=== PATIENT | male | born 1935 | race Caucasian/White ===

== ENCOUNTER → 2019-03-17 09:18 | Outpatient (BNVA) | payer MEDICARE, BC, SELFPAY | PROVIDERS: Family Provider Registered Nurse; PCP Registered Nurse | DX: I77.9 Disorder of arteries and arterioles, unspecified (principal) | CPT/HCPCS: 85610 ==

== ENCOUNTER → 2019-04-26 08:18 | Outpatient (BNVA) | payer MEDICARE, BC, SELFPAY | PROVIDERS: Family Provider Registered Nurse; PCP Registered Nurse; Visit Provider Registered Nurse | DX: I48.20 Chronic atrial fibrillation, unspecified (principal) | CPT/HCPCS: 85610 ==

== ENCOUNTER → 2019-07-25 13:11 | Outpatient (BNVA) | payer MEDICARE, BC, SELFPAY | PROVIDERS: Family Provider Registered Nurse; PCP Registered Nurse; Visit Provider Registered Nurse | DX: I48.20 Chronic atrial fibrillation, unspecified (principal) | CPT/HCPCS: 85610 ==

== ENCOUNTER → 2019-08-24 09:30 | Outpatient (BNVA) | payer MEDICARE, BC, SELFPAY | PROVIDERS: Family Provider Registered Nurse; PCP Registered Nurse; Visit Provider Registered Nurse | DX: J30.1 Allergic rhinitis due to pollen (principal); I48.20 Chronic atrial fibrillation, unspecified | CPT/HCPCS: 85610 ==

== ENCOUNTER 2019-09-14 10:45 | Outpatient (CLI) | payer MEDICARE, BC, SELFPAY ==
--- NOTE | 2019-09-14 15:30 | CT_ITS ---
WS: [id number] CT ABDOMEN PELVIS TECHNIQUE: Noncontrast CT of the abdomen and pelvis with coronal and sagittal reformatted images. CLINICAL INFORMATION: abdominal pain COMPARISON: CT 6 21,012 DLP: 1037.[address] scans at [facility] use at least one of these dose optimization techniques: automat ed exposure control; mA and/or kV adjustment per patient size (includes targeted exams where dose is matched to clinical indication); or iterative reconstruction. FINDINGS: Noncontrast liver is normal. Prior cholecystectomy. Small to moderate right pleural effusion. Michelle sive atelectasis right lung base. Left lung is well aerated. Recommend correlation for right lower lo be pneumonia. Normal GE junction. Adrenal glands are normal. Aortic calcification. Splenic artery calcification. No rmal caliber abdominal aorta. Iliac stent grafts. No renal or ureteral calculi. Calcified enlarged prostate measuring 5.1 CM. Sigmoid diverticulosis. N o evidence of acute diverticulitis. No evidence of small or large bowel obstruction. Surgical clips r ight groin. CT/CT abdomen pelvis wo con [id number] IMPRESSION: 1. Small to moderate right pleural effusion with compressive atelectasis right lower lobe partially visualized. Recommend correlation for pneumonia. This can be followed up with CT. 2. Dense vascular calcification. Normal caliber abdominal aorta. Bilateral mehran ac stents. 3. Enlarged prostate measuring 5.1 cm. Correlation PSA. 4. No evidence of small or large bowel obstruction. 5. Sigmoid diverticulosis. No evidence of acute diverticulitis. 6. No hydronephrosis. No obstructing renal or ureteral calculi.
== END 2019-09-14 10:46 | disposition home or self-care (01) ==
LOC: RADWPI 10:51
PROVIDERS: Family Provider Registered Nurse; PCP Registered Nurse; Visit Provider Registered Nurse
DX: R10.9 Unspecified abdominal pain (principal); J90 Pleural effusion, not elsewhere classified; J98.11 Atelectasis; N40.0 Benign prostatic hyperplasia without lower urinary tract symptoms; K57.30 Diverticulosis of large intestine without perforation or abscess without bleeding
CPT/HCPCS: 74176; 80053; 81000; 85025; 85610

== ENCOUNTER 2019-09-22 04:09 | Inpatient (IN) | payer MEDICARE, BC, SELFPAY ==
[2019-09-22] VITALS (16 sets, daily range): BP systolic 129–174; BP diastolic 50–68; PULSE 56–79; RESP 16–20; TEMP 36.7–37.8; O2SAT 91–99; BMI 28.8
--- NOTE | 2019-09-22 04:18 | XRR_ITS ---
PROCEDURE INFORMATION: Exam: XR Chest, 1 View Exam date and time: 09/22/2019 4:31 AM Age: 84 years old Clinical indication: Type not specified; Prior surgery; Surgery date: 6+ months; Surgery type: Pacemaker; Patient HX: C/O chest pain, cough, abd pain, nausea TECHNIQUE: Imaging protocol: XR of the chest Views: 1 view. COMPARISON: CT chest con [id number] 07/22/2018 12:39 PM FINDINGS: Lungs: moderate to large right pleural effusion with right basilar consolidation versus atelectasis. Pleural space: Unremarkable. No pleural effusion. No pneumothorax. Heart/Mediastinum: Cardiomegaly Vasculature: Pacemaker is present via a left subclavian approach. Bones/joints: Unremarkable. XR/XR chest 1V portable [id number] IMPRESSION: Moderate to large right pleural effusion with right basilar consolidation versus atelectasis.
--- NOTE | 2019-09-22 04:18 | CTR_ITS ---
PROCEDURE INFORMATION: Exam: CT Angiography Chest With Contrast Exam date and time: 09/22/2019 4:30 AM Age: 84 years old Clinical indication: Abdominal pain; Acute; Chest pain; Type not specified; Prior surgery; Surgery date: 6+ months; Surgery type: Gb/pacer; Additional info: Sob/abdominal pain TECHNIQUE: Imaging protocol: Computed tomographic angiography of the chest with intravenous contrast. 3D rendering: MIP and/or 3D reconstructed images were created by the technologist. Radiation optimization: All CT scans at this facility use at least one of these dose optimization techniques: automated exposure control; mA and/or kV adjustment per patient size (includes targeted exams where dose is matched to clinical indication); or iterative reconstruction. Contrast material: VISI 320; Contrast volume: 95 ml; Contrast route: INTRAVENOUS (IV); COMPARISON: CT abdomen pelvis wo con [id number] 09/14/2019 11:06 AM RADIATION DOSE METRICS: Total DLP (mGy-cm): 1682.41 FINDINGS: Pulmonary arteries: No pulmonary emboli identified. Aorta: Moderate atherosclerotic calcification of the thoracic aorta. No thoracic aortic aneurysm or dissection identified. Lungs: Patchy airspace consolidation in the right lung apex, right perihilar region, periphery of the right middle lobe, and periphery of the right lower lobe. This is consistent with pneumonia. The majority of the right lower lobe is collapsed. Mild patchy atelectasis scattered throughout the left upper lobe and left lower lobe. There is a cluster of tiny (0.4 cm range) nodular opacities in the left upper lobe laterally on series 3, image 201. There is a 0.6 cm nodule in the left upper lobe posteriorly on series 3, image 295. There is a 0.4 cm nodule in the left lower lobe posterolaterally on series 3, image 204. Differential diagnosis includes infectious/inflammatory nodules. Neoplasm is conceivable. Pleural space: No pneumothorax. Large right pleural effusion with loculation. Heart: Heart size within normal limits. Lymph nodes: Mediastinal lymphadenopathy is present. Sample enlarged lymph node measures 1.3 cm in the right paratracheal region on series 3, image 169. Sample enlarged left paratracheal lymph node measures 1.3 cm short axis on series 3, image 197. Sample enlarged subcarinal lymph node measures 1.6 cm short axis on series 3, image 237. Enlarged right hilar lymph node measures 1.8 cm short axis on series 3, image 239. Bones/joints: Flowing ossification anterior to the thoracic spine, consistent with diffuse idiopathic skeletal hyperostosis. Soft tissues: Unremarkable. IMPRESSION: 1. No pulmonary emboli identified. 2. Multifocal pneumonia in the right upper lobe and right lower lobe. 3. The majority of the right lower lobe is collapsed. 4. Large right pleural effusion with loculation. 5. Several left upper lobe and left lower lobe nodules as above. Differential diagnosis includes infectious/inflammatory nodules. Neoplasm is conceivable. See comment. COMMENT: For patients at low risk (minimal or absent history of smoking and of other known risk factors), no routine follow-up is indicated. For patients at high risk (history of smoking or of other known risk factors), consider optional CT at 12 months. (Babak et al., Fleischner Society, 2017) PROCEDURE INFORMATION: Exam: CT Abdomen And Pelvis With Contrast Exam date and time: 09/22/2019 4:30 AM Age: 84 years old Clinical indication: Abdominal pain; Acute; Chest pain; Type not specified; Prior surgery; Surgery date: 6+ months; Surgery type: Gb/pacer; Additional info: Sob/abdominal pain TECHNIQUE: Imaging protocol: Computed tomography of the abdomen and pelvis with intravenous contrast. Radiation optimization: All CT scans at this facility use at least one of these dose optimization techniques: automated exposure control; mA and/or kV adjustment per patient size (includes targeted exams where dose is matched to clinical indication); or iterative reconstruction. Contrast material: VISI 320; Contrast volume: 95 ml; Contrast route: INTRAVENOUS (IV); COMPARISON: CT abdomen pelvis con [id number] 09/14/2019 11:06 AM RADIATION DOSE METRICS: Total DLP (mGy-cm): 1682.41 FINDINGS: Liver: Unremarkable. Gallbladder and bile ducts: Status post cholecystectomy. Pancreas: Unremarkable. Spleen: Unremarkable. Adrenals: Unremarkable. Kidneys and ureters: There are a few subcentimeter hypodense lesions in each kidney, too small for full characterization, statistically likely to represent cysts. There is a 1.4 cm cyst in the left kidney lower pole. No imaging follow-up suggested for these findings. Stomach and bowel: No bowel obstruction identified. Diverticulosis of the sigmoid colon without evidence of diverticulitis. Appendix: A normal-appearing appendix is seen in the right lower quadrant. Intraperitoneal space: No free intraperitoneal air identified. No free intraperitoneal fluid identified. Vasculature: Extensive atherosclerotic aortoiliac calcification. No abdominal aortic aneurysm. Bilateral common iliac artery stents noted. Lymph nodes: Unremarkable. Bladder: Unremarkable as visualized. Reproductive: Unremarkable as visualized. 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 Soft tissues: Unremarkable. CT/CT angio chest w abd pel w con IMPRESSION: 1. No acute intra-abdominal/intrapelvic process identified. Nonemergent findings as above. Radiation Dose CTDIVOL = (mGy): DLP = 1682.41~1682.41 (mGy-cm)
--- NOTE | 2019-09-22 04:19 | ECG_ITS ---
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 Measurements Intervals [place] Rate: 67 P: 90 WV: 172 QRS: -88 QRSD: 172 T: 89 QT: 448 QTc: 474 Interpretive Statements ELECTRONIC VENTRICULAR PACEMAKER ABNORMAL RHYTHM ECG Compared to ECG 06/20/2018 21:36:28 No significant changes Electronically Signed On 09-22-2019 23:32:44 CDT by Llois Contreras M.D. [email or web address]
--- NOTE | 2019-09-22 04:20 | W.ED.ABDPA2 ---
Documented by User: Pallavi Hoang 09/22/19 04:21 HPI - Abdominal Pain General: Chief Complaint: Abdominal Pain Stated Complaint: abd pain/ nausea Time Seen by Provider: 09/22/19 04:17 Source: patient and EMS Mode of arrival: EMS Limitations: no limitations History of Present Illness: HPI narrative: Mr. Mendez is a nice 84-year-old male who comes in complaining of intermittent abdominal pain and nausea for the past 10 days. He describes the pain is mostly in the upper abdomen. He has been nauseated but has not vomited. He denies any diarrhea or constipation. He denies any fevers or chills. He was recently seen in his primary care's office for the same complaint was diagnosed with pneumonia. Patient states he is not coughing or short of breath. Patient denies any urinary symptoms, diarrhea or constipation. Associated Symptoms: Reports nausea; Denies chills, coffee ground emesis, constipation, GI cramping, diarrhea, dysuria, fever(s), heartburn, hematochezia, hematuria, hematemesis, melena, syncope and vomiting Review of Systems Const: Denies: fever(s), chills, body aches, fatigue, malaise or diaphoresis Eyes: Denies: change in vision, blurry vision, blind spots, photophobia, eye discharge or eye redness ENMT: Denies: throat pain, odynophagia, hoarseness, swelling of lips/tongue, oral sores, ear or mastoid pain, ear discharge, change in hearing or nasal discharge Card: Denies: chest pain, palpitations, irregular heart rhythm, edema, lightheadedness, syncope, pre-syncope, dyspnea on exertion or orthopnea Resp: Denies: dyspnea, productive cough, non-productive cough, wheezing, hemoptysis or chest congestion GI: Reports: abdominal pain and nausea; Denies: vomiting, hematemesis, coffee ground emesis, heartburn, diarrhea, constipation, GI cramping, hematochezia or melena : Denies: flank pain, dysuria, urinary frequency, urinary urgency or hematuria Musc: Denies: neck pain, back pain, extremity pain, extremity swelling, joint pain, joint swelling, joint redness, joint warmth or joint stiffness Skin/Breast: Denies: rash, pruritus, erythema, skin tenderness or jaundice Neuro: Denies: headache(s), numbness in extremities, weakness in extremities, sensory changes, lack of coordination, difficulty walking, dizziness, vertigo, confusion, Slurred speech present or seizure-like activity Jackson/Lymph: Denies: easy bruising, easy bleeding, petechiae, purpura or enlarged lymph nodes All/Imm: Denies: urticaria, throat swelling, tongue swelling, facial swelling or acute wheezing PFSH ED PFSH: Medical History (Updated 09/22/19 @ 11:34 by Marlene Floyd DO) CAD (coronary artery disease) Carotid stenosis Chronic atrial fibrillation Chronic kidney disease (CKD) COPD (chronic obstructive pulmonary disease) Diabetes mellitus Dyslipidemia Essential hypertension Peripheral arterial disease With a history of peripheral stenting Sick sinus syndrome Warfarin anticoagulation Surgical History (Updated 09/22/19 @ 11:34 by Marlene Floyd DO) H/O cataract extraction BILATERAL H/O shoulder surgery LEFT History of endarterectomy FEMORAL Hx of cholecystectomy Status post biventricular pacemaker Family History Mother Dementia Stroke Father Stroke Other Diabetes Hypertension Social History Smoking and tobacco status: former smoker Alcohol intake: never Lives independently: Yes Household members: none Marital status: / Current occupational status: retired Current gender identity: Male Physical Exam Const: COMMON NORMALS: no acute distress, patient oriented x3, no limitations, healthy appearing and well nourished GENERAL APPEARANCE: cooperative, well kempt and well developed HENMT: COMMON NORMALS: normocephalic, atraumatic, external ears normal, EAC's normal and Normal external nose present HEAD & SCALP: normal to inspection, normocephalic and atraumatic FACE & SINUS: normal facial exam and face symmetric NOSE: Normal external nose present and Normal nares present EXTERNAL EAR: Yes external ears normal EXTERNAL AUDITORY CANAL: EAC's normal MOUTH: Normal oral and palatal mucosa present, lip normal and tongue normal Eye: COMMON NORMALS: Equal, round and reactive pupils present and conjunctivae normal GENERAL EYE: appearance normal, both eyes and all related structures ALIGNMENT: Yes alignment normal PERIORBITAL: periorbital findings normal EYELID: eyelids normal CONJUNCTIVA: Yes conjunctivae normal SCLERA: sclerae normal PUPIL: Yes Equal, round and reactive pupils present Neck/C-Spine: COMMON NORMALS: full ROM, no lymphadenopathy, supple, no meningeal signs and no JVD GENERAL: Yes normal visual inspection and Yes trachea midline Chest: COMMONS NORMALS: normal inspection of the chest and normal palpation of entire chest wall Resp: COMMON NORMALS: normal respiratory effort, No retractions and No use of accessory muscles EFFORT & INSPECTION: Yes able to speak in complete sentences and Yes symmetric chest movement AUSCULTATION: no crackles, no rales, no rhonchi and no wheezes Cardio: COMMON NORMALS: no JVD, regular rate, regular rhythm, S1 normal heart sound present and S2 normal heart sound present RATE: regular rate RHYTHM: regular rhythm HEART SOUNDS: S1 normal heart sound present, S2 normal heart sound present, no click, no gallops, no murmurs, no rubs and abnormal split S2 GI: COMMON NORMALS: Soft to palpation and No hepatosplenomegaly present PALPATION: Yes Soft to palpation, Yes Tenderness to palpation present (GI) (Moderate diffusely without any rebound or guarding), No Guarding due to palpation present (GI), No Rigid due to palpation, Yes No hepatosplenomegaly present, No Hernia present, No Palpable mass present and No Pulsatile mass present : COMMON NORMALS: Yes no CVA tenderness BLADDER/KIDNEY EXAM: Yes no CVA tenderness Back/Pelvis: COMMON NORMALS: no CVA tenderness, thoracic and lumbar spine normal to inspection, no thoracic nor lumbar tenderness and thoraco-lumbar ROM normal Extremity: COMMON NORMALS: normal to inspection, full ROM, capillary refill normal, no joint enlargement, no clubbing, cyanosis or edema and no calf tenderness Neuro: COMMON NORMALS: patient oriented x3, CN's II-XII intact bilaterally, moves all extremities, no focal motor deficits and no sensory deficits noted MENINGEAL SIGNS: Yes no meningeal signs SPEECH: speech normal Psych: COMMON NORMALS: mental status grossly normal, Normal thought process present, cooperative, normal affect, speech normal and activity/motor behavior normal APPEARANCE: Yes well kempt SPEECH: Yes normal speech THOUGHT PROCESS: Normal thought process present Skin: COMMON NORMALS: no rashes or lesions noted, turgor normal, no jaundice, no petechiae and no mottling GENERAL SKIN EXAM: no rashes or lesions noted and turgor normal Course Vital Signs: Vital signs: Vital Signs Temperature 98.7 F 09/22/19 16:00 Pulse Rate 60 09/22/19 16:00 Respiratory Rate 18 09/22/19 16:00 Blood Pressure 130/65 09/22/19 16:00 Pulse Oximetry 93 09/22/19 16:00 MDM - Abdominal Pain Lab Data: Labs: Lab Results 09/22/19 09/22/19 09/22/19 Range/Units 03:33 03:33 03:33 WBC 12.4 H (4.0-10.0) 10^3/ uL RBC 4.18 (4.1-5.3) 10^6/u L Hgb 11.9 (11.7-16.6) g/dL Hct 38.6 L (42.0-52.0) % MCV 92.3 (80-94) fL MCH 28.5 (28.0-34.0) pg MCHC 30.8 (30.0-36.0) g/dL RDW 15.8 H (12.1-15.1) % Plt Count 426 H (130-400) 10^3/c mm MPV 10.3 (7.4-10.4) fL Neut % (Auto) 76.5 % Lymph % (Auto) 9.6 % [place] % (Auto) 11.5 % Eos % (Auto) 1.1 % Baso % (Auto) 0.6 % Neut # (Auto) 9.51 H (1.8-7.7) 10^3/u L Lymph # (Auto) 1.2 (0.8-4.8) 10^3/u L [place] # (Auto) 1.4 H (0.2-0.9) 10^3/u L Eos # (Auto) 0.1 (0.0-0.8) 10^3/u L Baso # (Auto) 0.1 (0.0-0.1) 10^3/u L Nucleated RBC % (a uto) 0 % Nucleated RBCs # 0.0 /100WBC PT (10.5-13.3) SECO NDS INR (0.8-1.2) Specimen Type Sample Site ABG pH (7.35-7.45) ABG pCO2 (35-45) mmHg ABG pO2 (80.0-100.0) mmH g ABG HCO3 (22-26) mmol/L ABG Base Excess (-2.0-2.0) mmol/ L Jair Test Hematocrit (42-52) % O2 Delivery Device Senior Field Engineer ID Sodium 134 L (136-145) mmol/L Potassium 4.5 (3.5-5.1) mmol/L Chloride 97 L (98-107) mmol/L Carbon Dioxide 26 (22-29) mmol/L Anion Gap 15.5 (5-19) BUN 18 (8-23) mg/dL Creatinine 1.5 H (0.7-1.2) mg/dL Glucose 157 H (65-115) mg/dL Calculated Osmolal ity 278 L (285-295) mOsm/k g Lactic Acid (0.5-2.2) mmol/L Calcium 8.6 (8.5-10.5) mg/dL Magnesium 1.8 (1.7-2.3) mg/dL Total Bilirubin 0.4 (0.15-1.2) mg/dL AST 22 (0-40) U/L ALT 15 (0-41) U/L Alkaline Phosphata se 73 (40-130) IU/L Troponin T Baselin e 20 H (0-15) ng/L Troponin T 120 Min [place] (0-15) ng/L Delta Troponin T (0-10) ABS# Total Protein 7.0 (6.6-8.7) g/dL Albumin 3.6 (3.5-5.2) g/dL Globulin 3.4 (1.3-4.6) g/dL Lipase 50 (13-60) U/L Urine Color (Yellow) Urine Appearance (CLEAR) Urine pH (5-7) Ur Specific Gravit y (1.005-1.030) Urine Protein (Negative) Urine Glucose (UA) (Normal) Urine Ketones (Negative) Urine Blood (Negative) Urine Nitrate (Negative) Urine Bilirubin (NEGATIVE) Prot Sulfosalicyli c Acd (Negative) Urine Urobilinogen (Negative) mg/dL Ur Leukocyte Justine ase (Negative) Urine RBC (0-2) /hpf Urine WBC (0-5) /hpf Ur Squamous Epith Cells (0-5) Urine Bacteria (NONE) 07/17/20 07/17/20 07/17/20 Range/Units 03:33 04:26 04:30 WBC (4.0-10.0) 10^3/ uL RBC (4.1-5.3) 10^6/u L Hgb (11.7-16.6) g/dL Hct (42.0-52.0) % MCV (80-94) fL MCH (28.0-34.0) pg MCHC (30.0-36.0) g/dL RDW (12.1-15.1) % Plt Count (130-400) 10^3/c mm MPV (7.4-10.4) fL Neut % (Auto) % Lymph % (Auto) % [place] % (Auto) % Eos % (Auto) % Baso % (Auto) % Neut # (Auto) (1.8-7.7) 10^3/u L Lymph # (Auto) (0.8-4.8) 10^3/u L [place] # (Auto) (0.2-0.9) 10^3/u L Eos # (Auto) (0.0-0.8) 10^3/u L Baso # (Auto) (0.0-0.1) 10^3/u L Nucleated RBC % (a uto) % Nucleated RBCs # /100WBC PT 34.80 H (10.5-13.3) SECO NDS INR 3.30 H (0.8-1.2) Specimen Type Arterial Sample Site Brachial, right ABG pH 7.42 (7.35-7.45) ABG pCO2 41.5 (35-45) mmHg ABG pO2 60.1 L (80.0-100.0) mmH g ABG HCO3 26.6 H (22-26) mmol/L ABG Base Excess 1.8 (-2.0-2.0) mmol/ L Jair Test N/a Hematocrit 37.9 L (42-52) % O2 Delivery Device Room air Senior Field Engineer ID harkr Sodium (136-145) mmol/L Potassium (3.5-5.1) mmol/L Chloride (98-107) mmol/L Carbon Dioxide (22-29) mmol/L Anion Gap (5-19) BUN (8-23) mg/dL Creatinine (0.7-1.2) mg/dL Glucose (65-115) mg/dL Calculated Osmolal ity (285-295) mOsm/k g Lactic Acid 0.9 (0.5-2.2) mmol/L Calcium (8.5-10.5) mg/dL Magnesium (1.7-2.3) mg/dL Total Bilirubin (0.15-1.2) mg/dL AST (0-40) U/L ALT (0-41) U/L Alkaline Phosphata se (40-130) IU/L Troponin T Baselin e (0-15) ng/L Troponin T 120 Min [place] (0-15) ng/L Delta Troponin T (0-10) ABS# Total Protein (6.6-8.7) g/dL Albumin (3.5-5.2) g/dL Globulin (1.3-4.6) g/dL Lipase (13-60) U/L Urine Color (Yellow) Urine Appearance (CLEAR) Urine pH (5-7) Ur Specific Gravit y (1.005-1.030) Urine Protein (Negative) Urine Glucose (UA) (Normal) Urine Ketones (Negative) Urine Blood (Negative) Urine Nitrate (Negative) Urine Bilirubin (NEGATIVE) Prot Sulfosalicyli c Acd (Negative) Urine Urobilinogen (Negative) mg/dL Ur Leukocyte Justine ase (Negative) Urine RBC (0-2) /hpf Urine WBC (0-5) /hpf Ur Squamous Epith Cells (0-5) Urine Bacteria (NONE) 09/22/19 09/22/19 Range/Units 04:30 06:54 WBC (4.0-10.0) 10^3/ uL RBC (4.1-5.3) 10^6/u L Hgb (11.7-16.6) g/dL Hct (42.0-52.0) % MCV (80-94) fL MCH (28.0-34.0) pg MCHC (30.0-36.0) g/dL RDW (12.1-15.1) % Plt Count (130-400) 10^3/c mm MPV (7.4-10.4) fL Neut % (Auto) % Lymph % (Auto) % [place] % (Auto) % Eos % (Auto) % Baso % (Auto) % Neut # (Auto) (1.8-7.7) 10^3/u L Lymph # (Auto) (0.8-4.8) 10^3/u L [place] # (Auto) (0.2-0.9) 10^3/u L Eos # (Auto) (0.0-0.8) 10^3/u L Baso # (Auto) (0.0-0.1) 10^3/u L Nucleated RBC % (a uto) % Nucleated RBCs # /100WBC PT (10.5-13.3) SECO NDS INR (0.8-1.2) Specimen Type Sample Site ABG pH (7.35-7.45) ABG pCO2 (35-45) mmHg ABG pO2 (80.0-100.0) mmH g ABG HCO3 (22-26) mmol/L ABG Base Excess (-2.0-2.0) mmol/ L Jair Test Hematocrit (42-52) % O2 Delivery Device Senior Field Engineer ID Sodium (136-145) mmol/L Potassium (3.5-5.1) mmol/L Chloride (98-107) mmol/L Carbon Dioxide (22-29) mmol/L Anion Gap (5-19) BUN (8-23) mg/dL Creatinine (0.7-1.2) mg/dL Glucose (65-115) mg/dL Calculated Osmolal ity (285-295) mOsm/k g Lactic Acid (0.5-2.2) mmol/L Calcium (8.5-10.5) mg/dL Magnesium (1.7-2.3) mg/dL Total Bilirubin (0.15-1.2) mg/dL AST (0-40) U/L ALT (0-41) U/L Alkaline Phosphata se (40-130) IU/L Troponin T Baselin e (0-15) ng/L Troponin T 120 Min [place] 18.49 H (0-15) ng/L Delta Troponin T -1.51 L (0-10) ABS# Total Protein (6.6-8.7) g/dL Albumin (3.5-5.2) g/dL Globulin (1.3-4.6) g/dL Lipase (13-60) U/L Urine Color Yellow (Yellow) Urine Appearance Clear (CLEAR) Urine pH 9 H (5-7) Ur Specific Gravit y 1.020 (1.005-1.030) Urine Protein Neg (Negative) Urine Glucose (UA) Norm (Normal) Urine Ketones Negative (Negative) Urine Blood Neg (Negative) Urine Nitrate Negative (Negative) Urine Bilirubin Neg (NEGATIVE) Prot Sulfosalicyli c Acd Negative (Negative) Urine Urobilinogen Norm (Negative) mg/dL Ur Leukocyte Justine ase Negative (Negative) Urine RBC 0-4 H (0-2) /hpf Urine WBC Rare (0-5) /hpf Ur Squamous Epith Cells Rare (0-5) Urine Bacteria Trace (NONE) Discharge Plan Discharge Patient Disposition: Admitted As Inpatient Admit Provider: Marlene Floyd Clinical Impression: Pleural effusion, COVID-19 virus test result unknown Pneumonia Qualifiers: Pneumonia type: due to unspecified organism Laterality: right Lung location: unspecified part of lung Qualified Code(s): J18.9 - Pneumonia, unspecified organism Condition: Stable Referrals: Lazaro Ogden FNP [Primary Care Provider] - Discharge Date/Time: 09/22/19 10:57 Coding Level of Care Code ED Manager Baby for Chg Fwd Exam Comprehensive Documented by User: Nicole Lema MD 09/22/19 20:39 HPI - Abdominal Pain General: Chief Complaint: Abdominal Pain Stated Complaint: abd pain/ nausea Time Seen by Provider: 09/22/19 04:17 PFS ED PFSH: Medical History (Updated 09/22/19 @ 11:34 by Marlene Floyd DO) CAD (coronary artery disease) Carotid stenosis Chronic atrial fibrillation Chronic kidney disease (CKD) COPD (chronic obstructive pulmonary disease) Diabetes mellitus Dyslipidemia Essential hypertension Peripheral arterial disease With a history of peripheral stenting Sick sinus syndrome Warfarin anticoagulation Surgical History (Updated 09/22/19 @ 11:34 by Marlene Floyd DO) H/O cataract extraction BILATERAL H/O shoulder surgery LEFT History of endarterectomy FEMORAL Hx of cholecystectomy Status post biventricular pacemaker Family History Mother Dementia Stroke Father Stroke Other Diabetes Hypertension Social History Smoking and tobacco status: former smoker Alcohol intake: never Lives independently: Yes Household members: none Marital status: / Current occupational status: retired Current gender identity: Male Course ED course: I assumed care of this patient at shift change from Dr. Pond. He is resting comfortably but says he continues to not feel well. His temp was 100 and I ordered some Tylenol for that. He has not had any vomiting since I assumed his care. He has a large right pleural effusion and multilobar pneumonia in the right lung. The left lung has a few nodules. He says he has not been going out anywhere and does not know of any covert exposures. He has not been tested. He was treated with 5 days of Zithromax and finish that up toward the beginning of this week he thinks. I had blood cultures as well as Rocephin and Zithromax ordered. He will be admitted to the hospital for further work-up. Vital Signs: Vital signs: Vital Signs Temperature 98.7 F 09/22/19 16:00 Pulse Rate 60 09/22/19 16:00 Respiratory Rate 18 09/22/19 16:00 Blood Pressure 130/65 09/22/19 16:00 Pulse Oximetry 93 09/22/19 16:00 MDM - Abdominal Pain Lab Data: Labs: Lab Results 09/22/19 09/22/19 09/22/19 Range/Units 03:33 03:33 03:33 WBC 12.4 H (4.0-10.0) 10^3/ uL RBC 4.18 (4.1-5.3) 10^6/u L Hgb 11.9 (11.7-16.6) g/dL Hct 38.6 L (42.0-52.0) % MCV 92.3 (80-94) fL MCH 28.5 (28.0-34.0) pg MCHC 30.8 (30.0-36.0) g/dL RDW 15.8 H (12.1-15.1) % Plt Count 426 H (130-400) 10^3/c mm MPV 10.3 (7.4-10.4) fL Neut % (Auto) 76.5 % Lymph % (Auto) 9.6 % [place] % (Auto) 11.5 % Eos % (Auto) 1.1 % Baso % (Auto) 0.6 % Neut # (Auto) 9.51 H (1.8-7.7) 10^3/u L Lymph # (Auto) 1.2 (0.8-4.8) 10^3/u L [place] # (Auto) 1.4 H (0.2-0.9) 10^3/u L Eos # (Auto) 0.1 (0.0-0.8) 10^3/u L Baso # (Auto) 0.1 (0.0-0.1) 10^3/u L Nucleated RBC % (a uto) 0 % Nucleated RBCs # 0.0 /100WBC PT (10.5-13.3) SECO NDS INR (0.8-1.2) Specimen Type Sample Site ABG pH (7.35-7.45) ABG pCO2 (35-45) mmHg ABG pO2 (80.0-100.0) mmH g ABG HCO3 (22-26) mmol/L ABG Base Excess (-2.0-2.0) mmol/ L Jair Test Hematocrit (42-52) % O2 Delivery Device Senior Field Engineer ID Sodium 134 L (136-145) mmol/L Potassium 4.5 (3.5-5.1) mmol/L Chloride 97 L (98-107) mmol/L Carbon Dioxide 26 (22-29) mmol/L Anion Gap 15.5 (5-19) BUN 18 (8-23) mg/dL Creatinine 1.5 H (0.7-1.2) mg/dL Glucose 157 H (65-115) mg/dL Calculated Osmolal ity 278 L (285-295) mOsm/k g Lactic Acid (0.5-2.2) mmol/L Calcium 8.6 (8.5-10.5) mg/dL Magnesium 1.8 (1.7-2.3) mg/dL Total Bilirubin 0.4 (0.15-1.2) mg/dL AST 22 (0-40) U/L ALT 15 (0-41) U/L Alkaline Phosphata se 73 (40-130) IU/L Troponin T Baselin e 20 H (0-15) ng/L Troponin T 120 Min [place] (0-15) ng/L Delta Troponin T (0-10) ABS# Total Protein 7.0 (6.6-8.7) g/dL Albumin 3.6 (3.5-5.2) g/dL Globulin 3.4 (1.3-4.6) g/dL Lipase 50 (13-60) U/L Urine Color (Yellow) Urine Appearance (CLEAR) Urine pH (5-7) Ur Specific Gravit y (1.005-1.030) Urine Protein (Negative) Urine Glucose (UA) (Normal) Urine Ketones (Negative) Urine Blood (Negative) Urine Nitrate (Negative) Urine Bilirubin (NEGATIVE) Prot Sulfosalicyli c Acd (Negative) Urine Urobilinogen (Negative) mg/dL Ur Leukocyte Justine ase (Negative) Urine RBC (0-2) /hpf Urine WBC (0-5) /hpf Ur Squamous Epith Cells (0-5) Urine Bacteria (NONE) 09/22/19 09/22/19 09/22/19 Range/Units 03:33 04:26 04:30 WBC (4.0-10.0) 10^3/ uL RBC (4.1-5.3) 10^6/u L Hgb (11.7-16.6) g/dL Hct (42.0-52.0) % MCV (80-94) fL MCH (28.0-34.0) pg MCHC (30.0-36.0) g/dL RDW (12.1-15.1) % Plt Count (130-400) 10^3/c mm MPV (7.4-10.4) fL Neut % (Auto) % Lymph % (Auto) % [place] % (Auto) % Eos % (Auto) % Baso % (Auto) % Neut # (Auto) (1.8-7.7) 10^3/u L Lymph # (Auto) (0.8-4.8) 10^3/u L [place] # (Auto) (0.2-0.9) 10^3/u L Eos # (Auto) (0.0-0.8) 10^3/u L Baso # (Auto) (0.0-0.1) 10^3/u L Nucleated RBC % (a uto) % Nucleated RBCs # /100WBC PT 34.80 H (10.5-13.3) SECO NDS INR 3.30 H (0.8-1.2) Specimen Type Arterial Sample Site Brachial, right ABG pH 7.42 (7.35-7.45) ABG pCO2 41.5 (35-45) mmHg ABG pO2 60.1 L (80.0-100.0) mmH g ABG HCO3 26.6 H (22-26) mmol/L ABG Base Excess 1.8 (-2.0-2.0) mmol/ L Jair Test N/a Hematocrit 37.9 L (42-52) % O2 Delivery Device Room air Senior Field Engineer ID harkr Sodium (136-145) mmol/L Potassium (3.5-5.1) mmol/L Chloride (98-107) mmol/L Carbon Dioxide (22-29) mmol/L Anion Gap (5-19) BUN (8-23) mg/dL Creatinine (0.7-1.2) mg/dL Glucose (65-115) mg/dL Calculated Osmolal ity (285-295) mOsm/k g Lactic Acid 0.9 (0.5-2.2) mmol/L Calcium (8.5-10.5) mg/dL Magnesium (1.7-2.3) mg/dL Total Bilirubin (0.15-1.2) mg/dL AST (0-40) U/L ALT (0-41) U/L Alkaline Phosphata se (40-130) IU/L Troponin T Baselin e (0-15) ng/L Troponin T 120 Min [place] (0-15) ng/L Delta Troponin T (0-10) ABS# Total Protein (6.6-8.7) g/dL Albumin (3.5-5.2) g/dL Globulin (1.3-4.6) g/dL Lipase (13-60) U/L Urine Color (Yellow) Urine Appearance (CLEAR) Urine pH (5-7) Ur Specific Gravit y (1.005-1.030) Urine Protein (Negative) Urine Glucose (UA) (Normal) Urine Ketones (Negative) Urine Blood (Negative) Urine Nitrate (Negative) Urine Bilirubin (NEGATIVE) Prot Sulfosalicyli c Acd (Negative) Urine Urobilinogen (Negative) mg/dL Ur Leukocyte Justine ase (Negative) Urine RBC (0-2) /hpf Urine WBC (0-5) /hpf Ur Squamous Epith Cells (0-5) Urine Bacteria (NONE) 09/22/19 09/22/19 Range/Units 04:30 06:54 WBC (4.0-10.0) 10^3/ uL RBC (4.1-5.3) 10^6/u L Hgb (11.7-16.6) g/dL Hct (42.0-52.0) % MCV (80-94) fL MCH (28.0-34.0) pg MCHC (30.0-36.0) g/dL RDW (12.1-15.1) % Plt Count (130-400) 10^3/c mm MPV (7.4-10.4) fL Neut % (Auto) % Lymph % (Auto) % [place] % (Auto) % Eos % (Auto) % Baso % (Auto) % Neut # (Auto) (1.8-7.7) 10^3/u L Lymph # (Auto) (0.8-4.8) 10^3/u L [place] # (Auto) (0.2-0.9) 10^3/u L Eos # (Auto) (0.0-0.8) 10^3/u L Baso # (Auto) (0.0-0.1) 10^3/u L Nucleated RBC % (a uto) % Nucleated RBCs # /100WBC PT (10.5-13.3) SECO NDS INR (0.8-1.2) Specimen Type Sample Site ABG pH (7.35-7.45) ABG pCO2 (35-45) mmHg ABG pO2 (80.0-100.0) mmH g ABG HCO3 (22-26) mmol/L ABG Base Excess (-2.0-2.0) mmol/ L Jair Test Hematocrit (42-52) % O2 Delivery Device Senior Field Engineer ID Sodium (136-145) mmol/L Potassium (3.5-5.1) mmol/L Chloride (98-107) mmol/L Carbon Dioxide (22-29) mmol/L Anion Gap (5-19) BUN (8-23) mg/dL Creatinine (0.7-1.2) mg/dL Glucose (65-115) mg/dL Calculated Osmolal ity (285-295) mOsm/k g Lactic Acid (0.5-2.2) mmol/L Calcium (8.5-10.5) mg/dL Magnesium (1.7-2.3) mg/dL Total Bilirubin (0.15-1.2) mg/dL AST (0-40) U/L ALT (0-41) U/L Alkaline Phosphata se (40-130) IU/L Troponin T Baselin e (0-15) ng/L Troponin T 120 Min [place] 18.49 H (0-15) ng/L Delta Troponin T -1.51 L (0-10) ABS# Total Protein (6.6-8.7) g/dL Albumin (3.5-5.2) g/dL Globulin (1.3-4.6) g/dL Lipase (13-60) U/L Urine Color Yellow (Yellow) Urine Appearance Clear (CLEAR) Urine pH 9 H (5-7) Ur Specific Gravit y 1.020 (1.005-1.030) Urine Protein Neg (Negative) Urine Glucose (UA) Norm (Normal) Urine Ketones Negative (Negative) Urine Blood Neg (Negative) Urine Nitrate Negative (Negative) Urine Bilirubin Neg (NEGATIVE) Prot Sulfosalicyli c Acd Negative (Negative) Urine Urobilinogen Norm (Negative) mg/dL Ur Leukocyte Justine ase Negative (Negative) Urine RBC 0-4 H (0-2) /hpf Urine WBC Rare (0-5) /hpf Ur Squamous Epith Cells Rare (0-5) Urine Bacteria Trace (NONE) Discharge Plan Discharge Patient Disposition: Admitted As Inpatient Admit Provider: Marlene Floyd Clinical Impression: Pleural effusion, COVID-19 virus test result unknown Pneumonia Qualifiers: Pneumonia type: due to unspecified organism Laterality: right Lung location: unspecified part of lung Qualified Code(s): J18.9 - Pneumonia, unspecified organism Condition: Stable Referrals: Lazaro Ogden FNP [Primary Care Provider] - Discharge Date/Time: 09/22/19 10:57 Coding Level of Care Code ED Manager Baby for Chg Fwd Exam Comprehensive
[2019-09-22 04:36] LABS: ABG PCO2 41.5 mmHg (35-45); ABG PH Result 7.42 (7.35-7.45); Arterial Blood Gas Hematocrit 37.9 % (42-52); Base Excess ABG 1.8 mmol/L (-2.0-2.0); Blood Gas Sample Site Brachial, right; Blood Gas Sample Type Arterial; HCO3 ABG 26.6 mmol/L (22-26); Oxygen Device ROOM AIR; PO2 ABG 60.1 mmHg (80.0-100.0)
[2019-09-22 04:38] LABS: Basophils # 0.1 10^3/uL (0.0-0.1); Basophils % 0.6 %; Eosinophils # 0.1 10^3/uL (0.0-0.8); Eosinophils % 1.1 %; Hematocrit 38.6 % (42.0-52.0); Hemoglobin 11.9 g/dL (11.7-16.6); Lymphocytes # 1.2 10^3/uL (0.8-4.8); Lymphocytes % 9.6 %; Mean Corpuscular HGB Conc 30.8 g/dL (30.0-36.0); Mean Corpuscular Hemoglobin 28.5 pg (28.0-34.0); Mean Corpuscular Volume 92.3 fL (80-94); Mean Platelet Volume 10.3 fL (7.4-10.4); Monocytes # 1.4 10^3/uL (0.2-0.9); Monocytes % 11.5 %; Neutrophils # 9.51 10^3/uL (1.8-7.7); Neutrophils % 76.5 %; Nucleated Red Blood Cells % 0 %; Platelet Count 426 10^3/cmm (130-400); Red Blood Count 4.18 10^6/uL (4.1-5.3); Red Cell Distribution Width 15.8 % (12.1-15.1); White Blood Count 12.4 10^3/uL (4.0-10.0)
[2019-09-22 04:53] LABS: Alanine Aminotransferase 15 U/L (0-41); Albumin Level 3.6 g/dL (3.5-5.2); Alkaline Phosphatase 73 IU/L (40-130); Anion Gap 15.5 (5-19); Aspartate Amino Transferase 22 U/L (0-40); Blood Urea Nitrogen 18 mg/dL (8-23); Calcium 8.6 mg/dL (8.5-10.5); Carbon Dioxide 26 mmol/L (22-29); Chloride 97 mmol/L (98-107); Globulin 3.4 g/dL (1.3-4.6); Glucose 157 mg/dL (65-115); Lipase 50 U/L (13-60); Magnesium 1.8 mg/dL (1.7-2.3); Osmolality Calculated 278 mOsm/kg (285-295); Potassium 4.5 mmol/L (3.5-5.1); Sodium 134 mmol/L (136-145); Total Bilirubin 0.4 mg/dL (0.15-1.2)
[2019-09-22 04:56] LABS: Troponin(5th) Baseline 20 ng/L (0-15)
[2019-09-22 05:08] LABS: Lactic Sepsis W/Reflex 0.9 mmol/L (0.5-2.2)
[2019-09-22 05:11] LABS: Bacteria Urine TRACE; Bilirubin Urine Neg (NEGATIVE); Blood Urine Neg (Negative); Glucose Urine UA Norm (Normal); Ketones Urine Negative (Negative); Leukocyte Esterase Urine Negative (Negative); Nitrate Urine Negative (Negative); Protein Urine Neg (Negative); RBC Urine 0-4 /hpf (0-2); Squamous Epithelial Cell Urine RARE (0-5); Sulfosalicylic Acid Urine Negative (Negative); Urine Appearance Clear (CLEAR); Urine Color Yellow (Yellow); Urobilinogen Urine Norm (Negative); WBC Urine RARE /hpf (0-5); pH Urine 9 (5-7)
[2019-09-22] MEDS: ondansetron 2 mg/ML SDV 2 mL 4 MG IVP (05:15)
[2019-09-22] MEDS: morphine 4 mg/mL SDV 1 mL IVP (05:15)
[2019-09-22] MEDS: iodixanol 320 mg/mL 100mL Btl IV (05:44)
--- NOTE | 2019-09-22 06:19 | ECG_ITS ---
[facility] Test Date: 2019-09-22 Pat Name: Tae Mendez Department: Room: 275 Gender: Male [employer]: : [id number] Requested By: Pallavi Harmon Order Number: [id number] Nathan MD: Lolis Contreras M.D. Measurements Intervals [place] Rate: 56 P: [place]: -1 QRS: -87 QRSD: 177 T: 79 QT: 492 QTc: 476 Interpretive Statements ELECTRONIC VENTRICULAR PACEMAKER ABNORMAL RHYTHM ECG Compared to ECG 09/22/2019 08:49:31 Atrial-paced complex(es) or rhythm no longer present Electronically Signed On 09-22-2019 23:49:26 CDT by Lolis Contreras M.D. [email or web address]
--- NOTE | 2019-09-22 07:07 | PC.NURSE ---
CHANGE OF SHIFT REPORT GIVEN TO GROVER KAUR.
[2019-09-22] MEDS: azithromycin 500 MG in sodium chloride 0.9% 250 ML 250 MG IV (07:14)
[2019-09-22] MEDS: cefTRIAXone 1,000 MG in sodium chloride 0.9% (plus) 50 ML 100 MG IV (07:14)
--- NOTE | 2019-09-22 07:16 | PC.NURSE ---
Received report , no changes noted from report. Resting with lights off. Rx started per written order
[2019-09-22 07:35] LABS: Troponin 5 2HR 18.49 ng/L (0-15)
[2019-09-22 07:38] LABS: Troponin 5 2HR Delta -1.51 ABS# (0-10)
[2019-09-22] MEDS: acetaminophen 325 mg Tablet 650 MG PO (07:52)
--- NOTE | 2019-09-22 08:15 | PC.NURSE ---
Resting with lights off. No acute distress. Continue to monitor.
--- NOTE | 2019-09-22 10:19 | ECG_ITS ---
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 Measurements Intervals [place]kins Rate: 57 P: 84 LA: 183 QRS: -56 QRSD: 165 T: 73 QT: 474 QTc: 465 Interpretive Statements ELECTRONIC ATRIAL PACEMAKER ELECTRONIC VENTRICULAR PACEMAKER ABNORMAL RHYTHM ECG Compared to ECG 09/22/2019 04:45:56 No significant changes Electronically Signed On 09-22-2019 23:48:14 CDT by Lolis Contreras M.D. [email or web address]
--- NOTE | 2019-09-22 11:29 | PM.HP ---
Providers/Chief Complaint Admitting Physician: Marlene Floyd DO Primary Care Provider: MIRIAM Garcia Chief Complaint: abd pain/ nausea History of Present Illness Tae Mendez is a 84 year old male with a past medical history of coronary artery disease, carotid stenosis, atrial fibrillation, chronic kidney disease, diabetes COPD and sick sinus syndrome that presented to the emergency department for increasing shortness of breath. Patient stated that his symptoms have been present over the past 1 week. He states that he has had increasing exertional dyspnea over the past 1 week. He denies any left-sided chest pain but does report right-sided pain in his upper abdomen and lower chest. He states that he has had a dry irritating cough that is nonproductive, no hemoptysis. He denies any fevers or chills at home. Patient states that he has been on antibiotics, azithromycin by his primary care provider. Patient denies any exposure to anyone under investigation are positive for COVID-19. Reported initially some upset stomach and nausea. Patient was seen and evaluated in the emergency department noted to have large right-sided pleural effusion with concern for pneumonia and admitted for further evaluation and treatment. Patient reports that he has had right-sided effusion several times in the past, reports never having a thoracentesis before. Review of Systems Const: Reports: change in weight (Patient reports approximately 10 pound weight loss since the beginning of the year) and malaise; Denies: fever(s) or chills Eyes: Denies: change in vision ENMT: Denies: nasal congestion Card: Reports: chest pain (Right); Denies: palpitations or edema Resp: Reports: dyspnea, non-productive cough and pain on inspiration; Denies: productive cough or hemoptysis GI: Reports: nausea; Denies: abdominal pain, vomiting, diarrhea, constipation, hematochezia or melena : Denies: dysuria or hematuria Musc: Denies: extremity pain or muscle cramps Skin/Breast: Denies: rash or new lesions Neuro: Denies: headache(s) or dizziness Psych: Denies: anxiety or depression Endo: Denies: polyuria or hot flashes Jackson/Lymph: Denies: easy bruising or easy bleeding Medications/Allergies Home Medications Medication Instructions Recorded Confirmed Last Taken Type albuterol sulfate 90 mcg/actuation 2 puff INHALATION Q6H PRN 03/07/19 09/22/19 Unknown History aerosol inhaler amlodipine 5 mg tablet 5 mg PO BID 03/07/19 09/22/19 09/21/19 History atenolol 100 mg tablet 100 mg PO QAM 03/07/19 09/22/19 09/21/19 History citalopram 40 mg tablet 20 mg PO DAILY tab 03/07/19 09/22/19 09/21/19 History clopidogrel 75 mg tablet 75 mg PO DAILY tab 03/07/19 09/22/19 09/21/19 History doxazosin 8 mg tablet 8 mg PO BEDTIME tab 03/07/19 09/22/19 09/21/19 History fenofibrate nanocrystallized 145 145 mg PO DAILY tab 03/07/19 09/22/19 09/21/19 History mg tablet finasteride 5 mg tablet 5 mg PO DAILY tab 03/07/19 09/22/19 09/21/19 History furosemide 40 mg tablet 40 mg PO QAM 03/07/19 09/22/19 09/21/19 History tramadol 50 mg tablet 50 mg PO Q12H PRN #30 tab 03/17/19 09/22/19 09/21/19 Rx insulin human U-100 NPH-regulr 1 sliding scale dose SUBCUT QAM ml 04/28/19 09/22/19 09/21/19 History 70-30 mix 100 unit/mL subcutaneous susp melatonin 3 mg capsule 3 mg PO BEDTIME cap 04/28/19 09/22/19 09/21/19 History tiotropium bromide 2.5 2 inh INHALATION QAM 04/28/19 09/22/19 09/21/19 History mcg/actuation mist for inhalation zinc 50 mg tablet 50 mg PO DAILY 04/28/19 09/22/19 09/21/19 History fluticasone propionate 50 1 spray INTRANASAL BID #16 gm 08/24/19 09/22/19 09/21/19 Rx mcg/actuation nasal spray,suspension ondansetron HCl 4 mg tablet 4 mg PO BID PRN 5 Days #10 tab 09/14/19 09/22/19 Unknown Rx Coumadin 6 mg PO DAILY 09/22/19 09/22/19 09/21/19 History Xyzal 5 mg PO BEDTIME 09/22/19 09/22/19 09/21/19 History lidocaine 1 applic TOPICAL DAILY PRN 09/22/19 09/22/19 09/21/19 History Allergies Allergy/AdvReac Type Severity Reaction Status Date / Time aspirin Allergy Mild UNKNOWN Verified 09/14/19 09:09 PFSH Acute PFSH: Medical History (Updated 09/22/19 @ 11:34 by Marlene Floyd DO) CAD (coronary artery disease) Carotid stenosis Chronic atrial fibrillation Chronic kidney disease (CKD) COPD (chronic obstructive pulmonary disease) Diabetes mellitus Dyslipidemia Essential hypertension Peripheral arterial disease With a history of peripheral stenting Sick sinus syndrome Warfarin anticoagulation Surgical History (Updated 09/22/19 @ 11:34 by Marlene Floyd DO) H/O cataract extraction BILATERAL H/O shoulder surgery LEFT History of endarterectomy FEMORAL Hx of cholecystectomy Status post biventricular pacemaker Family History Mother Dementia Stroke Father Stroke Other Diabetes Hypertension Social History Smoking and tobacco status: former smoker Alcohol intake: never Lives independently: Yes Household members: none Marital status: / Current occupational status: retired Current gender identity: Male Vitals/I&O/Wt Last Vital Signs Temp 98.1 F 09/22/19 11:00 Pulse 60 09/22/19 11:00 Resp 18 09/22/19 11:00 BP 135/63 09/22/19 11:00 Pulse Ox 91 09/22/19 11:00 Weight last 48 hrs Weight 86.183 kg Physical Exam Const: COMMON NORMALS: patient oriented x3 and alert GENERAL APPEARANCE: cooperative and ill appearing ORIENTATION/CONSCIOUSNESS: Yes awake, Yes oriented to person, Yes oriented to place and Yes oriented to time HENMT: COMMON NORMALS: normocephalic and atraumatic HEAD & SCALP: normocephalic and atraumatic Eye: COMMON NORMALS: Equal, round and reactive pupils present PUPIL: Yes Equal, round and reactive pupils present Neck/C-Spine: COMMON NORMALS: supple GENERAL: Yes normal visual inspection Resp: COMMON NORMALS: normal respiratory effort AUSCULTATION: wheezes OTHER: Diminished breath sounds in the right lung base, no appreciable wheezing or rhonchi Cardio: COMMON NORMALS: regular rate and regular rhythm RATE: regular rate RHYTHM: regular rhythm OTHER: faint systolic murmur GI: COMMON NORMALS: Soft to palpation and non-tender INSPECTION: No abdominal distension AUSCULTATION: Yes normoactive bowel sounds PALPATION: Yes Soft to palpation Extremity: COMMON NORMALS: no calf tenderness NARRATIVE EXTREMITY EXAM: Nonpitting edema in the lower extremities bilaterally Neuro: COMMON NORMALS: patient oriented x3, CN's II-XII intact bilaterally, moves all extremities and no focal motor deficits SENSORIUM/ORIENTATION: Yes alert, Yes oriented to person, Yes oriented to place and Yes oriented to time SPEECH: speech normal Psych: COMMON NORMALS: mental status grossly normal and cooperative Skin: COMMON NORMALS: no rashes or lesions noted GENERAL SKIN EXAM: no rashes or lesions noted Data : 09/22/19 03:33 09/22/19 03:[address]: I personally reviewed and interpreted this imaging study as follows: Radiologist's impression: IMPRESSION: 1. No pulmonary emboli identified. 2. Multifocal pneumonia in the right upper lobe and right lower lobe. 3. The majority of the right lower lobe is collapsed. 4. Large right pleural effusion with loculation. 5. Several left upper lobe and left lower lobe nodules as above. Differential diagnosis includes infectious/inflammatory nodules. Neoplasm is conceivable. See comment. COMMENT: For patients at low risk (minimal or absent history of smoking and of other known risk factors), no routine follow-up is indicated. For patients at high risk (history of smoking or of other known risk factors), consider optional CT at 12 months. (Babak et al., Fleischner Society, 2017) PROCEDURE INFORMATION: Exam: CT Abdomen And Pelvis With Contrast Exam date and time: 09/22/2019 4:30 AM Age: 84 years old Clinical indication: Abdominal pain; Acute; Chest pain; Type not specified; Prior surgery; Surgery date: 6+ months; Surgery type: Gb/pacer; Additional info: Sob/abdominal pain TECHNIQUE: Imaging protocol: Computed tomography of the abdomen and pelvis with intravenous contrast. Radiation optimization: All CT scans at this facility use at least one of these dose optimization techniques: automated exposure control; mA and/or kV adjustment per patient size (includes targeted exams where dose is matched to clinical indication); or iterative reconstruction. Contrast material: VISI 320; Contrast volume: 95 ml; Contrast route: INTRAVENOUS (IV); COMPARISON: CT abdomen pelvis wo con [id number] 09/14/2019 11:06 AM RADIATION DOSE METRICS: Total DLP (mGy-cm): 1682.41 FINDINGS: Liver: Unremarkable. Gallbladder and bile ducts: Status post cholecystectomy. Pancreas: Unremarkable. Spleen: Unremarkable. Adrenals: Unremarkable. Kidneys and ureters: There are a few subcentimeter hypodense lesions in each kidney, too small for full characterization, statistically likely to represent cysts. There is a 1.4 cm cyst in the left kidney lower pole. No imaging follow-up suggested for these findings. Stomach and bowel: No bowel obstruction identified. Diverticulosis of the sigmoid colon without evidence of diverticulitis. Appendix: A normal-appearing appendix is seen in the right lower quadrant. Intraperitoneal space: No free intraperitoneal air identified. No free intraperitoneal fluid identified. Vasculature: Extensive atherosclerotic aortoiliac calcification. No abdominal aortic aneurysm. Bilateral common iliac artery stents noted. Lymph nodes: Unremarkable. Bladder: Unremarkable as visualized. Reproductive: Unremarkable as visualized. 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 Soft tissues: Unremarkable. CT/CT angio chest w abd pel w con IMPRESSION: 1. No acute intra-abdominal/intrapelvic process identified. Nonemergent findings as above. CXR: I personally reviewed and interpreted this imaging study as follows: Radiologist's impression: FINDINGS: Lungs: moderate to large right pleural effusion with right basilar consolidation versus atelectasis. Pleural space: Unremarkable. No pleural effusion. No pneumothorax. Heart/Mediastinum: Cardiomegaly Vasculature: Pacemaker is present via a left subclavian approach. Bones/joints: Unremarkable. XR/XR chest 1V portable [id number] IMPRESSION: Moderate to large right pleural effusion with right basilar consolidation versus atelectasis. A&P Assessment and plan (1) Pneumonia: We will go ahead and treat with broad-spectrum antibiotics due to large right lower lobe consolidation and large right-sided pleural effusion Sputum culture Blood culture Had previously been on azithromycin, started on Levaquin 750 mg daily, also started on vancomycin due to concern for large effusion, will further evaluate with thoracentesis whenever INR decreases and coumadin on hold for this reason Status: Acute Qualifiers: Laterality: right Lung location: unspecified part of lung Pneumonia type: due to unspecified organism Qualified Code(s): J18.9 - Pneumonia, unspecified organism (2) Pleural effusion: Large right-sided pleural effusion, will treat with IV diuresis and IV antibiotics Discussed with patient and he reports that this is chronic in nature, has appeared to be increasing in size since prior imaging Diuresis but will patient will likely require thoracentesis, holding Coumadin today with the possibility of thoracentesis tomorrow or the following day depending on INR. Will need diagnostic thoracentesis, patient has pulmonary nodules that have been chronic in nature but cannot rule out underlying malignancy. Patient may require chest tube placement due to loculations, will follow-up and continue with close monitoring Status: Acute (3) COVID-19 virus test result unknown: Due to respiratory symptoms patient had been tested for COVID-19 while in the ED, this remains pending therefore he will remain on contact and isolation precautions Status: Acute (4) Chronic kidney disease (CKD): Baseline creatinine around 1.5, at baseline at this time we will continue to monitor renal function closely due to diuresis for CHF as noted above Status: Acute (5) Status post biventricular pacemaker: Sick sinus syndrome, remains in paced rhythm Status: Acute (6) Sick sinus syndrome: Sick sinus syndrome remains in paced rhythm Status: Acute (7) Chronic atrial fibrillation: Currently in paced rhythm, continue on atenolol, anticoagulation on hold because patient will likely require thoracentesis and supratherapeutic INR at 3.3 Status: Acute (8) Dyslipidemia: Status: Acute (9) Diabetes mellitus: Placed on sliding scale insulin as needed Reported nausea therefore will hold off on long-acting insulin at this time and start on clear liquid diet, increase insulin requirements as indicated Status: Acute (10) Essential hypertension: We will continue with diuresis Lasix IV daily, holding amlodipine 5 mg twice a day at this time due to anticipated diuresis and do not wish for patient's blood pressures to go too low. Status: Acute (11) Carotid stenosis: Status: Acute (12) CAD (coronary artery disease): Patient has aspirin allergy, not on statin Continue on atenolol Echocardiogram ordered and pending Status: Acute (13) Warfarin anticoagulation: Supratherapeutic INR at 3.3, holding Coumadin for thoracentesis Status: Acute Additional A&P Information DVT prophylaxis: SCDs, no pharmacologic prophylaxis as patient has supratherapeutic INR and anticipate need for diagnostic thoracentesis Diet: Clear liquid diet, gradually increase as tolerated CODE STATUS: Full code, discussed with patient on admission to the hospital Attestations Medical Necessity Statement*: Patient requires hospitalization due to large right-sided pleural effusion with concern for pneumonia Coding Level of Care Code Acute Carving Machine Operator for g Fwd Exam Comprehensive Diagnoses Pneumonia J18.9 Laterality: right Lung location: unspecified part of lung Pneumonia type: due to unspecified organism Pleural effusion J90 COVID-19 virus test result unknown Chronic kidney disease (CKD) N18.9 Status post biventricular pacemaker Z95.0 Sick sinus syndrome I49.5 Chronic atrial fibrillation I48.20 Dyslipidemia E78.5 Diabetes mellitus E11.9 Essential hypertension I10 Carotid stenosis I65.29 CAD (coronary artery disease) I25.10 Warfarin anticoagulation Z79.01
[2019-09-22 12:25] LABS: Troponin 5 6HR 18.59 ng/L (0-15)
[2019-09-22 13:19] LABS: Lactic Sepsis W/Reflex 1.2 mmol/L (0.5-2.2)
[2019-09-22] MEDS: levofloxacin-dextrose 5 % 750 MG/150 ML PREMIX 100 MG IV (13:19)
[2019-09-22] MEDS: potassium chloride ER 10 mEq Tablet 20 MEQ PO (13:19)
[2019-09-22] MEDS: finasteride 5 mg Tablet PO (13:20)
[2019-09-22] MEDS: citalopram 20 mg Tablet PO (13:20)
[2019-09-22 13:25] LABS: Thyroid Stimulating Hormone 1.47 uIU/mL (0.27-4.20)
[2019-09-22 13:37] LABS: Glucose Point of Care 209 mg/dL (70-110)
[2019-09-22] MEDS: FUROsemide 10 mg/mL SDV 4mL 40 MG IVP (13:47)
[2019-09-22] MEDS: albuterol 8 gm MDI 2 PUFF INHALATION ×2 (14:17→22:13)
[2019-09-22] MEDS: docusate sodium 100 mg Capsule PO (18:25)
[2019-09-22] MEDS: HYDROcodone-acetaminophen 5-325 mg Tablet 1 TAB PO (18:35)
[2019-09-22 18:36] LABS: Glucose Point of Care 174 mg/dL (70-110)
[2019-09-22] MEDS: doxazosin 4 mg Tablet 8 MG PO (23:05)
[2019-09-23] VITALS (12 sets, daily range): BP systolic 118–162; BP diastolic 54–72; PULSE 50–75; RESP 16–22; TEMP 36.5–37.2; O2SAT 92–97; BMI 28.5
[2019-09-23 01:24] LABS: Glucose Point of Care 174 mg/dL (70-110)
[2019-09-23] MEDS: atenolol 50 mg Tablet 100 MG PO (05:42)
--- NOTE | 2019-09-23 06:00 | XRR_ITS ---
PROCEDURE INFORMATION: Exam: XR Chest, 2 Views Exam date and time: 09/23/2019 7:58 AM Age: 84 years old Clinical indication: Condition or disease; Lung condition and disease; Pneumonia; Additional info: Pneumonia, pleural effusion TECHNIQUE: Imaging protocol: XR of the chest Views: 2 views. COMPARISON: CR XR chest 1V portable [id number] 09/22/2019 4:35 AM FINDINGS: Tubes, catheters and devices: Atrioventricular pacemaker. Lungs: Emphysematous change, interstitial prominence, and asymmetric right-sided airspace disease. Pleural space: Right pleural effusions with combined loculated and dependent components. Mild left pleural thickening. Heart/Mediastinum: No cardiomegaly. Vasculature: Calcification of the thoracic aorta. Bones/joints: Degenerative change. When correlating with the previous study, no significant interval changes are present, allowing for differences in inflation and positioning. XR/XR chest 2V* [id number] IMPRESSION: Stable appearance of the chest with asymmetric right-sided airspace/pleural disease.
[2019-09-23 06:49] LABS: Glucose Point of Care 167 mg/dL (70-110)
[2019-09-23 07:04] LABS: Basophils # 0.1 10^3/uL (0.0-0.1); Basophils % 0.4 %; Eosinophils # 0.1 10^3/uL (0.0-0.8); Eosinophils % 0.4 %; Hematocrit 38.6 % (42.0-52.0); Hemoglobin 11.7 g/dL (11.7-16.6); Lymphocytes # 0.9 10^3/uL (0.8-4.8); Lymphocytes % 5.7 %; Mean Corpuscular HGB Conc 30.3 g/dL (30.0-36.0); Mean Corpuscular Hemoglobin 28.3 pg (28.0-34.0); Mean Corpuscular Volume 93.2 fL (80-94); Monocytes # 1.9 10^3/uL (0.2-0.9); Monocytes % 11.9 %; Neutrophils # 12.88 10^3/uL (1.8-7.7); Neutrophils % 80.9 %; Nucleated Red Blood Cells % 0 %; Platelet Count 373 10^3/cmm (130-400); Red Blood Count 4.14 10^6/uL (4.1-5.3); Red Cell Distribution Width 15.6 % (12.1-15.1); White Blood Count 15.9 10^3/uL (4.0-10.0)
[2019-09-23 07:16] LABS: INR 3.52 (0.8-1.2)
[2019-09-23 07:29] LABS: Anion Gap 12.8 (5-19); Blood Urea Nitrogen 14 mg/dL (8-23); Calcium 8.5 mg/dL (8.5-10.5); Carbon Dioxide 28 mmol/L (22-29); Chloride 97 mmol/L (98-107); Glucose 183 mg/dL (65-115); Osmolality Calculated 277 mOsm/kg (285-295); Potassium 4.8 mmol/L (3.5-5.1); Sodium 133 mmol/L (136-145)
[2019-09-23] MEDS: potassium chloride ER 10 mEq Tablet 20 MEQ PO (08:17)
[2019-09-23] MEDS: finasteride 5 mg Tablet PO (08:17)
[2019-09-23] MEDS: citalopram 20 mg Tablet PO (08:17)
[2019-09-23] MEDS: docusate sodium 100 mg Capsule PO (08:17)
[2019-09-23] MEDS: albuterol 8 gm MDI 2 PUFF INHALATION ×2 (09:30→15:37)
--- NOTE | 2019-09-23 10:02 | PC.CHAP ---
Pastoral Care Encounter/Spiritual Assessment Type of Contact [] Declined charter pilot visit [] Patient/Family/Request visit [] Outpatient visit [] Follow-up visit [] Physician referral [] Code/Alert [] Routine visit [] Staff referral [] Actively dying [] Patient sleeping [] Family support [] [] Out of room [] Palliative care [] [] Receiving care in room [] Pre-surgical visit [] Trauma [] Long length of stay [] ICU visit [X] Other:COVID PT. SKIPPED VISIT PER DIRECTIVE Relational/Emotional Strength [] Patient feels connected with others/family/visitors/staff [] Distress [] Loneliness/isolation [] Abandonment Spirituality of Patient [] Person of [place] [] Attends Restorationism of their [place] [] Believes in Prayer [] Reads Bible or Christian materials [] There are Spiritual issues to be addressed Human Factors Ergonomist Interventions [] Prayer [] Active listening [] Non-anxious presence [] Spiritual/emotional support [] Crisis/trauma care [] Spiritual counseling [] Bereavement support [] Provided bereavement packet [] Provided Bible/devotional materials [] Provided toy/stuffed animal, coloring book to patient or family member [] Provided Communion [] Anointing/[place] [] Salvation [] Completed spiritual assessment [] Other: Impact on Illness or Injury [] Angry [] Fearful [] Anxious [] Often cries [] Exhaustion [] Unable to work [] Unable to attend cheondoism [] Unable to walk/stand [] Unable to read [] Unable to drive [] Unable to eat/drink [] Unable to sleep [] Unable to be with family [] Patient intubated [] Other: Summary Time spent with patient
[2019-09-23] MEDS: HYDROcodone-acetaminophen 5-325 mg Tablet 1 TAB PO ×3 (10:35→23:54)
--- NOTE | 2019-09-23 11:43 | P.PN_ITS ---
Subjective Subjective: Interval history: Mr. Mendez was awake in bed at time of exam this morning. He reported continued R sided chest pain that radiated into his R back and abdomen. He stated that his breathing was improved but shallow. Discussed the need for fluid removal from his R chest and possible chest tube. He verbalized understanding and agreed with plan, but explained that would need to wait for INR to decrease less than 2 prior to this since his respiratory status is stable and this effusion has likely developed over time. Vitals/I&O/Wt Last Vital Signs Temp 97.7 F 09/23/19 08:00 Pulse 54 L 09/23/19 09:50 Resp 17 09/23/19 09:45 BP 149/72 09/23/19 08:00 Pulse Ox 92 09/23/19 09:45 09/22/19 09/23/19 09/23/19 22:59 06:59 14:59 Intake Total 200 / 200 500 / 700 Output Total 575 / 575 Balance 200 / 200 -75 / 125 Weight last 48 hrs Weight 85.275 kg Weight 86.183 kg Physical Exam Const: COMMON NORMALS: patient oriented x3 and alert GENERAL APPEARANCE: cooperative ORIENTATION/CONSCIOUSNESS: Yes awake, Yes oriented to person, Yes oriented to place and Yes oriented to time HENMT: COMMON NORMALS: normocephalic and atraumatic HEAD & SCALP: normocephalic and atraumatic Eye: COMMON NORMALS: Equal, round and reactive pupils present PUPIL: Yes Equal, round and reactive pupils present Neck/C-Spine: COMMON NORMALS: supple GENERAL: Yes normal visual inspection Resp: COMMON NORMALS: normal respiratory effort AUSCULTATION: wheezes OTHER: Diminished breath sounds in the right lung, no appreciable wheezing or rhonchi Cardio: COMMON NORMALS: regular rate and regular rhythm RATE: regular rate RHYTHM: regular rhythm OTHER: faint systolic murmur GI: COMMON NORMALS: Soft to palpation and non-tender INSPECTION: No abdominal distension AUSCULTATION: Yes normoactive bowel sounds PALPATION: Yes Soft to palpation Extremity: COMMON NORMALS: no calf tenderness NARRATIVE EXTREMITY EXAM: Nonpitting edema in the lower extremities bilaterally Neuro: COMMON NORMALS: patient oriented x3, CN's II-XII intact bilaterally, moves all extremities and no focal motor deficits SENSORIUM/ORIENTATION: Yes alert, Yes oriented to person, Yes oriented to place and Yes oriented to time SPEECH: speech normal Psych: COMMON NORMALS: mental status grossly normal and cooperative Skin: COMMON NORMALS: no rashes or lesions noted GENERAL SKIN EXAM: no rashes or lesions noted Data : 09/23/19 06:25 09/23/19 06:25 A&P Assessment and plan (1) Pneumonia: RLL consolidation with concern for large pleural effusion. Appears chronic in nature and partially loculated. Called nitric acid plant operator and no availability of cardiothoracic surgery at this time. Will continue Vancomycin and Start Zosyn and continue broad spectrum antibiotic coverage. Patient may require chest tube placement vs thoracentesis. Waiting for INR to decrease since respiratory status is stable and effusion has been present for quite some time Sputum culture Blood culture Status: Acute Qualifiers: Laterality: right Lung location: unspecified part of lung Pneumonia type: due to unspecified organism Qualified Code(s): J18.9 - Pneumonia, unspecified organism (2) Pleural effusion: Large right-sided pleural effusion, will treat with IV diuresis and IV antibiotics Thoracentesis vs may require chest tube placement Plan as above Status: Acute (3) COVID-19 virus test result unknown: Due to respiratory symptoms patient had been tested for COVID-19 while in the ED, this remains pending therefore he will remain on contact and isolation precautions Status: Acute (4) Chronic kidney disease (CKD): Baseline creatinine around 1.5, at baseline at this time we will continue to monitor renal function closely due to diuresis for CHF as noted above Status: Acute (5) Status post biventricular pacemaker: Sick sinus syndrome, remains in paced rhythm Status: Acute (6) Sick sinus syndrome: Sick sinus syndrome remains in paced rhythm Status: Acute (7) Chronic atrial fibrillation: Currently in paced rhythm, continue on atenolol, anticoagulation on hold because patient will likely require thoracentesis and supratherapeutic INR at 3.5 Status: Acute (8) Dyslipidemia: Status: Acute (9) Diabetes mellitus: Placed on sliding scale insulin as needed INcreased diet today, start lantus as needed if glucose increases with increased appetite Status: Acute (10) Essential hypertension: We will continue with diuresis Lasix IV daily, holding amlodipine 5 mg twice a day at this time due to anticipated diuresis and do not wish for patient's blood pressures to go too low. Status: Acute (11) Carotid stenosis: Status: Acute (12) CAD (coronary artery disease): Patient has aspirin allergy, not on statin will start Continue on atenolol Echocardiogram ordered Status: Acute (13) Warfarin anticoagulation: Supratherapeutic INR at 3.5, holding Coumadin for thoracentesis Status: Acute Additional A&P Information DVT prophylaxis: SCDs, no pharmacologic prophylaxis as patient has supratherapeutic INR and anticipate need for diagnostic thoracentesis Diet: Increase to carbohydrate consistent diet CODE STATUS: Full code, discussed with patient on admission to the hospital Attestations Medical Necessity Statement*: Patient requires further hospitalization due to R pleural effusion with loculation and concern for pneumonia Coding Level of Care Code Acute String Studies Director for [facility] Fwd Diagnoses Pneumonia J18.9 Laterality: right Lung location: unspecified part of lung Pneumonia type: due to unspecified organism Pleural effusion J90 COVID-19 virus test result unknown Chronic kidney disease (CKD) N18.9 Status post biventricular pacemaker Z95.0 Sick sinus syndrome I49.5 Chronic atrial fibrillation I48.20 Dyslipidemia E78.5 Diabetes mellitus E11.9 Essential hypertension I10 Carotid stenosis I65.29 CAD (coronary artery disease) I25.10 Warfarin anticoagulation Z79.01
[2019-09-23 11:44] LABS: Glucose Point of Care 183 mg/dL (70-110)
[2019-09-23] MEDS: FUROsemide 10 mg/mL SDV 4mL 40 MG IVP (15:51)
[2019-09-23 17:36] LABS: Glucose Point of Care 234 mg/dL (70-110)
[2019-09-23] MEDS: piperacillin-tazobactam 3.375 GM in sodium chloride 0.9% (plus) 50 ML IV ×2 (17:53→22:40)
[2019-09-23 18:38] LABS: Coronavirus Lab Test PTC SEE REPORT
[2019-09-23 20:41] LABS: Glucose Point of Care 253 mg/dL (70-110)
[2019-09-23] MEDS: insulin glargine 100 units/1 mL 10 UNIT SUBCUT (22:40)
[2019-09-23] MEDS: doxazosin 4 mg Tablet 8 MG PO (22:40)
[2019-09-23] MEDS: atorvastatin 40 mg Tablet PO (22:40)
[2019-09-24] VITALS (8 sets, daily range): BP systolic 128–166; BP diastolic 53–88; PULSE 51–82; RESP 18; TEMP 36.4–37.2; O2SAT 90–96
[2019-09-24 04:49] LABS: Basophils # 0.1 10^3/uL (0.0-0.1); Basophils % 0.3 %; Eosinophils # 0.1 10^3/uL (0.0-0.8); Eosinophils % 0.9 %; Hematocrit 34.5 % (42.0-52.0); Hemoglobin 10.5 g/dL (11.7-16.6); Lymphocytes # 1.2 10^3/uL (0.8-4.8); Lymphocytes % 7.4 %; Mean Corpuscular HGB Conc 30.4 g/dL (30.0-36.0); Mean Corpuscular Hemoglobin 28.5 pg (28.0-34.0); Mean Corpuscular Volume 93.8 fL (80-94); Mean Platelet Volume 10.2 fL (7.4-10.4); Monocytes # 1.7 10^3/uL (0.2-0.9); Monocytes % 10.5 %; Neutrophils # 12.88 10^3/uL (1.8-7.7); Neutrophils % 80.1 %; Nucleated Red Blood Cells % 0 %; Platelet Count 303 10^3/cmm (130-400); Red Blood Count 3.68 10^6/uL (4.1-5.3); Red Cell Distribution Width 15.6 % (12.1-15.1); White Blood Count 16.1 10^3/uL (4.0-10.0)
[2019-09-24 04:54] LABS: INR 2.86 (0.8-1.2)
[2019-09-24 05:06] LABS: Alanine Aminotransferase 11 U/L (0-41); Alkaline Phosphatase 66 IU/L (40-130); Anion Gap 13.4 (5-19); Aspartate Amino Transferase 14 U/L (0-40); Blood Urea Nitrogen 27 mg/dL (8-23); Calcium 8.4 mg/dL (8.5-10.5); Carbon Dioxide 28 mmol/L (22-29); Chloride 97 mmol/L (98-107); Globulin 3.9 g/dL (1.3-4.6); Glucose 183 mg/dL (65-115); Osmolality Calculated 278 mOsm/kg (285-295); Potassium 5.4 mmol/L (3.5-5.1); Sodium 133 mmol/L (136-145); Total Bilirubin 0.5 mg/dL (0.15-1.2); Total Protein 6.9 g/dL (6.6-8.7)
[2019-09-24] MEDS: piperacillin-tazobactam 3.375 GM in sodium chloride 0.9% (plus) 50 ML IV ×3 (05:45→20:09)
--- NOTE | 2019-09-24 05:45 | PC.NURSE ---
did not give atenolol this AM d/t pt pulse rate of 51bpm.
[2019-09-24 06:38] LABS: Glucose Point of Care 176 mg/dL (70-110)
[2019-09-24] MEDS: albuterol 8 gm MDI 2 PUFF INHALATION (09:03)
[2019-09-24] MEDS: HYDROcodone-acetaminophen 5-325 mg Tablet 1 TAB PO ×3 (09:10→20:10)
[2019-09-24] MEDS: potassium chloride ER 10 mEq Tablet 20 MEQ PO (09:10)
[2019-09-24] MEDS: finasteride 5 mg Tablet PO (09:10)
[2019-09-24] MEDS: citalopram 20 mg Tablet PO (09:10)
[2019-09-24] MEDS: docusate sodium 100 mg Capsule PO ×2 (09:11→18:31)
[2019-09-24 12:26] LABS: Glucose Point of Care 228 mg/dL (70-110)
--- NOTE | 2019-09-24 12:43 | USCV_ITS ---
Tae Mendez Age: 84 Gender: M : 1935 Exam Date: 09/24/2019 08:40 Ordering Phys: Marlene Floyd DO Technologist: Marisol Montague Exam Location: [facility] [place]_ Indication: CHF BP: 131 / 55 HR: 59 Rhythm: Technical Quality: Suboptimal MEASUREMENTS (Male / Female) Normal Values 2D ECHO LV Diastolic Diameter PLAX 4.8 cm 4.2 - 5.9 / 3.9 - 5.3 cm LV Systolic Diameter PLAX 3.0 cm LV Chamber Size 4.9 cm IVS Diastolic Thickness 1.7 cm 0.6 - 1.0 / 0.6 - 0.9 cm IVS Systolic Thickness 1.9 cm LVPW Diastolic Thickness 1.2 cm 0.6 - 1.0 / 0.6 - 0.9 cm LVPW Systolic Thickness 1.8 cm RV Chamber Size 3.7 cm LVOT Diameter 2.0 cm LV Ejection Fraction 2D Teich 67.0 % LV Ejection Fraction MOD 2C 71.9 % LV Ejection Fraction 2C AL 73.1 % LA Diameter 4.5 cm LA Width 3.7 cm LA Height 5.7 cm RA Width 3.1 cm RA Height 6.1 cm Aorta at Sinotubular Diameter 2.1 cm M-MODE LV Diastolic Diameter MM 4.9 cm 4.2 - 5.9 / 3.9 - 5.3 cm LV Systolic Diameter MM 2.7 cm LV Ejection Fraction MM Teich 76.1 % IVS Diastolic Thickness MM 1.5 cm 0.6 - 1.0 / 0.6 - 0.9 cm IVS Systolic Thickness MM 2.1 cm LVPW Diastolic Thickness MM 1.3 cm 0.6 - 1.0 / 0.6 - 0.9 cm LVPW Systolic Thickness MM 1.9 cm RV Diastolic Diameter MM 2.9 cm Aortic Annulus Diameter 3.8 cm LA Ao Ratio MM 1.2 MV E Point Septal Separation 0.6 cm DOPPLER AV Peak Velocity 227.0 cm/s LVOT Peak Velocity 116.0 cm/s AV Area Cont Eq vti 2.1 cm squared AV Area Cont Eq pk 1.7 cm squared MV Area PHT 5.0 cm squared Mitral E to A Ratio 2.8 MV E' Velocity 13.0 cm/s Mitral E to MV E' Ratio 11.8 Mitral E to LV E' Lateral Ratio 10.3 Mitral E to LV E' Septal Ratio 13.9 TR Peak Velocity 343.0 cm/s TR Peak Gradient 47.2 mmHg TV Peak E Velocity 103.0 cm/s Right Atrial Pressure 8.0 mmHg Pulmonary Artery Systolic Pressu 55.1 mmHg PV Peak Velocity 73.0 cm/s RV Acceleration Time 0.1 s RV Ejection Time 0.3 s RV AcT/ET 0.2 FINDINGS Left Ventricle Normal left ventricular cavity size. Normal left ventricular systolic function. Normal left ventricular cavity size. Left ventricular ejection fraction is estimated at 55 %. Grade III/IV diastolic dysfunction (restrictive filling pattern), severely elevated filling pressures. Right Ventricle Normal right ventricular size. Normal right ventricular systolic pressure. Catheter/pacemaker wire visualized in the right ventricle. Severe pulmonary hypertension, RVSP 55.1 mmHg. Right Atrium Normal right atrial size. Catheter/pacemaker wire in the right atrial cavity. Left Atrium Moderately increased left atrial size. Mitral Valve Severely thickened mitral valve. There appeared to be restricted posterior mitral valve.severe mitral annular calcification. Mild mitral valve regurgitation. Aortic Valve Severe aortic valve calcification. Moderate aortic valve stenosis, mean gradient 10.6 mmHg, FREDDIE 2.1 cm squared. Tricuspid Valve Moderate tricuspid valve regurgitation. Pulmonic Valve Structurally normal pulmonic valve without significant stenosis. There is no pulmonic regurgitation. Pericardium Normal pericardium without effusion. Aorta Normal ascending aorta dimension. CONCLUSIONS 1-Normal left ventricular cavity size. Normal left ventricular systolic function. Normal left ventricular cavity size. Left ventricular ejection fraction is estimated at 55 %. Grade III/IV diastolic dysfunction (restrictive filling pattern), severely elevated filling pressures. 2-Normal right ventricular size. Normal right ventricular systolic pressure. Catheter/pacemaker wire visualized in the right ventricle. Severe pulmonary hypertension, RVSP 55.1 mmHg. 3-Normal right atrial size. Catheter/pacemaker wire in the right atrial cavity. 4-Moderately increased left atrial size. 5-Severely thickened mitral valve. There appeared to be restricted posterior mitral valve.severe mitral annular calcification. Mild mitral valve regurgitation. 6-Severe aortic valve calcification. Moderate aortic valve stenosis, mean gradient 10.6 mmHg, FREDDIE 2.1 cm squared. 7-Moderate tricuspid valve regurgitation. 8-There is no pericardial effusion. 9-Right atrial pressure is around 20 mm of mercury. 10-When compared to the prior echocardiogram dated 05/27/2018 there is improvement in pulmonary arterial pressure from 62 to 55 mmHg Rosalio Yun MD (Electronically Signed) Final Date: 24 September 2019 15:23 S
[2019-09-24] MEDS: FUROsemide 10 mg/mL SDV 4mL 40 MG IVP (12:52)
--- NOTE | 2019-09-24 16:16 | P.PN_ITS ---
Subjective Subjective: Interval history: feels much improved today. Pain better, 02 sat 95% on 2lpm NC . INR 2.8 Medications: Reviewed: Yes Vitals/I&O/Wt Last Vital Signs Temp 98.1 F 09/24/19 11:57 Pulse 53 L 09/24/19 11:57 Resp 18 09/24/19 11:57 BP 132/53 09/24/19 11:57 Pulse Ox 95 09/24/19 11:57 09/24/19 09/24/19 09/24/19 06:59 14:59 22:59 Intake Total 50 / 1260 170 / 170 Balance 50 / 660 170 / 170 Weight last 48 hrs Weight 87.713 kg Weight 85.275 kg Physical Exam Narrative: EXAM NARRATIVE: GEN: Awake, alert and oriented, no acute distress CVS: S1S2 N RS: CTA B/L except crackles over RUL Abd: Soft, nt/nd , bs+ SERVICE SECRETARY: no focal neuro deficits Data : 09/24/19 04:08 09/24/19 04:08 A&P Assessment and plan (1) Pneumonia: RLL consolidation with concern for large pleural effusion. Appears chronic in nature and partially loculated. Called furnace operator oil or gas and no availability of cardiothoracic surgery at this time. Will continue Vancomycin and Start Zosyn and continue broad spectrum antibiotic coverage. Patient may require chest tube placement vs thoracentesis. Waiting for INR to decrease since respiratory status is stable and effusion has been present for quite some time Sputum culture urine bacterial antigen and legionella antigen Blood culture Status: Acute Qualifiers: Laterality: right Lung location: unspecified part of lung Pneumonia type: due to unspecified organism Qualified Code(s): J18.9 - Pneumonia, unspeci fied organism (2) Pleural effusion: Large right-sided pleural effusion, will treat with IV diuresis and IV antibiotics Thoracentesis vs may require chest tube placement Plan as above Status: Acute (3) COVID-19 virus test result unknown: Due to respiratory symptoms patient had been tested for COVID-19 while in the ED, this remains pending therefore he will remain on contact and isolation precautions Status: Acute (4) Chronic kidney disease (CKD): Baseline creatinine around 1.5, at baseline at this time we will continue to monitor renal function closely due to diuresis for CHF as noted above Status: Acute (5) Status post biventricular pacemaker: Sick sinus syndrome, remains in paced rhythm Status: Acute (6) Sick sinus syndrome: Sick sinus syndrome remains in paced rhythm Status: Acute (7) Chronic atrial fibrillation: Currently in paced rhythm, continue on atenolol, anticoagulation on hold because patient will likely require thoracentesis and supratherapeutic INR at 3.5 Status: Acute (8) Dyslipidemia: Status: Acute (9) Diabetes mellitus: Placed on sliding scale insulin as needed INcreased diet today, start lantus as needed if glucose increases with increased appetite Status: Acute (10) Essential hypertension: We will continue with diuresis Lasix IV daily, holding amlodipine 5 mg twice a day at this time due to anticipated diuresis and do not wish for patient's blood pressures to go too low. Status: Acute (11) Carotid stenosis: Status: Acute (12) CAD (coronary artery disease): Patient has aspirin allergy, not on statin will start Continue on atenolol Echocardiogram ordered Status: Acute (13) Warfarin anticoagulation: Supratherapeutic INR at 3.5, holding Coumadin for thoracentesis Status: Acute Additional A&P Information DVT prophylaxis: SCDs, no pharmacologic prophylaxis as patient has supratherapeutic INR and anticipate need for diagnostic thoracentesis Diet: Increase to carbohydrate consistent diet CODE STATUS: Full code, discussed with patient on admission to the hospital Attestations Medical Necessity Statement*: Patient requires hospitalization due to large right-sided pleural effusion with concern for pneumonia Coding Level of Care Code Acute Parts Manager for [facility] Fwd Diagnoses Pneumonia J18.9 Laterality: right Lung location: unspecified part of lung Pneumonia type: due to unspecified organism Pleural effusion J90 COVID-19 virus test result unknown Chronic kidney disease (CKD) N18.9 Status post biventricular pacemaker Z95.0 Sick sinus syndrome I49.5 Chronic atrial fibrillation I48.20 Dyslipidemia E78.5 Diabetes mellitus E11.9 Essential hypertension I10 Carotid stenosis I65.29 CAD (coronary artery disease) I25.10 Warfarin anticoagulation Z79.01
[2019-09-24 17:02] LABS: Glucose Point of Care 235 mg/dL (70-110)
[2019-09-24 18:01] LABS: Vancomycin Trough 6.8 ug/mL (10-15)
[2019-09-24] MEDS: doxazosin 4 mg Tablet 8 MG PO (20:09)
[2019-09-24] MEDS: atorvastatin 40 mg Tablet PO (20:09)
[2019-09-24] MEDS: insulin glargine 100 units/1 mL 10 UNIT SUBCUT (21:54)
[2019-09-24 21:55] LABS: Glucose Point of Care 150 mg/dL (70-110)
[2019-09-25] VITALS (9 sets, daily range): BP systolic 138–179; BP diastolic 54–78; PULSE 50–84; RESP 18–20; TEMP 36.4–37.2; O2SAT 86–98
[2019-09-25 04:25] LABS: Basophils # 0.1 10^3/uL (0.0-0.1); Basophils % 0.4 %; Eosinophils # 0.2 10^3/uL (0.0-0.8); Eosinophils % 1.5 %; Hematocrit 31.5 % (42.0-52.0); Hemoglobin 9.8 g/dL (11.7-16.6); Lymphocytes # 1.1 10^3/uL (0.8-4.8); Lymphocytes % 7.4 %; Mean Corpuscular HGB Conc 31.1 g/dL (30.0-36.0); Mean Corpuscular Hemoglobin 29.3 pg (28.0-34.0); Mean Platelet Volume 10.5 fL (7.4-10.4); Monocytes # 1.5 10^3/uL (0.2-0.9); Monocytes % 10.6 %; Neutrophils # 11.37 10^3/uL (1.8-7.7); Neutrophils % 79.5 %; Nucleated Red Blood Cells % 0 %; Platelet Count 343 10^3/cmm (130-400); Red Blood Count 3.35 10^6/uL (4.1-5.3); Red Cell Distribution Width 15.4 % (12.1-15.1); White Blood Count 14.3 10^3/uL (4.0-10.0)
[2019-09-25 04:29] LABS: INR 2.15 (0.8-1.2)
[2019-09-25 04:50] LABS: Anion Gap 12.6 (5-19); Blood Urea Nitrogen 36 mg/dL (8-23); Calcium 8.3 mg/dL (8.5-10.5); Carbon Dioxide 29 mmol/L (22-29); Chloride 96 mmol/L (98-107); Glucose 159 mg/dL (65-115); Osmolality Calculated 277 mOsm/kg (285-295); Potassium 4.6 mmol/L (3.5-5.1); Sodium 133 mmol/L (136-145)
[2019-09-25] MEDS: piperacillin-tazobactam 3.375 GM in sodium chloride 0.9% (plus) 50 ML IV ×3 (05:37→23:30)
[2019-09-25 06:31] LABS: Glucose Point of Care 159 mg/dL (70-110)
[2019-09-25] MEDS: citalopram 20 mg Tablet PO (07:40)
[2019-09-25] MEDS: docusate sodium 100 mg Capsule PO ×2 (07:40→17:11)
[2019-09-25] MEDS: finasteride 5 mg Tablet PO (07:40)
[2019-09-25] MEDS: HYDROcodone-acetaminophen 5-325 mg Tablet 1 TAB PO ×2 (09:01→19:38)
--- NOTE | 2019-09-25 09:15 | PC.SOCIAL ---
IMM Page 2 of IMM explained to patient. Initialed, dated, and timed and placed in chart. Copy provided to patient.
[2019-09-25 10:49] LABS: Glucose Point of Care 218 mg/dL (70-110)
[2019-09-25] MEDS: FUROsemide 10 mg/mL SDV 4mL 40 MG IVP (12:08)
[2019-09-25 16:30] LABS: Glucose Point of Care 268 mg/dL (70-110)
--- NOTE | 2019-09-25 16:38 | PC.RESP ---
Pulmonary Rehab information sent to patient.
[2019-09-25] MEDS: atorvastatin 40 mg Tablet PO (19:37)
[2019-09-25] MEDS: doxazosin 4 mg Tablet 8 MG PO (19:38)
[2019-09-25] MEDS: albuterol 8 gm MDI 2 PUFF INHALATION (19:45)
[2019-09-25 20:41] LABS: Glucose Point of Care 209 mg/dL (70-110)
[2019-09-25] MEDS: insulin glargine 100 units/1 mL 10 UNIT SUBCUT (21:02)
--- NOTE | 2019-09-25 22:44 | P.PN_ITS ---
Subjective Subjective: Interval history: no acute overnight events, remains afebrile, hemodynamically stable , thoracentesis could not be perfromed today as INR needs to be ~1.5 per IR Medications: Reviewed: Yes Vitals/I&O/Wt Last Vital Signs Temp 99.0 F 09/25/19 20:00 Pulse 67 09/25/19 20:00 Resp 18 09/25/19 20:00 BP 179/76 09/25/19 20:00 Pulse Ox 94 09/25/19 20:00 09/25/19 09/25/19 09/25/19 06:59 14:59 22:59 Intake Total 50 / 270 890 / 890 730 / 1620 Output Total 1400 / 1400 Balance 50 / -160 890 / 890 -670 / 220 Weight last 48 hrs Weight 89.131 kg Weight 87.713 kg Physical Exam Narrative: EXAM NARRATIVE: GEN: Awake, alert and oriented, no acute distress CVS: S1S2 N RS: CTA B/L Abd: Soft, nt/nd , bs+ TOWBOAT ENGINEER: no focal neuro deficits Data : 09/25/19 03:54 09/25/19 03:54 Micro: Microbiology 09/24/19 17:18 MRSA Culture - Final Nose 09/24/19 22:30 Bacterial Antigens - Final Urine,Voided 09/24/19 22:30 Legionella Urinary Antigen - Final Urine,Clean Catch 09/22/19 23:48 Blood Culture - Preliminary Blood SPECIMEN COLLECTED 09/22/19 23:46 Blood Culture - Preliminary Blood SPECIMEN COLLECTED A&P Assessment and plan (1) Pneumonia: Continue broad-spectrum antibiotics due to large right lower lobe consolidation and large right-sided pleural effusion Sputum culture pending Blood culture negative to date Had previously been on azithromycin, started on Levaquin 750 mg daily, also started on vancomycin due to concern for large effusion, will further evaluate with thoracentesis whenever INR decreases and coumadin on hold for this reason. Thoracentesis deferred today as INR not at ~1.5 yet Status: Acute Qualifiers: Laterality: right Lung location: unspecified part of lung Pneumonia type: due to unspecified organism Qualified Code(s): J18.9 - Pneumonia, unspecified organism (2) Pleural effusion: Large right-sided pleural effusion, will treat with IV diuresis and IV antibiotics Discussed with patient and he reports that this is chronic in nature, has appeared to be increasing in size since prior imaging Diuresis but will patient will likely require thoracentesis, holding Coumadin today with the possibility of thoracentesis tomorrow or the following day depending on INR. Will need diagnostic thoracentesis, patient has pulmonary nodules that have been chronic in nature but cannot rule out underlying malignancy. Patient may require chest tube placement due to loculations, will follow-up and continue with close monitoring Status: Acute (3) COVID-19 virus test result unknown: Due to respiratory symptoms patient had been tested for COVID-19 while in the ED, this remains pending therefore he will remain on contact and isolation precautions Status: Acute (4) Chronic kidney disease (CKD): Baseline creatinine around 1.5, at baseline at this time we will continue to monitor renal function closely due to diuresis for CHF as noted above Status: Acute (5) Status post biventricular pacemaker: Sick sinus syndrome, remains in paced rhythm Status: Acute (6) Sick sinus syndrome: Sick sinus syndrome remains in paced rhythm Status: Acute (7) Chronic atrial fibrillation: Currently in paced rhythm, continue on atenolol, anticoagulation on hold because patient will likely require thoracentesis and supratherapeutic INR at 3.3 Status: Acute (8) Dyslipidemia: Status: Acute (9) Diabetes mellitus: Placed on sliding scale insulin as needed Reported nausea therefore will hold off on long-acting insulin at this time and start on clear liquid diet, increase insulin requirements as indicated Status: Acute (10) Essential hypertension: We will continue with diuresis Lasix IV daily, holding amlodipine 5 mg twice a day at this time due to anticipated diuresis and do not wish for patient's blood pressures to go too low. Status: Acute (11) Carotid stenosis: Status: Acute (12) CAD (coronary artery disease): Patient has aspirin allergy, not on statin Continue on atenolol Echocardiogram ordered and pending Status: Acute (13) Warfarin anticoagulation: Supratherapeutic INR at 3.3, holding Coumadin for thoracentesis Status: Acute Additional A&P Information DVT prophylaxis: SCDs, no pharmacologic prophylaxis as patient has supratherapeutic INR and anticipate need for diagnostic thoracentesis Diet: Increase to carbohydrate consistent diet CODE STATUS: Full code, discussed with patient on admission to the hospital Attestations Medical Necessity Statement*: planned thoracentesis, ongoing need for abx Coding Level of Care Code Acute Disability Program Navigator for [facility] Fwd Diagnoses Pneumonia J18.9 Laterality: right Lung location: unspecified part of lung Pneumonia type: due to unspecified organism Pleural effusion J90 COVID-19 virus test result unknown Chronic kidney disease (CKD) N18.9 Status post biventricular pacemaker Z95.0 Sick sinus syndrome I49.5 Chronic atrial fibrillation I48.20 Dyslipidemia E78.5 Diabetes mellitus E11.9 Essential hypertension I10 Carotid stenosis I65.29 CAD (coronary artery disease) I25.10 Warfarin anticoagulation Z79.01
[2019-09-26] VITALS (11 sets, daily range): BP systolic 138–181; BP diastolic 61–84; PULSE 59–81; RESP 18–22; TEMP 36.4–37; O2SAT 2–97
--- NOTE | 2019-09-26 05:00 | US_ITS ---
WS: [id number] ULTRASOUND-GUIDED THORACENTESIS, RIGHT side, therapeutic and diagnostic. HISTORY: R pleural effusion with diagnostic studies Procedure, risks, and complications were explained to the patient. With the patient in an upright pos ition, the skin over the RIGHT posterior thorax was cleansed with ChloraPrep and anesthetized with 1% buffered lidocaine. A 5 Telugu Yueh needle is inserted into the pleural fluid without complication. Approximately 500 cc of tea colored pleural fluid is removed without difficulty. The pleural fluid is very thick septations. The needle was readjusted twice in order to obtain more f luid. There is an additional soft tissue like mass noted more centrally. / thoracentesis [id number] IMPRESSION: 1. RIGHT thoracentesis yielding 500 cc of fluid. 2. Moderate amount of remaining pleural fluid is very thickened septated. 3. Chest radiograph to follow to evaluate for pneumothorax. 4. Specimen collected and sent for analysis as requested.
[2019-09-26 05:25] LABS: Basophils # 0.1 10^3/uL (0.0-0.1); Basophils % 0.6 %; Eosinophils # 0.2 10^3/uL (0.0-0.8); Eosinophils % 1.4 %; Hematocrit 34.2 % (42.0-52.0); Hemoglobin 10.5 g/dL (11.7-16.6); Lymphocytes # 1.1 10^3/uL (0.8-4.8); Mean Corpuscular HGB Conc 30.7 g/dL (30.0-36.0); Mean Corpuscular Hemoglobin 28.4 pg (28.0-34.0); Mean Corpuscular Volume 92.4 fL (80-94); Mean Platelet Volume 10.3 fL (7.4-10.4); Monocytes # 1.5 10^3/uL (0.2-0.9); Monocytes % 12.9 %; Neutrophils % 75.7 %; Nucleated Red Blood Cells % 0 %; Platelet Count 386 10^3/cmm (130-400); Red Cell Distribution Width 15.2 % (12.1-15.1); White Blood Count 11.6 10^3/uL (4.0-10.0)
[2019-09-26 05:45] LABS: INR 1.58 (0.8-1.2)
[2019-09-26 06:01] LABS: Alanine Aminotransferase 31 U/L (0-41); Albumin Level 2.9 g/dL (3.5-5.2); Alkaline Phosphatase 119 IU/L (40-130); Anion Gap 12.4 (5-19); Aspartate Amino Transferase 60 U/L (0-40); Blood Urea Nitrogen 28 mg/dL (8-23); Carbon Dioxide 29 mmol/L (22-29); Chloride 97 mmol/L (98-107); Globulin 4.3 g/dL (1.3-4.6); Glucose 167 mg/dL (65-115); Osmolality Calculated 279 mOsm/kg (285-295); Potassium 4.4 mmol/L (3.5-5.1); Sodium 134 mmol/L (136-145); Total Bilirubin 0.7 mg/dL (0.15-1.2); Total Protein 7.2 g/dL (6.6-8.7)
[2019-09-26 06:21] LABS: Glucose Point of Care 180 mg/dL (70-110)
[2019-09-26 06:39] LABS: Vancomycin Trough 10.5 ug/mL (10-15)
[2019-09-26] MEDS: piperacillin-tazobactam 3.375 GM in sodium chloride 0.9% (plus) 50 ML IV ×4 (08:03→23:20)
[2019-09-26] MEDS: citalopram 20 mg Tablet PO (08:04)
[2019-09-26] MEDS: finasteride 5 mg Tablet PO (08:04)
[2019-09-26] MEDS: potassium chloride ER 10 mEq Tablet 20 MEQ PO (08:04)
[2019-09-26] MEDS: docusate sodium 100 mg Capsule PO (08:04)
[2019-09-26] MEDS: albuterol 8 gm MDI 2 PUFF INHALATION ×2 (10:28→15:50)
[2019-09-26 10:54] LABS: Glucose Point of Care 280 mg/dL (70-110)
[2019-09-26] MEDS: HYDROcodone-acetaminophen 5-325 mg Tablet 1 TAB PO (11:12)
--- NOTE | 2019-09-26 11:12 | PC.NURSE ---
patient requested pain medication, i returned with pain med and patient is sleeping. I awakened patient and he voiced pain in right abd and rated it at a 6. Medication administered. BUD, GALE
[2019-09-26] MEDS: FUROsemide 10 mg/mL SDV 4mL 40 MG IVP (11:21)
--- NOTE | 2019-09-26 14:57 | XR_ITS ---
WS: [id number] PORTABLE CHEST HISTORY: sob, status post RIGHT thoracentesis. COMPARISON: 09/23/2019 Status post RIGHT thoracentesis. There is probably a tiny RIGHT apical pneumothorax. This may be a Ma ch line related to the change in density between the ribs and the lung. Continued loculated RIGHT pleural effusion despite the thoracentesis. Increased consolidation central ly. LEFT lung is clear. Cardiac size: Mildly enlarged cardiac silhouette. Mediastinum/Aorta: Mild atherosclerosis aorta. No osseous abnormality seen. Notified Deidra, patient's nurse at 3:38 PM. XR/XR chest 1V portable [id number] IMPRESSION: 1. Status post RIGHT thoracentesis. 2. Indeterminate for very tiny RIGHT apical pneumothorax. 3. Loculated RIGHT pleural effusion is moderate.
[2019-09-26 16:35] LABS: Glucose Point of Care 203 mg/dL (70-110)
--- NOTE | 2019-09-26 17:43 | P.PN_ITS ---
Subjective Subjective: Interval history: Patient presented with nausea and some abdominal discomfort which improved. He was found to have right sided pleural effusion and underwent thoracentesis with 450 mL of fluid removed. Reports that he had pleural effusion for very long period of time. He had colonoscopy 7 years ago and was told it was normal. Patient reports that in 1997 there was some concern for malignancy but everything improved after antibiotic treatment. His CT scan shows pulmonary nodules as well as mediastinal and hilar lymphadenopathy and pneumonia. Patient quit smoking in the mid Vitals/I&O/Wt Last Vital Signs Temp 98.3 F 09/26/19 15:40 Pulse 59 L 09/26/19 15:57 Resp 18 09/26/19 15:57 BP 140/61 09/26/19 15:40 Pulse Ox 97 09/26/19 15:57 09/26/19 09/26/19 09/26/19 06:59 14:59 22:59 Intake Total 50 / 1720 650 / 650 Output Total 600 / 2000 500 / 500 Balance -550 / -280 150 / 150 Weight last 48 hrs Weight 89.131 kg Physical Exam Const: COMMON NORMALS: no acute distress and patient oriented x3 Resp: COMMON NORMALS: normal respiratory effort OTHER: Bibasilar Rales with decreased air movement especially in the right base Cardio: COMMON NORMALS: regular rate, regular rhythm and S2 normal heart sound present RATE: regular rate RHYTHM: regular rhythm HEART SOUNDS: S2 normal heart sound present OTHER: Trace -1+ lower extremity edema with right slightly more than left. Pacemaker noted on the left. GI: COMMON NORMALS: Normal to inspection, nondistended, normoactive bowel sounds present, Soft to palpation and non-tender PALPATION: Yes Soft to palpation Neuro: COMMON NORMALS: patient oriented x3 and no focal motor deficits Data : 09/26/19 04:09 09/26/19 04:09 Micro: Microbiology 09/22/19 23:48 Blood Culture - Preliminary Blood NEGATIVE TO DATE 09/22/19 23:46 Blood Culture - Preliminary Blood NEGATIVE TO DATE 09/24/19 17:18 MRSA Culture - Final Nose A&P Assessment and plan (1) Pneumonia: Multilobar involving right upper and lower lobe. Continue broad-spectrum antibiotics due to large right lower lobe consolidation and large right-sided pleural effusion Sputum culture pending Blood culture negative to date Had previously been on azithromycin, started on Levaquin 750 mg daily, also started on vancomycin due to concern for large effusion, will further evaluate with thoracentesis whenever INR decreases and coumadin on hold for this reason. Thoracentesis deferred today as INR not at ~1.5 yet Status: Acute Qualifiers: Laterality: right Lung location: unspecified part of lung Pneumonia type: due to unspecified organism Qualified Code(s): J18.9 - Pneumonia, unspecified organism (2) Pleural effusion: Large right-sided pleural effusion, will treat with IV diuresis and IV antibiotics Discussed with patient and he reports that this is chronic in nature, has appeared to be increasing in size since prior imaging Diuresis but will patient will likely require thoracentesis, holding Coumadin today with the possibility of thoracentesis tomorrow or the following day depending on INR. Will need diagnostic thoracentesis, patient has pulmonary nodules that have been chronic in nature but cannot rule out underlying malignancy. Patient may require chest tube placement due to loculations, will follow-up and continue with close monitoring Status: Acute (3) COVID-19 virus test result unknown: Due to respiratory symptoms patient had been tested for COVID-19 while in the ED, this remains pending therefore he will remain on contact and isolation precautions Status: Acute (4) Chronic kidney disease (CKD): Baseline creatinine around 1.5, at baseline at this time we will continue to monitor renal function closely due to diuresis for CHF as noted above Status: Acute (5) Status post biventricular pacemaker: Sick sinus syndrome, remains in paced rhythm Status: Acute (6) Sick sinus syndrome: Sick sinus syndrome remains in paced rhythm Status: Acute (7) Chronic atrial fibrillation: Currently in paced rhythm, continue on atenolol, anticoagulation on hold because patient will likely require thoracentesis and supratherapeutic INR at 3.3 Status: Acute (8) Dyslipidemia: Status: Acute (9) Diabetes mellitus: Placed on sliding scale insulin as needed Reported nausea therefore will hold off on long-acting insulin at this time and start on clear liquid diet, increase insulin requirements as indicated Status: Acute (10) Essential hypertension: We will continue with diuresis Lasix IV daily, holding amlodipine 5 mg twice a day at this time due to anticipated diuresis and do not wish for patient's blood pressures to go too low. Status: Acute (11) Carotid stenosis: Status: Acute (12) CAD (coronary artery disease): Patient has aspirin allergy, not on statin Continue on atenolol Echocardiogram ordered and pending Status: Acute (13) Warfarin anticoagulation: Supratherapeutic INR at 3.3, holding Coumadin for thoracentesis Status: Acute (14) Acute respiratory failure with hypoxia: Present on admission. Status: Acute (15) Acute on chronic diastolic heart failure: Most likely present on admission. Status: Acute Additional A&P Information PLAN: Discussed with patient regarding possible etiologies of his nodules and pleural fluid with malignancy being potentially 1 of them. Patient reports that he wants to be rather aggressive in further evaluation and wants to know if he has malignancy or not. He does not feel strong enough to be dismissed home today. We will try discussing case with Dr. Tran and Dr. Brower. I think it would be reasonable to continue with antibiotics and reimage in several weeks for evaluation prior to attempting mediastinoscopy. We will continue current monitoring and treatment and order fluid analysis including cytology although notoriously it is been a low yield. He is currently saturating 95% on 2 L by nasal cannula. Patient did not use oxygen at home. We will continue Lasix and antibiotics. DVT prophylaxis: SCDs, no pharmacologic prophylaxis as patient has supratherapeutic INR and anticipate need for diagnostic thoracentesis Diet: Increase to carbohydrate consistent diet CODE STATUS: Full code, discussed with patient on admission to the hospital Attestations Medical Necessity Statement*: Patient with multilobar pneumonia and hypoxia requires close inpatient monitoring and treatment. Time Spent in Patient Care: Greater than 35 minutes Coding Level of Care Code Acute Field Auto Appraiser for g Fwd Exam Detailed Diagnoses Pneumonia J18.9 Laterality: right Lung location: unspecified part of lung Pneumonia type: due to unspecified organism Pleural effusion J90 COVID-19 virus test result unknown Chronic kidney disease (CKD) N18.9 Status post biventricular pacemaker Z95.0 Sick sinus syndrome I49.5 Chronic atrial fibrillation I48.20 Dyslipidemia E78.5 Diabetes mellitus E11.9 Essential hypertension I10 Carotid stenosis I65.29 CAD (coronary artery disease) I25.10 Warfarin anticoagulation Z79.01 Acute respiratory failure with hypoxia J96.01 Acute on chronic diastolic heart failure I50.33
[2019-09-26 18:56] LABS: Mononuclear %, Pleural Fluid 44 %; Mononuclear, Pleural Fluid # 0.204 10^3/uL; Polynuclear Cells, Pleural # 0.257 10^3/uL; Polynuclear Cells, Pleural % 56 %
[2019-09-26 19:23] LABS: Appearance, Pleural Fluid CLOUDY (CLEAR); Color, Pleural Fluid Other (Pale Yellow); PATH Referral YES; Right Pleural Fluid Right Lung; Total Protein Pleural Fluid 3.6 g/dL
[2019-09-26 19:24] LABS: LDH Pleural Fluid 189 U/L; PATH Referal YES
[2019-09-26] MEDS: doxazosin 4 mg Tablet 8 MG PO (20:48)
[2019-09-26] MEDS: atorvastatin 40 mg Tablet PO (20:48)
[2019-09-26] MEDS: insulin glargine 100 units/1 mL 10 UNIT SUBCUT (20:49)
[2019-09-26 21:04] LABS: Glucose Point of Care 214 mg/dL (70-110)
[2019-09-27] VITALS (12 sets, daily range): BP systolic 157–185; BP diastolic 68–79; PULSE 58–68; RESP 16–20; TEMP 36.6–36.8; O2SAT 94–98
[2019-09-27 06:41] LABS: Glucose Point of Care 163 mg/dL (70-110)
[2019-09-27] MEDS: ondansetron 2 mg/ML SDV 2 mL 4 MG IVP ×2 (07:32→12:03)
[2019-09-27] MEDS: albuterol 8 gm MDI 2 PUFF INHALATION ×3 (08:01→20:55)
[2019-09-27] MEDS: citalopram 20 mg Tablet PO (08:02)
[2019-09-27] MEDS: finasteride 5 mg Tablet PO (08:02)
[2019-09-27] MEDS: potassium chloride ER 10 mEq Tablet 20 MEQ PO (08:02)
--- NOTE | 2019-09-27 09:15 | DCPLANNER ---
Pg 2 of IM updated and reviewed with pt. He allows that when tells him that it's time to go - he'll go. Copy provided.
[2019-09-27 11:32] LABS: Glucose Point of Care 232 mg/dL (70-110)
[2019-09-27] MEDS: FUROsemide 10 mg/mL SDV 4mL 40 MG IVP (11:53)
--- NOTE | 2019-09-27 12:23 | PM.PN ---
Subjective Subjective: Interval history: Patient reports that he is not doing well this morning. Reports being nauseous. Reports that he had hard stool but without evidence of melena or hematochezia. He had diarrheal bowel movement yesterday and refused laxative today. Reports left lower quadrant discomfort. Denies chest pain or shortness of breath. Medications: Reviewed: Yes Vitals/I&O/Wt Last Vital Signs Temp 97.8 F 09/27/19 11:01 Pulse 59 L 09/27/19 11:01 Resp 16 09/27/19 11:01 BP 171/70 09/27/19 11:01 Pulse Ox 98 09/27/19 11:01 09/26/19 09/27/19 09/27/19 22:59 06:59 14:59 Intake Total 410 / 1060 1.042 / 1061.042 960 / 960 Output Total 250 / 750 300 / 1050 400 / 400 Balance 160 / 310 -298.958 / 11.042 560 / 560 Weight last 48 hrs Weight 90.038 kg Physical Exam Const: COMMON NORMALS: no acute distress and patient oriented x3 Resp: COMMON NORMALS: normal respiratory effort OTHER: Bibasilar Rales with decreased air movement especially in the right base Cardio: COMMON NORMALS: regular rate, regular rhythm and S2 normal heart sound present RATE: regular rate RHYTHM: regular rhythm HEART SOUNDS: S2 normal heart sound present OTHER: Trace lower extremity edema with right slightly more than left. Pacemaker noted on the left. GI: COMMON NORMALS: Soft to palpation and non-tender PALPATION: Yes Soft to palpation OTHER: Slightly tender at left lower quadrant Neuro: COMMON NORMALS: patient oriented x3 and no focal motor deficits Data : 09/26/19 04:09 09/26/19 04:09 A&P Assessment and plan (1) Pneumonia: Multilobar involving right upper and lower lobe. Continue broad-spectrum antibiotics due to large right lower lobe consolidation and large right-sided pleural effusion Sputum culture pending Blood culture negative to date Had previously been on azithromycin, started on Levaquin 750 mg daily, also started on vancomycin due to concern for large effusion, will further evaluate with thoracentesis whenever INR decreases and coumadin on hold for this reason. Thoracentesis deferred today as INR not at ~1.5 yet Status: Acute Qualifiers: Laterality: right Lung location: unspecified part of lung Pneumonia type: due to unspecified organism Qualified Code(s): J18.9 - Pneumonia, unspecified organism (2) Pleural effusion: Large right-sided pleural effusion, will treat with IV diuresis and IV antibiotics Discussed with patient and he reports that this is chronic in nature, has appeared to be increasing in size since prior imaging Diuresis but will patient will likely require thoracentesis, holding Coumadin today with the possibility of thoracentesis tomorrow or the following day depending on INR. Will need diagnostic thoracentesis, patient has pulmonary nodules that have been chronic in nature but cannot rule out underlying malignancy. Patient may require chest tube placement due to loculations, will follow-up and continue with close monitoring Status: Acute (3) COVID-19 virus test result unknown: Due to respiratory symptoms patient had been tested for COVID-19 while in the ED, this remains pending therefore he will remain on contact and isolation precautions Status: Acute (4) Chronic kidney disease (CKD): Baseline creatinine around 1.5, at baseline at this time we will continue to monitor renal function closely due to diuresis for CHF as noted above Status: Acute (5) Status post biventricular pacemaker: Sick sinus syndrome, remains in paced rhythm Status: Acute (6) Sick sinus syndrome: Sick sinus syndrome remains in paced rhythm Status: Acute (7) Chronic atrial fibrillation: Currently in paced rhythm, continue on atenolol, anticoagulation on hold because patient will likely require thoracentesis and supratherapeutic INR at 3.3 Status: Acute (8) Dyslipidemia: Status: Acute (9) Diabetes mellitus: Placed on sliding scale insulin as needed Reported nausea therefore will hold off on long-acting insulin at this time and start on clear liquid diet, increase insulin requirements as indicated Status: Acute (10) Essential hypertension: We will continue with diuresis Lasix IV daily, holding amlodipine 5 mg twice a day at this time due to anticipated diuresis and do not wish for patient's blood pressures to go too low. Status: Acute (11) Carotid stenosis: Status: Acute (12) CAD (coronary artery disease): Patient has aspirin allergy, not on statin Continue on atenolol Echocardiogram ordered and pending Status: Acute (13) Warfarin anticoagulation: Supratherapeutic INR at 3.3, holding Coumadin for thoracentesis Status: Acute (14) Acute respiratory failure with hypoxia: Present on admission. Status: Acute (15) Acute on chronic diastolic heart failure: Most likely present on admission. Status: Acute Additional A&P Information PLAN: Will proceed with colon prep and colonoscopy. We will hold Lasix for now. DVT prophylaxis: SCDs, no pharmacologic prophylaxis as patient has supratherapeutic INR and anticipate need for diagnostic thoracentesis Diet: Increase to carbohydrate consistent diet CODE STATUS: Full code, discussed with patient on admission to the hospital Attestations Medical Necessity Statement*: Patient with abdominal pain and nausea and concern for metastatic cancer requires close inpatient monitoring, treatment and evaluation. Time Spent in Patient Care: 16 - 35 minutes Coding Level of Care Code Acute Certified Technician Specialist for g Fwd Diagnoses Pneumonia J18.9 Laterality: right Lung location: unspecified part of lung Pneumonia type: due to unspecified organism Pleural effusion J90 COVID-19 virus test result unknown Chronic kidney disease (CKD) N18.9 Status post biventricular pacemaker Z95.0 Sick sinus syndrome I49.5 Chronic atrial fibrillation I48.20 Dyslipidemia E78.5 Diabetes mellitus E11.9 Essential hypertension I10 Carotid stenosis I65.29 CAD (coronary artery disease) I25.10 Warfarin anticoagulation Z79.01 Acute respiratory failure with hypoxia J96.01 Acute on chronic diastolic heart failure I50.33
[2019-09-27] MEDS: warfarin 3 mg Tablet 6 MG PO (14:14)
[2019-09-27] MEDS: piperacillin-tazobactam 3.375 GM in sodium chloride 0.9% (plus) 50 ML IV ×2 (15:57→23:46)
[2019-09-27] MEDS: docusate sodium 100 mg Capsule PO (15:57)
[2019-09-27 16:08] LABS: Glucose Point of Care 217 mg/dL (70-110)
[2019-09-27] MEDS: acetaminophen 325 mg Tablet 650 MG PO (17:24)
[2019-09-27] MEDS: magnesium citrate Btl 296 mL PO ×2 (17:55→20:02)
[2019-09-27] MEDS: bisacodyl 5 mg Tablet 10 MG PO (19:53)
[2019-09-27] MEDS: atorvastatin 40 mg Tablet PO (20:01)
[2019-09-27] MEDS: doxazosin 4 mg Tablet 8 MG PO (20:01)
[2019-09-27] MEDS: insulin glargine 100 units/1 mL 10 UNIT SUBCUT (20:04)
[2019-09-27 20:47] LABS: Glucose Point of Care 181 mg/dL (70-110)
[2019-09-28] VITALS (7 sets, daily range): BP systolic 147–177; BP diastolic 61–81; PULSE 61–71; RESP 16–20; TEMP 36.1–36.8; O2SAT 93–98
--- NOTE | 2019-09-28 02:28 | PC.NURSE ---
pt had three bowel movements tonight since 2 bottles of magcitrate. Noted soft brown and liquid in the commode, unable to determine how clear the liquid stool was as it has mixed with soft brown stool. Will wait to see if there are further bowel movements and will asses if b owel prep has been sufficient, if not will notify doctor.
[2019-09-28 06:33] LABS: Glucose Point of Care 182 mg/dL (70-110)
[2019-09-28] MEDS: Fleet Enema 133 mL Enema PR ×2 (08:25→14:51)
[2019-09-28 11:25] LABS: Glucose Point of Care 160 mg/dL (70-110)
[2019-09-28] MEDS: docusate sodium 100 mg Capsule PO ×2 (12:29→18:36)
[2019-09-28] MEDS: magnesium citrate Btl 296 mL PO ×2 (12:29→18:36)
[2019-09-28] MEDS: citalopram 20 mg Tablet PO (12:30)
[2019-09-28] MEDS: finasteride 5 mg Tablet PO (12:30)
[2019-09-28] MEDS: potassium chloride ER 10 mEq Tablet 20 MEQ PO (12:30)
--- NOTE | 2019-09-28 13:23 | PM.PN ---
Subjective Subjective: Interval history: Patient denies shortness of breath or chest pain this morning. Continues to have left lower quadrant abdominal discomfort. He did not get cleared well to have colonoscopy therefore it was postponed until tomorrow. Medications: Reviewed: Yes Vitals/I&O/Wt Last Vital Signs Temp 97.5 F L 09/28/19 10:57 Pulse 65 09/28/19 10:57 Resp 16 09/28/19 10:57 BP 177/81 09/28/19 10:57 Pulse Ox 97 09/28/19 10:57 09/27/19 09/28/19 09/28/19 22:59 06:59 14:59 Intake Total 780 / 2220 450 / 2670 Output Total 700 / 2400 500 / 2900 Balance 80 / -180 -50 / -230 Weight last 48 hrs Weight 86.5 kg Weight 90.038 kg Physical Exam Const: COMMON NORMALS: no acute distress and patient oriented x3 Resp: COMMON NORMALS: normal respiratory effort OTHER: Clear with decreased air movement on the right side Cardio: COMMON NORMALS: regular rate, regular rhythm and S2 normal heart sound present RATE: regular rate RHYTHM: regular rhythm HEART SOUNDS: S2 normal heart sound present OTHER: No lower extremity edema. Pacemaker noted on the left. GI: COMMON NORMALS: Soft to palpation and non-tender PALPATION: Yes Soft to palpation OTHER: Slightly tender at left lower quadrant Neuro: COMMON NORMALS: patient oriented x3 and no focal motor deficits Data : 09/26/19 04:09 09/26/19 04:09 A&P Assessment and plan (1) Pneumonia: Multilobar involving right upper and lower lobe. Continue broad-spectrum antibiotics due to large right lower lobe consolidation and large right-sided pleural effusion Sputum culture pending Blood culture negative to date Had previously been on azithromycin, started on Levaquin 750 mg daily, also started on vancomycin due to concern for large effusion, will further evaluate with thoracentesis whenever INR decreases and coumadin on hold for this reason. Thoracentesis deferred today as INR not at ~1.5 yet Status: Acute Qualifiers: Laterality: right Lung location: unspecified part of lung Pneumonia type: due to unspecified organism Qualified Code(s): J18.9 - Pneumonia, unspecified organism (2) Pleural effusion: Large right-sided pleural effusion, will treat with IV diuresis and IV antibiotics Discussed with patient and he reports that this is chronic in nature, has appeared to be increasing in size since prior imaging Diuresis but will patient will likely require thoracentesis, holding Coumadin today with the possibility of thoracentesis tomorrow or the following day depending on INR. Will need diagnostic thoracentesis, patient has pulmonary nodules that have been chronic in nature but cannot rule out underlying malignancy. Patient may require chest tube placement due to loculations, will follow-up and continue with close monitoring Status: Acute (3) COVID-19 virus test result unknown: Due to respiratory symptoms patient had been tested for COVID-19 while in the ED, this remains pending therefore he will remain on contact and isolation precautions Status: Acute (4) Chronic kidney disease (CKD): Baseline creatinine around 1.5, at baseline at this time we will continue to monitor renal function closely due to diuresis for CHF as noted above Status: Acute (5) Status post biventricular pacemaker: Sick sinus syndrome, remains in paced rhythm Status: Acute (6) Sick sinus syndrome: Sick sinus syndrome remains in paced rhythm Status: Acute (7) Chronic atrial fibrillation: Currently in paced rhythm, continue on atenolol, anticoagulation on hold because patient will likely require thoracentesis and supratherapeutic INR at 3.3 Status: Acute (8) Dyslipidemia: Status: Acute (9) Diabetes mellitus: Placed on sliding scale insulin as needed Reported nausea therefore will hold off on long-acting insulin at this time and start on clear liquid diet, increase insulin requirements as indicated Status: Acute (10) Essential hypertension: We will continue with diuresis Lasix IV daily, holding amlodipine 5 mg twice a day at this time due to anticipated diuresis and do not wish for patient's blood pressures to go too low. Status: Acute (11) Carotid stenosis: Status: Acute (12) CAD (coronary artery disease): Patient has aspirin allergy, not on statin Continue on atenolol Echocardiogram ordered and pending Status: Acute (13) Warfarin anticoagulation: Supratherapeutic INR at 3.3, holding Coumadin for thoracentesis Status: Acute (14) Acute respiratory failure with hypoxia: Present on admission. Status: Acute (15) Acute on chronic diastolic heart failure: Most likely present on admission. Status: Acute Additional A&P Information PLAN: Continue colon prep. Continue holding Lasix and start patient on IV hydration at least for a day. Obtain labs. DVT prophylaxis: SCDs, no pharmacologic prophylaxis as patient has supratherapeutic INR and anticipate need for diagnostic thoracentesis Diet: Increase to carbohydrate consistent diet CODE STATUS: Full code, discussed with patient on admission to the hospital Attestations Medical Necessity Statement*: Patient with generalized weakness as well as concern for metastatic malignancy requires close inpatient monitoring and treatment as well as evaluation including colonoscopy. Time Spent in Patient Care: 16 - 35 minutes Coding Level of Care Code Acute Urgent Care Physician for g Fwd Diagnoses Pneumonia J18.9 Laterality: right Lung location: unspecified part of lung Pneumonia type: due to unspecified organism Pleural effusion J90 COVID-19 virus test result unknown Chronic kidney disease (CKD) N18.9 Status post biventricular pacemaker Z95.0 Sick sinus syndrome I49.5 Chronic atrial fibrillation I48.20 Dyslipidemia E78.5 Diabetes mellitus E11.9 Essential hypertension I10 Carotid stenosis I65.29 CAD (coronary artery disease) I25.10 Warfarin anticoagulation Z79.01 Acute respiratory failure with hypoxia J96.01 Acute on chronic diastolic heart failure I50.33
[2019-09-28 13:56] LABS: Basophils # 0.1 10^3/uL (0.0-0.1); Basophils % 0.8 %; Eosinophils # 0.2 10^3/uL (0.0-0.8); Eosinophils % 1.5 %; Hematocrit 37.3 % (42.0-52.0); Hemoglobin 11.5 g/dL (11.7-16.6); Lymphocytes % 9.7 %; Mean Corpuscular HGB Conc 30.8 g/dL (30.0-36.0); Mean Corpuscular Hemoglobin 28.5 pg (28.0-34.0); Mean Corpuscular Volume 92.6 fL (80-94); Mean Platelet Volume 9.7 fL (7.4-10.4); Monocytes # 1.2 10^3/uL (0.2-0.9); Monocytes % 12.6 %; Neutrophils # 7.35 10^3/uL (1.8-7.7); Nucleated Red Blood Cells % 0 %; Platelet Count 403 10^3/cmm (130-400); Red Blood Count 4.03 10^6/uL (4.1-5.3); Red Cell Distribution Width 14.9 % (12.1-15.1); White Blood Count 9.8 10^3/uL (4.0-10.0)
[2019-09-28 14:10] LABS: Alanine Aminotransferase 45 U/L (0-41); Alkaline Phosphatase 147 IU/L (40-130); Anion Gap 9.5 (5-19); Aspartate Amino Transferase 65 U/L (0-40); Blood Urea Nitrogen 21 mg/dL (8-23); Calcium 9.3 mg/dL (8.5-10.5); Carbon Dioxide 32 mmol/L (22-29); Chloride 97 mmol/L (98-107); Glucose 204 mg/dL (65-115); Osmolality Calculated 280 mOsm/kg (285-295); Potassium 4.5 mmol/L (3.5-5.1); Sodium 134 mmol/L (136-145); Total Bilirubin 0.6 mg/dL (0.15-1.2)
[2019-09-28] MEDS: acetaminophen 325 mg Tablet 650 MG PO (14:30)
[2019-09-28] MEDS: piperacillin-tazobactam 3.375 GM in sodium chloride 0.9% (plus) 50 ML IV (15:04)
[2019-09-28] MEDS: sodium chloride 0.9% 1,000 ML 75 ML IV (15:10)
--- NOTE | 2019-09-28 16:23 | PC.NURSE ---
Bowel Prep continued. Gave Mag Citrate and Enema 2 thus far as ordered. Patient had another stool that is liquid but not clear. No solid stool noted just particles. Will administer MAG Citrate at 1800 as ordered. SMW, CANOE INSPECTOR FINAL
[2019-09-28 16:49] LABS: Glucose Point of Care 142 mg/dL (70-110)
[2019-09-28] MEDS: atorvastatin 40 mg Tablet PO (21:02)
[2019-09-28] MEDS: doxazosin 4 mg Tablet 8 MG PO (21:02)
[2019-09-28] MEDS: insulin glargine 100 units/1 mL 10 UNIT SUBCUT (21:05)
[2019-09-28 21:10] LABS: Glucose Point of Care 148 mg/dL (70-110)
[2019-09-29] VITALS (13 sets, daily range): BP systolic 113–187; BP diastolic 43–97; PULSE 56–78; RESP 16–22; TEMP 36.4–36.7; O2SAT 90–98
[2019-09-29] MEDS: piperacillin-tazobactam 3.375 GM in sodium chloride 0.9% (plus) 50 ML IV ×2 (00:03→16:51)
[2019-09-29] MEDS: sodium chloride 0.9% 1,000 ML 75 ML IV (03:28)
[2019-09-29] MEDS: acetaminophen 325 mg Tablet 650 MG PO ×2 (04:46→21:08)
[2019-09-29 06:01] LABS: Basophils # 0.1 10^3/uL (0.0-0.1); Basophils % 0.8 %; Eosinophils # 0.2 10^3/uL (0.0-0.8); Hematocrit 35.9 % (42.0-52.0); Hemoglobin 10.7 g/dL (11.7-16.6); Lymphocytes % 9.5 %; Mean Corpuscular HGB Conc 29.8 g/dL (30.0-36.0); Mean Corpuscular Hemoglobin 28.2 pg (28.0-34.0); Mean Corpuscular Volume 94.7 fL (80-94); Mean Platelet Volume 10.1 fL (7.4-10.4); Monocytes # 1.3 10^3/uL (0.2-0.9); Monocytes % 12.9 %; Neutrophils # 7.75 10^3/uL (1.8-7.7); Neutrophils % 74.3 %; Nucleated Red Blood Cells % 0 %; Platelet Count 408 10^3/cmm (130-400); Red Blood Count 3.79 10^6/uL (4.1-5.3); White Blood Count 10.4 10^3/uL (4.0-10.0)
[2019-09-29 06:13] LABS: Alanine Aminotransferase 37 U/L (0-41); Albumin Level 2.7 g/dL (3.5-5.2); Alkaline Phosphatase 137 IU/L (40-130); Anion Gap 11.4 (5-19); Aspartate Amino Transferase 58 U/L (0-40); Blood Urea Nitrogen 20 mg/dL (8-23); Calcium 8.9 mg/dL (8.5-10.5); Carbon Dioxide 28 mmol/L (22-29); Chloride 102 mmol/L (98-107); Glucose 137 mg/dL (65-115); Magnesium 2.5 mg/dL (1.7-2.3); Osmolality Calculated 283 mOsm/kg (285-295); Potassium 4.4 mmol/L (3.5-5.1); Sodium 137 mmol/L (136-145); Total Bilirubin 0.5 mg/dL (0.15-1.2); Total Protein 6.7 g/dL (6.6-8.7)
--- NOTE | 2019-09-29 06:23 | PC.NURSE ---
GI LAB To GI lab via wheelchair. Has been NPO since midnight. Had several watery liquid BM's. Still some brown coloring but no formed stool noted. Say is getting weak from so much prepping. Is also voicing frustration that not finding any answers. c/o left leg pain this and did receive some po Tylenol.
--- NOTE | 2019-09-29 06:26 | PC.NURSE ---
VANC TROUGH No result as of time of pt leaving for GI procedure. Reported to next shift that 0600 dose not given yet
[2019-09-29 06:42] LABS: Vancomycin Trough 15.2 ug/mL (10-15)
--- NOTE | 2019-09-29 06:54 | ANES.PREANE2 ---
Pre-Anesthetic Assessment Pre-Anesthetic Assessment: Height/Weight: Height 1.73 m Weight 86.682 kg Temp Pulse Resp BP Pulse Ox 97.5 F L 70 20 H 150/75 94 09/29/19 06:38 09/29/19 06:38 09/29/19 06:38 09/29/19 06:38 09/29/19 06:38 Preop Diagnosis: lung mass Proposed Procedure: Operation Date: 09/29/19 07:30 Proposed Procedures p Colonoscopy(Not Applicable) - Sterling Mix MD Was Beta Sima taken within 24 hours: Yes Social: Social History: No alcohol and No tobacco Exam: Pre-Anes Outpt Exam: alert, oriented x 3, clear to auscultation bilaterally and regular rate & rhythm Airway: Submandibular: WNL Cervical ROM: WNL MP: 2 Dentition: False History/ROS: No significant history except as noted Pulmonary: Pulmonary: GRAVES and SOB Comments: pleural effusion CV/HEM: CV/HEM: Afib, Arrythmia (Afib; SSS; pacemaker), CAD, HTN and PVD : : None reported Hepatic: Hepatic: None reported GI: GI: None reported Metabolic: Metabolic: DM and Hyperlipidemia Musc/skel: Musc/skel: OA/DJD Neuropsych: Neuropsych: Neuropathy Anesthetic Plan: ASA status: 3 Anesthesia: Anesthesia Evaluation and MAC Risk of > 500 ml blood loss (7ml/kg in children): No Meds/Allergies Current Medications: Current Medications Generic Name Dose Route Start Last Admin Trade Name Freq PRN Reason Stop Dose Admin Acetaminophen 650 mg 09/22/19 11:41 09/29/19 04:46 Tylenol PO 650 mg Q6H PRN Administration Mild/Mod Pain Or Temp >/= 101 Albuterol Sulfate 2 puff 09/22/19 12:43 09/27/19 20:55 Ventolin INHALATION 2 puff Q6H PRN Administration Shortness Of Merkel th Atenolol 100 mg 09/23/19 06:00 09/24/19 05:45 Tenormin PO Not Given QAM NURIS Atorvastatin Calci um 40 mg 09/23/19 21:00 09/28/19 21:02 Lipitor PO 40 mg BEDTIME NURIS Administration Citalopram Hydrobr omide 20 mg 09/22/19 13:00 07/23/20 12:30 Celexa PO 20 mg DAILY NURIS Administration Docusate Sodium 100 mg 09/22/19 18:00 09/28/19 18:36 Colace PO 100 mg BID NURIS Administration Doxazosin Mesylate 8 mg 09/22/19 21:00 09/28/19 21:02 Cardura PO 8 mg BEDTIME NURIS Administration Finasteride 5 mg 09/22/19 12:43 09/28/19 12:30 Proscar PO 5 mg DAILY NURIS Administration Piperacillin Sod/T azobactam 50 mls @ 12.5 mls /hr 09/23/19 12:00 09/29/19 04:20 Sod 3.375 gm/ So dium Chloride IV Infused Q8H NURIS Infusion Protocol Vancomycin HCl 1,5 00 mg/ 250 mls @ 200 mls /hr 09/27/19 00:00 09/28/19 12:28 Sodium Chloride IV 200 mls/hr Q18H NURIS Administration Protocol Sodium Chloride 1,000 mls @ 75 ml s/hr 09/28/19 13:30 09/29/19 03:28 Sodium Chloride 0.9% IV 75 mls/hr .[id number] NURIS Administration Insulin Aspart 0 unit 09/22/19 21:00 09/28/19 21:04 Novolog SUBCUT 2 unit BEDTIME NURIS Administration Protocol Insulin Aspart 0 unit 09/22/19 12:43 09/28/19 18:36 Novolog SUBCUT 4 unit TIDWM [facility] Administration Protocol Insulin Glargine 10 unit 09/23/19 21:00 09/28/19 21:05 Lantus SUBCUT 10 unit BEDTIME NURIS Administration Non-Formulary Medi cation 2 inh 09/23/19 06:00 09/28/19 12:23 Tiotropium Bromi de [Spiriva Respim at] INHALATION Not Given QAM [facility] Ondansetron HCl 4 mg 09/27/19 11:57 09/27/19 12:03 Zofran IVP 4 mg Q4H PRN Administration vomiting, or N/V if npo Potassium Chloride 20 meq 09/22/19 12:43 09/28/19 12:30 Klor-Con 10 PO 20 meq DAILY NURIS Administration Warfarin Sodium 6 mg 09/27/19 14:00 09/28/19 16:12 Coumadin PO Not Given DAILY@1400 [facility] PFSH Anesthesia PFSH: Medical History (Updated 09/26/19 @ 18:01 by Ronen Chi MD) CAD (coronary artery disease) Carotid stenosis Chronic atrial fibrillation Chronic kidney disease (CKD) COPD (chronic obstructive pulmonary disease) Diabetes mellitus Dyslipidemia Essential hypertension Peripheral arterial disease With a history of peripheral stenting Sick sinus syndrome Warfarin anticoagulation Surgical History (Updated 09/22/19 @ 11:34 by Marlene Floyd DO) H/O cataract extraction BILATERAL H/O shoulder surgery LEFT History of endarterectomy FEMORAL Hx of cholecystectomy Status post biventricular pacemaker Family History Mother Dementia Stroke Father Stroke Other Diabetes Hypertension Social History Smoking and tobacco status: former smoker Alcohol intake: never Lives independently: Yes Household members: none Marital status: / Current occupational status: retired Current gender identity: Male Data Anesthesia CBC & Chem 7: 09/29/19 05:42 09/29/19 05:42 Other Labs: Laboratory Results - last 48 hr 09/27/19 09/27/19 09/27/19 11:00 15:59 20:32 WBC RBC Hgb Hct MCV MCH MCHC RDW Plt Count MPV Neut % (Auto) Lymph % (Auto) Menard % (Auto) Eos % (Auto) Baso % (Auto) Neut # (Auto) Lymph # (Auto) Menard # (Auto) Eos # (Auto) Baso # (Auto) Nucleated RBC % (auto) Nucleated RBCs # Sodium Potassium Chloride Carbon Dioxide Anion Gap BUN Creatinine GFR Calculation Glucose POC Glucose 232 217 181 Calculated Osmolality Calcium Magnesium Total Bilirubin AST ALT Alkaline Phosphatase Total Protein Albumin Globulin Vancomycin Trough 09/28/19 09/28/19 09/28/19 06:19 10:53 13:13 WBC 9.8 RBC 4.03 L Hgb 11.5 L Hct 37.3 L MCV 92.6 MCH 28.5 MCHC 30.8 RDW 14.9 Plt Count 403 H MPV 9.7 Neut % (Auto) 75.0 Lymph % (Auto) 9.7 Menard % (Auto) 12.6 Eos % (Auto) 1.5 Baso % (Auto) 0.8 Neut # (Auto) 7.35 Lymph # (Auto) 1.0 Menard # (Auto) 1.2 H Eos # (Auto) 0.2 Baso # (Auto) 0.1 Nucleated RBC % (auto) 0 Nucleated RBCs # 0.0 Sodium Potassium Chloride Carbon Dioxide Anion Gap BUN Creatinine GFR Calculation Glucose POC Glucose 182 160 Calculated Osmolality Calcium Magnesium Total Bilirubin AST ALT Alkaline Phosphatase Total Protein Albumin Globulin Vancomycin Trough 09/28/19 09/28/19 09/28/19 13:13 16:42 20:54 WBC RBC Hgb Hct MCV MCH MCHC RDW Plt Count MPV Neut % (Auto) Lymph % (Auto) Menard % (Auto) Eos % (Auto) Baso % (Auto) Neut # (Auto) Lymph # (Auto) Menard # (Auto) Eos # (Auto) Baso # (Auto) Nucleated RBC % (auto) Nucleated RBCs # Sodium 134 L Potassium 4.5 Chloride 97 L Carbon Dioxide 32 H Anion Gap 9.5 BUN 21 Creatinine 1.1 GFR Calculation Not Reportable Glucose 204 H POC Glucose 142 148 Calculated Osmolality 280 L Calcium 9.3 Magnesium Total Bilirubin 0.6 AST 65 H ALT 45 H Alkaline Phosphatase 147 H Total Protein 7.0 Albumin 3.0 L Globulin 4.0 Vancomycin Trough 09/29/19 09/29/19 09/29/19 05:42 05:42 05:42 WBC 10.4 H RBC 3.79 L Hgb 10.7 L Hct 35.9 L MCV 94.7 H MCH 28.2 MCHC 29.8 L RDW 15.0 Plt Count 408 H MPV 10.1 Neut % (Auto) 74.3 Lymph % (Auto) 9.5 Menard % (Auto) 12.9 Eos % (Auto) 2.0 Baso % (Auto) 0.8 Neut # (Auto) 7.75 H Lymph # (Auto) 1.0 Menard # (Auto) 1.3 H Eos # (Auto) 0.2 Baso # (Auto) 0.1 Nucleated RBC % (auto) 0 Nucleated RBCs # 0.0 Sodium 137 Potassium 4.4 Chloride 102 Carbon Dioxide 28 Anion Gap 11.4 BUN 20 Creatinine 1.3 H GFR Calculation Not Reportable Glucose 137 H POC Glucose Calculated Osmolality 283 L Calcium 8.9 Magnesium 2.5 H Total Bilirubin 0.5 AST 58 H ALT 37 Alkaline Phosphatase 137 H Total Protein 6.7 Albumin 2.7 L Globulin 4.0 Vancomycin Trough 15.2 H Cardiac Studies: No Data to Display
--- NOTE | 2019-09-29 07:28 | PM.PN ---
Subjective Subjective: Interval history: no issues overnight, complaining of leg pain Medications: Reviewed: Yes Vitals/I&O/Wt Last Vital Signs Temp 97.5 F L 09/29/19 06:38 Pulse 70 09/29/19 06:38 Resp 20 H 09/29/19 06:38 BP 150/75 09/29/19 06:38 Pulse Ox 94 09/29/19 06:38 09/28/19 09/29/19 09/29/19 22:59 06:59 14:59 Intake Total 1130 / 3082.5 1272.5 / 3082.5 Output Total 300 / 1200 Balance 830 / 1882.5 1272.5 / 1882.5 Weight last 48 hrs Weight 191 lb 1.6 oz Weight 190 lb 11.2 oz Physical Exam Narrative: EXAM NARRATIVE: Patient awake and alert Data : 09/29/19 05:42 09/29/19 05:42 A&P Assessment and plan (1) Nausea: EGD today Status: Acute (2) Lung mass: Plan for colonoscopy today Status: Acute Attestations Medical Necessity Statement*: lung mass Coding Level of Care Code Acute Pharmaceutical Detailer for [facility] Fwd Diagnoses Nausea R11.0 Lung mass R91.8
--- NOTE | 2019-09-29 08:03 | SUR.OPER ---
0750 Polyp from hepatic flexure not retrieved. Floor nurse notified to collect stool and strain for polyp.
[2019-09-29] MEDS: sodium chloride 0.9% 1,000 ML 30 ML IV ×2 (08:08→08:10)
--- NOTE | 2019-09-29 09:50 | PC.NURSE ---
pt complained of ankle and leg pain, notified Dr Chi who seen pt. Pt stated that his pain was more in his ankle and that the 'more he walked the better it felt.'
[2019-09-29] MEDS: finasteride 5 mg Tablet PO (09:57)
[2019-09-29] MEDS: citalopram 20 mg Tablet PO (09:57)
[2019-09-29] MEDS: potassium chloride ER 10 mEq Tablet 20 MEQ PO (09:57)
[2019-09-29 10:52] LABS: Glucose Point of Care 154 mg/dL (70-110)
--- NOTE | 2019-09-29 11:03 | PM.PN ---
Subjective Subjective: Interval history: Patient reports that his left ankle on the medial surface was hurting for the last 3 days but he did not tell me that. Reports that he told some of the personnel that comes to see him but he did not mention to me. Reports that putting weight creates pain but more he walks better pain gets. This makes septic arthritis very unlikely. His left ankle shows no evidence of erythema but slightly is swollen at the lateral surface. He denies previous history of the same. He denies previous history of gout. He had colonoscopy and upper endoscopy showing evidence of mild gastritis and duodenitis. 1 polypectomy was performed. Patient had diverticular disease but no evidence of diverticulitis. Medications: Reviewed: Yes Vitals/I&O/Wt Last Vital Signs Temp 97.8 F 09/29/19 08:30 Pulse 67 09/29/19 09:28 Resp 18 09/29/19 09:28 BP 156/73 09/29/19 08:30 Pulse Ox 90 09/29/19 09:28 09/28/19 09/29/19 09/29/19 22:59 06:59 14:59 Intake Total 1130 / 2060 1272.5 / 3332.5 400 / 400 Output Total 300 / 1200 100 / 100 Balance 830 / 860 1272.5 / 2132.5 300 / 300 Weight last 48 hrs Weight 86.682 kg Weight 86.5 kg Physical Exam Const: COMMON NORMALS: no acute distress and patient oriented x3 Resp: COMMON NORMALS: normal respiratory effort OTHER: Clear with decreased air movement on the right side Cardio: COMMON NORMALS: regular rate, regular rhythm and S2 normal heart sound present RATE: regular rate RHYTHM: regular rhythm HEART SOUNDS: S2 normal heart sound present OTHER: No lower extremity edema except minimal swelling of the left lateral malleolus area. GI: COMMON NORMALS: Soft to palpation and non-tender PALPATION: Yes Soft to palpation OTHER: Slightly tender at left lower quadrant Neuro: COMMON NORMALS: patient oriented x3 and no focal motor deficits Data : 09/29/19 05:42 09/29/19 05:42 A&P Assessment and plan (1) Pneumonia: Multilobar involving right upper and lower lobe. Continue broad-spectrum antibiotics due to large right lower lobe consolidation and large right-sided pleural effusion Sputum culture pending Blood culture negative to date Had previously been on azithromycin, started on Levaquin 750 mg daily, also started on vancomycin due to concern for large effusion, will further evaluate with thoracentesis whenever INR decreases and coumadin on hold for this reason. Thoracentesis deferred today as INR not at ~1.5 yet Status: Acute Qualifiers: Laterality: right Lung location: unspecified part of lung Pneumonia type: due to unspecified organism Qualified Code(s): J18.9 - Pneumonia, unspecified organism (2) Pleural effusion: Large right-sided pleural effusion, will treat with IV diuresis and IV antibiotics Discussed with patient and he reports that this is chronic in nature, has appeared to be increasing in size since prior imaging Diuresis but will patient will likely require thoracentesis, holding Coumadin today with the possibility of thoracentesis tomorrow or the following day depending on INR. Will need diagnostic thoracentesis, patient has pulmonary nodules that have been chronic in nature but cannot rule out underlying malignancy. Patient may require chest tube placement due to loculations, will follow-up and continue with close monitoring Status: Acute (3) COVID-19 virus test result unknown: Due to respiratory symptoms patient had been tested for COVID-19 while in the ED, this remains pending therefore he will remain on contact and isolation precautions Status: Acute (4) Chronic kidney disease (CKD): Baseline creatinine around 1.5, at baseline at this time we will continue to monitor renal function closely due to diuresis for CHF as noted above Status: Acute (5) Status post biventricular pacemaker: Sick sinus syndrome, remains in paced rhythm Status: Acute (6) Sick sinus syndrome: Sick sinus syndrome remains in paced rhythm Status: Acute (7) Chronic atrial fibrillation: Currently in paced rhythm, continue on atenolol, anticoagulation on hold because patient will likely require thoracentesis and supratherapeutic INR at 3.3 Status: Acute (8) Dyslipidemia: Status: Acute (9) Diabetes mellitus: Placed on sliding scale insulin as needed Reported nausea therefore will hold off on long-acting insulin at this time and start on clear liquid diet, increase insulin requirements as indicated Status: Acute (10) Essential hypertension: We will continue with diuresis Lasix IV daily, holding amlodipine 5 mg twice a day at this time due to anticipated diuresis and do not wish for patient's blood pressures to go too low. Status: Acute (11) Carotid stenosis: Status: Acute (12) CAD (coronary artery disease): Patient has aspirin allergy, not on statin Continue on atenolol Echocardiogram ordered and pending Status: Acute (13) Warfarin anticoagulation: Supratherapeutic INR at 3.3, holding Coumadin for thoracentesis Status: Acute (14) Acute respiratory failure with hypoxia: Present on admission. Status: Acute (15) Acute on chronic diastolic heart failure: Most likely present on admission. Status: Acute Additional A&P Information Left lateral malleolus/ankle pain. Suggestive of gout. Septic arthritis felt highly unlikely. PLAN: Will start patient on colchicine. Given underlying gastritis/duodenitis will try to avoid NSAIDs if possible. Continue with physical therapy. Continue with soft GI diet. Physical therapy. DVT prophylaxis: SCDs, no pharmacologic prophylaxis as patient has supratherapeutic INR and anticipate need for diagnostic thoracentesis Diet: Increase to carbohydrate consistent diet CODE STATUS: Full code, discussed with patient on admission to the hospital Attestations Medical Necessity Statement*: Patient with left ankle pain and difficulty with ambulation requires further inpatient monitoring and treatment until deemed safe for patient to be dismissed home. 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
--- NOTE | 2019-09-29 11:44 | PC.SOCIAL ---
IMM Updated Updated pt on Pg 2 IMM. Pt verbally understands. No questions voiced. Provided pt a copy. Signed, dated, & timed copy in pt's chart.
[2019-09-29] MEDS: colchicine 0.6 mg Tablet 1.2 MG PO (12:11)
[2019-09-29] MEDS: warfarin 3 mg Tablet 6 MG PO (15:19)
--- NOTE | 2019-09-29 17:05 | XRR_ITS ---
PROCEDURE INFORMATION: Exam: XR Left Ankle Exam date and time: 09/29/2019 5:42 PM Age: 84 years old Clinical indication: Pain; Ankle; Bilateral; Additional info: Left ankle pain. TECHNIQUE: Imaging protocol: XR Left ankle. Views: 3 or more views. COMPARISON: No relevant prior studies available. FINDINGS: Bones/joints: No fracture is identified. There is prominent plantar calcaneal spur. Soft tissues: Normal. Vasculature: Extensive atherosclerotic calcifications are seen in regional vessels. XR/XR ankle LT min 3V* [id number] IMPRESSION: No acute findings.
[2019-09-29 17:27] LABS: Glucose Point of Care 177 mg/dL (70-110)
[2019-09-29] MEDS: amlodipine 5 mg Tablet PO (18:17)
[2019-09-29] MEDS: albuterol 8 gm MDI 2 PUFF INHALATION (21:04)
[2019-09-29] MEDS: doxazosin 4 mg Tablet 8 MG PO (21:08)
[2019-09-29] MEDS: atorvastatin 40 mg Tablet PO (21:09)
[2019-09-29] MEDS: levofloxacin-dextrose 5 % 500 MG/100 ML PREMIX 100 MG IV (21:11)
[2019-09-29 21:14] LABS: Glucose Point of Care 224 mg/dL (70-110)
[2019-09-29] MEDS: TRAMadol 50 mg Tablet PO (22:08)
[2019-09-29] MEDS: insulin glargine 100 units/1 mL 10 UNIT SUBCUT (22:09)
[2019-09-30] VITALS (9 sets, daily range): BP systolic 128–181; BP diastolic 55–68; PULSE 52–76; RESP 16–26; TEMP 36.2–36.9; O2SAT 91–97
[2019-09-30] MEDS: piperacillin-tazobactam 3.375 GM in sodium chloride 0.9% (plus) 50 ML IV ×3 (00:12→17:09)
[2019-09-30] MEDS: atenolol 50 mg Tablet 100 MG PO (05:29)
[2019-09-30] MEDS: sodium chloride 0.9% 1,000 ML 75 ML IV (05:31)
[2019-09-30 06:00] LABS: Basophils # 0.1 10^3/uL (0.0-0.1); Basophils % 0.9 %; Eosinophils # 0.2 10^3/uL (0.0-0.8); Eosinophils % 1.7 %; Hematocrit 35.6 % (42.0-52.0); Hemoglobin 10.6 g/dL (11.7-16.6); Lymphocytes # 1.2 10^3/uL (0.8-4.8); Lymphocytes % 10.9 %; Mean Corpuscular HGB Conc 29.8 g/dL (30.0-36.0); Mean Corpuscular Hemoglobin 27.7 pg (28.0-34.0); Monocytes # 1.4 10^3/uL (0.2-0.9); Monocytes % 12.9 %; Neutrophils # 7.83 10^3/uL (1.8-7.7); Neutrophils % 73.1 %; Nucleated Red Blood Cells % 0 %; Platelet Count 415 10^3/cmm (130-400); Red Blood Count 3.83 10^6/uL (4.1-5.3); Red Cell Distribution Width 14.9 % (12.1-15.1); White Blood Count 10.7 10^3/uL (4.0-10.0)
[2019-09-30 06:18] LABS: Alanine Aminotransferase 33 U/L (0-41); Albumin Level 2.6 g/dL (3.5-5.2); Alkaline Phosphatase 123 IU/L (40-130); Anion Gap 10.2 (5-19); Aspartate Amino Transferase 41 U/L (0-40); Blood Urea Nitrogen 16 mg/dL (8-23); Calcium 8.3 mg/dL (8.5-10.5); Carbon Dioxide 28 mmol/L (22-29); Chloride 102 mmol/L (98-107); Globulin 4.1 g/dL (1.3-4.6); Glucose 139 mg/dL (65-115); Magnesium 1.8 mg/dL (1.7-2.3); Osmolality Calculated 281 mOsm/kg (285-295); Potassium 4.2 mmol/L (3.5-5.1); Sodium 136 mmol/L (136-145); Total Bilirubin 0.4 mg/dL (0.15-1.2); Total Protein 6.7 g/dL (6.6-8.7)
[2019-09-30 06:36] LABS: Glucose Point of Care 136 mg/dL (70-110)
[2019-09-30 06:45] LABS: C Reactive Protein 79.1 mg/L (0.0-4.9)
[2019-09-30 07:14] LABS: Erythrocyte Sedimentation Rate 103 mm/hr (0-10)
[2019-09-30] MEDS: albuterol 8 gm MDI 2 PUFF INHALATION (08:06)
[2019-09-30] MEDS: fenofibrate 145 mg Tablet PO (08:29)
[2019-09-30] MEDS: potassium chloride ER 10 mEq Tablet 20 MEQ PO (08:29)
[2019-09-30] MEDS: finasteride 5 mg Tablet PO (08:29)
[2019-09-30] MEDS: citalopram 20 mg Tablet PO (08:29)
[2019-09-30] MEDS: clopidogrel 75 mg Tablet PO (08:30)
[2019-09-30] MEDS: amlodipine 5 mg Tablet PO ×2 (10:35→17:10)
[2019-09-30 10:58] LABS: Glucose Point of Care 207 mg/dL (70-110)
--- NOTE | 2019-09-30 11:27 | PM.PN ---
Subjective Subjective: Interval history: Patient reports that he is ankle pain is completely gone. Reports that he is breathing comfortably. Reports that this morning he choked on his meal. Denies abdominal pain. Reports overall feeling much better. He is white blood cell count further worsened and Levaquin was added this morning with plan to transition to oral medications if white blood cell count starts improving. Medications: Reviewed: Yes Vitals/I&O/Wt Last Vital Signs Temp 97.2 F L 09/30/19 11:09 Pulse 63 09/30/19 11:09 Resp 20 H 09/30/19 11:09 BP 140/68 09/30/19 11:09 Pulse Ox 96 09/30/19 11:09 09/29/19 09/30/19 09/30/19 22:59 06:59 14:59 Intake Total 1260 / 2110 110 / 2220 240 / 240 Output Total 375 / 475 250 / 725 Balance 885 / 1635 -140 / 1495 240 / 240 Weight last 48 hrs Weight 86.183 kg Weight 86.682 kg Physical Exam Const: COMMON NORMALS: no acute distress and patient oriented x3 Resp: COMMON NORMALS: normal respiratory effort OTHER: Decreased air movement on the right. Very minimal left basilar Rales. Cardio: COMMON NORMALS: regular rate, regular rhythm and S2 normal heart sound present RATE: regular rate RHYTHM: regular rhythm HEART SOUNDS: S2 normal heart sound present OTHER: No lower extremity edema GI: COMMON NORMALS: Soft to palpation and non-tender PALPATION: Yes Soft to palpation OTHER: Slightly tender at left lower quadrant Neuro: COMMON NORMALS: patient oriented x3 and no focal motor deficits Data : 09/30/19 05:26 09/30/19 05:26 Micro: Microbiology 09/22/19 23:48 Blood Culture - Final Blood NO GROWTH AFTER 5 DAYS 09/22/19 23:46 Blood Culture - Final Blood NO GROWTH AFTER 5 DAYS A&P Assessment and plan (1) Pneumonia: Multilobar involving right upper and lower lobe. Concerning for either postobstructive pneumonia or aspiration pneumonia. Continue broad-spectrum antibiotics due to large right lower lobe consolidation and large right-sided pleural effusion Sputum culture pending Blood culture negative to date Had previously been on azithromycin, started on Levaquin 750 mg daily, also started on vancomycin due to concern for large effusion, will further evaluate with thoracentesis whenever INR decreases and coumadin on hold for this reason. Thoracentesis deferred today as INR not at ~1.5 yet Status: Acute Qualifiers: Laterality: right Lung location: unspecified part of lung Pneumonia type: due to unspecified organism Qualified Code(s): J18.9 - Pneumonia, unspecified organism (2) Pleural effusion: Large right-sided pleural effusion, will treat with IV diuresis and IV antibiotics Discussed with patient and he reports that this is chronic in nature, has appeared to be increasing in size since prior imaging Diuresis but will patient will likely require thoracentesis, holding Coumadin today with the possibility of thoracentesis tomorrow or the following day depending on INR. Will need diagnostic thoracentesis, patient has pulmonary nodules that have been chronic in nature but cannot rule out underlying malignancy. Patient may require chest tube placement due to loculations, will follow-up and continue with close monitoring Status: Acute (3) COVID-19 virus test result unknown: Due to respiratory symptoms patient had been tested for COVID-19 while in the ED, this remains pending therefore he will remain on contact and isolation precautions Status: Acute (4) Chronic kidney disease (CKD): Baseline creatinine around 1.5, at baseline at this time we will continue to monitor renal function closely due to diuresis for CHF as noted above Status: Acute (5) Status post biventricular pacemaker: Sick sinus syndrome, remains in paced rhythm Status: Acute (6) Sick sinus syndrome: Sick sinus syndrome remains in paced rhythm Status: Acute (7) Chronic atrial fibrillation: Currently in paced rhythm, continue on atenolol, anticoagulation on hold because patient will likely require thoracentesis and supratherapeutic INR at 3.3 Status: Acute (8) Dyslipidemia: Status: Acute (9) Diabetes mellitus: Placed on sliding scale insulin as needed Reported nausea therefore will hold off on long-acting insulin at this time and start on clear liquid diet, increase insulin requirements as indicated Status: Acute (10) Essential hypertension: We will continue with diuresis Lasix IV daily, holding amlodipine 5 mg twice a day at this time due to anticipated diuresis and do not wish for patient's blood pressures to go too low. Status: Acute (11) Carotid stenosis: Status: Acute (12) CAD (coronary artery disease): Patient has aspirin allergy, not on statin Continue on atenolol Echocardiogram ordered and pending Status: Acute (13) Warfarin anticoagulation: Supratherapeutic INR at 3.3, holding Coumadin for thoracentesis Status: Acute (14) Acute respiratory failure with hypoxia: Present on admission. Status: Acute (15) Acute on chronic diastolic heart failure: Most likely present on admission. Status: Acute Additional A&P Information Left lateral malleolus/ankle pain. Suggestive of gout. Septic arthritis felt highly unlikely. PLAN: We will discontinue IV fluids. Will obtain modified barium swallow study and request speech therapy evaluation. Continue current antibiotics and consider transitioning to oral route if white blood cell trends down. Consider bronchoscopy if patient is not improving. DVT prophylaxis: SCDs, no pharmacologic prophylaxis as patient has supratherapeutic INR and anticipate need for diagnostic thoracentesis Diet: Increase to carbohydrate consistent diet CODE STATUS: Full code, discussed with patient on admission to the hospital Attestations Medical Necessity Statement*: Elderly patient with pneumonia requires close inpatient monitoring and treatment due to high mortality risk given his age. 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
[2019-09-30] MEDS: levofloxacin-dextrose 5 % 750 MG/150 ML PREMIX 100 MG IV (13:29)
[2019-09-30 16:26] LABS: Glucose Point of Care 192 mg/dL (70-110)
[2019-09-30 16:30] LABS: INR 1.87 (0.8-1.2)
[2019-09-30] MEDS: warfarin 3 mg Tablet 6 MG PO (17:10)
[2019-09-30] MEDS: pantoprazole DR 40 mg Tablet PO (17:15)
[2019-09-30 21:16] LABS: Glucose Point of Care 175 mg/dL (70-110)
[2019-09-30] MEDS: atorvastatin 40 mg Tablet PO (21:43)
[2019-09-30] MEDS: insulin glargine 100 units/1 mL 10 UNIT SUBCUT (21:43)
[2019-09-30] MEDS: doxazosin 4 mg Tablet 8 MG PO (21:43)
[2019-09-30] MEDS: lidocaine 5% Patch 1 PATCH TOPICAL (21:44)
[2019-10-01] VITALS (12 sets, daily range): BP systolic 100–155; BP diastolic 63–78; PULSE 48–116; RESP 17–24; TEMP 35.8–36.8; O2SAT 90–96
[2019-10-01] MEDS: piperacillin-tazobactam 3.375 GM in sodium chloride 0.9% (plus) 50 ML IV ×2 (01:40→07:31)
[2019-10-01 05:49] LABS: Basophils # 0.1 10^3/uL (0.0-0.1); Eosinophils # 0.2 10^3/uL (0.0-0.8); Eosinophils % 2.6 %; Hematocrit 34.7 % (42.0-52.0); Hemoglobin 10.5 g/dL (11.7-16.6); Lymphocytes # 1.2 10^3/uL (0.8-4.8); Lymphocytes % 12.7 %; Mean Corpuscular HGB Conc 30.3 g/dL (30.0-36.0); Mean Corpuscular Volume 92.5 fL (80-94); Mean Platelet Volume 10.3 fL (7.4-10.4); Monocytes # 1.3 10^3/uL (0.2-0.9); Monocytes % 13.6 %; Neutrophils # 6.43 10^3/uL (1.8-7.7); Neutrophils % 69.6 %; Nucleated Red Blood Cells % 0 %; Platelet Count 371 10^3/cmm (130-400); Red Blood Count 3.75 10^6/uL (4.1-5.3); White Blood Count 9.2 10^3/uL (4.0-10.0)
[2019-10-01] MEDS: atenolol 50 mg Tablet 100 MG PO (06:05)
[2019-10-01 06:19] LABS: Alanine Aminotransferase 30 U/L (0-41); Albumin Level 2.6 g/dL (3.5-5.2); Alkaline Phosphatase 125 IU/L (40-130); Anion Gap 14.5 (5-19); Aspartate Amino Transferase 51 U/L (0-40); Blood Urea Nitrogen 23 mg/dL (8-23); Calcium 8.8 mg/dL (8.5-10.5); Carbon Dioxide 23 mmol/L (22-29); Chloride 103 mmol/L (98-107); Globulin 4.1 g/dL (1.3-4.6); Glucose 167 mg/dL (65-115); Magnesium 1.8 mg/dL (1.7-2.3); Osmolality Calculated 283 mOsm/kg (285-295); Potassium 4.5 mmol/L (3.5-5.1); Sodium 136 mmol/L (136-145); Total Bilirubin 0.4 mg/dL (0.15-1.2); Total Protein 6.7 g/dL (6.6-8.7)
[2019-10-01 06:35] LABS: Glucose Point of Care 143 mg/dL (70-110)
[2019-10-01] MEDS: albuterol 8 gm MDI 2 PUFF INHALATION ×2 (08:00→15:13)
[2019-10-01] MEDS: citalopram 20 mg Tablet PO (09:01)
[2019-10-01] MEDS: finasteride 5 mg Tablet PO (09:01)
[2019-10-01] MEDS: pantoprazole DR 40 mg Tablet PO ×2 (09:01→17:24)
[2019-10-01] MEDS: clopidogrel 75 mg Tablet PO (09:01)
[2019-10-01] MEDS: amlodipine 5 mg Tablet PO ×2 (09:01→17:24)
[2019-10-01] MEDS: fenofibrate 145 mg Tablet PO (09:01)
[2019-10-01] MEDS: potassium chloride ER 10 mEq Tablet 20 MEQ PO (09:01)
[2019-10-01] MEDS: lidocaine 5% Patch 1 PATCH TOPICAL ×2 (09:02→21:10)
[2019-10-01 10:59] LABS: INR 2.01 (0.8-1.2)
--- NOTE | 2019-10-01 11:33 | DCPLANNER ---
Pg 2 of IM updated and reviewed with pt. No questions, he is certainly ready to go if d/c'd. Copy provided.
[2019-10-01 11:40] LABS: Glucose Point of Care 155 mg/dL (70-110)
[2019-10-01] MEDS: warfarin 2 mg Tablet 4 MG PO (13:03)
--- NOTE | 2019-10-01 13:35 | P.PN_ITS ---
Subjective Subjective: Interval history: Patient is doing better this morning. Denies shortness of breath or chest pain. His ankle pain is much improved but noted to be slightly more swollen this morning. White blood cell count improved and down to 9.2. INR is therapeutic. We were unable to perform modified barium swallow study over the weekend. Speech therapy was consulted. Medications: Reviewed: Yes Vitals/I&O/Wt Last Vital Signs Temp 98.2 F 10/01/19 11:22 Pulse 85 10/01/19 11:22 Resp 18 10/01/19 11:22 BP 124/73 10/01/19 11:22 Pulse Ox 94 10/01/19 11:22 09/30/19 10/01/19 10/01/19 22:59 06:59 14:59 Intake Total 1660 / 2460 50 / 2510 410 / 410 Output Total 400 / 650 Balance 1260 / 1810 50 / 1860 410 / 410 Weight last 48 hrs Weight 86.835 kg Weight 86.183 kg Physical Exam Const: COMMON NORMALS: no acute distress and patient oriented x3 Resp: COMMON NORMALS: normal respiratory effort OTHER: Decreased air movement on the right. Very minimal left basilar Rales. Cardio: COMMON NORMALS: regular rate, regular rhythm and S2 normal heart sound present RATE: regular rate RHYTHM: regular rhythm HEART SOUNDS: S2 normal heart sound present OTHER: No lower extremity edema GI: COMMON NORMALS: Soft to palpation and non-tender PALPATION: Yes Soft to palpation OTHER: Slightly tender at left lower quadrant Neuro: COMMON NORMALS: patient oriented x3 and no focal motor deficits Data : 10/01/19 05:06 10/01/19 05:06 A&P Assessment and plan (1) Pneumonia: Multilobar involving right upper and lower lobe. Concerning for either postobstructive pneumonia or aspiration pneumonia. Continue broad-spectrum antibiotics due to large right lower lobe consolidation and large right-sided pleural effusion Sputum culture pending Blood culture negative to date Had previously been on azithromycin, started on Levaquin 750 mg daily, also started on vancomycin due to concern for large effusion, will further evaluate with thoracentesis whenever INR decreases and coumadin on hold for this reason. Thoracentesis deferred today as INR not at ~1.5 yet Status: Acute Qualifiers: Laterality: right Lung location: unspecified part of lung Pneumonia type: due to unspecified organism Qualified Code(s): J18.9 - Pneumonia, unspecified organism (2) Pleural effusion: Large right-sided pleural effusion, will treat with IV diuresis and IV antibiotics Discussed with patient and he reports that this is chronic in nature, has appeared to be increasing in size since prior imaging Diuresis but will patient will likely require thoracentesis, holding Coumadin today with the possibility of thoracentesis tomorrow or the following day depmateo rodríguez on INR. Will need diagnostic thoracentesis, patient has pulmonary nodules that have been chronic in nature but cannot rule out underlying malignancy. Patient may require chest tube placement due to loculations, will follow-up and continue with close monitoring Status: Acute (3) COVID-19 virus test result unknown: Due to respiratory symptoms patient had been tested for COVID-19 while in the ED, this remains pending therefore he will remain on contact and isolation precautions Status: Acute (4) Chronic kidney disease (CKD): Baseline creatinine around 1.5, at baseline at this time we will continue to monitor renal function closely due to diuresis for CHF as noted above Status: Acute (5) Status post biventricular pacemaker: Sick sinus syndrome, remains in paced rhythm Status: Acute (6) Sick sinus syndrome: Sick sinus syndrome remains in paced rhythm Status: Acute (7) Chronic atrial fibrillation: Currently in paced rhythm, continue on atenolol, anticoagulation on hold because patient will likely require thoracentesis and supratherapeutic INR at 3.3 Status: Acute (8) Dyslipidemia: Status: Acute (9) Diabetes mellitus: Placed on sliding scale insulin as needed Reported nausea therefore will hold off on long-acting insulin at this time and start on clear liquid diet, increase insulin requirements as indicated Status: Acute (10) Essential hypertension: We will continue with diuresis Lasix IV daily, holding amlodipine 5 mg twice a day at this time due to anticipated diuresis and do not wish for patient's blood pressures to go too low. Status: Acute (11) Carotid stenosis: Status: Acute (12) CAD (coronary artery disease): Patient has aspirin allergy, not on statin Continue on atenolol Echocardiogram ordered and pending Status: Acute (13) Warfarin anticoagulation: Supratherapeutic INR at 3.3, holding Coumadin for thoracentesis Status: Acute (14) Acute respiratory failure with hypoxia: Present on admission. Status: Acute (15) Acute on chronic diastolic heart failure: Most likely present on admission. Status: Acute Additional A&P Information Left lateral malleolus/ankle pain. Suggestive of gout. Septic arthritis felt highly unlikely. PLAN: We will transition patient to Levaquin and Flagyl and continue monitoring CBC. Awaiting speech therapy evaluation and modified barium swallow study in a.m. 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
[2019-10-01] MEDS: metroNIDAZOLE IV 500 MG/100 ML PREMIX 100 MG IV ×2 (14:13→21:01)
[2019-10-01 16:36] LABS: Glucose Point of Care 183 mg/dL (70-110)
[2019-10-01] MEDS: lidocaine 2% viscous 15 ML, aluminum-mag hydrox-simethicon 30 ML, sucralfate oral liq 1 GM PO (19:50)
[2019-10-01] MEDS: HYDROmorphone 1 mg/mL INJ 1 mL 2 MG IVP (19:57)
[2019-10-01 20:54] LABS: Glucose Point of Care 138 mg/dL (70-110)
[2019-10-01] MEDS: atorvastatin 40 mg Tablet PO (21:01)
[2019-10-01] MEDS: doxazosin 4 mg Tablet 8 MG PO (21:01)
[2019-10-01] MEDS: insulin glargine 100 units/1 mL 10 UNIT SUBCUT (21:03)
[2019-10-02] VITALS (12 sets, daily range): BP systolic 109–140; BP diastolic 53–71; PULSE 51–85; RESP 16–20; TEMP 36.4–37.2; O2SAT 90–98
[2019-10-02] MEDS: atenolol 50 mg Tablet 100 MG PO (05:24)
[2019-10-02] MEDS: metroNIDAZOLE IV 500 MG/100 ML PREMIX 100 MG IV ×3 (05:24→22:05)
--- NOTE | 2019-10-02 06:25 | XRR_ITS ---
PROCEDURE INFORMATION: Exam: XR Chest, 2 Views Exam date and time: 10/02/2019 6:50 AM Age: 84 years old Clinical indication: Condition or disease; Other: Post thoracentesis; Prior surgery; Surgery type: Pace maker; Patient HX: Throat CA; Additional info: Pnm concern for aspiration TECHNIQUE: Imaging protocol: XR of the chest Views: 2 views. COMPARISON: CR XR chest 1V portable [id number] 09/26/2019 3:03 PM FINDINGS: Lungs: Right mid and lower lung zone airspace consolidation, no change. Pleural space: Loculated right pleural effusion again is identified, no change. Heart/Mediastinum: Cardiomegaly. Bones/joints: Unremarkable. Soft tissues: There is a pacemaker present over the left chest with. XR/XR chest 2V* [id number] IMPRESSION: Stable appearance of the lungs.
[2019-10-02 06:41] LABS: Glucose Point of Care 123 mg/dL (70-110)
--- NOTE | 2019-10-02 08:00 | FL_ITS ---
WS: [id number] MODIFIED BARIUM SWALLOW TECHNIQUE: Modified barium swallow with speech therapy using multiple consistencies. FLUOROSCOPY TIME: 2.6 minutes. CLINICAL INFORMATION: Oropharyngeal dysphagia COMPARISON: None. FINDINGS: No evidence of penetration or maryann aspiration. Somewhat delayed oropharyngeal phase with mild poolin g in the vallecula. No difficulties with the barium tablet. No other significant findings. FL/FL barium swallow modifd [id number] IMPRESSION: Unremarkable barium swallow.
[2019-10-02] MEDS: pantoprazole DR 40 mg Tablet PO ×2 (08:03→18:37)
[2019-10-02] MEDS: finasteride 5 mg Tablet PO (08:03)
[2019-10-02] MEDS: lidocaine 5% Patch 1 PATCH TOPICAL ×2 (08:03→20:53)
[2019-10-02] MEDS: amlodipine 5 mg Tablet PO ×2 (08:03→18:37)
[2019-10-02] MEDS: clopidogrel 75 mg Tablet PO (08:03)
[2019-10-02] MEDS: fenofibrate 145 mg Tablet PO (08:03)
[2019-10-02] MEDS: potassium chloride ER 10 mEq Tablet 20 MEQ PO (08:03)
[2019-10-02] MEDS: albuterol 8 gm MDI 2 PUFF INHALATION ×2 (08:10→16:24)
[2019-10-02] MEDS: sertraline 50 mg Tablet PO (10:10)
[2019-10-02] MEDS: levofloxacin-dextrose 5 % 750 MG/150 ML PREMIX 100 MG IV (10:11)
[2019-10-02 11:16] LABS: Glucose Point of Care 249 mg/dL (70-110)
[2019-10-02 11:55] LABS: Basophils # 0.1 10^3/uL (0.0-0.1); Basophils % 1.1 %; Eosinophils # 0.2 10^3/uL (0.0-0.8); Eosinophils % 2.1 %; Hemoglobin 9.8 g/dL (11.7-16.6); Lymphocytes # 0.9 10^3/uL (0.8-4.8); Lymphocytes % 10.2 %; Mean Corpuscular HGB Conc 30.6 g/dL (30.0-36.0); Mean Corpuscular Hemoglobin 29.2 pg (28.0-34.0); Mean Corpuscular Volume 95.2 fL (80-94); Mean Platelet Volume 10.6 fL (7.4-10.4); Monocytes % 11.5 %; Neutrophils # 6.26 10^3/uL (1.8-7.7); Neutrophils % 74.4 %; Nucleated Red Blood Cells % 0 %; Platelet Count 350 10^3/cmm (130-400); Red Blood Count 3.36 10^6/uL (4.1-5.3); Red Cell Distribution Width 15.3 % (12.1-15.1); White Blood Count 8.4 10^3/uL (4.0-10.0)
[2019-10-02 12:00] LABS: INR 2.46 (0.8-1.2)
[2019-10-02 12:17] LABS: Alanine Aminotransferase 30 U/L (0-41); Albumin Level 2.5 g/dL (3.5-5.2); Alkaline Phosphatase 151 IU/L (40-130); Anion Gap 14.2 (5-19); Aspartate Amino Transferase 41 U/L (0-40); Blood Urea Nitrogen 36 mg/dL (8-23); Calcium 8.2 mg/dL (8.5-10.5); Carbon Dioxide 23 mmol/L (22-29); Chloride 103 mmol/L (98-107); Globulin 3.9 g/dL (1.3-4.6); Glucose 270 mg/dL (65-115); Osmolality Calculated 287 mOsm/kg (285-295); Potassium 5.2 mmol/L (3.5-5.1); Sodium 135 mmol/L (136-145); Total Bilirubin 0.4 mg/dL (0.15-1.2); Total Protein 6.4 g/dL (6.6-8.7)
[2019-10-02] MEDS: warfarin 2 mg Tablet 4 MG PO (15:41)
--- NOTE | 2019-10-02 15:49 | PM.PN ---
Subjective Subjective: Interval history: Patient is doing better this morning but reports that he had significant abdominal pain in epigastric region with burning sensation. This felt to be related to ibuprofen and it was discontinued. His modified barium swallow study did not show anything and per speech therapy patient appears to be swallowing well. His creatinine significantly increased to 3.2 and this is concerning for contrast-induced nephropathy. He has good oral intake. Pantoprazole felt unlikely to be the cause. Medications: Reviewed: Yes Vitals/I&O/Wt Last Vital Signs Temp 98.4 F 10/02/19 12:00 Pulse 51 L 10/02/19 12:00 Resp 16 10/02/19 12:00 BP 117/63 10/02/19 12:00 Pulse Ox 96 10/02/19 12:00 10/02/19 10/02/19 10/02/19 06:59 14:59 22:59 Intake Total 400 / 1370 600 / 600 Balance 400 / 1067 600 / 600 Weight last 48 hrs Weight 87.453 kg Weight 86.835 kg Physical Exam Const: COMMON NORMALS: no acute distress and patient oriented x3 Resp: COMMON NORMALS: normal respiratory effort OTHER: Decreased air movement on the right. Very minimal left basilar Rales. Cardio: COMMON NORMALS: regular rate, regular rhythm and S2 normal heart sound present RATE: regular rate RHYTHM: regular rhythm HEART SOUNDS: S2 normal heart sound present OTHER: No lower extremity edema GI: COMMON NORMALS: Soft to palpation and non-tender PALPATION: Yes Soft to palpation OTHER: Neuro: COMMON NORMALS: patient oriented x3 and no focal motor deficits Data : 10/02/19 11:33 10/02/19 11:33 A&P Assessment and plan (1) Pneumonia: Multilobar involving right upper and lower lobe. Concerning for either postobstructive pneumonia or aspiration pneumonia. Continue broad-spectrum antibiotics due to large right lower lobe consolidation and large right-sided pleural effusion Sputum culture pending Blood culture negative to date Had previously been on azithromycin, started on Levaquin 750 mg daily, also started on vancomycin due to concern for large effusion, will further evaluate with thoracentesis whenever INR decreases and coumadin on hold for this reason. Thoracentesis deferred today as INR not at ~1.5 yet Status: Acute Qualifiers: Laterality: right Lung location: unspecified part of lung Pneumonia type: due to unspecified organism Qualified Code(s): J18.9 - Pneumonia, unspecified organism (2) Pleural effusion: Large right-sided pleural effusion, will treat with IV diuresis and IV antibiotics Discussed with patient and he reports that this is chronic in nature, has appeared to be increasing in size since prior imaging Diuresis but will patient will likely require thoracentesis, holding Coumadin today with the possibility of thoracentesis tomorrow or the following day depending on INR. Will need diagnostic thoracentesis, patient has pulmonary nodules that have been chronic in nature but cannot rule out underlying malignancy. Patient may require chest tube placement due to loculations, will follow-up and continue with close monitoring Status: Acute (3) COVID-19 virus test result unknown: Due to respiratory symptoms patient had been tested for COVID-19 while in the ED, this remains pending therefore he will remain on contact and isolation precautions Status: Acute (4) Chronic kidney disease (CKD): Baseline creatinine around 1.5, at baseline at this time we will continue to monitor renal function closely due to diuresis for CHF as noted above Status: Acute (5) Status post biventricular pacemaker: Sick sinus syndrome, remains in paced rhythm Status: Acute (6) Sick sinus syndrome: Sick sinus syndrome remains in paced rhythm Status: Acute (7) Chronic atrial fibrillation: Currently in paced rhythm, continue on atenolol, anticoagulation on hold because patient will likely require thoracentesis and supratherapeutic INR at 3.3 Status: Acute (8) Dyslipidemia: Status: Acute (9) Diabetes mellitus: Placed on sliding scale insulin as needed Reported nausea therefore will hold off on long-acting insulin at this time and start on clear liquid diet, increase insulin requirements as indicated Status: Acute (10) Essential hypertension: We will continue with diuresis Lasix IV daily, holding amlodipine 5 mg twice a day at this time due to anticipated diuresis and do not wish for patient's blood pressures to go too low. Status: Acute (11) Carotid stenosis: Status: Acute (12) CAD (coronary artery disease): Patient has aspirin allergy, not on statin Continue on atenolol Echocardiogram ordered and pending Status: Acute (13) Warfarin anticoagulation: Supratherapeutic INR at 3.3, holding Coumadin for thoracentesis Status: Acute (14) Acute respiratory failure with hypoxia: Present on admission. Status: Acute (15) Acute on chronic diastolic heart failure: Most likely present on admission. Status: Acute (16) Contrast dye induced nephropathy: Status: Acute Additional A&P Information Left lateral malleolus/ankle pain. Suggestive of gout. Septic arthritis felt highly unlikely. PLAN: We will start patient on IV hydration with normal saline at 100 mL/h. Monitor ins and outs Check serum uric acid, LDH and monitor for any signs of bleeding. Urine eosinophils, lites, creatinine and sodium. Monitor PT/INR Consider outpatient evaluation by ENT for what appears chronic discomfort in the neck. DVT prophylaxis: SCDs, no pharmacologic prophylaxis as patient has supratherapeutic INR and anticipate need for diagnostic thoracentesis Diet: Increase to carbohydrate consistent diet CODE STATUS: Full code, discussed with patient on admission to the hospital Attestations Medical Necessity Statement*: Patient with what appears to be contrast-induced nephropathy requires close inpatient monitoring and treatment. Time Spent in Patient Care: 16 - 35 minutes Coding Level of Care Code Acute Online Journalist for g Fwd Diagnoses Pneumonia J18.9 Laterality: right Lung location: unspecified part of lung Pneumonia type: due to unspecified organism Pleural effusion J90 COVID-19 virus test result unknown Chronic kidney disease (CKD) N18.9 Status post biventricular pacemaker Z95.0 Sick sinus syndrome I49.5 Chronic atrial fibrillation I48.20 Dyslipidemia E78.5 Diabetes mellitus E11.9 Essential hypertension I10 Carotid stenosis I65.29 CAD (coronary artery disease) I25.10 Warfarin anticoagulation Z79.01 Acute respiratory failure with hypoxia J96.01 Acute on chronic diastolic heart failure I50.33 Contrast dye induced nephropathy N14.1; T50.8X5A
[2019-10-02 16:45] LABS: Creatine Phosphokinase 28 U/L (39-308); Lactate Dehydrogenase 166 U/L (135-225)
[2019-10-02 17:02] LABS: Glucose Point of Care 252 mg/dL (70-110)
[2019-10-02] MEDS: sodium chloride 0.9% 1,000 ML 100 ML IV (18:37)
[2019-10-02] MEDS: sodium polystyrene sulfonate 15 gm/60 mL Btl PO (18:37)
[2019-10-02] MEDS: docusate sodium 100 mg Capsule PO (18:37)
[2019-10-02 20:18] LABS: Calcium Urine Random 0.8 mg/dL
[2019-10-02 20:20] LABS: Potassium, Radom Urine 62 mmol/L
[2019-10-02 20:24] LABS: Urine Random Chloride 13 mmol/L; Urine Random Sodium 16 mmol/L
[2019-10-02 20:30] LABS: Glucose Point of Care 244 mg/dL (70-110)
[2019-10-02] MEDS: HYDROmorphone 1 mg/mL INJ 1 mL IVP (20:46)
[2019-10-02] MEDS: lidocaine 2% viscous 15 ML, aluminum-mag hydrox-simethicon 30 ML, sucralfate oral liq 1 GM PO (20:52)
[2019-10-02] MEDS: insulin glargine 100 units/1 mL 10 UNIT SUBCUT (20:52)
[2019-10-02] MEDS: atorvastatin 40 mg Tablet PO (20:52)
[2019-10-02] MEDS: doxazosin 4 mg Tablet 8 MG PO (20:52)
--- NOTE | 2019-10-02 20:57 | PC.NURSE ---
Pt stated that his lidoderm patch was removed for a shower earlier today and never replaced. Re-applied patch this evening and will remove after 12 hours.
[2019-10-02 21:19] LABS: Eosinophil Urine No Eosinophils Seen
[2019-10-02 21:20] LABS: Urine Eosinophil Count 0 (0-0)
[2019-10-03] VITALS (9 sets, daily range): BP systolic 140–159; BP diastolic 64–73; PULSE 51–92; RESP 16–20; TEMP 36.5–36.8; O2SAT 90–98
[2019-10-03] MEDS: sodium chloride 0.9% 1,000 ML 100 ML IV ×2 (04:58→12:04)
[2019-10-03] MEDS: metroNIDAZOLE IV 500 MG/100 ML PREMIX 100 MG IV ×3 (05:00→22:41)
[2019-10-03] MEDS: atenolol 50 mg Tablet 100 MG PO (05:00)
[2019-10-03 05:08] LABS: Basophils # 0.1 10^3/uL (0.0-0.1); Basophils % 0.8 %; Eosinophils # 0.2 10^3/uL (0.0-0.8); Eosinophils % 1.8 %; Hematocrit 33.2 % (42.0-52.0); Hemoglobin 9.9 g/dL (11.7-16.6); Lymphocytes # 1.5 10^3/uL (0.8-4.8); Lymphocytes % 14.5 %; Mean Corpuscular HGB Conc 29.8 g/dL (30.0-36.0); Mean Corpuscular Hemoglobin 28.1 pg (28.0-34.0); Mean Corpuscular Volume 94.3 fL (80-94); Mean Platelet Volume 10.9 fL (7.4-10.4); Monocytes # 1.3 10^3/uL (0.2-0.9); Monocytes % 12.3 %; Neutrophils # 7.27 10^3/uL (1.8-7.7); Neutrophils % 69.9 %; Nucleated Red Blood Cells % 0 %; Platelet Count 395 10^3/cmm (130-400); Red Blood Count 3.52 10^6/uL (4.1-5.3); Red Cell Distribution Width 15.5 % (12.1-15.1); White Blood Count 10.4 10^3/uL (4.0-10.0)
[2019-10-03 05:48] LABS: Alanine Aminotransferase 25 U/L (0-41); Albumin Level 3.1 g/dL (3.5-5.2); Alkaline Phosphatase 141 IU/L (40-130); Anion Gap 18.3 (5-19); Aspartate Amino Transferase 35 U/L (0-40); Blood Urea Nitrogen 43 mg/dL (8-23); Calcium 9.1 mg/dL (8.5-10.5); Carbon Dioxide 22 mmol/L (22-29); Chloride 102 mmol/L (98-107); Globulin 3.7 g/dL (1.3-4.6); Glucose 114 mg/dL (65-115); Osmolality Calculated 283 mOsm/kg (285-295); Potassium 5.3 mmol/L (3.5-5.1); Sodium 137 mmol/L (136-145); Total Bilirubin 0.3 mg/dL (0.15-1.2); Total Protein 6.8 g/dL (6.6-8.7)
[2019-10-03 06:38] LABS: Glucose Point of Care 121 mg/dL (70-110)
[2019-10-03] MEDS: albuterol 8 gm MDI 2 PUFF INHALATION ×2 (07:47→20:42)
[2019-10-03] MEDS: lidocaine 5% Patch 1 PATCH TOPICAL (09:43)
[2019-10-03] MEDS: docusate sodium 100 mg Capsule PO (09:46)
[2019-10-03] MEDS: fenofibrate 145 mg Tablet PO (09:46)
[2019-10-03] MEDS: pantoprazole DR 40 mg Tablet PO ×2 (09:46→17:06)
[2019-10-03] MEDS: clopidogrel 75 mg Tablet PO (09:46)
[2019-10-03] MEDS: potassium chloride ER 10 mEq Tablet 20 MEQ PO (09:46)
[2019-10-03] MEDS: finasteride 5 mg Tablet PO (09:46)
[2019-10-03] MEDS: sertraline 50 mg Tablet PO (09:46)
[2019-10-03] MEDS: amlodipine 5 mg Tablet PO ×2 (09:52→17:06)
[2019-10-03 10:25] LABS: INR 2.82 (0.8-1.2)
--- NOTE | 2019-10-03 11:15 | PC.SOCIAL ---
IMM Update Pg. 2 of IMM updated and reviewed with patient. Copy left with patient.
[2019-10-03 11:18] LABS: Glucose Point of Care 221 mg/dL (70-110)
[2019-10-03] MEDS: sodium polystyrene sulfonate 15 gm/60 mL Btl 30 GM PR (12:05)
[2019-10-03] MEDS: phytonadione (ADULT) 10 mg/mL Ampule 1 mL PO (13:45)
[2019-10-03] MEDS: HYDROcodone-acetaminophen 5-325 mg Tablet 1 TAB PO ×2 (14:26→20:24)
[2019-10-03] MEDS: ondansetron 2 mg/ML SDV 2 mL 4 MG IVP (15:15)
--- NOTE | 2019-10-03 16:20 | P.PN_ITS ---
Subjective Subjective: Interval history: Patient reports that he again started having upper abdominal discomfort and belching. Denies significant shortness of breath. Denies chest pain. His chest x-ray did not get any better. His creatinine further worsened. Medications: Reviewed: Yes Vitals/I&O/Wt Last Vital Signs Temp 97.9 F 10/03/19 15:59 Pulse 55 L 10/03/19 15:59 Resp 18 10/03/19 15:59 BP 140/64 10/03/19 15:59 Pulse Ox 90 10/03/19 15:59 10/03/19 10/03/19 10/03/19 06:59 14:59 22:59 Intake Total 1206.667 / 2386.667 236 / 236 Output Total 200 / 275 Balance 1006.667 / 2111.667 236 / 236 Weight last 48 hrs Weight 90.378 kg Weight 87.453 kg Physical Exam Const: COMMON NORMALS: no acute distress and patient oriented x3 Resp: COMMON NORMALS: normal respiratory effort OTHER: Decreased air movement on the right. Rales on the left. Cardio: COMMON NORMALS: regular rate, regular rhythm and S2 normal heart sound present RATE: regular rate RHYTHM: regular rhythm HEART SOUNDS: S2 normal heart sound present OTHER: No lower extremity edema except minimal left ankle around lateral malleolus swelling. GI: COMMON NORMALS: Soft to palpation and non-tender PALPATION: Yes Soft to palpation OTHER: Neuro: COMMON NORMALS: patient oriented x3 and no focal motor deficits Data : 10/03/19 04:21 10/03/19 04:21 A&P Assessment and plan (1) Pneumonia: Multilobar involving right upper and lower lobe. Concerning for either postobstructive pneumonia or aspiration pneumonia. Continue broad-spectrum antibiotics due to large right lower lobe consolidation and large right-sided pleural effusion Sputum culture pending Blood culture negative to date Had previously been on azithromycin, started on Levaquin 750 mg daily, also started on vancomycin due to concern for large effusion, will further evaluate with thoracentesis whenever INR decreases and coumadin on hold for this reason. Thoracentesis deferred today as INR not at ~1.5 yet Status: Acute Qualifiers: Laterality: right Lung location: unspecified part of lung Pneumonia type: due to unspecified organism Qualified Code(s): J18.9 - Pneumonia, unspecified organism (2) Pleural effusion: Large right-sided pleural effusion, will treat with IV diuresis and IV antibiotics Discussed with patient and he reports that this is chronic in nature, has appeared to be increasing in size since prior imaging Diuresis but will patient will likely require thoracentesis, holding Coumadin today with the possibility of thoracentesis tomorrow or the following day depending on INR. Will need diagnostic thoracentesis, patient has pulmonary nodules that have been chronic in nature but cannot rule out underlying malignancy. Patient may require chest tube placement due to loculations, will follow-up and continue with close monitoring Status: Acute (3) COVID-19 virus test result unknown: Due to respiratory symptoms patient had been tested for COVID-19 while in the ED, this remains pending therefore he will remain on contact and isolation precautions Status: Acute (4) Chronic kidney disease (CKD): Baseline creatinine around 1.5, at baseline at this time we will continue to monitor renal function closely due to diuresis for CHF as noted above Status: Acute (5) Status post biventricular pacemaker: Sick sinus syndrome, remains in paced rhythm Status: Acute (6) Sick sinus syndrome: Sick sinus syndrome remains in paced rhythm Status: Acute (7) Chronic atrial fibrillation: Currently in paced rhythm, continue on atenolol, anticoagulation on hold because patient will likely require thoracentesis and supratherapeutic INR at 3.3 Status: Acute (8) Dyslipidemia: Status: Acute (9) Diabetes mellitus: Placed on sliding scale insulin as needed Reported nausea therefore will hold off on long-acting insulin at this time and start on clear liquid diet, increase insulin requirements as indicated Status: Acute (10) Essential hypertension: We will continue with diuresis Lasix IV daily, holding amlodipine 5 mg twice a day at this time due to anticipated diuresis and do not wish for patient's blood pressures to go too low. Status: Acute (11) Carotid stenosis: Status: Acute (12) CAD (coronary artery disease): Patient has aspirin allergy, not on statin Continue on atenolol Echocardiogram ordered and pending Status: Acute (13) Warfarin anticoagulation: Supratherapeutic INR at 3.3, holding Coumadin for thoracentesis Status: Acute (14) Acute respiratory failure with hypoxia: Present on admission. Status: Acute (15) Acute on chronic diastolic heart failure: Most likely present on admission. Status: Acute (16) Contrast dye induced nephropathy: Status: Acute Additional A&P Information Left lateral malleolus/ankle pain. Suggestive of gout. Septic arthritis felt highly unlikely. PLAN: Will stop IV fluids for now due to concern of worsening pleural effusions. Discussed case with Dr. Daniels, until nephrology who will see patient in consultation. Case discussed with Dr. Dave for further evaluation of patient's pleural effusion and pneumonia. Since malignancy is suspected we will reverse patient's INR with vitamin K and check PT/INR in a.m. and use FFP if needed with plan to proceed with bronchoscopy tomorrow. Discussed with Dr. Tran who recommends IR imaging guided thoracentesis which will be ordered tomorrow. We will request cytology although notoriously pleural fluid has low yield Continue Protonix and monitor hemoglobin. DVT prophylaxis: SCDs, no pharmacologic prophylaxis as patient has suprathera peutic INR and anticipate need for diagnostic thoracentesis Diet: Increase to carbohydrate consistent diet CODE STATUS: Full code, discussed with patient on admission to the hospital Attestations Medical Necessity Statement*: Patient with contrast-induced nephropathy and pleural effusion with concern for underlying malignancy requires close inpatient monitoring, treatment evaluation Time Spent in Patient Care: Greater than 35 minutes Coding Level of Care Code Acute [facility] Attendant for [facility] Fwd Diagnoses Pneumonia J18.9 Laterality: right Lung location: unspecified part of lung Pneumonia type: due to unspecified organism Pleural effusion J90 COVID-19 virus test result unknown Chronic kidney disease (CKD) N18.9 Status post biventricular pacemaker Z95.0 Sick sinus syndrome I49.5 Chronic atrial fibrillation I48.20 Dyslipidemia E78.5 Diabetes mellitus E11.9 Essential hypertension I10 Carotid stenosis I65.29 CAD (coronary artery disease) I25.10 Warfarin anticoagulation Z79.01 Acute respiratory failure with hypoxia J96.01 Acute on chronic diastolic heart failure I50.33 Contrast dye induced nephropathy N14.1; T50.8X5A
[2019-10-03 16:50] LABS: Glucose Point of Care 97 mg/dL (70-110)
--- NOTE | 2019-10-03 18:12 | PM.CONSULT ---
Providers/Reason For Consult Consulting Physican/Specialty*: Nephro Reason for Consult*: ARLIN Attending Physician: Ronen Chi MD Primary Care Provider: MIRIAM Garcia History of Present Illness History of Present Illness Thanks for consultation. Mr Mendez presented to our facility on 09/21, not feeling well and increasing SOB. He had some assoc abdominal pain, exertional dyspnea, dry irritating cough that was non producticve, no hemoptysis. He was found to have a large right sided pleural effusion. This was tapped on 09/25 and found to be an exudative effusion. Some pulmonary nodules were also seen. He has recevied combo Abx since admission including Vanco and Levaquin with the highest Vanco trough recorded at 15.2 on 09/28. He has also received Rocephin, Azithromycin. He still feels very nauseated, unwell, anorexic. Losing weight since being in the hospital, and lost 12lbs at home. Ct with iv was performed on 09/21 which incidentally showed no structural issues with kidneys except for some small cysts. Urinary sodium on 10/01 was 16, although this was measured without creatinine and no eosinophils were seen. 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 He is known to have CKD with baseline creatinine ~1.5mg/dL. Creatinine was 1.2 on 09/29 but has increased to 4 today. BUN today is also 43. His last urinalysis was performed on 09/21 wich was relatively benign with no notable proteinuria, a few RBCs, rare WBCs. He does see a doc in [place] [facility] He reports some dysuria, infrequently, reports emptying his bladder ok. His urinre appears less. He denies edema and his breathing is now ok. He did get a single dose of Ibuprofen. He has been receiving Protonix. Bps have been slightly high except for a dip to 100/72 at 11pm on 09/30. We are pending another thoracentesis when his INR is < 1.5 CK is 28. TSH 1.47 Currently he is not on ivf but did have some yesterday. Mild HyperK for which KAyexalate. Meds/Allergies Home Medications and Allergies Home Medications Medication Instructions Recorded Confirmed Last Taken Type albuterol sulfate 90 mcg/actuation 2 puff INHALATION Q6H PRN 03/07/19 09/22/19 Unknown History aerosol inhaler amlodipine 5 mg tablet 5 mg PO BID 03/07/19 09/22/19 09/21/19 History atenolol 100 mg tablet 100 mg PO QAM 03/07/19 09/22/19 09/21/19 History citalopram 40 mg tablet 20 mg PO DAILY tab 03/07/19 09/22/19 09/21/19 History clopidogrel 75 mg tablet 75 mg PO DAILY tab 03/07/19 09/22/19 09/21/19 History doxazosin 8 mg tablet 8 mg PO BEDTIME tab 03/07/19 09/22/19 09/21/19 History fenofibrate nanocrystallized 145 145 mg PO DAILY tab 03/07/19 09/22/19 09/21/19 History mg tablet finasteride 5 mg tablet 5 mg PO DAILY tab 03/07/19 09/22/19 09/21/19 History furosemide 40 mg tablet 40 mg PO QAM 03/07/19 09/22/19 09/21/19 History tramadol 50 mg tablet 50 mg PO Q12H PRN #30 tab 03/17/19 09/22/19 09/21/19 Rx insulin human U-100 NPH-regulr 1 sliding scale dose SUBCUT QAM ml 04/28/19 09/22/19 09/21/19 History 70-30 mix 100 unit/mL subcutaneous susp melatonin 3 mg capsule 3 mg PO BEDTIME cap 04/28/19 09/22/19 09/21/19 History tiotropium bromide 2.5 2 inh INHALATION QAM 04/28/19 09/22/19 09/21/19 History mcg/actuation mist for inhalation zinc 50 mg tablet 50 mg PO DAILY 04/28/19 09/22/19 09/21/19 History fluticasone propionate 50 1 spray INTRANASAL BID #16 gm 08/24/19 09/22/19 09/21/19 Rx mcg/actuation nasal spray,suspension ondansetron HCl 4 mg tablet 4 mg PO BID PRN 5 Days #10 tab 09/14/19 09/22/19 Unknown Rx Coumadin 6 mg PO DAILY 09/22/19 09/22/19 09/21/19 History Xyzal 5 mg PO BEDTIME 09/22/19 09/22/19 09/21/19 History lidocaine 1 applic TOPICAL DAILY PRN 09/22/19 09/22/19 09/21/19 History Allergies Allergy/AdvReac Type Severity Reaction Status Date / Time aspirin Allergy Mild UNKNOWN Verified 09/14/19 09:09 Current Medications Current Medications Generic Name Dose Route Start Last Admin Trade Name Freq PRN Reason Stop Dose Admin Acetaminophen 650 mg 09/22/19 11:41 09/29/19 21:08 Tylenol PO 650 mg Q6H PRN Administration Mild/Mod Pain Or Temp >/= 101 Hydrocodone Bitart/Acetaminophen 1 tab 10/03/19 14:06 10/03/19 14:26 [place] 5-325 Mg PO 1 tab Q4H PRN Administration MODERATE PAIN Albuterol Sulfate 2 puff 09/22/19 12:43 10/03/19 07:47 Ventolin INHALATION 2 puff Q6H PRN Administration Shortness Of Breath Amlodipine Besylate 5 mg 09/29/19 18:00 10/03/19 17:06 Norvasc PO 5 mg BID NURIS Administration Atenolol 100 mg 09/23/19 06:00 10/03/19 05:00 Tenormin PO 100 mg QAM NURIS Administration Atorvastatin Calcium 40 mg 09/23/19 21:00 10/02/19 20:52 Lipitor PO 40 mg BEDTIME NURIS Administration Clopidogrel Bisulfate 75 mg 09/30/19 09:00 10/03/19 09:46 Plavix PO 75 mg DAILY NURIS Administration Docusate Sodium 100 mg 09/22/19 18:00 10/03/19 17:06 Colace PO Not Given BID NURIS Doxazosin Mesylate 8 mg 09/22/19 21:00 10/02/19 20:52 Cardura PO 8 mg BEDTIME NURIS Administration Fenofibrate 145 mg 09/30/19 09:00 10/03/19 09:46 Tricor PO 145 mg DAILY NURIS Administration Finasteride 5 mg 09/22/19 12:43 10/03/19 09:46 Proscar PO 5 mg DAILY NURIS Administration Levofloxacin/Dextrose 750 mg in 150 mls @ 100 mls/hr 10/02/19 10:00 10/02/19 10:11 Levaquin-D5w IV 100 mls/hr Q48H NURIS Administration Protocol Metronidazole 500 mg in 100 mls @ 100 mls/hr 10/01/19 14:00 10/03/19 13:44 Flagyl Iv IV 100 mls/hr Q8H NURIS Administration Protocol Insulin Aspart 0 unit 09/22/19 21:00 10/02/19 20:53 Novolog SUBCUT 4 unit BEDTIME NURIS Administration Protocol Insulin Aspart 0 unit 09/22/19 12:43 10/03/19 16:51 Novolog SUBCUT Not Given TIDWM NURIS Protocol Insulin Glargine 10 unit 09/23/19 21:00 10/02/19 20:52 Lantus SUBCUT 10 unit BEDTIME NURIS Administration Lidocaine 1 patch 09/30/19 21:00 10/03/19 09:43 Lidoderm 5% Patch TOPICAL 1 patch [id number] NURIS Administration Non-Formulary Medication 5 mg 09/29/19 21:00 10/02/19 20:57 Levocetirizine [Xyzal] PO Not Given BEDTIME NURIS Non-Formulary Medication 3 mg 09/29/19 21:00 10/02/19 20:57 Melatonin PO Not Given BEDTIME NURIS Ondansetron HCl 4 mg 09/27/19 11:57 10/03/19 15:15 Zofran IVP 4 mg Q4H PRN Administration vomiting, or N/V if npo Pantoprazole Sodium 40 mg 09/30/19 18:00 10/03/19 17:06 Protonix PO 40 mg BID NURIS Administration Sertraline HCl 50 mg 10/02/19 09:00 10/03/19 09:46 Zoloft PO 50 mg DAILY NURIS Administration Tiotropium [place] 18 mcg 09/30/19 08:15 10/03/19 07:46 Spiriva INHALATION 2 puff DAILY.RESPIRATORY NURIS Administration PFSH Acute PFSH: Medical History (Updated 10/02/19 @ 15:55 by Ronen Chi MD) CAD (coronary artery disease) Carotid stenosis Chronic atrial fibrillation Chronic kidney disease (CKD) COPD (chronic obstructive pulmonary disease) Diabetes mellitus Dyslipidemia Essential hypertension Peripheral arterial disease With a history of peripheral stenting Sick sinus syndrome Warfarin anticoagulation Surgical History (Updated 09/22/19 @ 11:34 by Marlene Floyd DO) H/O cataract extraction BILATERAL H/O shoulder surgery LEFT History of endarterectomy FEMORAL Hx of cholecystectomy Status post biventricular pacemaker Family History Mother Dementia Stroke Father Stroke Other Diabetes Hypertension Social History Smoking and tobacco status: former smoker Alcohol intake: never Lives independently: Yes Household members: none Marital status: / Current occupational status: retired Current gender identity: Male Vitals/I&O/Wt Last Vital Signs Temp 97.9 F 10/03/19 15:59 Pulse 55 L 10/03/19 15:59 Resp 18 10/03/19 15:59 BP 140/64 10/03/19 15:59 Pulse Ox 90 10/03/19 15:59 10/03/19 10/03/19 10/03/19 06:59 14:59 22:59 Intake Total 1206.667 / 2386.667 236 / 236 Output Total 200 / 275 Balance 1006.667 / 2111.667 236 / 236 Weight last 48 hrs Weight 90.378 kg Weight 87.453 kg Physical Exam Narrative: EXAM NARRATIVE: Exam performed with aid of bedside RN using telemed HEENT Non icteric Lungs Right lung decreased air entry otherwise lungs sound ok CVS S1 S2 irregular and murmurs Abdo No tenderness and DS ok Ext No edema at this time Neuro non focal A&P Additional A&P Information 1. 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 Contrast nephropathy less likely given the exposure on 09/21 as the renal injury occurred on the . Primary glomerulonephritis is less likely as renal function was stable for the first half of his admission. There is a systemic syndrome suggested that is yet to be diagnosed and a unifying diagnosis is always edifying. Bladder scan to make sure he is voiding but no other imaging is required Urinalysis with micro, FENa, FE Urea, Urine protein quantification ANCA, complements. Avoid the usuals Ok to hold off ivf for now dose meds for eGFR < 30 2. HyperK s/p kayexalate am labs 3. Right pleural effusion repeat tap when INR<1.5 bronchscopy tomorrow On Abx therapy Weight loss, N&V, exudative pleural effusion all concerning for underlying neoplastic disease 4. 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
[2019-10-03 19:08] LABS: Complement C3 95 mg/dL (90-180)
[2019-10-03] MEDS: doxazosin 4 mg Tablet 8 MG PO (20:17)
[2019-10-03] MEDS: atorvastatin 40 mg Tablet PO (20:18)
[2019-10-03 20:46] LABS: Glucose Point of Care 141 mg/dL (70-110)
[2019-10-03] MEDS: insulin glargine 100 units/1 mL 10 UNIT SUBCUT (21:08)
[2019-10-04] VITALS (13 sets, daily range): BP systolic 115–144; BP diastolic 46–86; PULSE 50–85; RESP 18; TEMP 36.3–36.7; O2SAT 91–98
--- NOTE | 2019-10-04 | US_ITS ---
NOTE: Report was unsigned for reason: Order was edited. Original Signature date and time was: 10/04/19 @[id number] WS: [id number] ULTRASOUND-GUIDED THORACENTESIS CLINICAL INFORMATION: RIGHT PLEURAL EFFUSION COMPARISON: None. PROCEDURE: Informed consent: The risks, benefits, and alternatives of the procedure were discussed with the patient. Verbal and written consent was obtained. Timeout: A timeout was performed to confirm the correct patient, procedure, and site. Site: Right chest Preparation: A suitable skin site was identified. The patient was prepped and draped in usual sterile fashion. Lidocaine 1% was used for local anesthesia. Catheter: 4 [place] One-Step catheter. Fluid Volume: 300 cc Color: [place] Fluid Sent to the laboratory for analysis. Complications: None [facility] US/US chest [id number] IMPRESSION: 1. Uncomplicated ultrasound-guided thoracentesis. 2. Removal of 300 cc fluid 3. Postthoracentesis radiograph pending
[2019-10-04 01:28] LABS: Bacteria Urine 1+; Bilirubin Urine Neg (NEGATIVE); Blood Urine Neg (Negative); Glucose Urine UA Norm (Normal); Ketones Urine Negative (Negative); Leukocyte Esterase Urine Trace (Negative); Nitrate Urine Negative (Negative); Protein Urine Neg (Negative); RBC Urine 0-4 /hpf (0-2); Urine Appearance Clear (CLEAR); Urine Color Yellow (Yellow); Urobilinogen Urine Norm (Negative); WBC Urine 0-4 /hpf (0-5); pH Urine 5 (5-7)
[2019-10-04 01:38] LABS: Urine Creatinine 148 mg/dL (39-259); Urine Protein Random 10 mg/dL
[2019-10-04 01:40] LABS: Urea Nitrogen,Urine Random 570 mg/dL; Urine Random Sodium 17 mmol/L
[2019-10-04 04:53] LABS: Basophils # 0.1 10^3/uL (0.0-0.1); Basophils % 0.8 %; Eosinophils # 0.2 10^3/uL (0.0-0.8); Hematocrit 31.6 % (42.0-52.0); Hemoglobin 9.4 g/dL (11.7-16.6); Lymphocytes % 10.9 %; Mean Corpuscular HGB Conc 29.7 g/dL (30.0-36.0); Mean Corpuscular Hemoglobin 28.2 pg (28.0-34.0); Mean Corpuscular Volume 94.9 fL (80-94); Mean Platelet Volume 10.8 fL (7.4-10.4); Monocytes # 1.2 10^3/uL (0.2-0.9); Monocytes % 12.3 %; Neutrophils # 6.97 10^3/uL (1.8-7.7); Neutrophils % 73.5 %; Nucleated Red Blood Cells % 0 %; Platelet Count 353 10^3/cmm (130-400); Red Blood Count 3.33 10^6/uL (4.1-5.3); Red Cell Distribution Width 15.7 % (12.1-15.1); White Blood Count 9.5 10^3/uL (4.0-10.0)
[2019-10-04 05:22] LABS: Alanine Aminotransferase 20 U/L (0-41); Albumin Level 2.7 g/dL (3.5-5.2); Alkaline Phosphatase 102 IU/L (40-130); Anion Gap 13.8 (5-19); Aspartate Amino Transferase 25 U/L (0-40); Blood Urea Nitrogen 48 mg/dL (8-23); Calcium 8.1 mg/dL (8.5-10.5); Carbon Dioxide 23 mmol/L (22-29); Chloride 108 mmol/L (98-107); Globulin 3.9 g/dL (1.3-4.6); Glucose 88 mg/dL (65-115); Osmolality Calculated 288 mOsm/kg (285-295); Potassium 4.8 mmol/L (3.5-5.1); Sodium 140 mmol/L (136-145); Total Bilirubin 0.3 mg/dL (0.15-1.2); Total Protein 6.6 g/dL (6.6-8.7)
[2019-10-04] MEDS: atenolol 50 mg Tablet 100 MG PO (05:50)
[2019-10-04] MEDS: metroNIDAZOLE IV 500 MG/100 ML PREMIX 100 MG IV ×3 (05:50→22:55)
[2019-10-04 06:29] LABS: Glucose Point of Care 92 mg/dL (70-110)
--- NOTE | 2019-10-04 06:56 | PC.NURSE ---
On 10/03/19 bid writer bladder scanned pt per Dr. Traylor request pt had greater then 90 on bladder scan.
[2019-10-04] MEDS: albuterol 8 gm MDI 2 PUFF INHALATION (07:49)
[2019-10-04] MEDS: lidocaine 5% Patch 1 PATCH TOPICAL (09:31)
[2019-10-04] MEDS: clopidogrel 75 mg Tablet PO (09:31)
[2019-10-04] MEDS: finasteride 5 mg Tablet PO (09:31)
[2019-10-04] MEDS: amlodipine 5 mg Tablet PO ×2 (09:31→17:28)
[2019-10-04] MEDS: pantoprazole DR 40 mg Tablet PO ×2 (09:31→17:28)
[2019-10-04] MEDS: sertraline 50 mg Tablet PO (09:31)
[2019-10-04] MEDS: fenofibrate 145 mg Tablet PO (09:31)
[2019-10-04] MEDS: levofloxacin-dextrose 5 % 750 MG/150 ML PREMIX 100 MG IV (09:32)
[2019-10-04 10:20] LABS: Glucose Point of Care 92 mg/dL (70-110)
--- NOTE | 2019-10-04 13:23 | PM.PN ---
Subjective Subjective: Interval history: Feels weak, SOB at rest and on exertion. Making urine 496 recorded yesterday but possible not a full recording. No edema and no other vol assoc problems. No uremic Sx. Denies fever and chills. To have bronch and tap today Medications: Reviewed: Yes Vitals/I&O/Wt Last Vital Signs Temp 97.9 F 10/04/19 10:56 Pulse 54 L 10/04/19 10:56 Resp 18 10/04/19 10:56 BP 139/55 10/04/19 10:56 Pulse Ox 94 10/04/19 10:56 10/03/19 10/04/19 10/04/19 22:59 06:59 14:59 Intake Total 360 / 696 100 / 796 240 / 240 Output Total 300 / 300 Balance 60 / 396 100 / 496 240 / 240 Weight last 48 hrs Weight 90.775 kg Weight 90.378 kg Physical Exam Narrative: EXAM NARRATIVE: Exam performed with aid of bedside RN using telemed HEENT Non icteric Lungs Right lung decreased air entry otherwise lungs sound ok CVS S1 S2 irregular and murmurs Abdo No tenderness and DS ok Ext No edema at this time Neuro non focal Data : 10/04/19 04:30 10/04/19 04:30 A&P Additional A&P Information 1. 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 Contrast nephropathy less likely given the exposure on 09/21 as the renal injury occurred on the . Primary glomerulonephritis is less likely as renal function was stable for the first half of his admission. There is a systemic syndrome suggested that is yet to be diagnosed and a unifying diagnosis is always edifying. Bladder scan daily; d/w RN FENa, FE Urea, Urine protein quantification all sent and pending; urinalysis micro benign ANCA, complements pending Avoid the usuals Ok to hold off ivf for now dose meds for eGFR < 30 2. HyperK s/p kayexalate resolved 3. Right pleural effusion Tap and bronchoscopy pending On Abx therapy Weight loss, N&V, exudative pleural effusion all concerning for underlying neoplastic disease 4. 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
--- NOTE | 2019-10-04 15:25 | P.PN_ITS ---
Subjective Subjective: Interval history: Patient feels slightly better. Continues to have right upper quadrant abdominal discomfort and some shortness of breath on exertion. Reports breathing without difficulty at rest. Denies chest pain. Denies ankle pain. Medications: Reviewed: Yes Vitals/I&O/Wt Last Vital Signs Temp 97.9 F 10/04/19 10:56 Pulse 50 L 10/04/19 15:18 Resp 18 10/04/19 15:18 BP 139/55 10/04/19 10:56 Pulse Ox 91 10/04/19 15:18 10/04/19 10/04/19 10/04/19 06:59 14:59 22:59 Intake Total 200 / 896 240 / 240 Balance 200 / 596 240 / 240 Weight last 48 hrs Weight 90.775 kg Weight 90.378 kg Physical Exam Const: COMMON NORMALS: no acute distress and patient oriented x3 Resp: COMMON NORMALS: normal respiratory effort OTHER: Decreased air movement on the right. Rales on the left. Cardio: COMMON NORMALS: regular rate, regular rhythm and S2 normal heart sound present RATE: regular rate RHYTHM: regular rhythm HEART SOUNDS: S2 normal heart sound present OTHER: No lower extremity edema except minimal left ankle around lateral malleolus swelling. GI: COMMON NORMALS: Soft to palpation and non-tender PALPATION: Yes Soft to palpation OTHER: Neuro: COMMON NORMALS: patient oriented x3 and no focal motor deficits Data : 10/04/19 04:30 10/04/19 04:30 A&P Assessment and plan (1) Pneumonia: Multilobar involving right upper and lower lobe. Concerning for either po stobstructive pneumonia or aspiration pneumonia. Continue broad-spectrum antibiotics due to large right lower lobe consolidation and large right-sided pleural effusion Sputum culture pending Blood culture negative to date Had previously been on azithromycin, started on Levaquin 750 mg daily, also started on vancomycin due to concern for large effusion, will further evaluate with thoracentesis whenever INR decreases and coumadin on hold for this reason. Thoracentesis deferred today as INR not at ~1.5 yet Status: Acute Qualifiers: Laterality: right Lung location: unspecified part of lung Pneumonia type: due to unspecified organism Qualified Code(s): J18.9 - Pneumonia, un specified organism (2) Pleural effusion: Large right-sided pleural effusion, will treat with IV diuresis and IV antibiotics Discussed with patient and he reports that this is chronic in nature, has appeared to be increasing in size since prior imaging Diuresis but will patient will likely require thoracentesis, holding Coumadin today with the possibility of thoracentesis tomorrow or the following day depending on INR. Will need diagnostic thoracentesis, patient has pulmonary nodules that have been chronic in nature but cannot rule out underlying malignancy. Patient may require chest tube placement due to loculations, will follow-up and continue with close monitoring Status: Acute (3) COVID-19 virus test result unknown: Due to respiratory symptoms patient had been tested for COVID-19 while in the ED, this remains pending therefore he will remain on contact and isolation p recautions Status: Acute (4) Chronic kidney disease (CKD): Baseline creatinine around 1.5, at baseline at this time we will continue to monitor renal function closely due to diuresis for CHF as noted above Status: Acute (5) Status post biventricular pacemaker: Sick sinus syndrome, remains in paced rhythm Status: Acute (6) Sick sinus syndrome: Sick sinus syndrome remains in paced rhythm Status: Acute (7) Chronic atrial fibrillation: Currently in paced rhythm, continue on atenolol, anticoagulation on hold because patient will likely require thoracentesis and supratherapeutic INR at 3.3 Status: Acute (8) Dyslipidemia: Status: Acute (9) Diabetes mellitus: Placed on sliding scale insulin as needed Reported nausea therefore will hold off on long-acting insulin at this time and start on clear liquid diet, increase insulin requirements as indicated Status: Acute (10) Essential hypertension: We will continue with diuresis Lasix IV daily, holding amlodipine 5 mg twice a day at this time due to anticipated diuresis and do not wish for patient 's blood pressures to go too low. Status: Acute (11) Carotid stenosis: Status: Acute (12) CAD (coronary artery disease): Patient has aspirin allergy, not on statin Continue on atenolol Echocardiogram ordered and pending Status: Acute (13) Warfarin anticoagulation: Supratherapeutic INR at 3.3, holding Coumadin for thoracentesis Status: Acute (14) Acute respiratory failure with hypoxia: Present on admission. Status: Acute (15) Acute on chronic diastolic heart failure: Most likely present on admission. Status: Acute (16) Contrast dye induced nephropathy: Status: Acute Additional A&P Information Left lateral malleolus/ankle pain. Suggestive of gout. Septic arthritis felt highly unlikely. PLAN: Discussed with Dr. Dave and we will proceed with US guided thoracentesis with kalli seo sent for cytology and plan to proceed with bronchoscopy tomorrow. Patient was given FFP prior to procedure. Discussed with patient's granddaughter Rosario yesterday and updated her regarding plan of treatment and evaluation. DVT prophylaxis: SCDs, no pharmacologic prophylaxis as patient has hamilton pratherapeutic INR and anticipate need for diagnostic thoracentesis Diet: Increase to carbohydrate consistent diet CODE STATUS: Full code, discussed with patient on admission to the hospital Attestations Medical Necessity Statement*: Patient with significant pneumonia and pleural effusion requires close inpatient monitoring, treatment evaluation. 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 [facility] Diagnoses Pneumonia J18.9 Laterality: right Lung location: unspecified part of lung Pneumonia type: due to unspecified organism Pleural effusion J90 COVID-19 virus test result unknown Chronic kidney disease (CKD) N18.9 Status post biventricular pacemaker Z95.0 Sick sinus syndrome I49.5 Chronic atrial fibrillation I48.20 Dyslipidemia E78.5 Diabetes mellitus E11.9 Essential hypertension I10 Carotid stenosis I65.29 CAD (coronary artery disease) I25.10 Warfarin anticoagulation Z79.01 Acute respiratory failure with hypoxia J96.01 Acute on chronic diastolic heart failure I50.33 Contrast dye induced nephropathy N14.1; T50.8X5A
--- NOTE | 2019-10-04 16:47 | XR_ITS ---
WS: [id number] CHEST XRAY TECHNIQUE: Portable chest. CLINICAL INFORMATION: post thoracentesis COMPARISON: October 02, 2019 FINDINGS: Heart: Cardiomegaly. Lungs: Post right thoracentesis with removal of 300 cc fluid. Right pleural effusion appears slightly smaller and less dense. Effusion seen to be partially loculated on the ultrasound. Stable right basi lar atelectasis. Left lung is well aerated. No pneumothorax Bones: Normal visualized bony structures. XR/XR chest 1V portable [id number] IMPRESSION: 1. Post thoracentesis with removal 300 cc fluid. Improved but persistent pleur al effusion extending along the right lateral chest wall with pleural thickenin g. Right basilar atelectasis. 2. No pneumothorax.
[2019-10-04 17:14] LABS: Mononuclear %, Pleural Fluid 25 %; Mononuclear, Pleural Fluid # 0.017 10^3/uL; Polynuclear Cells, Pleural % 75 %
[2019-10-04 17:14] LABS: Glucose Point of Care 154 mg/dL (70-110)
[2019-10-04] MEDS: docusate sodium 100 mg Capsule PO (17:28)
[2019-10-04 18:33] LABS: Appearance, Pleural Fluid CLEAR (CLEAR); Color, Pleural Fluid Yellow (Pale Yellow); Pleural Fluid Specific Gravity 1.015
[2019-10-04 18:35] LABS: LDH Pleural Fluid 227 U/L; Pleural Fluid Albumin 1.7 g/dL; Right Pleural Fluid Right Lung; Total Protein Pleural Fluid 3.2 g/dL
[2019-10-04 18:39] LABS: PATH Referal YES
--- NOTE | 2019-10-04 18:46 | PM.CONSULT ---
Providers/Reason For Consult Consulting Physican/Specialty*: Dr Martines Datar Reason for Consult*: Right pleural effusion Attending Physician: Ronen Chi MD Primary Care Provider: MIRIAM Garcia History of Present Illness History of Present Illness Tae Mendez is a 84 year old male with past medical history of coronary artery disease, carotid stenosis, atrial fibrillation, CKD, diabetes, COPD, chronic right pleural effusion and sick sinus syndrome admitted to hospital for increasing exertional dyspnea for 1 week. Currently being managed for pneumonia and presence of large right pleural effusion, which patient said exists for about 3 years now. Remote history of smoking quit about 15 years ago. Clinical history so far since admission, patient had thoracentesis on 09/26/2019 pleural fluid was exudative, neutrophil predominant, all cultures negative, cytology inadequate to rule out malignancy. Patient on warfarin, which was held, for repeat thoracentesis and pulmonary consult requested for possible bronchoscopy. Patient reported slight improvement in his symptoms at rest but still shortness of breath persists on exertion. Saturating well on 2 L nasal cannula. Review of Systems Narrative: General: no fever, chills, weight loss Eyes: no blurry vision, photophobia ENT: no rhinorrhea, sinus pressure CV: no chest pain, palpitations, LE edema Lungs:SOB, cough, hemoptysis GI: no abdominal pain, nausea, vomiting, diarrhea, constipation, melena : no dysuria or hematuria Neuro: no headache, dizziness, lightheadedness MSK: no muscle or joint pain Derm: no rashes Meds/Allergies Home Medications and Allergies Home Medications Medication Instructions Recorded Confirmed Last Taken Type albuterol sulfate 90 mcg/actuation 2 puff INHALATION Q6H PRN 03/07/19 09/22/19 Unknown History aerosol inhaler amlodipine 5 mg tablet 5 mg PO BID 03/07/19 09/22/19 09/21/19 History atenolol 100 mg tablet 100 mg PO QAM 03/07/19 09/22/19 09/21/19 History citalopram 40 mg tablet 20 mg PO DAILY tab 03/07/19 09/22/19 09/21/19 History clopidogrel 75 mg tablet 75 mg PO DAILY tab 03/07/19 09/22/19 09/21/19 History doxazosin 8 mg tablet 8 mg PO BEDTIME tab 03/07/19 09/22/19 09/21/19 History fenofibrate nanocrystallized 145 145 mg PO DAILY tab 03/07/19 09/22/19 09/21/19 History mg tablet finasteride 5 mg tablet 5 mg PO DAILY tab 03/07/19 09/22/19 09/21/19 History furosemide 40 mg tablet 40 mg PO QAM 03/07/19 09/22/19 09/21/19 History tramadol 50 mg tablet 50 mg PO Q12H PRN #30 tab 03/17/19 09/22/19 09/21/19 Rx insulin human U-100 NPH-regulr 1 sliding scale dose SUBCUT QAM ml 04/28/19 09/22/19 09/21/19 History 70-30 mix 100 unit/mL subcutaneous susp melatonin 3 mg capsule 3 mg PO BEDTIME cap 04/28/19 09/22/19 09/21/19 History tiotropium bromide 2.5 2 inh INHALATION QAM 04/28/19 09/22/19 09/21/19 History mcg/actuation mist for inhalation zinc 50 mg tablet 50 mg PO DAILY 04/28/19 09/22/19 09/21/19 History fluticasone propionate 50 1 spray INTRANASAL BID #16 gm 08/24/19 09/22/19 09/21/19 Rx mcg/actuation nasal spray,suspension ondansetron HCl 4 mg tablet 4 mg PO BID PRN 5 Days #10 tab 09/14/19 09/22/19 Unknown Rx Coumadin 6 mg PO DAILY 09/22/19 09/22/19 09/21/19 History Xyzal 5 mg PO BEDTIME 09/22/19 09/22/19 09/21/19 History lidocaine 1 applic TOPICAL DAILY PRN 09/22/19 09/22/19 09/21/19 History Allergies Allergy/AdvReac Type Severity Reaction Status Date / Time aspirin Allergy Mild UNKNOWN Verified 09/14/19 09:09 Current Medications Current Medications Generic Name Dose Route Start Last Admin Trade Name Freq PRN Reason Stop Dose Admin Acetaminophen 650 mg 09/22/19 11:41 09/29/19 21:08 Tylenol PO 650 mg Q6H PRN Administration Mild/Mod Pain Or Temp >/= 101 Hydrocodone Bitart/Acetaminophen 1 tab 10/03/19 14:06 10/03/19 20:24 Dietrich 5-325 Mg PO 1 tab Q4H PRN Administration MODERATE PAIN Albuterol Sulfate 2 puff 09/22/19 12:43 10/04/19 07:49 Ventolin INHALATION 2 puff Q6H PRN Administration Shortness Of Breath Amlodipine Besylate 5 mg 09/29/19 18:00 10/04/19 17:28 Norvasc PO 5 mg BID NURIS Administration Atenolol 100 mg 09/23/19 06:00 10/04/19 05:50 Tenormin PO 100 mg QAM NURIS Administration Atorvastatin Calcium 40 mg 09/23/19 21:00 10/03/19 20:18 Lipitor PO 40 mg BEDTIME NURIS Administration Clopidogrel Bisulfate 75 mg 09/30/19 09:00 10/04/19 09:31 Plavix PO 75 mg DAILY NURIS Administration Docusate Sodium 100 mg 09/22/19 18:00 10/04/19 17:28 Colace PO 100 mg BID NURIS Administration Doxazosin Mesylate 8 mg 09/22/19 21:00 10/03/19 20:17 Cardura PO 8 mg BEDTIME NURIS Administration Fenofibrate 145 mg 09/30/19 09:00 10/04/19 09:31 Tricor PO 145 mg DAILY NURIS Administration Finasteride 5 mg 09/22/19 12:43 10/04/19 09:31 Proscar PO 5 mg DAILY NURIS Administration Metronidazole 500 mg in 100 mls @ 100 mls/hr 10/01/19 14:00 10/04/19 13:31 Flagyl Iv IV 100 mls/hr Q8H NURIS Administration Protocol Insulin Aspart 0 unit 09/22/19 21:00 10/03/19 21:08 Novolog SUBCUT 2 unit BEDTIME NURIS Administration Protocol Insulin Aspart 0 unit 09/22/19 12:43 10/04/19 17:27 Novolog SUBCUT 6 unit TIDWM [facility] Administration Protocol Insulin Glargine 10 unit 09/23/19 21:00 10/03/19 21:08 Lantus SUBCUT 10 unit BEDTIME NURIS Administration Lidocaine 1 patch 09/30/19 21:00 10/04/19 09:31 Lidoderm 5% Patch TOPICAL 1 patch [id number] NURIS Administration Non-Formulary Medication 5 mg 09/29/19 21:00 10/03/19 20:21 Levocetirizine [Xyzal] PO Not Given BEDTIME NURIS Non-Formulary Medication 3 mg 09/29/19 21:00 10/03/19 20:25 Melatonin PO Not Given BEDTIME NURIS Ondansetron HCl 4 mg 09/27/19 11:57 10/03/19 15:15 Zofran IVP 4 mg Q4H PRN Administration vomiting, or N/V if npo Pantoprazole Sodium 40 mg 09/30/19 18:00 10/04/19 17:28 Protonix PO 40 mg BID NURIS Administration Sertraline HCl 50 mg 10/02/19 09:00 10/04/19 09:31 Zoloft PO 50 mg DAILY NURIS Administration Tiotropium Lockhart 18 mcg 09/30/19 08:15 10/04/19 07:49 Spiriva INHALATION 1 puff DAILY.RESPIRATORY NURIS Administration PFSH Acute PFSH: Medical History (Updated 10/04/19 @ 19:02 by Conrad Dave MD) CAD (coronary artery disease) Carotid stenosis Chronic atrial fibrillation Chronic kidney disease (CKD) COPD (chronic obstructive pulmonary disease) Diabetes mellitus Dyslipidemia Essential hypertension Peripheral arterial disease With a history of peripheral stenting Sick sinus syndrome Warfarin anticoagulation Surgical History (Updated 09/22/19 @ 11:34 by Marlene Floyd DO) H/O cataract extraction BILATERAL H/O shoulder surgery LEFT History of endarterectomy FEMORAL Hx of cholecystectomy Status post biventricular pacemaker Family History Mother Dementia Stroke Father Stroke Other Diabetes Hypertension Social History Smoking and tobacco status: former smoker Alcohol intake: never Lives independently: Yes Household members: none Marital status: / Current occupational status: retired Current gender identity: Male Vitals/I&O/Wt Last Vital Signs Temp 97.4 F L 10/04/19 16:36 Pulse 50 L 10/04/19 16:36 Resp 18 10/04/19 16:36 BP 143/57 10/04/19 16:36 Pulse Ox 96 10/04/19 16:36 10/04/19 10/04/19 10/04/19 06:59 14:59 22:59 Intake Total 200 / 896 240 / 240 460 / 700 Balance 200 / 596 240 / 240 460 / 700 Weight last 48 hrs Weight 200 lb 2 oz Weight 199 lb 4 oz Physical Exam Narrative: EXAM NARRATIVE: General: alert, NAD HEENT: conj clear, EOMI, PERRL, mmm, Neck: supple, no meningismus Heme: no cervical LAP Pulmonary: Reduced breath sounds on right lung base Cardiovascular: rrr, nl s1s2, no mrg Abdomen: soft, nt, nd, no r/g, bs+ Extremities: pulses +, no edema, no c/c : no CVA tenderness Skin: intact, no rash MSK: no back or neck pain Neurologic: grossly intact Data Imaging^: CT Chest: Radiologist's impression: Patchy airspace consolidation in the right lung apex, right perihilar region, periphery of the right middle lobe, and periphery of the right lower lobe. This is consistent with pneumonia. The majority of the right lower lobe is collapsed. Mild patchy atelectasis scattered throughout the left upper lobe and left lower lobe. There is a cluster of tiny (0.4 cm range) nodular opacities in the left upper lobe laterally on series 3, image 201. There is a 0.6 cm nodule in the left upper lobe posteriorly on series 3, image 295. There is a 0.4 cm nodule in the left lower lobe posterolaterally on series 3, image 204. Differential diagnosis includes infectious/inflammatory nodules. Neoplasm is conceivable. Pleural space: No pneumothorax. Large right pleural effusion with loculation. Heart: Heart size within normal limits. Lymph nodes: Mediastinal lymphadenopathy is present. Sample enlarged lymph node measures 1.3 cm in the right paratracheal region on series 3, image 169. Sample enlarged left paratracheal lymph node measures 1.3 cm short axis on series 3, image 197. Sample enlarged subcarinal lymph node measures 1.6 cm short axis on series 3, image 237. Enlarged right hilar lymph node measures 1.8 cm short axis on series 3, image 239. Bones/joints: Flowing ossification anterior to the thoracic spine, consistent with diffuse idiopathic skeletal hyperostosis. Soft tissues: Unremarkable. IMPRESSION: 1. No pulmonary emboli identified. 2. Multifocal pneumonia in the right upper lobe and right lower lobe. 3. The majority of the right lower lobe is collapsed. 4. Large right pleural effusion with loculation. 5. Several left upper lobe and left lower lobe nodules as above. Differential diagnosis includes infectious/inflammatory nodules. Neoplasm is conceivable. See comment. A&P Assessment and plan (1) Pneumonia: Status: Acute Qualifiers: Laterality: right Lung location: unspecified part of lung Pneumonia type: due to unspecified organism Qualified Code(s): J18.9 - Pneumonia, unspecified organism (2) Pleural effusion: Status: Acute (3) Lung nodule: Status: Acute #Multi lobar pneumonia with loculated right-sided pleural effusion #Multiple pulmonary nodules on left lung - Status post right lung thoracentesis on 09/26/19-fluid studies exudative neutrophilic predominant suggestive of infection-cytology inadequate to rule out malignancy - Patient currently on Levaquin - No fever spikes or leukocytosis - Additional 300 cc fluid drained on 10/04/2019 today and sent for repeat cytology -If cytology is negative for malignancy-would do bronchoscopy tomorrow/Wednesday for BAL cytology and cultures -Ideally patient needs VATS or surgical intervention-the latter would be very aggressive and risky given patient's age and multiple comorbidities -We will bronchoscopy with collapse right lower lobe and loculated effusion on right side will put the patient under risk for prolonged intubation -Everything explained to the patient in detail and he verbalized understanding and agreed with the plan of care Recommendations conveyed to Dr. 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
[2019-10-04 20:46] LABS: Glucose Point of Care 208 mg/dL (70-110)
[2019-10-04] MEDS: doxazosin 4 mg Tablet 8 MG PO (22:53)
[2019-10-04] MEDS: atorvastatin 40 mg Tablet PO (22:54)
[2019-10-04] MEDS: HYDROcodone-acetaminophen 5-325 mg Tablet 1 TAB PO (23:15)
[2019-10-04] MEDS: insulin glargine 100 units/1 mL 10 UNIT SUBCUT (23:29)
[2019-10-05] VITALS (9 sets, daily range): BP systolic 129–148; BP diastolic 62–71; PULSE 51–97; RESP 18; TEMP 36.3–36.8; O2SAT 85–95
[2019-10-05] MEDS: albuterol 8 gm MDI 2 PUFF INHALATION ×2 (00:30→07:24)
[2019-10-05 03:44] LABS: Basophils # 0.1 10^3/uL (0.0-0.1); Basophils % 0.8 %; Eosinophils # 0.2 10^3/uL (0.0-0.8); Eosinophils % 2.2 %; Hematocrit 32.1 % (42.0-52.0); Hemoglobin 9.4 g/dL (11.7-16.6); Lymphocytes # 1.1 10^3/uL (0.8-4.8); Lymphocytes % 12.4 %; Mean Corpuscular HGB Conc 29.3 g/dL (30.0-36.0); Mean Corpuscular Hemoglobin 27.6 pg (28.0-34.0); Mean Corpuscular Volume 94.4 fL (80-94); Mean Platelet Volume 11.1 fL (7.4-10.4); Monocytes # 1.2 10^3/uL (0.2-0.9); Monocytes % 13.4 %; Neutrophils # 6.48 10^3/uL (1.8-7.7); Neutrophils % 70.3 %; Nucleated Red Blood Cells % 0 %; Platelet Count 363 10^3/cmm (130-400); Red Cell Distribution Width 15.7 % (12.1-15.1); White Blood Count 9.2 10^3/uL (4.0-10.0)
[2019-10-05 04:10] LABS: Alanine Aminotransferase 15 U/L (0-41); Albumin Level 2.6 g/dL (3.5-5.2); Alkaline Phosphatase 89 IU/L (40-130); Anion Gap 13.9 (5-19); Aspartate Amino Transferase 20 U/L (0-40); Blood Urea Nitrogen 54 mg/dL (8-23); Calcium 7.9 mg/dL (8.5-10.5); Carbon Dioxide 23 mmol/L (22-29); Chloride 106 mmol/L (98-107); Globulin 3.8 g/dL (1.3-4.6); Glucose 132 mg/dL (65-115); Osmolality Calculated 286 mOsm/kg (285-295); Potassium 4.9 mmol/L (3.5-5.1); Sodium 138 mmol/L (136-145); Total Bilirubin 0.3 mg/dL (0.15-1.2); Total Protein 6.4 g/dL (6.6-8.7)
[2019-10-05] MEDS: metroNIDAZOLE IV 500 MG/100 ML PREMIX 100 MG IV (06:26)
[2019-10-05] MEDS: atenolol 50 mg Tablet 100 MG PO (06:28)
[2019-10-05 06:45] LABS: Glucose Point of Care 109 mg/dL (70-110)
[2019-10-05] MEDS: fenofibrate 145 mg Tablet PO (09:31)
[2019-10-05] MEDS: sertraline 50 mg Tablet PO (09:31)
[2019-10-05] MEDS: clopidogrel 75 mg Tablet PO (09:31)
[2019-10-05] MEDS: pantoprazole DR 40 mg Tablet PO (09:31)
[2019-10-05] MEDS: amlodipine 5 mg Tablet PO (09:31)
[2019-10-05] MEDS: finasteride 5 mg Tablet PO (09:31)
[2019-10-05] MEDS: lidocaine 5% Patch 1 PATCH TOPICAL (09:32)
[2019-10-05] MEDS: ondansetron 2 mg/ML SDV 2 mL 4 MG IVP (09:39)
--- NOTE | 2019-10-05 10:25 | PC.SOCIAL ---
IMM Update PG. 2 of IMM updated with patient and copy provided.
[2019-10-05 11:24] LABS: Glucose Point of Care 139 mg/dL (70-110)
[2019-10-05 12:30] LABS: Anti-streptolysin O <50 IU/mL (<200)
--- NOTE | 2019-10-05 13:05 | P.ANESASSM_ITS ---
Pre-Anesthetic Assessment Pre-Anesthetic Assessment: Height/Weight: Height 1.73 m Weight 91.767 kg Temp Pulse Resp BP Pulse Ox 98.1 F 56 L 18 142/68 94 10/05/19 11:34 10/05/19 11:34 10/05/19 11:34 10/05/19 11:34 10/05/19 11:34 Preop Diagnosis: lung mass Proposed Procedure: Operation Date: 09/29/19 07:30 Proposed Procedures p Colonoscopy(Not Applicable) - Sterling Mix MD Operation Date: 10/05/19 16:00 Proposed Procedures p Bronchoscopy(Not Applicable) - Conrad Dave MD Last intake: Intake Last Liquid Date 10/04/19 Last Liquid Time 04:30 Last Solid Date 10/03/19 Last Solid Time 19:00 Pulmonary: Comments: R pleural effusion (chronic) acute resp failure CV/HEM: CV/HEM: Afib, Anemia, CAD and HTN Comments: AV paced for Sick sinus syndrome holding coumadin acute on chronic chf : : Chronic renal Insufficiency Comments: scr 4.3 Metabolic: Metabolic: DM and Hyperlipidemia Neuropsych: Comments: carotid stenosis Anesthetic Plan: ASA status: 4 Anesthesia: General Meds/Allergies Current Medications: Current Medications Generic Name Dose Route Start Last Admin Trade Name Freq PRN Reason Stop Dose Admin Acetaminophen 650 mg 09/22/19 11:41 09/29/19 21:08 Tylenol PO 650 mg Q6H PRN Administration Mild/Mod Pain Or Temp >/= 101 Hydrocodone Bitart /Acetaminophen 1 tab 10/03/19 14:06 10/04/19 23:15 [place] 5-325 Mg PO 1 tab Q4H PRN Administration MODERATE PAIN Albuterol Sulfate 2 puff 09/22/19 12:43 10/05/19 07:24 Ventolin INHALATION 2 puff Q6H PRN Administration Shortness Of Abi th Amlodipine Besylat e 5 mg 09/29/19 18:00 10/05/19 09:31 Norvasc PO 5 mg BID NURIS Administration Atenolol 100 mg 09/23/19 06:00 10/05/19 06:28 Tenormin PO 100 mg QAM NURIS Administration Atorvastatin Calci um 40 mg 09/23/19 21:00 10/04/19 22:54 Lipitor PO 40 mg BEDTIME NURIS Administration Clopidogrel Bisulf ate 75 mg 09/30/19 09:00 10/05/19 09:31 Plavix PO 75 mg DAILY NURIS Administration Docusate Sodium 100 mg 09/22/19 18:00 10/05/19 09:32 Colace PO Not Given BID NURIS Doxazosin Mesylate 8 mg 09/22/19 21:00 10/04/19 22:53 Cardura PO 8 mg BEDTIME NURIS Administration Fenofibrate 145 mg 09/30/19 09:00 10/05/19 09:31 Tricor PO 145 mg DAILY NURIS Administration Finasteride 5 mg 09/22/19 12:43 10/05/19 09:31 Proscar PO 5 mg DAILY NURIS Administration Metronidazole 500 mg in 100 mls @ 100 mls/hr 10/01/19 14:00 10/05/19 06:26 Flagyl Iv IV 100 mls/hr Q8H NURIS Administration Protocol Insulin Aspart 0 unit 09/22/19 21:00 10/04/19 22:54 Novolog SUBCUT 4 unit BEDTIME NURIS Administration Protocol Insulin Aspart 0 unit 09/22/19 12:43 10/05/19 06:55 Novolog SUBCUT Not Given [facility] Protocol Insulin Glargine 10 unit 09/23/19 21:00 10/04/19 23:29 Lantus SUBCUT 10 unit BEDTIME NURIS Administration Lidocaine 1 patch 09/30/19 21:00 10/05/19 09:32 Lidoderm 5% Patc h TOPICAL 1 patch [id number] NURIS Administration Non-Formulary Medi cation 5 mg 09/29/19 21:00 10/04/19 23:07 Levocetirizine [ Xyzal] PO Not Given BEDTIME NURIS Non-Formulary Medi cation 3 mg 09/29/19 21:00 10/04/19 23:08 Melatonin PO Not Given BEDTIME NURIS Ondansetron HCl 4 mg 09/27/19 11:57 10/05/19 09:39 Zofran IVP 4 mg Q4H PRN Administration vomiting, or N/V if npo Pantoprazole Sodiu m 40 mg 09/30/19 18:00 10/05/19 09:31 Protonix PO 40 mg BID NURIS Administration Sertraline HCl 50 mg 10/02/19 09:00 10/05/19 09:31 Zoloft PO 50 mg DAILY NURIS Administration Tiotropium [place] 18 mcg 09/30/19 08:15 10/05/19 07:24 Spiriva INHALATION 1 puff DAILY.RESPIRATORY NURIS Administration PFSH Anesthesia PFSH: Medical History (Updated 10/04/19 @ 19:02 by Conrad Dave MD) CAD (coronary artery disease) Carotid stenosis Chronic atrial fibrillation Chronic kidney disease (CKD) COPD (chronic obstructive pulmonary disease) Diabetes mellitus Dyslipidemia Essential hypertension Peripheral arterial disease With a history of peripheral stenting Sick sinus syndrome Warfarin anticoagulation Surgical History (Updated 09/22/19 @ 11:34 by Marlene Floyd DO) H/O cataract extraction BILATERAL H/O shoulder surgery LEFT History of endarterectomy FEMORAL Hx of cholecystectomy Status post biventricular pacemaker Family History Mother Dementia Stroke Father Stroke Other Diabetes Hypertension Social History Smoking and tobacco status: former smoker Alcohol intake: never Lives independently: Yes Household members: none Marital status: / Current occupational status: retired Current gender identity: Male Data Anesthesia CBC & Chem 7: 10/05/19 03:07 10/05/19 03:07 Other Labs: Laboratory Results - last 48 hr 10/03/19 10/03/19 10/03/19 04:21 04:21 16:43 WBC RBC Hgb Hct MCV MCH MCHC RDW Plt Count MPV Neut % (Auto) Lymph % (Auto) [place] % (Auto) Eos % (Auto) Baso % (Auto) Neut # (Auto) Lymph # (Auto) [place] # (Auto) Eos # (Auto) Baso # (Auto) Nucleated RBC % (auto) Total Counted Nucleated RBCs # PT INR Sodium Potassium Chloride Carbon Dioxide Anion Gap BUN Creatinine GFR Calculation Glucose POC Glucose 97 Calculated Osmolality Calcium Total Bilirubin AST ALT Alkaline Phosphatase Total Protein Albumin Globulin Urine Color Urine Appearance Urine pH Ur Specific [place] Urine Protein Urine Glucose (UA) Urine Ketones Urine Blood Urine Nitrate Urine Bilirubin Urine Urobilinogen Ur Leukocyte Esterase Urine RBC Urine WBC Ur Squamous Epith Cells Amorphous Sediment Urine Bacteria U Random Total Protein Ur Random Sodium Ur Random Urea Nitrogn Urine Creatinine Pleural Color Pleural Appearance Pleural pH Pleural Spec [place] Pleural WBC Pleural RBC Pleural Mononuc # Auto Pleural Other Cells Pleural Polynuclear % Pleural Polynuclear # Pleural Mononuclear % Pleural Other Cells Rt Pleural Total Protein Pleural Albumin Pleural LDH Pleural Glucose Complement C3 95 Anti-Streptolysin O Ab <50 Path Cons w/Slide Blood Type Rho(D) Type 10/03/19 10/04/19 10/04/19 20:25 00:25 00:25 WBC RBC Hgb Hct MCV MCH MCHC RDW Plt Count MPV Neut % (Auto) Lymph % (Auto) [place] % (Auto) Eos % (Auto) Baso % (Auto) Neut # (Auto) Lymph # (Auto) [place] # (Auto) Eos # (Auto) Baso # (Auto) Nucleated RBC % (auto) Total Counted Nucleated RBCs # PT INR Sodium Potassium Chloride Carbon Dioxide Anion Gap BUN Creatinine GFR Calculation Glucose POC Glucose 141 Calculated Osmolality Calcium Total Bilirubin AST ALT Alkaline Phosphatase Total Protein Albumin Globulin Urine Color Yellow Urine Appearance Clear Urine pH 5 Ur Specific [place] 1.020 Urine Protein Neg Urine Glucose (UA) Norm Urine Ketones Negative Urine Blood Neg Urine Nitrate Negative Urine Bilirubin Neg Urine Urobilinogen Norm Ur Leukocyte Esterase Trace H Urine RBC 0-4 H Urine WBC 0-4 H Ur Squamous Epith Cells 10-15 H Amorphous Sediment Not Reportable Urine Bacteria 1+ H U Random Total Protein 10 Ur Random Sodium 17 Ur Random Urea Nitrogn 570 Urine Creatinine 148 Pleural Color Pleural Appearance Pleural pH Pleural Spec [place] Pleural WBC Pleural RBC Pleural Mononuc # Auto Pleural Other Cells Pleural Polynuclear % Pleural Polynuclear # Pleural Mononuclear % Pleural Other Cells Rt Pleural Total Protein Pleural Albumin Pleural LDH Pleural Glucose Complement C3 Anti-Streptolysin O Ab Path Cons w/Slide Blood Type Rho(D) Type 10/04/19 10/04/19 10/04/19 04:30 04:30 04:30 WBC 9.5 RBC 3.33 L Hgb 9.4 L Hct 31.6 L MCV 94.9 H MCH 28.2 MCHC 29.7 L RDW 15.7 H Plt Count 353 MPV 10.8 H Neut % (Auto) 73.5 Lymph % (Auto) 10.9 [place] % (Auto) 12.3 Eos % (Auto) 2.0 Baso % (Auto) 0.8 Neut # (Auto) 6.97 Lymph # (Auto) 1.0 [place] # (Auto) 1.2 H Eos # (Auto) 0.2 Baso # (Auto) 0.1 Nucleated RBC % (auto) 0 Total Counted Nucleated RBCs # 0.0 PT 23.40 H INR 2.00 H Sodium 140 Potassium 4.8 Chloride 108 H Carbon Dioxide 23 Anion Gap 13.8 BUN 48 H Creatinine 4.3 H GFR Calculation Not Reportable Glucose 88 POC Glucose Calculated Osmolality 288 Calcium 8.1 L Total Bilirubin 0.3 AST 25 ALT 20 Alkaline Phosphatase 102 Total Protein 6.6 Albumin 2.7 L Globulin 3.9 Urine Color Urine Appearance Urine pH Ur Specific [place] Urine Protein Urine Glucose (UA) Urine Ketones Urine Blood Urine Nitrate Urine Bilirubin Urine Urobilinogen Ur Leukocyte Esterase Urine RBC Urine WBC Ur Squamous Epith Cells Amorphous Sediment Urine Bacteria U Random Total Protein Ur Random Sodium Ur Random Urea Nitrogn Urine Creatinine Pleural Color Pleural Appearance Pleural pH Pleural Spec [place] Pleural WBC Pleural RBC Pleural Mononuc # Auto Pleural Other Cells Pleural Polynuclear % Pleural Polynuclear # Pleural Mononuclear % Pleural Other Cells Rt Pleural Total Protein Pleural Albumin Pleural LDH Pleural Glucose Complement C3 Anti-Streptolysin O Ab Path Cons w/Slide Blood Type Rho(D) Type 10/04/19 10/04/19 10/04/19 04:30 06:23 10:15 WBC RBC Hgb Hct MCV MCH MCHC RDW Plt Count MPV Neut % (Auto) Lymph % (Auto) [place] % (Auto) Eos % (Auto) Baso % (Auto) Neut # (Auto) Lymph # (Auto) [place] # (Auto) Eos # (Auto) Baso # (Auto) Nucleated RBC % (auto) Total Counted Not Reportable Nucleated RBCs # PT INR Sodium Potassium Chloride Carbon Dioxide Anion Gap BUN Creatinine GFR Calculation Glucose POC Glucose 92 92 Calculated Osmolality Calcium Total Bilirubin AST ALT Alkaline Phosphatase Total Protein Albumin Globulin Urine Color Urine Appearance Urine pH Ur Specific [place] Urine Protein Urine Glucose (UA) Urine Ketones Urine Blood Urine Nitrate Urine Bilirubin Urine Urobilinogen Ur Leukocyte Esterase Urine RBC Urine WBC Ur Squamous Epith Cells Amorphous Sediment Urine Bacteria U Random Total Protein Ur Random Sodium Ur Random Urea Nitrogn Urine Creatinine Pleural Color Yellow H Pleural Appearance Clear Pleural pH 8.00 H Pleural Spec [place] 1.015 Pleural WBC 67.000 Pleural RBC 8.000 Pleural Mononuc # Auto 0.017 Pleural Other Cells Not Reportable Pleural Polynuclear % 75 Pleural Polynuclear # 0.050 Pleural Mononuclear % 25 Pleural Other Cells Rt Right lung Pleural Total Protein 3.2 Pleural Albumin 1.7 Pleural LDH 227 Pleural Glucose 66.0 Complement C3 Anti-Streptolysin O Ab Path Cons w/Slide Yes Blood Type Rho(D) Type 07/29/20 07/29/20 07/29/20 13:26 16:46 20:13 WBC RBC Hgb Hct MCV MCH MCHC RDW Plt Count MPV Neut % (Auto) Lymph % (Auto) [place] % (Auto) Eos % (Auto) Baso % (Auto) Neut # (Auto) Lymph # (Auto) [place] # (Auto) Eos # (Auto) Baso # (Auto) Nucleated RBC % (auto) Total Counted Nucleated RBCs # PT INR Sodium Potassium Chloride Carbon Dioxide Anion Gap BUN Creatinine GFR Calculation Glucose POC Glucose 154 208 Calculated Osmolality Calcium Total Bilirubin AST ALT Alkaline Phosphatase Total Protein Albumin Globulin Urine Color Urine Appearance Urine pH Ur Specific [place] Urine Protein Urine Glucose (UA) Urine Ketones Urine Blood Urine Nitrate Urine Bilirubin Urine Urobilinogen Ur Leukocyte Esterase Urine RBC Urine WBC Ur Squamous Epith Cells Amorphous Sediment Urine Bacteria U Random Total Protein Ur Random Sodium Ur Random Urea Nitrogn Urine Creatinine Pleural Color Pleural Appearance Pleural pH Pleural Spec [place] Pleural WBC Pleural RBC Pleural Mononuc # Auto Pleural Other Cells Pleural Polynuclear % Pleural Polynuclear # Pleural Mononuclear % Pleural Other Cells Rt Pleural Total Protein Pleural Albumin Pleural LDH Pleural Glucose Complement C3 Anti-Streptolysin O Ab Path Cons w/Slide Blood Type B Positive Rho(D) Type Positive 10/05/19 10/05/19 10/05/19 03:07 03:07 06:20 WBC 9.2 RBC 3.40 L Hgb 9.4 L Hct 32.1 L MCV 94.4 H MCH 27.6 L MCHC 29.3 L RDW 15.7 H Plt Count 363 MPV 11.1 H Neut % (Auto) 70.3 Lymph % (Auto) 12.4 [place] % (Auto) 13.4 Eos % (Auto) 2.2 Baso % (Auto) 0.8 Neut # (Auto) 6.48 Lymph # (Auto) 1.1 [place] # (Auto) 1.2 H Eos # (Auto) 0.2 Baso # (Auto) 0.1 Nucleated RBC % (auto) 0 Total Counted Nucleated RBCs # 0.0 PT INR Sodium 138 Potassium 4.9 Chloride 106 Carbon Dioxide 23 Anion Gap 13.9 BUN 54 H Creatinine 4.3 H GFR Calculation Not Reportable Glucose 132 H POC Glucose 109 Calculated Osmolality 286 Calcium 7.9 L Total Bilirubin 0.3 AST 20 ALT 15 Alkaline Phosphatase 89 Total Protein 6.4 L Albumin 2.6 L Globulin 3.8 Urine Color Urine Appearance Urine pH Ur Specific [place] Urine Protein Urine Glucose (UA) Urine Ketones Urine Blood Urine Nitrate Urine Bilirubin Urine Urobilinogen Ur Leukocyte Esterase Urine RBC Urine WBC Ur Squamous Epith Cells Amorphous Sediment Urine Bacteria U Random Total Protein Ur Random Sodium Ur Random Urea Nitrogn Urine Creatinine Pleural Color Pleural Appearance Pleural pH Pleural Spec [place] Pleural WBC Pleural RBC Pleural Mononuc # Auto Pleural Other Cells Pleural Polynuclear % Pleural Polynuclear # Pleural Mononuclear % Pleural Other Cells Rt Pleural Total Protein Pleural Albumin Pleural LDH Pleural Glucose Complement C3 Anti-Streptolysin O Ab Path Cons w/Slide Blood Type Rho(D) Type 10/05/19 11:19 WBC RBC Hgb Hct MCV MCH MCHC RDW Plt Count MPV Neut % (Auto) Lymph % (Auto) [place] % (Auto) Eos % (Auto) Baso % (Auto) Neut # (Auto) Lymph # (Auto) [place] # (Auto) Eos # (Auto) Baso # (Auto) Nucleated RBC % (auto) Total Counted Nucleated RBCs # PT INR Sodium Potassium Chloride Carbon Dioxide Anion Gap BUN Creatinine GFR Calculation Glucose POC Glucose 139 Calculated Osmolality Calcium Total Bilirubin AST ALT Alkaline Phosphatase Total Protein Albumin Globulin Urine Color Urine Appearance Urine pH Ur Specific [place] Urine Protein Urine Glucose (UA) Urine Ketones Urine Blood Urine Nitrate Urine Bilirubin Urine Urobilinogen Ur Leukocyte Esterase Urine RBC Urine WBC Ur Squamous Epith Cells Amorphous Sediment Urine Bacteria U Random Total Protein Ur Random Sodium Ur Random Urea Nitrogn Urine Creatinine Pleural Color Pleural Appearance Pleural pH Pleural Spec [place] Pleural WBC Pleural RBC Pleural Mononuc # Auto Pleural Other Cells Pleural Polynuclear % Pleural Polynuclear # Pleural Mononuclear % Pleural Other Cells Rt Pleural Total Protein Pleural Albumin Pleural LDH Pleural Glucose Complement C3 Anti-Streptolysin O Ab Path Cons w/Slide Blood Type Rho(D) Type Cardiac Studies: No Data to Display
--- NOTE | 2019-10-05 13:59 | PM.PN ---
Subjective Subjective: Interval history: Feels weak but he is ok. No fevers or chills. Keen to go home Denies uremic Sx. Passing urine without obstruction Medications: Reviewed: Yes Vitals/I&O/Wt Last Vital Signs Temp 98.1 F 10/05/19 11:34 Pulse 56 L 10/05/19 11:34 Resp 18 10/05/19 11:34 BP 142/68 10/05/19 11:34 Pulse Ox 94 10/05/19 11:34 10/04/19 10/05/19 10/05/19 22:59 06:59 14:59 Intake Total 460 / 800 100 / 900 Output Total 250 / 250 3 / 3 Balance 460 / 800 -150 / 650 -3 / -3 Weight last 48 hrs Weight 91.767 kg Weight 90.775 kg Physical Exam Narrative: EXAM NARRATIVE: Exam performed with aid of bedside RN using telemed HEENT Non icteric Lungs Right lung decreased air entry otherwise lungs sound ok CVS S1 S2 irregular and murmurs Abdo No tenderness and DS ok Ext No edema at this time Neuro non focal Data : 10/05/19 03:07 10/05/19 03:07 A&P Additional A&P Information 1. 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 Contrast nephropathy less likely given the exposure on 09/21 as the renal injury occurred on the . Primary glomerulonephritis is less likely as renal function was stable for the first half of his admission. There is a systemic syndrome suggested that is yet to be diagnosed and a unifying diagnosis is always edifying. Stable renal function 2. HyperK s/p kayexalate resolved 3. Right pleural effusion Tap and bronchoscopy pending; to be done as outpatient On Abx therapy Weight loss, N&V, exudative pleural effusion all concerning for underlying neoplastic disease 4. Hemodynamics appear stable For discharge today. Rec f/u with outpatient oil rig driller in 1-2 weeks time (case manage to set this up) Juan Daniels MD Nephro, Attestations Medical Necessity Statement*: Eval for ARLIN Coding Level of Care Code Acute Clinical Implementation Specialist for Milton Cuenca
--- NOTE | 2019-10-05 14:11 | PM.DCS ---
Discharge Providers Date of Admission: 09/22/19 08:18 Date of Discharge: October 05, 2019 Attending Provider at Admission: Marlene Floyd DO Attending Provider at Discharge: Ronen Chi MD Primary Care Provider: MIRIAM Garcia Diagnoses at Discharge Discharge Diagnosis (1) Pneumonia: Status: Acute Qualifiers: Laterality: right Lung location: unspecified part of lung Pneumonia type: due to unspecified organism Qualified Code(s): J18.9 - Pneumonia, unspecified organism (2) Pleural effusion: Status: Acute (3) Lung nodule: Status: Acute (4) Contrast dye induced nephropathy: Status: Acute (5) Acute on chronic diastolic heart failure: Status: Acute (6) Acute respiratory failure with hypoxia: Status: Acute (7) Warfarin anticoagulation: Status: Acute (8) Chronic atrial fibrillation: Status: Acute (9) Status post biventricular pacemaker: Status: Acute (10) Acute gouty arthritis: Status: Acute (11) Gastritis: Status: Acute Reason for Visit Reason for Visit: abd pain/ nausea Hospital Course Discharge Summary: Patient presented with shortness of breath and right sided pneumonia. Patient underwent thoracentesis with fluid possibly suggestive of parapneumonic or potentially malignancy related. Patient gradually improved and was further evaluated for possible malignant etiology with colonoscopy and EGD which did not show significant findings. Patient was seen by keyboard operator Dr. Dave and we have repeated thoracentesis showing improvement. Discussed with Dr. Tran and at this point we will continue antibiotics for 2 more weeks with outpatient follow-up. Dr. Dave will consider bronchoscopy in [address] Tran and at this point VATS/surgery felt unnecessary and may harm patient more than doing any good. Patient definitely will need to be closely monitored and possibility of surgical intervention is not completely dismissed. Because patient will be on antibiotic will decrease warfarin to 3 mg daily and request CBC, CMP, PT/INR next week prior to primary care physician follow-up. Patient had increasing creatinine and today it appeared to plateau at 4.3. This felt to be related to contrast-induced nephropathy versus other etiologies including vancomycin toxicity. Patient did not have episodes of hypotension. Patient was seen by Dr. Daniels with recommendation to have outpatient follow-up with parts cataloguer in 1 to 2 weeks. Patient was evaluated for possible dysphagia but this does not appear to be the case. Outpatient follow-up with ENT could be considered. Patient reports occasionally having right sided neck discomfort for many years, more than 50. This morning patient denies any shortness of breath or chest pain. He ambulates without difficulty he has good oral intake. He saturates in the 90s on room air. He had episode of acute gouty arthritis involving left lateral malleolus area. Improved significantly with 1 dose of colchicine and ibuprofen. Since patient will be on Levaquin I will switch Celexa to sertraline to have less chances for QT prolongation effect. Physical Exam Const: COMMON NORMALS: no acute distress and patient oriented x3 Resp: COMMON NORMALS: normal respiratory effort OTHER: Minimal right basilar Rales and clear left side. Cardio: COMMON NORMALS: regular rate, regular rhythm and S2 normal heart sound present RATE: regular rate RHYTHM: regular rhythm HEART SOUNDS: S2 normal heart sound present OTHER: No lower extremity edema GI: COMMON NORMALS: Normal to inspection, nondistended, normoactive bowel sounds present, Soft to palpation and non-tender PALPATION: Yes Soft to palpation Neuro: COMMON NORMALS: patient oriented x3 and no focal motor deficits Discharge Data Data Completed and Pending: Completed Studies During Hospitalization Category Date Time Status CT angio chest w abd pel w con Stat Cat Scan 09/22/19 04:18 Completed FL barium swallow modifd [id number] Rout ine Exams 10/02/19 08:00 Completed XR ankle LT min 3 V* [id number] Routine Exams 09/29/19 17:05 Completed XR chest 1V elena ble [id number] Routine Exams 09/26/19 14:57 Completed XR chest 1V elena ble [id number] Stat Exams 09/22/19 04:18 Completed XR chest 1V elena ble [id number] Urgent Exams 10/04/19 16:47 Completed XR chest 2V* 7104 6 Routine Exams 09/23/19 06:00 Completed XR chest 2V* 7104 6 Routine Exams 10/02/19 06:25 Completed Pathology: Surgic al [PTH] Routine Pth 10/02/19 10:47 Completed CV echo complete* [id number] Routine Ultrasound 09/24/19 12:43 Completed US thoracentesis [id number] Routine Ultrasound 09/26/19 05:00 Completed US thoracentesis [id number] Routine Ultrasound 10/04/19 13:58 Completed Pending at discharge Category Date Time Status Anti-Neutrophil C utoplasmic AB Rout ine Lab 10/03/19 04:21 Received Sputum Culture an d Gram Stain Routi ne Lab 09/24/19 13:30 Uncollected Urine Protein Mei ctrop Random Routi ne Lab 10/03/19 00:25 Received Cytology [PTH] Ro utine Pth 10/04/19 13:59 Ordered Labs from last 24 hours 10/05/19 10/05/19 10/05/19 11:19 06:20 03:07 WBC RBC Hgb Hct MCV MCH MCHC RDW Plt Count MPV Neut % (Auto) Lymph % (Auto) [place] % (Auto) Eos % (Auto) Baso % (Auto) Neut # (Auto) Lymph # (Auto) [place] # (Auto) Eos # (Auto) Baso # (Auto) Nucleated RBC % (a uto) Total Counted Nucleated RBCs # Sodium 138 Potassium 4.9 Chloride 106 Carbon Dioxide 23 Anion Gap 13.9 BUN 54 H Creatinine 4.3 H GFR Calculation Not Reportable Glucose 132 H POC Glucose 139 109 Calculated Osmolal ity 286 Calcium 7.9 L Total Bilirubin 0.3 AST 20 ALT 15 Alkaline Phosphata se 89 Total Protein 6.4 L Albumin 2.6 L Globulin 3.8 Pleural Color Pleural Appearance Pleural pH Pleural Spec Gravi ty Pleural WBC Pleural RBC Pleural Mononuc # Auto Pleural Other Cell s Pleural Polynuclea r % Pleural Polynuclea r # Pleural Mononuclea r % Pleural Other Cell s Rt Pleural Total Prot ein Pleural Albumin Pleural LDH Pleural Glucose Anti-Streptolysin O Ab Path Cons w/Slide Blood Type Rho(D) Type 10/05/19 10/04/19 10/04/19 03:07 20:13 16:46 WBC 9.2 RBC 3.40 L Hgb 9.4 L Hct 32.1 L MCV 94.4 H MCH 27.6 L MCHC 29.3 L RDW 15.7 H Plt Count 363 MPV 11.1 H Neut % (Auto) 70.3 Lymph % (Auto) 12.4 [place] % (Auto) 13.4 Eos % (Auto) 2.2 Baso % (Auto) 0.8 Neut # (Auto) 6.48 Lymph # (Auto) 1.1 [place] # (Auto) 1.2 H Eos # (Auto) 0.2 Baso # (Auto) 0.1 Nucleated RBC % (a uto) 0 Total Counted Nucleated RBCs # 0.0 Sodium Potassium Chloride Carbon Dioxide Anion Gap BUN Creatinine GFR Calculation Glucose POC Glucose 208 154 Calculated Osmolal ity Calcium Total Bilirubin AST ALT Alkaline Phosphata se Total Protein Albumin Globulin Pleural Color Pleural Appearance Pleural pH Pleural Spec Gravi ty Pleural WBC Pleural RBC Pleural Mononuc # Auto Pleural Other Cell s Pleural Polynuclea r % Pleural Polynuclea r # Pleural Mononuclea r % Pleural Other Cell s Rt Pleural Total Prot ein Pleural Albumin Pleural LDH Pleural Glucose Anti-Streptolysin O Ab Path Cons w/Slide Blood Type Rho(D) Type 10/04/19 10/04/19 10/03/19 13:26 04:30 04:21 WBC RBC Hgb Hct MCV MCH MCHC RDW Plt Count MPV Neut % (Auto) Lymph % (Auto) [place] % (Auto) Eos % (Auto) Baso % (Auto) Neut # (Auto) Lymph # (Auto) [place] # (Auto) Eos # (Auto) Baso # (Auto) Nucleated RBC % (a uto) Total Counted Not Reportable Nucleated RBCs # Sodium Potassium Chloride Carbon Dioxide Anion Gap BUN Creatinine GFR Calculation Glucose POC Glucose Calculated Osmolal ity Calcium Total Bilirubin AST ALT Alkaline Phosphata se Total Protein Albumin Globulin Pleural Color Yellow H Pleural Appearance Clear Pleural pH 8.00 H Pleural Spec Gravi ty 1.015 Pleural WBC 67.000 Pleural RBC 8.000 Pleural Mononuc # Auto 0.017 Pleural Other Cell s Not Reportable Pleural Polynuclea r % 75 Pleural Polynuclea r # 0.050 Pleural Mononuclea r % 25 Pleural Other Cell s Rt Right lung Pleural Total Prot ein 3.2 Pleural Albumin 1.7 Pleural LDH 227 Pleural Glucose 66.0 Anti-Streptolysin O Ab <50 Path Cons w/Slide Yes Blood Type B Positive Rho(D) Type Positive Vitals: Last Vital Signs Temp 98.1 F 10/05/19 11:34 Pulse 56 L 10/05/19 11:34 Resp 18 10/05/19 11:34 BP 142/68 10/05/19 11:34 Pulse Ox 94 10/05/19 11:34 Discharge Plan Discharge Patient Disposition: Home Condition: Stable Prescriptions: New hydrocodone-acetaminophen 5-325 mg Tablet 1 tab PO Q8H PRN (Reason: Moderate Pain) Qty: 20 RF: 0 acetaminophen 325 mg Tablet 650 mg PO Q8H PRN (Reason: Mild/Mod Pain Or Temp >/= 101) Qty: 60 RF: 0 docusate sodium 100 mg Capsule 100 mg PO BID Qty: 60 RF: 0 pantoprazole 40 mg Tablet,Delayed Release (Dr/Ec) 40 mg PO DAILY Qty: 30 RF: 0 levofloxacin [Levaquin] 750 mg tablet 750 mg PO Q48H 14 Days Qty: 7 RF: 0 metronidazole [Flagyl] 500 mg tablet 500 mg PO BID 14 Days Qty: 28 RF: 0 atorvastatin 40 mg Tablet 40 mg PO BEDTIME Qty: 30 RF: 0 lidocaine [Lidoderm] 5 % Adhesive Patch,Medicated 1 patch topical O12O12 Qty: 10 RF: 0 sertraline 50 mg Tablet 50 mg PO DAILY Qty: 30 RF: 0 warfarin 3 mg tablet 3 mg PO DAILY Qty: 30 RF: 0 Continued melatonin 3 mg capsule 3 mg PO BEDTIME RF: 0 zinc [Chelated Zinc] 50 mg tablet 50 mg PO DAILY RF: 0 Spiriva Respimat 2.5 mcg/actuation mist 2 inh INHALATION QAM RF: 0 amlodipine 5 mg tablet 5 mg PO BID RF: 0 furosemide [Lasix] 40 mg tablet 40 mg PO QAM RF: 0 fenofibrate nanocrystallized 145 mg tablet 145 mg PO DAILY RF: 0 doxazosin 8 mg tablet 8 mg PO BEDTIME RF: 0 atenolol 100 mg tablet 100 mg PO QAM RF: 0 albuterol sulfate [Proventil HFA] 90 mcg/actuation HFA aerosol inhaler 2 puff INHALATION Q6H PRN (Reason: Shortness Of Breath) RF: 0 finasteride 5 mg tablet 5 mg PO DAILY RF: 0 clopidogrel 75 mg tablet 75 mg PO DAILY RF: 0 Novolin 70/30 U-100 Insulin 100 unit/mL (70-30) suspension 1 sliding scale dose SUBCUT QAM RF: 0 ondansetron HCl [Zofran] 4 mg tablet 4 mg PO BID PRN (Reason: nausea and vomiting) 5 Days Qty: 10 RF: 0 fluticasone propionate [Flonase Allergy Relief] 50 mcg/actuation spray,suspension 1 spray INTRANASAL BID Qty: 16 RF: 3 tramadol 50 mg tablet 50 mg PO Q12H PRN (Reason: pain) Qty: 30 RF: 5 lidocaine 5 % Ointment 1 applic TOPICAL DAILY PRN (Reason: Pain) RF: 0 Xyzal 5 mg tablet 5 mg PO BEDTIME RF: 0 Discontinued citalopram [Celexa] 40 mg tablet 20 mg PO DAILY RF: 0 Coumadin 2 mg tablet 6 mg PO DAILY RF: 0 Discharge Orders: Discharge Order (Routine); Ordered 10/05/19 Ordered By: Ronen Chi Other Ambulatory Orders: Complete Blood Count w/Auto (Routine) Timeframe: 20191011 Location: Determined by Patient Ordered By: Ronen Chi Comprehensive Metabolic Panel (Routine) Timeframe: 20191011 Facility: [facility] - Location: Lab - Main Lab Ordered By: Ronen Chi XR chest 2V insp/exp 36618 (Routine) Timeframe: 2 Weeks Facility: [facility] - Location: Radiology [facility] Ordered By: Ronen Chi Prothrombin Time INR (Routine) Timeframe: 20191011 Facility: [facility] - Location: Lab - Main Lab Ordered By: Ronen Chi Referrals: Conrad Dave MD [Physician] - 2 weeks Lazaro Ogden FNP [Primary Care Provider] - Huseyin Tran MD [Physician] - 2 weeks Discharge Diet: Diabetic Discharge Activity: Increase activity as tolerated Discharge Attestations Time Spent in Discharge Care*: greater than 30 min Quality Metrics Clinical Quality Measures During this hospital stay, did patient experience: None Coding Level of Care Code Acute Application Performance Engineer for g Fwd Diagnoses Pneumonia J18.9 Laterality: right Lung location: unspecified part of lung Pneumonia type: due to unspecified organism Pleural effusion J90 Lung nodule R91.1 Contrast dye induced nephropathy N14.1; T50.8X5A Acute on chronic diastolic heart failure I50.33 Acute respiratory failure with hypoxia J96.01 Warfarin anticoagulation Z79.01 Chronic atrial fibrillation I48.20 Status post biventricular pacemaker Z95.0 Acute gouty arthritis M10.9 Gastritis K29.70
[2019-10-05 14:25] LABS: Creatinine, Random Urine 134 mg/dL (20-320); Protein, Total, Random 13 mg/dL (5-25); Protein/Creatinine Ratio 0.097 (0.022-0.128); Protein/Creatinine Ratio 97 mg/g creat (22-128)
--- NOTE | 2019-10-05 15:27 | P.PN_ITS ---
Subjective Subjective: Interval history: Yesterday patient had another session of thoracentesis and 300 cc of pleural fluid drained and showed LDH 227 meeting lights criteria for exudative effusion, pleural WBC within normal limits, pH 8.0. Overall patient clinically stable with no fevers and leukocytosis. Offers no complaints Vitals/I&O/Wt Last Vital Signs Temp 98.2 F 10/05/19 15:22 Pulse 57 L 10/05/19 15:22 Resp 18 10/05/19 15:22 BP 143/68 10/05/19 15:22 Pulse Ox 95 10/05/19 15:22 10/05/19 10/05/19 10/05/19 06:59 14:59 22:59 Intake Total 100 / 900 200 / 200 Output Total 250 / 250 4 / 4 Balance -150 / 650 196 / 196 Weight last 48 hrs Weight 202 lb 5 oz Weight 200 lb 2 oz Physical Exam Narrative: EXAM NARRATIVE: General: alert, NAD HEENT: conj clear, EOMI, PERRL, mmm, Neck: supple, no meningismus Heme: no cervical LAP Pulmonary: Reduced breath sounds on right lung base Cardiovascular: rrr, nl s1s2, no mrg Abdomen: soft, nt, nd, no r/g, bs+ Extremities: pulses +, no edema, no c/c : no CVA tenderness Skin: intact, no rash MSK: no back or neck pain Neurologic: grossly intact Data : 10/05/19 03:07 10/05/19 03:07 A&P Assessment and plan (1) Pneumonia: Status: Acute Qualifiers: Laterality: right Lung location: unspecified part of lung Pneumonia type: due to unspecified organism Qualified Code(s): J18.9 - Pneumonia, unspecified organism (2) Pleural effusion: Status: Acute (3) Lung nodule: Status: Acute #Multi lobar pneumonia with loculated right-sided pleural effusion #Multiple pulmonary nodules on left lung - S/p right lung thoracentesis on 09/26/19-fluid studies exudative -cytology inadequate to rule out malignancy - Patient currently on Levaquin and Flagyl - No fever spikes or leukocytosis - Additional 300 cc fluid drained on 10/04/2019 and awaiting cytology -Bedside ultrasound revealed several loculations on right side of the lung -Given the fact that pleural fluid is not suggestive of empyema and patient is clinically stable on antibiotics can safely defer any aggressive interventions like VATS or surgical intervention which will be risky given patient's age and multiple comorbidities. -Agree with Dr. Grady to discharge patient home with prolonged course of antibiotics and would follow-up in pulmonary clinic in 2 weeks -Everything explained to the patient in detail and recommended to call 911/go to ER in case patient develops fevers, shortness of breath, severe chest pains. He verbalized understanding and agreed with the plan of care. Case discussed with CT surgeon Dr. Tran and recommendations conveyed to Dr. Grady Attestations Medical Necessity Statement*: Loculated pleural effusion Time Spent in Patient Care: Greater than 35 minutes (>than 50% of time spent in counselling and/or direct pt care on unit) . 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
[2019-10-06 09:25] LABS: Albumin,Urine Random 100 %; Alpha-1-Globulins Urine Random 0 %; Alpha-2-Globulins Urine Random 0 %; Beta-Globulin,Urine Random 0 %; Gamma Globulin,Urine Random 0 %
[2019-10-10 10:59] LABS: ANCA Interp Negative (Negative)
== END 2019-10-05 18:00 | disposition home or self-care (01) | DRG 291 ==
LOC: ER 08:25 → MEDSURG 09:41
PROVIDERS: Emergency Medicine; Internal Medicine Nephrology; Student in an Organized Health Care Education/Training Program; Surgery; Admitting Provider Family Medicine; PCP Registered Nurse; Visit Provider Internal Medicine
PROC: 0DJ08ZZ Inspection of Upper Intestinal Tract, Via Natural or Artificial Opening Endoscopic (ICD-10-PCS; CPT 43235; principal; 2019-09-29 07:30)
PROC: 0DJD8ZZ Inspection of Lower Intestinal Tract, Via Natural or Artificial Opening Endoscopic (ICD-10-PCS; CPT 45378; 2019-09-29 07:30)
DX: I13.0 Hypertensive heart and chronic kidney disease with heart failure and stage 1 through stage 4 chronic kidney disease, or unspecified chronic kidney disease (principal); J18.9 Pneumonia, unspecified organism; J96.01 Acute respiratory failure with hypoxia; I50.33 Acute on chronic diastolic (congestive) heart failure; I48.20 Chronic atrial fibrillation, unspecified; J90 Pleural effusion, not elsewhere classified; I25.10 Atherosclerotic heart disease of native coronary artery without angina pectoris; I49.5 Sick sinus syndrome; Z79.01 Long term (current) use of anticoagulants; M10.9 Gout, unspecified; Z79.02 Long term (current) use of antithrombotics/antiplatelets; I65.29 Occlusion and stenosis of unspecified carotid artery; N18.9 Chronic kidney disease, unspecified; J44.9 Chronic obstructive pulmonary disease, unspecified; E11.51 Type 2 diabetes mellitus with diabetic peripheral angiopathy without gangrene; E78.5 Hyperlipidemia, unspecified; Z95.0 Presence of cardiac pacemaker; Z87.891 Personal history of nicotine dependence
CPT/HCPCS: 12345; 32555; 36415; 36416; 36430; 36600; 43235; 45385; 71045; 71046; 71275; 73610; 74177; 74230; 76604; 80048; 80053; 80202; 80500; 81001; 82042; 82340; 82436; 82550; 82570; 82803; 82945; 82962; 83516; 83605; 83615; 83690; 83735; 83986; 84133; 84145; 84156; 84157; 84300; 84315; 84443; 84484; 84540; 84550; 85025; 85610; 85651; 85999; 86060; 86140; 86160; 86403; 86900; 86927; 87040; 87449; 87635; 87641; 88112; 88305; 89050; 92526; 92610; 92611; 93005; 93306; 94640; 96372; 96375; 97116; 97161; 97165; 99284; J0456; J0696; J1170; J1815 ×2; J1940; J1956; J2270; J2405; J2543; J2704; J3370; J3430; J3535; J7030; J7050; P9017; Q3014; Q9967; S0030

== ENCOUNTER 2019-10-10 07:13 | Outpatient (CLI) | payer MEDICARE, BC, SELFPAY ==
--- NOTE | 2019-10-10 | CT_ITS ---
WS: [id number] CT NECK WITHOUT CONTRAST. HISTORY: DYSPHAGIA TECHNIQUE: Contiguous 5 mm axial images are performed through the neck without intravenous contrast. Sagittal and coronal reformats are also submitted. All CT scans at [facility] use at leas t one of these dose optimization techniques: automated exposure control; mA and/or kV adjustment per patient size (includes targeted exams where dose is matched to clinical indication); or iterative rec onstruction. CONTRAST: CONTRAST: None. Elevated renal function studies. DLP: 776.8 mGy.cm COMPARISON: 01/06/2016 Nasopharynx, oropharynx, hypopharynx and larynx are unremarkable. No soft tissue masses. Torus tubarius and fossa of Rosenmuller and parapharyngeal fat are normal. No significant lymphadenopathy is identified. Thyroid is very small caliber and atrophy. Normal-sized parotid and submandibular glands. There is he nasreen calcification along the ducts of the submandibular glands. C5 anterolisthesis by 4 mm. Advanced degenerative changes throughout the cervical spine. No soft tiss ue masses. No soft tissue mass is at the skull base. Extensive atherosclerosis in the intracranial carotid arter ies. Visualized paranasal sinuses and mastoid air cells are normal. Scattered opacifications in the upper lung garcia bilaterally. There is mild interstitial thickening is chronic emphysema. Fibrotic area and spiculation at the RIGHT apex has decreased in size since 09/05. CT/CT neck wo con [id number] IMPRESSION: 1. No neck mass or adenopathy. 2. Improving spiculated pleural thickening at the RIGHT apex since 09/22/2019. 3. Severe facet disease and degenerative changes in the cervical spine. 4. Heavily calcified submandibular gland ducts.
[2019-10-10 08:06] LABS: Blood Urea Nitrogen 64 mg/dL (8-23)
== END 2019-10-10 07:14 | disposition home or self-care (01) ==
PROVIDERS: PCP Registered Nurse; Visit Provider Specialist
DX: R13.10 Dysphagia, unspecified (principal); M50.30 Other cervical disc degeneration, unspecified cervical region
CPT/HCPCS: 70490; 82565; 84520

== ENCOUNTER → 2019-10-11 10:41 | Outpatient (BNVA) | payer MEDICARE, BC, SELFPAY | PROVIDERS: PCP Registered Nurse; Visit Provider Registered Nurse | DX: Z95.0 Presence of cardiac pacemaker (principal); I48.20 Chronic atrial fibrillation, unspecified; J90 Pleural effusion, not elsewhere classified; Z09 Encounter for follow-up examination after completed treatment for conditions other than malignant neoplasm | CPT/HCPCS: 85610 ==

== ENCOUNTER → 2019-10-25 10:29 | Outpatient (BNVA) | payer MEDICARE, BC, SELFPAY | PROVIDERS: PCP Registered Nurse; Visit Provider Registered Nurse | DX: I48.20 Chronic atrial fibrillation, unspecified (principal); M50.33 Other cervical disc degeneration, cervicothoracic region; Z09 Encounter for follow-up examination after completed treatment for conditions other than malignant neoplasm; J90 Pleural effusion, not elsewhere classified; N18.3 Chronic kidney disease, stage 3 (moderate); R13.10 Dysphagia, unspecified; Z79.01 Long term (current) use of anticoagulants; M89.49 Other hypertrophic osteoarthropathy, multiple sites | CPT/HCPCS: 85610 ==

== ENCOUNTER → 2019-10-27 13:27 | Outpatient (BNVA) | payer MEDICARE, BC, SELFPAY | PROVIDERS: PCP Registered Nurse; Visit Provider Registered Nurse | DX: M89.49 Other hypertrophic osteoarthropathy, multiple sites (principal); M10.9 Gout, unspecified; J90 Pleural effusion, not elsewhere classified; R69 Illness, unspecified; R10.9 Unspecified abdominal pain | CPT/HCPCS: 81000 ==

== ENCOUNTER 2019-11-01 10:55 | Emergency (ER) | payer MEDICARE, BC, SELFPAY ==
[2019-11-01 10:56] VITALS: BP 135/63; PULSE 76; RESP 18; O2SAT 97; BMI 26.4
--- NOTE | 2019-11-01 11:05 | XRR_ITS ---
PROCEDURE INFORMATION: Exam: XR Chest, 1 View Exam date and time: 11/01/2019 11:19 AM Age: 84 years old Clinical indication: Right-sided chest pain; Additional info: Chest pain x 2-4 weeks TECHNIQUE: Imaging protocol: XR of the chest Views: 1 view. COMPARISON: CR XR chest 1V portable [id number] 10/04/2019 5:12 PM FINDINGS: Tubes, catheters and devices: Permanent pacemaker. Lungs: Right lower lung opacity. Pleural space: Right pleural effusion decreased. Heart/Mediastinum: No cardiomegaly. Bones/joints: No acute findings. XR/XR chest 1V portable [id number] IMPRESSION: Right pleural effusion decreased. Right lower lung atelectasis versus pneumonia.
--- NOTE | 2019-11-01 11:05 | ECG_ITS ---
[facility] Test Date: 2019-11-01 Pat Name: Tae Mendez Department: Room: Gender: Male Accounts Payable Representative: : 1935 Requested By: Nicole Pepper Order Number: [id number] Nathan MD: Jeremy Cota M.D. Measurements Intervals [place] Rate: 69 P: 117 MN: 170 QRS: 267 QRSD: 190 T: 81 QT: 472 QTc: 506 Interpretive Statements ELECTRONIC VENTRICULAR PACEMAKER Compared to ECG 09/22/2019 10:42:19 No significant changes Electronically Signed On 11-01-2019 18:12:44 CDT by Jeremy Cota M.D. [id number]
--- NOTE | 2019-11-01 11:15 | ED_ITS ---
HPI - Chest Pain General: Chief Complaint: Chest Pain Stated Complaint: R SIDE CHEST PAIN Time Seen by Provider: 11/01/19 11:05 History of Present Illness: HPI narrative: This patient is an 84-year-old male who presents today with right-sided chest pain. He said yesterday he started having some nausea in the evening. He was not able to sleep much last night because of pain that started in his right chest. The nausea went away but he continued to have pain until this morning when he took some pain medicine because he could not stand it anymore. He also called the ambulance and by the time they arrived his pain had improved quite a bit. He is not having any severe pain right now. He has had right sided pleural effusion and collapsed lung diagnosed a month or 2 ago. He has had fluid drained. He was hospitalized here for a couple of weeks and at [facility] in [place] for another week or so. He also has diffuse vascular disease and has had stenting in both legs not too long before all this started. The cause of the effusion is not clear. Cytology was done but was not able to come up with the diagnosis or rule out malignancy. He denies fever cough. He has felt very short of breath. His pain gets worse with breathing. He has not had vomiting or diarrhea. He has swelling in both legs which I believe is chronic. He denies any other complaints. He has a history of aortic stenosis per his chart. MD complaint: chest pain Pertinent past history: coronary artery disease, prior IA and other (Right-sided pleural effusion requiring thoracentesis) Onset (ago): week(s) Pain location: right chest Pain radiation: back Quality: sharp Relieving factors: nothing Exacerbating factors: nothing Associated symptoms: Reports dyspnea; Deny abdominal pain, fever(s), nausea or vomiting Review of Systems General: Reports: 10 or more systems reviewed and unremarkable except in HPI and below Const: Denies: fever(s), chills, fatigue or malaise Eyes: Denies: change in vision ENMT: Denies: odynophagia Card: Reports: chest pain and swelling of feet/ankles Resp: Reports: dyspnea; Denies: productive cough or non-productive cough GI: Denies: abdominal pain, nausea or vomiting : Denies: flank pain Musc: Denies: neck pain or back pain Skin/Breast: Denies: rash Neuro: Denies: headache(s), numbness in extremities or weakness in extremities Jackson/Lymph: Denies: easy bruising or easy bleeding PFSH ED PFSH: Medical History CAD (coronary artery disease) Carotid stenosis Chronic atrial fibrillation Chronic kidney disease (CKD) COPD (chronic obstructive pulmonary disease) Diabetes mellitus Dyslipidemia Essential hypertension Osteoarthritis (arthritis due to wear and tear of joints) Peripheral arterial disease With a history of peripheral stenting Sick sinus syndrome Warfarin anticoagulation Surgical History H/O cataract extraction BILATERAL H/O shoulder surgery LEFT History of endarterectomy FEMORAL Hx of cholecystectomy Status post biventricular pacemaker Family History Mother Dementia Stroke Father Stroke Other Diabetes Hypertension Social History Smoking and tobacco status: former smoker Quit status (tobacco): has quit using tobacco Year quit tobacco: 1970 - 3PPD x 25 Years Alcohol intake: never Lives independently: Yes Household members: none Marital status: / Current occupational status: retired History of recent travel: No Current gender identity: Male Physical Exam Const: COMMON NORMALS: no acute distress, patient oriented x3, no limitations and alert GENERAL APPEARANCE: cooperative and comfortable HENMT: HEAD & SCALP: normal to inspection FACE & SINUS: normal facial exam Eye: GENERAL EYE: appearance normal, both eyes and all related structures Neck/C-Spine: COMMON NORMALS: supple, no meningeal signs and no JVD Chest: COMMONS NORMALS: normal inspection of the chest Resp: COMMON NORMALS: normal respiratory effort and No use of accessory muscles AUSCULTATION: breath sounds absent on the right Cardio: COMMON NORMALS: no JVD, regular rate and regular rhythm RATE: regular rate RHYTHM: regular rhythm HEART SOUNDS: Murmur heart sound present systolic GI: COMMON NORMALS: Normal to inspection, nondistended, normoactive bowel sounds present, Soft to palpation and non-tender INSPECTION: Yes normal to inspection AUSCULTATION: Yes normoactive bowel sounds PALPATION: Yes Soft to palpation Back/Pelvis: COMMON NORMALS: thoracic and lumbar spine normal to inspection Extremity: COMMON NORMALS: normal to inspection Neuro: COMMON NORMALS: patient oriented x3, moves all extremities, no focal motor deficits and no sensory deficits noted SENSORIUM/ORIENTATION: Yes alert MENINGEAL SIGNS: Yes no meningeal signs Psych: COMMON NORMALS: mental status grossly normal, cooperative and normal affect Skin: COMMON NORMALS: no rashes or lesions noted and turgor normal GENERAL SKIN EXAM: no rashes or lesions noted and turgor normal Course ED course: Chest x-ray was done which showed an improved effusion. Does not appear that it needs to be drained today. I ordered a CT with contrast to rule out a PE however his kidney function did not allow us to do that. We did a plain CT and as he is hemodynamically stable, not having any active pain and strongly desires to go home I did discharge him. He has follow-up with pulmonology tomorrow. We discussed the option to admit for further work-up and he very much does not want to come into the hospital today. Vital Signs: Vital signs: Vital Signs Pulse Rate 57 L 11/01/19 14:40 Respiratory Rate 18 11/01/19 14:40 Blood Pressure 128/59 11/01/19 14:40 Pulse Oximetry 97 11/01/19 14:40 MDM - Chest Pain Lab Data: Labs: Lab Results 11/01/19 11/01/19 11/01/19 Range/Units 10:25 10:25 10:25 WBC 9.2 (4.0-10.0) 10^3/ uL RBC 3.51 L (4.1-5.3) 10^6/u L Hgb 9.9 L (11.7-16.6) g/dL Hct 31.6 L (42.0-52.0) % MCV 90.0 (80-94) fL MCH 28.2 (28.0-34.0) pg MCHC 31.3 (30.0-36.0) g/dL RDW 15.9 H (12.1-15.1) % Plt Count 371 (130-400) 10^3/c mm MPV 10.5 H (7.4-10.4) fL Neut % (Auto) 70.2 % Lymph % (Auto) 16.2 % [place] % (Auto) 9.0 % Eos % (Auto) 3.8 % Baso % (Auto) 0.4 % Neut # (Auto) 6.42 (1.8-7.7) 10^3/u L Lymph # (Auto) 1.5 (0.8-4.8) 10^3/u L [place] # (Auto) 0.8 (0.2-0.9) 10^3/u L Eos # (Auto) 0.4 (0.0-0.8) 10^3/u L Baso # (Auto) 0.0 (0.0-0.1) 10^3/u L Nucleated RBC % (a uto) 0 % Nucleated RBCs # 0.0 /100WBC PT 23.10 H (12.1-14.9) SECO NDS INR 1.97 H (0.8-1.2) Sodium 132 L (136-145) mmol/L Potassium 4.4 (3.5-5.1) mmol/L Chloride 90 L (98-107) mmol/L Carbon Dioxide 32 H (22-29) mmol/L Anion Gap 14.4 (5-19) BUN 54 H (8-23) mg/dL Creatinine 2.4 H (0.7-1.2) mg/dL GFR Calculation Not Reportable Glucose 316 H (65-115) mg/dL Calculated Osmolal ity 285 (285-295) mOsm/k g Calcium 8.9 (8.5-10.5) mg/dL Total Bilirubin 0.5 (0.15-1.2) mg/dL AST 48 H (0-40) U/L ALT 27 (0-41) U/L Alkaline Phosphata se 104 (40-130) IU/L Troponin T Baselin e (0-15) ng/L Troponin T 120 Min [place] (0-15) ng/L Delta Troponin T (0-10) ABS# NT-Pro-B Natriuret Pep 3328 H (0-450) pg/mL Total Protein 6.9 (6.6-8.7) g/dL Albumin 3.3 L (3.5-5.2) g/dL Globulin 3.6 (1.3-4.6) g/dL Lipase 42 (13-60) U/L 11/01/19 11/01/19 Range/Units 10:25 12:40 WBC (4.0-10.0) 10^3/ uL RBC (4.1-5.3) 10^6/u L Hgb (11.7-16.6) g/dL Hct (42.0-52.0) % MCV (80-94) fL MCH (28.0-34.0) pg MCHC (30.0-36.0) g/dL RDW (12.1-15.1) % Plt Count (130-400) 10^3/c mm MPV (7.4-10.4) fL Neut % (Auto) % Lymph % (Auto) % [place] % (Auto) % Eos % (Auto) % Baso % (Auto) % Neut # (Auto) (1.8-7.7) 10^3/u L Lymph # (Auto) (0.8-4.8) 10^3/u L [place] # (Auto) (0.2-0.9) 10^3/u L Eos # (Auto) (0.0-0.8) 10^3/u L Baso # (Auto) (0.0-0.1) 10^3/u L Nucleated RBC % (a uto) % Nucleated RBCs # /100WBC PT (12.1-14.9) SECO NDS INR (0.8-1.2) Sodium (136-145) mmol/L Potassium (3.5-5.1) mmol/L Chloride (98-107) mmol/L Carbon Dioxide (22-29) mmol/L Anion Gap (5-19) BUN (8-23) mg/dL Creatinine (0.7-1.2) mg/dL GFR Calculation Glucose (65-115) mg/dL Calculated Osmolal ity (285-295) mOsm/k g Calcium (8.5-10.5) mg/dL Total Bilirubin (0.15-1.2) mg/dL AST (0-40) U/L ALT (0-41) U/L Alkaline Phosphata se (40-130) IU/L Troponin T Baselin e 31 H (0-15) ng/L Troponin T 120 Min [place] 27.67 H (0-15) ng/L Delta Troponin T -3.33 L (0-10) ABS# NT-Pro-B Natriuret Pep (0-450) pg/mL Total Protein (6.6-8.7) g/dL Albumin (3.5-5.2) g/dL Globulin (1.3-4.6) g/dL Lipase (13-60) U/L Discharge Plan Discharge Patient Disposition: Home Clinical Impression: Pleural effusion Chest pain Qualifiers: Chest pain type: unspecified Qualified Code(s): R07.9 - Chest pain, unspecified Condition: Stable Prescriptions: New omeprazole 20 mg capsule,delayed release(DR/EC) 20 mg PO DAILY 28 Days Qty: 28 RF: 0 No Action melatonin 3 mg capsule 3 mg PO BEDTIME RF: 0 zinc [Chelated Zinc] 50 mg tablet 50 mg PO DAILY RF: 0 Spiriva Respimat 2.5 mcg/actuation mist 2 inh INHALATION QAM RF: 0 amlodipine 5 mg tablet 5 mg PO BID RF: 0 doxazosin 8 mg tablet 8 mg PO BEDTIME RF: 0 albuterol sulfate [Proventil HFA] 90 mcg/actuation HFA aerosol inhaler 2 puff INHALATION Q6H PRN (Reason: Shortness Of Breath) RF: 0 finasteride 5 mg tablet 5 mg PO DAILY RF: 0 clopidogrel 75 mg tablet 75 mg PO DAILY RF: 0 Novolin 70/30 U-100 Insulin 100 unit/mL (70-30) suspension 1 sliding scale dose SUBCUT QAM RF: 0 ondansetron HCl [Zofran] 4 mg tablet 4 mg PO BID PRN (Reason: nausea and vomiting) 5 Days Qty: 10 RF: 0 bumetanide 1 mg tablet 1 mg PO BID Qty: 60 RF: 0 potassium chloride 10 mEq capsule, extended release 10 meq PO BID RF: 0 rosuvastatin 10 mg tablet 10 mg PO DAILY RF: 0 tramadol 50 mg tablet 50 mg PO Q12H PRN (Reason: pain) Qty: 30 RF: 1 fluticasone propionate [Flonase Allergy Relief] 50 mcg/actuation spray,suspension 1 spray INTRANASAL BID Qty: 16 RF: 3 warfarin 3 mg tablet 6 mg PO DAILY RF: 0 lidocaine 5 % Ointment 1 applic TOPICAL DAILY PRN (Reason: Pain) RF: 0 levocetirizine [Xyzal] 5 mg tablet 5 mg PO BEDTIME RF: 0 sertraline 50 mg Tablet 50 mg PO DAILY Qty: 30 RF: 0 atorvastatin 40 mg Tablet 40 mg PO BEDTIME Qty: 30 RF: 0 acetaminophen 325 mg Tablet 650 mg PO Q8H PRN (Reason: Mild/Mod Pain Or Temp >/= 101) Qty: 60 RF: 0 Discharge Orders: Discharge Order (Routine); Ordered 11/01/19 Ordered By: Nicole Lema Referrals: Lazaro Ogden FNP [Primary Care Provider] - Discharge Diet: Usual diet Discharge Activity: Resume usual activity Patient Instructions: Chest Pain (ED) Activity Restrictions/Additional Instructions: Keep your 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 Return to the emergency department if new or worse symptoms occur. Use your pain medication as needed as soon as the pain starts. Discharge Date/Time: 11/01/19 14:40 Coding Level of Care Code ED Filler Wiper for [place] Fwrachel Exam Comprehensive
[2019-11-01 11:19] LABS: Basophils % 0.4 %; Eosinophils # 0.4 10^3/uL (0.0-0.8); Eosinophils % 3.8 %; Hematocrit 31.6 % (42.0-52.0); Hemoglobin 9.9 g/dL (11.7-16.6); Lymphocytes # 1.5 10^3/uL (0.8-4.8); Lymphocytes % 16.2 %; Mean Corpuscular HGB Conc 31.3 g/dL (30.0-36.0); Mean Corpuscular Hemoglobin 28.2 pg (28.0-34.0); Mean Platelet Volume 10.5 fL (7.4-10.4); Monocytes # 0.8 10^3/uL (0.2-0.9); Neutrophils # 6.42 10^3/uL (1.8-7.7); Neutrophils % 70.2 %; Nucleated Red Blood Cells % 0 %; Platelet Count 371 10^3/cmm (130-400); Red Blood Count 3.51 10^6/uL (4.1-5.3); Red Cell Distribution Width 15.9 % (12.1-15.1); White Blood Count 9.2 10^3/uL (4.0-10.0)
[2019-11-01 11:26] LABS: INR 1.97 (0.8-1.2)
[2019-11-01 11:34] LABS: Troponin(5th) Baseline 31 ng/L (0-15)
[2019-11-01 11:42] LABS: Alanine Aminotransferase 27 U/L (0-41); Albumin Level 3.3 g/dL (3.5-5.2); Alkaline Phosphatase 104 IU/L (40-130); Aspartate Amino Transferase 48 U/L (0-40); Blood Urea Nitrogen 54 mg/dL (8-23); Calcium 8.9 mg/dL (8.5-10.5); Carbon Dioxide 32 mmol/L (22-29); Chloride 90 mmol/L (98-107); Globulin 3.6 g/dL (1.3-4.6); Glucose 316 mg/dL (65-115); Lipase 42 U/L (13-60); NT Pro B Type Natriuretic Pept 3328 pg/mL (0-450); Osmolality Calculated 285 mOsm/kg (285-295); Sodium 132 mmol/L (136-145); Total Bilirubin 0.5 mg/dL (0.15-1.2); Total Protein 6.9 g/dL (6.6-8.7)
[2019-11-01 11:44] LABS: Anion Gap 14.4 (5-19)
[2019-11-01 11:45] LABS: Potassium 4.4 mmol/L (3.5-5.1)
--- NOTE | 2019-11-01 12:01 | CT_ITS ---
WS: [id number] CT CHEST TECHNIQUE: Noncontrast CT of the chest with coronal and sagittal reformatted images. CLINICAL INFORMATION: SOB, CP COMPARISON: Multiple prior examinations including CTA September 22, [address] chest DLP: 685.[address] scans at [facility] use at least one of these dose optimization techniques: automat ed exposure control; mA and/or kV adjustment per patient size (includes targeted exams where dose is matched to clinical indication); or iterative reconstruction. FINDINGS: Moderate chronic emphysematous changes. Small right pleural effusion. Compressive atelectasis in righ t lower lobe. Findings compatible with pneumonia. Pleural effusion has improved since the prior exami nation. Partial right lower lobe collapse. Improved aeration right lung compared to previous. Improve d right upper lobe infiltrates. Left lung is well aerated. Several stable subcentimeter pulmonary nodules. Prominent anterior mediast inal paratracheal and hilar lymph nodes likely reactive. Aortic calcification. Coronary calcification . No axillary lymphadenopathy. Adrenal glands are normal. Splenic artery calcification. Mild thoracic kyphosis. 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 No acute appearing compression fractur es. CT/CT chest wo con [id number] IMPRESSION: 1. Small right pleural effusion with compressive atelectasis in right lower lo be and partial right lower lobe collapse. This is improved since the prior exam ination. Findings consistent with pneumonia. 2. Improved right upper lobe infiltrates. 3. Left lung is well aerated. 4. Anterior mediastinal, peritracheal, and hilar lymphadenopathy likely reacti ve similar to previous. 5. Normal caliber thoracic aorta. 6. Coronary calcification. 7. Hypertrophic changes thoracic spine consistent with DISH Attempted notification Nicole Lema MD at 11/01/2019 12:59 PM. Not currently available for verbal report.
[2019-11-01 12:03] VITALS: BP 135/57; PULSE 60; RESP 16; O2SAT 99
--- NOTE | 2019-11-01 12:09 | PC.NURSE ---
Patient transferred to CT via stretcher per nursing education specialist
[2019-11-01 12:30] VITALS: BP 130/61; PULSE 57; RESP 18; O2SAT 94
[2019-11-01 13:00] VITALS: BP 138/63; PULSE 57; RESP 20
[2019-11-01 13:03] LABS: Troponin 5 2HR 27.67 ng/L (0-15); Troponin 5 2HR Delta -3.33 ABS# (0-10)
--- NOTE | 2019-11-01 13:05 | ECG_ITS ---
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 Measurements Intervals [place] Rate: 57 P: 114 NH: 163 QRS: 268 QRSD: 197 T: 80 QT: 522 QTc: 510 Interpretive Statements ELECTRONIC VENTRICULAR PACEMAKER Compared to ECG 11/01/2019 11:11:25 No significant changes Electronically Signed On 11-01-2019 18:18:26 CDT by Jeremy Cota M.D. [id number]
[2019-11-01 14:40] VITALS: BP 128/59; PULSE 57; RESP 18; O2SAT 97
== END 2019-11-01 14:40 | disposition home or self-care (01) ==
PROVIDERS: Emergency Provider Emergency Medicine; PCP Registered Nurse
DX: J90 Pleural effusion, not elsewhere classified (principal); Z79.02 Long term (current) use of antithrombotics/antiplatelets; Z79.4 Long term (current) use of insulin; Z79.01 Long term (current) use of anticoagulants; Z87.891 Personal history of nicotine dependence; I25.10 Atherosclerotic heart disease of native coronary artery without angina pectoris; J44.9 Chronic obstructive pulmonary disease, unspecified; E11.9 Type 2 diabetes mellitus without complications; E78.5 Hyperlipidemia, unspecified; I10 Essential (primary) hypertension
CPT/HCPCS: 12345; 36415; 71045; 71250; 80053; 83690; 83880; 84484; 85025; 85610; 93005; 99283; 99284

== ENCOUNTER 2019-11-02 13:25 | Outpatient (CLI) | payer MEDICARE, BC, SELFPAY | END 2019-11-02 13:26 | LOC: RHEOACUTE 11-06 13:34 | PROVIDERS: PCP Registered Nurse; Visit Provider Specialist | DX: M89.49 Other hypertrophic osteoarthropathy, multiple sites (principal); Z79.899 Other long term (current) drug therapy; Z11.59 Encounter for screening for other viral diseases; Z11.1 Encounter for screening for respiratory tuberculosis; M10.9 Gout, unspecified; R91.8 Other nonspecific abnormal finding of lung field; J90 Pleural effusion, not elsewhere classified; J44.9 Chronic obstructive pulmonary disease, unspecified; Z87.891 Personal history of nicotine dependence | CPT/HCPCS: 36415; 84550; 86431; 86480; 86704; 86803; 87340; 99204 ==

== ENCOUNTER 2019-11-17 14:32 | Outpatient (CLI) | payer MEDICARE, BC, SELFPAY ==
[2019-11-17 14:44] LABS: Basophils % 0.3 %; Eosinophils % 0.1 %; Hematocrit 31.1 % (42.0-52.0); Hemoglobin 9.7 g/dL (11.7-16.6); Lymphocytes # 1.2 10^3/uL (0.8-4.8); Lymphocytes % 8.2 %; Mean Corpuscular HGB Conc 31.2 g/dL (30.0-36.0); Mean Corpuscular Hemoglobin 28.3 pg (28.0-34.0); Mean Corpuscular Volume 90.7 fL (80-94); Mean Platelet Volume 10.2 fL (7.4-10.4); Monocytes # 0.9 10^3/uL (0.2-0.9); Neutrophils # 12.12 10^3/uL (1.8-7.7); Neutrophils % 84.8 %; Nucleated Red Blood Cells % 0 %; Platelet Count 377 10^3/cmm (130-400); Red Blood Count 3.43 10^6/uL (4.1-5.3); Red Cell Distribution Width 15.3 % (12.1-15.1); White Blood Count 14.3 10^3/uL (4.0-10.0)
[2019-11-17 15:13] LABS: Calcium 9.1 mg/dL (8.5-10.5); Parathyroid Hormone 30.2 pg/mL (15-65)
[2019-11-17 15:22] LABS: Creatinine Urine, Random 128 mg/dL (39-259); Microalbum Creatinine Ratio Ur 16 mg/dL (0-20); Microalbumin Random Urine 2 ug/dL (0-20)
[2019-11-17 15:23] LABS: Estmated Average Glucose 151; Hemoglobin A1C 6.9 % (4.0-6.0)
[2019-11-17 15:32] LABS: Procalcitonin 0.41 ng/mL (0-0.5); Thyroid Stimulating Hormone 2.87 uIU/mL (0.27-4.20)
[2019-11-17 15:48] LABS: Alanine Aminotransferase 72 U/L (0-41); Albumin Level 3.4 g/dL (3.5-5.2); Alkaline Phosphatase 161 IU/L (40-130); Anion Gap 21.3 (5-19); Aspartate Amino Transferase 73 U/L (0-40); Blood Urea Nitrogen 52 mg/dL (8-23); Calcium 9.1 mg/dL (8.5-10.5); Carbon Dioxide 23 mmol/L (22-29); Chloride 91 mmol/L (98-107); Chol HDL Ratio 4.84 mg/dL (1.0-5.00); Cholesterol 121 mg/dL (0-200); Globulin 4.2 g/dL (1.3-4.6); Glucose 260 mg/dL (65-115); HDL Cholesterol 25 mg/dL (60-100); LDL Cholesterol Calculated 64 mg/dL (50-129); LDL HDL Ratio 2.56 RATIO (0.00-3.22); Osmolality Calculated 277 mOsm/kg (285-295); Potassium 5.3 mmol/L (3.5-5.1); Sodium 130 mmol/L (136-145); Total Bilirubin 0.4 mg/dL (0.15-1.2); Total Protein 7.6 g/dL (6.6-8.7); Triglycerides 158 mg/dL (0-150)
[2019-11-17 16:18] LABS: Prostate Specific Antigen 0.322 ng/mL (0-4)
== END 2019-11-17 14:33 | disposition home or self-care (01) ==
LOC: LAB 14:35
PROVIDERS: PCP Registered Nurse; Visit Provider Family Medicine
DX: E11.9 Type 2 diabetes mellitus without complications (principal)
CPT/HCPCS: 80053; 80061; 82044; 82310; 83036; 83970; 84145; 84153; 84443; 85025

== ENCOUNTER → 2019-11-22 08:48 | Outpatient (BNVA) | payer MEDICARE, BC, SELFPAY | PROVIDERS: PCP Registered Nurse; Visit Provider Registered Nurse | DX: I48.20 Chronic atrial fibrillation, unspecified (principal); Z79.01 Long term (current) use of anticoagulants | CPT/HCPCS: 85610 ==

== ENCOUNTER → 2019-11-29 08:45 | Outpatient (BNVA) | payer MEDICARE, BC, SELFPAY | PROVIDERS: PCP Registered Nurse; Visit Provider Registered Nurse | DX: I48.11 Longstanding persistent atrial fibrillation (principal) | CPT/HCPCS: 85610 ==

== ENCOUNTER → 2019-12-14 11:11 | Outpatient (BNVA) | payer MEDICARE, BC, SELFPAY | PROVIDERS: PCP Registered Nurse; Visit Provider Internal Medicine Rheumatology | DX: M05.79 Rheumatoid arthritis with rheumatoid factor of multiple sites without organ or systems involvement (principal); R91.8 Other nonspecific abnormal finding of lung field; R59.0 Localized enlarged lymph nodes; J90 Pleural effusion, not elsewhere classified; E11.9 Type 2 diabetes mellitus without complications; Z79.899 Other long term (current) drug therapy; Z79.4 Long term (current) use of insulin; Z87.891 Personal history of nicotine dependence; M19.042 Primary osteoarthritis, left hand; M19.041 Primary osteoarthritis, right hand; M19.90 Unspecified osteoarthritis, unspecified site; M06.9 Rheumatoid arthritis, unspecified; J43.9 Emphysema, unspecified; I73.9 Peripheral vascular disease, unspecified; M85.871 Other specified disorders of bone density and structure, right ankle and foot | CPT/HCPCS: 71046; 73130; 73630; 99215 ==

== ENCOUNTER 2019-12-14 12:19 | Outpatient (CLI) | payer MEDICARE, BC, SELFPAY ==
--- NOTE | 2019-12-14 13:13 | XR_ITS ---
WS: [id number] RIGHT HAND: 3 VIEW(S) TECHNIQUE: PA, oblique and lateral. HISTORY: inflammatory arthritis COMPARISON: None available. No acute fracture or dislocation. Marked narrowing of the interphalangeal joint spaces. Hypertrophic osteophyte formation. There are a few subchondral cysts at the joint spaces. No definite erosions. Severe peripheral arterial calcifications. XR/XR hand RT min 3V* [id number] IMPRESSION: 1. Findings most consistent with osteoarthritis. 2. Severe peripheral arterial disease.
--- NOTE | 2019-12-14 13:13 | XR_ITS ---
WS: [id number] LEFT FOOT: 3 VIEW(S) TECHNIQUE: AP, oblique and lateral. HISTORY: inflammatory arthritis COMPARISON: None available. No acute fracture or dislocation. Normal tarsal/metatarsal alignment. Extensive performed till calcifications. Small calcaneal spur. XR/XR foot LT min 3V* [id number] IMPRESSION: Severe peripheral arterial calcifications.
--- NOTE | 2019-12-14 13:13 | XR_ITS ---
WS: [id number] CHEST 2 VIEWS HISTORY: rheumatoid arthritis COMPARISON: 11/01/2019 Lungs: Stable mild volume loss in the RIGHT lung. Patchy area of consolidation in the RIGHT lung base is similar to the prior study. LEFT lung is clear. Small RIGHT pleural effusion is unchanged. Cardiac size: Normal. Mediastinum/Aorta: Dual-lead LEFT subclavian pacer. Partially calcified thoracic aorta. Bones: Anterior bridging osteophytes in the thoracic spine. XR/XR chest 2V* [id number] IMPRESSION: 1. Chronic emphysema with stable small RIGHT pleural effusion. 2. RIGHT lower lobe opacifications similar to the prior study may be due to at electasis and the pleural effusion.
--- NOTE | 2019-12-14 13:13 | XR_ITS ---
WS: [id number] LEFT HAND: 3 VIEW(S) TECHNIQUE: PA, oblique and lateral. HISTORY: inflammatory arthritis COMPARISON: None available. No acute fracture or dislocation. Severe narrowing of the interphalangeal joints. Partial subluxation with deformity involving the four th DIP joint. Hyperextension of the distal fourth phalanx. Hypertrophic bone formation at the IP join ts. No erosions. Moderate osteoarthritis at the first carpometacarpal joint. Severe peripheral arterial disease. XR/XR hand LT min 3V* [id number] IMPRESSION: Advanced changes of osteoarthritis. Severe peripheral arterial disease.
--- NOTE | 2019-12-14 13:13 | XR_ITS ---
WS: [id number] RIGHT FOOT: 3 VIEW(S) TECHNIQUE: AP, oblique and lateral. HISTORY: inflammatory arthritis COMPARISON: None available. No acute fracture or dislocation. Osteopenia. No definite erosions. There is osteopenia at the metata rsal heads. Soft tissue calcifications adjacent to the first metatarsal head. Normal tarsal/metatarsal alignment. Extensive calcifications in the peripheral arteries. XR/XR foot RT min 3V* 45001 IMPRESSION: Osteopenia. No definite erosions. Severe peripheral arterial disease.
== END 2019-12-14 12:20 | disposition home or self-care (01) ==
LOC: RADWPI 12:24
PROVIDERS: PCP Registered Nurse; Visit Provider Internal Medicine Rheumatology
DX: M19.90 Unspecified osteoarthritis, unspecified site (principal); M06.9 Rheumatoid arthritis, unspecified; J43.9 Emphysema, unspecified; J90 Pleural effusion, not elsewhere classified; I73.9 Peripheral vascular disease, unspecified; M85.871 Other specified disorders of bone density and structure, right ankle and foot
CPT/HCPCS: 71046; 73130; 73630

== ENCOUNTER → 2019-12-22 08:22 | Outpatient (BNVA) | payer MEDICARE, BC, SELFPAY | PROVIDERS: PCP Registered Nurse; Visit Provider Registered Nurse | DX: I48.11 Longstanding persistent atrial fibrillation (principal) | CPT/HCPCS: 85610 ==

== ENCOUNTER 2020-01-09 10:24 | Outpatient (CLI) | payer MEDICARE, BC, SELFPAY ==
[2020-01-09 10:49] LABS: Add Urine Microscopic? NO
[2020-01-09 10:58] LABS: Bilirubin Urine Neg (Negative); Blood Urine Neg (Negative); Glucose Urine UA Norm (Normal); Ketones Urine Negative (Negative); Leukocyte Esterase Urine Negative (Negative); Nitrate Urine Negative (Negative); Protein Urine Neg (Negative); Specific Gravity, Urine 1.015 (1.005-1.030); Urine Appearance Clear (CLEAR); Urine Color Yellow (Yellow); Urobilinogen Urine Neg (Negative); pH Urine 6 (5-7)
[2020-01-09 11:01] LABS: Basophils # 0.1 10^3/uL (0.0-0.1); Basophils % 0.6 %; Eosinophils # 0.1 10^3/uL (0.0-0.8); Eosinophils % 0.7 %; Hematocrit 33.8 % (42.0-52.0); Hemoglobin 10.2 g/dL (11.7-16.6); Lymphocytes # 1.2 10^3/uL (0.8-4.8); Lymphocytes % 9.9 %; Mean Corpuscular HGB Conc 30.2 g/dL (30.0-36.0); Mean Corpuscular Hemoglobin 30.2 pg (28.0-34.0); Mean Platelet Volume 10.4 fL (7.4-10.4); Monocytes # 0.8 10^3/uL (0.2-0.9); Monocytes % 6.7 %; Neutrophils # 10.19 10^3/uL (1.8-7.7); Neutrophils % 81.1 %; Nucleated Red Blood Cells % 0 %; Platelet Count 244 10^3/cmm (130-400); Red Blood Count 3.38 10^6/uL (4.1-5.3); Red Cell Distribution Width 16.9 % (12.1-15.1); White Blood Count 12.6 10^3/uL (4.0-10.0)
[2020-01-09 11:21] LABS: Creatinine Urine, Random 82 mg/dL (39-259); Microalbumin Random Urine 12 ug/dL (0-20)
[2020-01-09 11:24] LABS: Microalbum Creatinine Ratio Ur 146 mg/dL (0-20)
[2020-01-09 11:34] LABS: 25 Hydroxy Vitamin D 27 ng/mL (30-100); Albumin Level 3.5 g/dL (3.5-5.2); Anion Gap 13.1 (5-19); Blood Urea Nitrogen 29 mg/dL (8-23); Calcium 8.8 mg/dL (8.5-10.5); Carbon Dioxide 26 mmol/L (22-29); Chloride 100 mmol/L (98-107); Glucose 96 mg/dL (65-115); Phosphorus 2.8 mg/dL (2.5-4.5); Potassium 4.1 mmol/L (3.5-5.1); Sodium 135 mmol/L (136-145)
== END 2020-01-09 10:25 | disposition home or self-care (01) ==
LOC: LAB 10:29
PROVIDERS: PCP Registered Nurse; Visit Provider Internal Medicine Nephrology
DX: I12.9 Hypertensive chronic kidney disease with stage 1 through stage 4 chronic kidney disease, or unspecified chronic kidney disease (principal); N18.30 Chronic kidney disease, stage 3 unspecified; N17.9 Acute kidney failure, unspecified
CPT/HCPCS: 36415; 80069; 81003; 82044; 82306; 85025; 87086

== ENCOUNTER → 2020-02-05 08:37 | Outpatient (BNVA) | payer MEDICARE, BC, SELFPAY | PROVIDERS: PCP Registered Nurse; Visit Provider Registered Nurse | DX: I48.11 Longstanding persistent atrial fibrillation (principal) | CPT/HCPCS: 85610 ==

== ENCOUNTER → 2020-02-12 10:15 | Outpatient (BNVA) | payer MEDICARE, BC, SELFPAY | PROVIDERS: PCP Registered Nurse; Visit Provider Registered Nurse | DX: I48.11 Longstanding persistent atrial fibrillation (principal) | CPT/HCPCS: 85610 ==

== ENCOUNTER → 2020-02-13 10:46 | Outpatient (BNVA) | payer MEDICARE, BC, SELFPAY | PROVIDERS: PCP Registered Nurse; Visit Provider Internal Medicine Rheumatology | DX: M05.79 Rheumatoid arthritis with rheumatoid factor of multiple sites without organ or systems involvement (principal); Z79.899 Other long term (current) drug therapy; R91.8 Other nonspecific abnormal finding of lung field; J90 Pleural effusion, not elsewhere classified; J44.9 Chronic obstructive pulmonary disease, unspecified; M19.012 Primary osteoarthritis, left shoulder; M19.041 Primary osteoarthritis, right hand; M19.042 Primary osteoarthritis, left hand; I50.30 Unspecified diastolic (congestive) heart failure; E11.9 Type 2 diabetes mellitus without complications; Z79.4 Long term (current) use of insulin; Z87.891 Personal history of nicotine dependence; I51.7 Cardiomegaly; Z95.9 Presence of cardiac and vascular implant and graft, unspecified | CPT/HCPCS: 71046; 99214 ==

== ENCOUNTER 2020-02-13 12:56 | Outpatient (CLI) | payer MEDICARE, BC, SELFPAY ==
--- NOTE | 2020-02-13 13:02 | XR_ITS ---
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 Cardiac pacer. Aortic calcification. Lungs: Moderate chronic emphysematous changes. Small right pleural effusion with pleural thickening r ight lower lobe. This is unchanged in appearance from December 14, 2019. Hazy infiltrate or atelectasi s right lower lobe. Left lung is well aerated. Bones: Osteopenia. Hypertrophic changes thoracic spine. XR/XR chest 2V* [id number] IMPRESSION: 1. Cardiomegaly with cardiac pacer. 2. Small right pleural effusion with pleural thickening right lower lobe. Hazy infiltrate or atelectasis right lower lobe is unchanged. 3. Left lung is well aerated. 4. Moderate chronic emphysematous changes.
== END 2020-02-13 12:57 | disposition home or self-care (01) ==
PROVIDERS: PCP Registered Nurse; Visit Provider Internal Medicine Rheumatology
DX: Z79.899 Other long term (current) drug therapy (principal); M05.79 Rheumatoid arthritis with rheumatoid factor of multiple sites without organ or systems involvement; I51.7 Cardiomegaly; Z95.9 Presence of cardiac and vascular implant and graft, unspecified; J90 Pleural effusion, not elsewhere classified
CPT/HCPCS: 71046

== ENCOUNTER → 2020-02-20 10:14 | Outpatient (BNVA) | payer MEDICARE, BC, SELFPAY | PROVIDERS: PCP Registered Nurse; Visit Provider Registered Nurse | DX: I48.91 Unspecified atrial fibrillation (principal); Z79.01 Long term (current) use of anticoagulants; Z79.899 Other long term (current) drug therapy | CPT/HCPCS: 85610 ==

== ENCOUNTER → 2020-03-06 10:50 | Outpatient (BNVA) | payer MEDICARE, BC, SELFPAY | PROVIDERS: PCP Registered Nurse; Visit Provider Registered Nurse | DX: I50.20 Unspecified systolic (congestive) heart failure (principal); R06.02 Shortness of breath; I10 Essential (primary) hypertension; I25.10 Atherosclerotic heart disease of native coronary artery without angina pectoris; I48.91 Unspecified atrial fibrillation; J44.9 Chronic obstructive pulmonary disease, unspecified; Z79.899 Other long term (current) drug therapy; Z79.01 Long term (current) use of anticoagulants | CPT/HCPCS: 80053; 83735; 83880; 85610; 87635 ==

== ENCOUNTER → 2020-03-13 08:34 | Outpatient (BNVA) | payer MEDICARE, BC, SELFPAY | PROVIDERS: PCP Registered Nurse; Visit Provider Registered Nurse | DX: I48.11 Longstanding persistent atrial fibrillation (principal); I50.23 Acute on chronic systolic (congestive) heart failure | CPT/HCPCS: 85610 ==

== ENCOUNTER → 2020-03-25 15:25 | Outpatient (BNVA) | payer MEDICARE, BC, SELFPAY | PROVIDERS: PCP Registered Nurse; Visit Provider Internal Medicine | DX: I50.23 Acute on chronic systolic (congestive) heart failure (principal); J90 Pleural effusion, not elsewhere classified; I10 Essential (primary) hypertension | CPT/HCPCS: 80048; 83880 ==

== ENCOUNTER → 2020-04-10 08:58 | Outpatient (BNVA) | payer MEDICARE, BC, SELFPAY | PROVIDERS: PCP Registered Nurse; Visit Provider Registered Nurse | DX: I48.20 Chronic atrial fibrillation, unspecified (principal) | CPT/HCPCS: 85610 ==

== ENCOUNTER 2020-04-12 07:55 | Outpatient (CLI) | payer MEDICARE, BC, SELFPAY ==
--- NOTE | 2020-04-12 08:00 | CT_ITS ---
WS: [id number] CT CHEST TECHNIQUE: Noncontrast CT of the chest with coronal and sagittal reformatted images. CLINICAL INFORMATION: fullow up on lung nodule COMPARISON: CT chest November 01, 2019, September 22, 2019, 5 019, 3 019, DLP: 1045.[address] scans at [facility] use at least one of these dose optimization techniques: automat ed exposure control; mA and/or kV adjustment per patient size (includes targeted exams where dose is matched to clinical indication); or iterative reconstruction. FINDINGS: Moderate chronic emphysematous changes. A few stable noncalcified subcentimeter pulmonary nodules are unchanged. 5 mm noncalcified nodule left lower lobe. Additional small subpleural nodule left lower l obe measuring 3 mm. These are stable compared to previous. Small right pleural effusion unchanged fro m previous. Compressive atelectasis right lower lobe. Normal caliber thoracic aorta. Coronary calcification. Slightly prominent anterior mediastinal and pe ribronchial lymph nodes are unchanged. No axillary lymphadenopathy. Adrenal glands are normal. Cholec ystectomy clips. Hypertrophic changes thoracic spine with ankylosis. CT/CT chest wo con [id number] IMPRESSION: 1. Subcentimeter noncalcified nodules in the left lower lobe are unchanged. 2. Stable small right pleural effusion with compressive atelectasis right lowe r lobe. 3. Prominent anterior mediastinal and peribronchial lymph nodes unchanged from previous. 4. Vascular calcification including coronary. 5. No other significant changes from previous.
== END 2020-04-12 07:56 | disposition home or self-care (01) ==
LOC: RADWPI 07:55
PROVIDERS: PCP Registered Nurse; Visit Provider Internal Medicine Pulmonary Disease
DX: R91.1 Solitary pulmonary nodule (principal); R91.8 Other nonspecific abnormal finding of lung field
CPT/HCPCS: 71250

== ENCOUNTER → 2020-04-26 09:23 | Outpatient (BNVA) | payer MEDICARE, BC, SELFPAY | PROVIDERS: PCP Registered Nurse; Visit Provider Registered Nurse | DX: I48.91 Unspecified atrial fibrillation (principal); Z79.01 Long term (current) use of anticoagulants; Z79.899 Other long term (current) drug therapy | CPT/HCPCS: 85610 ==

== ENCOUNTER → 2020-05-01 08:40 | Outpatient (BNVA) | payer MEDICARE, BC, SELFPAY | PROVIDERS: PCP Registered Nurse; Visit Provider Registered Nurse | DX: Z79.899 Other long term (current) drug therapy (principal); Z79.01 Long term (current) use of anticoagulants | CPT/HCPCS: 85610 ==

== ENCOUNTER → 2020-05-14 08:42 | Outpatient (BNVA) | payer MEDICARE, BC, SELFPAY | PROVIDERS: PCP Registered Nurse; Visit Provider Registered Nurse | DX: I48.11 Longstanding persistent atrial fibrillation (principal) | CPT/HCPCS: 85610 ==

== ENCOUNTER → 2020-05-20 08:56 | Outpatient (BNVA) | payer MEDICARE, BC, SELFPAY | PROVIDERS: PCP Registered Nurse; Visit Provider Registered Nurse | DX: I48.11 Longstanding persistent atrial fibrillation (principal) | CPT/HCPCS: 85610 ==

== ENCOUNTER → 2020-05-23 11:43 | Outpatient (BNVA) | payer MEDICARE, BC, SELFPAY | PROVIDERS: PCP Registered Nurse; Visit Provider Internal Medicine Pulmonary Disease | DX: J44.9 Chronic obstructive pulmonary disease, unspecified (principal) | CPT/HCPCS: 87635 ==

== ENCOUNTER → 2020-06-11 10:36 | Outpatient (BNVA) | payer MEDICARE, BC, SELFPAY | PROVIDERS: PCP Registered Nurse; Visit Provider Internal Medicine Pulmonary Disease | DX: Z01.812 Encounter for preprocedural laboratory examination (principal); Z20.822 Contact with and (suspected) exposure to COVID-19 | CPT/HCPCS: 87635 ==

== ENCOUNTER 2020-06-17 07:50 | Outpatient (CLI) | payer MEDICARE, BC, SELFPAY ==
[2020-06-17 10:21] VITALS: BP 143/57
--- NOTE | 2020-06-17 12:52 | PFTS_ITS ---
Date of Study:06/17/20 Date of Dictation: 06/18/2020 MECHANICS: Postbronchodilator forced vital capacity (FVC) is reduced. Post bronchodilator forced expiratory volume in one second (FEV1) is moderately reduced 64%. FEV1/FVC is normal. There is no significant response to bronchodilators FLOW VOLUME LOOP: . LUNG VOLUMES: Total lung capacity (TLC) is mildly reduced 65%. Residual volume (RV) is normal. RV/TLC is slightly increased suggestive of mild hyperinflation. DIFFUSING CAPACITY FOR CARBON MONOXIDE: Mildly reduced 61% . INTERPRETATION: The pulmonary function tests are consistent with restrictive lung disease. Mild gas transfer defect. Please correlate clinically. MTDD
== END 2020-06-17 07:51 | disposition home or self-care (01) ==
LOC: RT 07:53
PROVIDERS: PCP Registered Nurse; Visit Provider Internal Medicine Pulmonary Disease
DX: J44.9 Chronic obstructive pulmonary disease, unspecified (principal); I50.20 Unspecified systolic (congestive) heart failure; Z79.899 Other long term (current) drug therapy
CPT/HCPCS: 94060; 94618; 94726; 94729; J7611

== ENCOUNTER → 2020-07-03 15:27 | Outpatient (BNVA) | payer MEDICARE, BC, SELFPAY | PROVIDERS: PCP Registered Nurse; Visit Provider Internal Medicine Rheumatology | DX: M05.79 Rheumatoid arthritis with rheumatoid factor of multiple sites without organ or systems involvement (principal); J90 Pleural effusion, not elsewhere classified; Z79.899 Other long term (current) drug therapy; E11.22 Type 2 diabetes mellitus with diabetic chronic kidney disease; I13.0 Hypertensive heart and chronic kidney disease with heart failure and stage 1 through stage 4 chronic kidney disease, or unspecified chronic kidney disease; N18.9 Chronic kidney disease, unspecified; I50.23 Acute on chronic systolic (congestive) heart failure; Z79.4 Long term (current) use of insulin; Z87.891 Personal history of nicotine dependence | CPT/HCPCS: 99214 ==

== ENCOUNTER 2020-08-13 10:04 | Emergency (ER) | payer MEDICARE, BC, SELFPAY ==
--- NOTE | 2020-08-13 10:06 | XRR_ITS ---
PROCEDURE INFORMATION: Exam: XR Chest Exam date and time: 08/13/2020 10:10 AM Age: 84 years old Clinical indication: Cough and dyspnea; Additional info: Dyspnea/cough TECHNIQUE: Imaging protocol: XR of the chest. Views: 1 view. COMPARISON: CT chest wo con [id number] 04/12/2020 8:05 AM FINDINGS: Tubes, catheters and devices: Atrioventricular pacemaker. Lungs: Emphysematous change, interstitial prominence, and asymmetric right basilar airspace/pleural disease. Heart/Mediastinum: Cardiomegaly and prominent epicardial fat. Vasculature: Calcification of the thoracic aorta. Bones/joints: Degenerative change. Other findings: Poorly defined nodular density overlying the right infrahilar region. XR/XR chest 1V portable [id number] IMPRESSION: 1. Emphysematous change, interstitial prominence, and asymmetric right basilar airspace/pleural disease. 2. Poorly defined nodular density overlying the right infrahilar region.
--- NOTE | 2020-08-13 10:07 | ECG_ITS ---
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 Measurements Intervals [place] Rate: 53 P: NV: QRS: -74 QRSD: 178 T: 66 QT: 535 QTc: 504 Interpretive Statements ELECTRONIC VENTRICULAR PACEMAKER Compared to ECG 11/01/2019 12:57:56 No significant changes Electronically Signed On 08-13-2020 17:07:44 CDT by Jeremy Cota M.D. [id number]
[2020-08-13 10:14] VITALS: BP 133/63; PULSE 54; RESP 16; O2SAT 93; BMI 30.4
--- NOTE | 2020-08-13 10:23 | XRR_ITS ---
PROCEDURE INFORMATION: Exam: XR Left Hand Exam date and time: 08/13/2020 10:24 AM Age: 84 years old Clinical indication: Injury or trauma; Fall; Bilateral; Injury date: 08/13/2020; Injury details: PT began feeling weak and lost consciousness. PT called the ambulance when he returned to consciousness. Wounds on fingers and hands TECHNIQUE: Imaging protocol: XR Left hand. Views: 3 or more views. COMPARISON: No relevant prior studies available. FINDINGS: Bones/joints: Flexion deformity about the 4th PIP joint. No acute bony injury in the visualized left hand. Polyarticular degenerative change. Soft tissues: Mild soft tissue swelling. Vasculature: Prominent vascular calcification. XR/XR hand LT min 3V* [id number] IMPRESSION: 1. Flexion deformity about the 4th PIP joint. 2. No acute bony injury in the visualized left hand.
--- NOTE | 2020-08-13 10:23 | CT_ITS ---
WS: [id number] CT CERVICAL SPINE HISTORY: fall TECHNIQUE: Contiguous 2.5 mm axial imaging performed through the entire cervical spine. Sagittal and coronal reformats also performed. All CT scans at [facility] use at least one of these do se optimization techniques: automated exposure control; mA and/or kV adjustment per patient size (inc ludes targeted exams where dose is matched to clinical indication); or iterative reconstruction. DLP: 893.55 mGy.cm COMPARISON: 01/06/2016 and 10/10/2019. Mild curvature cervical spine. Severe degenerative disc disease and facet arthritis with osteophytes and loss of disc space. There is extensive subchondral sclerosis and lytic disease. Lateral masses ar e mildly asymmetric due to rotation. Odontoid is intact. Degenerative changes at the craniocervical j unction. No acute fracture. Severe bilateral facet joint arthritis. Central and bilateral foraminal s tenosis at multiple levels throughout the cervical spine. No acute fracture or widening of the facet joints. C5 anterolisthesis by 5 mm is unchanged. Atherosclerotic plaque within the intracranial carotid arteries, extracranial carotid arteries and th e vertebral arteries. Emphysematous changes at the lung apices. CT/CT cervical spin wo con* [id number] IMPRESSION: 1. No acute cervical spine fracture. 2. Severe bilateral facet joint arthritis with multiple levels of central and foraminal stenoses.
--- NOTE | 2020-08-13 10:23 | CT_ITS ---
WS: [id number] CT HEAD NONCONTRAST HISTORY: trauma TECHNIQUE: Contiguous axial imaging performed through the brain in 2.5 mm imaging. Bone and soft tiss ue windows. Sagittal and coronal reformats reviewed. All CT scans at [facility] use at ast one of these dose optimization techniques: automated exposure control; mA and/or kV adjustment pe r patient size (includes targeted exams where dose is matched to clinical indication); or iterative r econstruction. DLP: 924.11 mGy.cm COMPARISON: 12/21/2017 No acute intracranial hemorrhage, midline shift or mass effect. Mild atrophy and mild chronic microvascular ischemic disease. There is also mild bilateral cerebellar atrophy. No acute hemorrhage. Ventricles: Normal size with no hydrocephalus. Paranasal sinuses: As visualized are clear. Mastoid air cells: Well pneumatized. Calvarium and scalp: Skull is intact with no soft tissue edema or swelling. Calcification in the soft tissue over the RIGHT temporal bone. No fractures. CT/CT head wo con* [id number] IMPRESSION: 1. No acute intracranial hemorrhage or edema. 2. Mild cerebellar and sagittal atrophy with chronic ischemic disease.
--- NOTE | 2020-08-13 10:23 | XRR_ITS ---
PROCEDURE INFORMATION: Exam: XR Right Hand Exam date and time: 08/13/2020 10:24 AM Age: 84 years old Clinical indication: Injury or trauma; Fall; Bilateral; Injury date: 08/13/2020; Injury details: PT began feeling weak and lost consciousness. PT called the ambulance when he returned to consciousness. Wounds on fingers and hands TECHNIQUE: Imaging protocol: XR Right hand. Views: 3 or more views. COMPARISON: No relevant prior studies available. FINDINGS: Tubes, catheters and devices: Vascular catheter. Bones/joints: No acute bony injury or malalignment in the visualized right hand. Polyarticular degenerative change. Soft tissues: Mild soft tissue swelling. Vasculature: Extensive vascular calcification. XR/XR hand RT min 3V* [id number] IMPRESSION: No acute bony injury or malalignment in the visualized right hand.
--- NOTE | 2020-08-13 10:24 | W.ED.FALL ---
HPI - Fall General: Chief Complaint: Fall Stated Complaint: HYPOGLYCEMIA/SYNCOPAL EPISODE Time Seen by Provider: 08/13/20 10:06 History of Present Illness: HPI Narrative: 84-year-old male presents from home via EMS. He states he was getting ready to have breakfast this morning got lightheaded dizzy and fell he has an insulin controlled diabetic. He fell and hit his hands as well as his head on the right frontal area. He had a brief loss of consciousness he is on Eliquis. On the scene he was bradycardic and hypoglycemic with blood sugar in the 40s he responded to glucose therapy is awake and alert when he arrives here can relate most of the incident. He denies any chest pain. MD complaint: fall Onset (ago): minute(s) Fall from: standing Fall witnessed: yes, by family Place fall occurred: home Loss of consciousness: Yes Prolonged down time: no Symptoms prior to fall: lightheadedness and dizziness Location of injury: head Location of injury - extremities: Bilateral: hand Severity: moderate Quality: aching Associated symptoms-after fall: Denies abdominal pain, chest pain, confusion, difficulty walking, headache(s), hematuria, lightheadedness, neck pain, numbness, short of breath, vertigo or weakness Review of Systems Const: Denies: fever(s), chills, body aches, change in appetite, fatigue or malaise ENMT: Denies: throat pain, ear or mastoid pain, nasal discharge or nasal congestion Card: Denies: chest pain or lightheadedness Resp: Denies: dyspnea, productive cough or non-productive cough GI: Denies: abdominal pain : Denies: hematuria Musc: Denies: neck pain Skin/Breast: Denies: rash or pruritus Neuro: Denies: headache(s), difficulty walking, vertigo or confusion PFSH ED PFSH: Medical History CAD (coronary artery disease) Carotid stenosis Chronic atrial fibrillation Chronic kidney disease (CKD) Chronic lumbosacral pain COPD (chronic obstructive pulmonary disease) Diabetes mellitus Dyslipidemia Essential hypertension High risk medication use High risk medication use History of malignant neoplasm of skin Immunization counseling Inflammatory arthritis Osteoarthritis (arthritis due to wear and tear of joints) Peripheral arterial disease With a history of peripheral stenting Pleural effusion Seborrheic keratosis Seropositive rheumatoid arthritis of multiple sites Sick sinus syndrome Warfarin anticoagulation Surgical History H/O cataract extraction BILATERAL H/O shoulder surgery LEFT History of endarterectomy FEMORAL Hx of cholecystectomy Status post biventricular pacemaker Family History Mother Dementia Stroke Father Stroke Other Diabetes Hypertension Social History Smoking and tobacco status: former smoker Quit status (tobacco): has quit using tobacco Year quit tobacco: 1970 - 3PPD x 25 Years Second hand smoke exposure: No Smoking risk assessment/counseling performed?: Yes Alcohol intake: never Lives independently: Yes Household members: none Marital status: / service: Yes branch: [email or web address] Current occupational status: retired Pets and animals: No History of recent travel: No Current gender identity: Male Physical Exam Const: COMMON NORMALS: no acute distress GENERAL APPEARANCE: cooperative and comfortable ORIENTATION/CONSCIOUSNESS: Yes awake, Yes oriented to person, Yes oriented to place and Yes oriented to time HENMT: COMMON NORMALS: normocephalic, atraumatic and hearing grossly normal bilaterally HEAD & SCALP: normocephalic and atraumatic Neck/C-Spine: COMMON NORMALS: no JVD Resp: COMMON NORMALS: normal respiratory effort, No retractions, No use of accessory muscles and clear to auscultation bilaterally AUSCULTATION: clear to auscultation bilaterally Cardio: COMMON NORMALS: no JVD, regular rate, regular rhythm and No murmurs present (Cardio) RATE: regular rate RHYTHM: regular rhythm GI: COMMON NORMALS: Soft to palpation and No hepatosplenomegaly present AUSCULTATION: Yes normoactive bowel sounds PALPATION: Yes Soft to palpation, No Tenderness to palpation present (GI), No Guarding due to palpation present (GI) and Yes No hepatosplenomegaly present Extremity: COMMON NORMALS: normal to inspection, capillary refill normal, no clubbing, cyanosis or edema, no calf tenderness and no pedal edema NARRATIVE EXTREMITY EXAM: Skin tears bilaterally on the hands worse on the left than the right no active bleeding Neuro: SENSORIUM/ORIENTATION: Yes oriented to person, Yes oriented to place and Yes oriented to time Skin: COMMON NORMALS: no rashes or lesions noted GENERAL SKIN EXAM: no rashes or lesions noted Course Vital Signs: Vital signs: Vital Signs Pulse Rate 54 L 08/13/20 10:14 Respiratory Rate 16 08/13/20 10:14 Blood Pressure 133/63 08/13/20 10:14 Pulse Oximetry 93 08/13/20 10:14 MDM - Fall MDM Narrative: Medical decision making narrative: Glycemia resolved. Patient prefers to go home. We will go ahead and discharge him home once care given. As advised him to apply topical [id number] antibiotic ointment monitor blood sugars closely return if has further problems reviewed CT and laboratory findings with the patient. Lab Data: Labs: Lab Results 08/13/20 08/13/20 08/13/20 Range/Units 10:06 10:06 10:06 WBC 8.3 (4.0-10.0) 10^3/ uL RBC 4.33 (4.1-5.3) 10^6/u L Hgb 13.5 (11.7-16.6) g/dL Hct 42.3 (42.0-52.0) % MCV 97.7 H (80-94) fL MCH 31.2 (28.0-34.0) pg MCHC 31.9 (30.0-36.0) g/dL RDW 14.1 (12.1-15.1) % Plt Count 132 (130-400) 10^3/c mm MPV 11.9 H (7.4-10.4) fL Neut % (Auto) 57.0 % Lymph % (Auto) 28.5 % Barnes % (Auto) 9.6 % Eos % (Auto) 3.3 % Baso % (Auto) 0.8 % Neut # (Auto) 4.70 (1.8-7.7) 10^3/u L Lymph # (Auto) 2.4 (0.8-4.8) 10^3/u L Barnes # (Auto) 0.8 (0.2-0.9) 10^3/u L Eos # (Auto) 0.3 (0.0-0.8) 10^3/u L Baso # (Auto) 0.1 (0.0-0.1) 10^3/u L Nucleated RBC % (a uto) 0 % Nucleated RBCs # 0.0 /100WBC Sodium 140 (136-145) mmol/L Potassium 3.2 L (3.5-5.1) mmol/L Chloride 100 (98-107) mmol/L Carbon Dioxide 27 (22-29) mmol/L Anion Gap 16.2 (5-19) BUN 32 H (8-23) mg/dL Creatinine 1.5 H (0.7-1.2) mg/dL GFR Calculation Not Reportable Glucose 51 L (65-115) mg/dL POC Glucose (70-110) mg/dL Calculated Osmolal ity 294 (285-295) mOsm/k g Calcium 8.6 (8.5-10.5) mg/dL Total Bilirubin 0.4 (0.15-1.2) mg/dL AST 23 (0-40) U/L ALT 20 (0-41) U/L Alkaline Phosphata se 62 (40-130) IU/L Troponin T Baselin e 38 H (0-15) ng/L Troponin T 120 Min [place] (0-15) ng/L Delta Troponin T (0-10) ABS# Total Protein 6.4 L (6.6-8.7) g/dL Albumin 4.2 (3.5-5.2) g/dL Globulin 2.2 (1.3-4.6) g/dL 08/13/20 08/13/20 08/13/20 Range/Units 11:20 12:05 12:35 WBC (4.0-10.0) 10^3/ uL RBC (4.1-5.3) 10^6/u L Hgb (11.7-16.6) g/dL Hct (42.0-52.0) % MCV (80-94) fL MCH (28.0-34.0) pg MCHC (30.0-36.0) g/dL RDW (12.1-15.1) % Plt Count (130-400) 10^3/c mm MPV (7.4-10.4) fL Neut % (Auto) % Lymph % (Auto) % Barnes % (Auto) % Eos % (Auto) % Baso % (Auto) % Neut # (Auto) (1.8-7.7) 10^3/u L Lymph # (Auto) (0.8-4.8) 10^3/u L Barnes # (Auto) (0.2-0.9) 10^3/u L Eos # (Auto) (0.0-0.8) 10^3/u L Baso # (Auto) (0.0-0.1) 10^3/u L Nucleated RBC % (a uto) % Nucleated RBCs # /100WBC Sodium (136-145) mmol/L Potassium (3.5-5.1) mmol/L Chloride (98-107) mmol/L Carbon Dioxide (22-29) mmol/L Anion Gap (5-19) BUN (8-23) mg/dL Creatinine (0.7-1.2) mg/dL GFR Calculation Glucose (65-115) mg/dL POC Glucose 61 L 144 H (70-110) mg/dL Calculated Osmolal ity (285-295) mOsm/k g Calcium (8.5-10.5) mg/dL Total Bilirubin (0.15-1.2) mg/dL AST (0-40) U/L ALT (0-41) U/L Alkaline Phosphata se (40-130) IU/L Troponin T Baselin e (0-15) ng/L Troponin T 120 Min [place] 33.85 H (0-15) ng/L Delta Troponin T -4.15 L (0-10) ABS# Total Protein (6.6-8.7) g/dL Albumin (3.5-5.2) g/dL Globulin (1.3-4.6) g/dL Discharge Plan Discharge Patient Disposition: Home Clinical Impression: Hypoglycemia, Diabetes mellitus, Fall Condition: Stable Prescriptions: No Action melatonin 3 mg capsule 3 mg PO BEDTIME RF: 0 Spiriva Respimat 2.5 mcg/actuation mist 2 inh INHALATION QAM RF: 0 doxazosin 8 mg tablet 8 mg PO BEDTIME RF: 0 albuterol sulfate [Proventil HFA] 90 mcg/actuation HFA aerosol inhaler 2 puff INHALATION Q6H PRN (Reason: Shortness Of Breath) RF: 0 finasteride 5 mg tablet 5 mg PO DAILY RF: 0 Novolin 70/30 U-100 Insulin 100 unit/mL (70-30) suspension 1 sliding scale dose SUBCUT QAM RF: 0 ondansetron HCl [Zofran] 4 mg tablet 4 mg PO BID PRN (Reason: nausea and vomiting) 5 Days Qty: 10 RF: 0 potassium chloride 10 mEq capsule, extended release 10 meq PO BID RF: 0 diphenhydramine-acetaminophen [Tylenol PM Extra Strength] 25-500 mg tablet 1 tab PO Q6H PRNRF: 0 diclofenac sodium 1 % gel 2 gm TOPICAL QID Qty: 100 RF: 2 tramadol 50 mg tablet 50 mg PO Q12H PRN (Reason: pain) Qty: 30 RF: 5 atenolol 100 mg tablet 100 mg PO DAILY Qty: 90 RF: 0 neomycin-polymyxin B-dexameth 3.5mg/mL-10,000 unit/mL-0.1 % drops,suspension 1 drp ophthalmic (eye) Q12H 5 Days Qty: 5 RF: 0 fluticasone propionate [Flonase Allergy Relief] 50 mcg/actuation spray,suspension 1 spray INTRANASAL BID Qty: 16 RF: 3 citalopram 40 mg tablet 20 mg PO DAILY RF: 0 furosemide [Lasix] 40 mg tablet 40 mg PO BID Qty: 180 RF: 3 omeprazole 40 mg capsule,delayed release(DR/EC) 40 mg PO DAILY Qty: 90 RF: 1 levothyroxine 25 mcg capsule 25 mcg PO DAILY RF: 0 cholecalciferol (vitamin D3) 25 mcg (1,000 unit) capsule 25 mcg PO DAILY RF: 0 clobetasol 0.05 % lotion 1 applic topical BID 14 Days Qty: 118 RF: 1 prednisone 5 mg tablet 7.5 mg PO DAILY 30 Days Qty: 45 RF: 3 Actemra 162 mg/0.9 mL syringe 162 mg SUBCUT .once a week 30 Days Qty: 4 RF: 3 Eliquis 2.5 mg tablet 2.5 mg PO BID 90 Days Qty: 180 RF: 1 lidocaine 5 % Ointment 1 applic TOPICAL DAILY PRN (Reason: Pain) RF: 0 sertraline 50 mg Tablet 50 mg PO DAILY Qty: 30 RF: 0 acetaminophen 325 mg Tablet 650 mg PO Q8H PRN (Reason: Mild/Mod Pain Or Temp >/= 101) Qty: 60 RF: 0 Discharge Orders: Discharge ED (Routine); Ordered 08/13/20 Ordered By: Florencio Baldwin Referrals: Lazaro Ogden FNP [Primary Care Provider] - Discharge Diet: Usual diet Discharge Activity: Resume usual activity Patient Instructions: Opioid Safety Activity Restrictions/Additional Instructions: Check blood sugars regularly follow-up with your primary care doc within a week. 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
[2020-08-13 10:34] LABS: Basophils # 0.1 10^3/uL (0.0-0.1); Basophils % 0.8 %; Eosinophils # 0.3 10^3/uL (0.0-0.8); Eosinophils % 3.3 %; Hematocrit 42.3 % (42.0-52.0); Hemoglobin 13.5 g/dL (11.7-16.6); Lymphocytes # 2.4 10^3/uL (0.8-4.8); Lymphocytes % 28.5 %; Mean Corpuscular HGB Conc 31.9 g/dL (30.0-36.0); Mean Corpuscular Hemoglobin 31.2 pg (28.0-34.0); Mean Corpuscular Volume 97.7 fL (80-94); Mean Platelet Volume 11.9 fL (7.4-10.4); Monocytes # 0.8 10^3/uL (0.2-0.9); Monocytes % 9.6 %; Nucleated Red Blood Cells % 0 %; Platelet Count 132 10^3/cmm (130-400); Red Blood Count 4.33 10^6/uL (4.1-5.3); Red Cell Distribution Width 14.1 % (12.1-15.1); White Blood Count 8.3 10^3/uL (4.0-10.0)
[2020-08-13] MEDS: tetanus-diphtheria tox (adult) 0.5 mL SDV IM (10:46)
[2020-08-13 10:47] LABS: Alanine Aminotransferase 20 U/L (0-41); Albumin Level 4.2 g/dL (3.5-5.2); Alkaline Phosphatase 62 IU/L (40-130); Anion Gap 16.2 (5-19); Aspartate Amino Transferase 23 U/L (0-40); Blood Urea Nitrogen 32 mg/dL (8-23); Calcium 8.6 mg/dL (8.5-10.5); Carbon Dioxide 27 mmol/L (22-29); Chloride 100 mmol/L (98-107); Globulin 2.2 g/dL (1.3-4.6); Glucose 51 mg/dL (65-115); Osmolality Calculated 294 mOsm/kg (285-295); Potassium 3.2 mmol/L (3.5-5.1); Sodium 140 mmol/L (136-145); Total Bilirubin 0.4 mg/dL (0.15-1.2); Total Protein 6.4 g/dL (6.6-8.7)
[2020-08-13 10:48] LABS: Troponin(5th) Baseline 38 ng/L (0-15)
[2020-08-13 11:24] LABS: Glucose Point of Care 61 mg/dL (70-110)
[2020-08-13 12:29] LABS: Troponin 5 2HR 33.85 ng/L (0-15); Troponin 5 2HR Delta -4.15 ABS# (0-10)
[2020-08-13 12:39] LABS: Glucose Point of Care 144 mg/dL (70-110)
== END 2020-08-13 12:44 | disposition home or self-care (01) ==
PROVIDERS: Emergency Provider Family Medicine; PCP Registered Nurse
DX: E11.649 Type 2 diabetes mellitus with hypoglycemia without coma (principal); Z79.01 Long term (current) use of anticoagulants; Z79.4 Long term (current) use of insulin; I25.10 Atherosclerotic heart disease of native coronary artery without angina pectoris; J44.9 Chronic obstructive pulmonary disease, unspecified; E78.5 Hyperlipidemia, unspecified; I10 Essential (primary) hypertension; Z87.891 Personal history of nicotine dependence; Z23 Encounter for immunization; S61.412A Laceration without foreign body of left hand, initial encounter; S61.411A Laceration without foreign body of right hand, initial encounter; W19.XXXA Unspecified fall, initial encounter
CPT/HCPCS: 36415; 36416; 70450; 71045; 72125; 73130; 80053; 82962; 84484; 85025; 90471; 90714; 93005; 99284

== ENCOUNTER → 2020-09-17 15:27 | Outpatient (BNVA) | payer MEDICARE, BC, SELFPAY | PROVIDERS: PCP Registered Nurse; Visit Provider Internal Medicine Rheumatology | DX: M05.79 Rheumatoid arthritis with rheumatoid factor of multiple sites without organ or systems involvement (principal); M15.9 Polyosteoarthritis, unspecified; Z79.899 Other long term (current) drug therapy; J90 Pleural effusion, not elsewhere classified; J44.9 Chronic obstructive pulmonary disease, unspecified; E11.22 Type 2 diabetes mellitus with diabetic chronic kidney disease; N18.9 Chronic kidney disease, unspecified; Z79.4 Long term (current) use of insulin; Z71.89 Other specified counseling; Z87.891 Personal history of nicotine dependence | CPT/HCPCS: 99214 ==

== ENCOUNTER → 2020-10-10 14:23 | Outpatient (BNVA) | payer MEDICARE, BC, SELFPAY | PROVIDERS: PCP Registered Nurse; Visit Provider Internal Medicine | DX: I50.23 Acute on chronic systolic (congestive) heart failure (principal); I48.11 Longstanding persistent atrial fibrillation; J44.9 Chronic obstructive pulmonary disease, unspecified; I73.9 Peripheral vascular disease, unspecified; E78.5 Hyperlipidemia, unspecified; E11.9 Type 2 diabetes mellitus without complications; I10 Essential (primary) hypertension; I65.29 Occlusion and stenosis of unspecified carotid artery; I25.10 Atherosclerotic heart disease of native coronary artery without angina pectoris; R06.02 Shortness of breath; J90 Pleural effusion, not elsewhere classified | CPT/HCPCS: 80048; 83880 ==

== ENCOUNTER → 2020-10-18 11:48 | Outpatient (BNVA) | payer MEDICARE, BC, SELFPAY | PROVIDERS: PCP Registered Nurse; Visit Provider Internal Medicine | DX: I73.9 Peripheral vascular disease, unspecified (principal); I50.23 Acute on chronic systolic (congestive) heart failure; I25.10 Atherosclerotic heart disease of native coronary artery without angina pectoris; I48.11 Longstanding persistent atrial fibrillation; J44.9 Chronic obstructive pulmonary disease, unspecified; E78.5 Hyperlipidemia, unspecified; E11.9 Type 2 diabetes mellitus without complications; I10 Essential (primary) hypertension | CPT/HCPCS: 80048; 83880 ==

== ENCOUNTER 2020-10-24 11:24 | Emergency (ER) | payer MEDICARE, BC, SELFPAY ==
[2020-10-24 11:25] VITALS: BP 151/52; PULSE 63; RESP 16; TEMP 36.6; O2SAT 95; BMI 32.6
--- NOTE | 2020-10-24 11:31 | XR_ITS ---
WS: [id number] Portable AP upright chest, 10/24/2020 Clinical Data: Cough Comparison: Portable chest, 08/13/2020. Findings: There is no change in the patchy right basilar opacity and right pleural effusion and thick ening. There is moderate left basilar opacity unchanged. The heart is enlarged. The aortic arch and d escending thoracic aorta show calcification and tortuosity. Permanent cardiac pacemaker remains in th e same position. XR/XR chest 1V portable [id number] Impression: 1. No change in right basilar opacity, right pleural effusion and right lateral pleural thickening. 2. No change in left pulmonary opacity and cardiomegaly. 3. No change in pacemaker and atherosclerosis.
--- NOTE | 2020-10-24 11:32 | ECG_ITS ---
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 Measurements Intervals [place] Rate: 53 P: 173 UT: 251 QRS: 270 QRSD: 189 T: 75 QT: 503 QTc: 474 Interpretive Statements ELECTRONIC VENTRICULAR PACEMAKER ABNORMAL RHYTHM ECG Compared to ECG 08/13/2020 10:40:04 No significant changes Electronically Signed On 10-25-2020 18:18:21 CDT by Keturah Sebastian M.D. [email or web address]
--- NOTE | 2020-10-24 11:32 | W.ED.GENADLT ---
HPI - General Adult General: Chief complaint: General Medical Stated complaint: INCREASING BILATERAL LOWER EXT EDEMA Time Seen by Provider: 10/24/20 11:28 History of Present Illness: HPI narrative: This patient is an 85-year-old male who presents to the emergency department complaining of shortness of breath and increased weight gain. Patient states normal weight is about 190 pounds with study weight 215. Patient states increased shortness of breath and does have oxygen at home but refuses to wear. Pulse ox upon arrival was in the mid 80s. Patient states his abdomen feels distended and he feels like his legs are heavy. Will do medical evaluation treat as needed. Patient has a long history of congestive heart failure atrial fibrillation and has had femoral stents. Due to peripheral vascular disease Onset (ago): day(s) Pain Consistency: constant Relieving factors: none Exacerbating factors: none Associated symptoms: Reports dyspnea; Deny chest pain, headache(s), nausea, rash, palpitations or vomiting Review of Systems General: Reports: 10 or more systems reviewed and unremarkable except in HPI and below Const: Denies: fever(s), chills, body aches or fatigue Eyes: Denies: change in vision or blurry vision ENMT: Denies: throat pain, hoarseness or mouth pain Card: Reports: irregular heart rhythm and edema; Denies: chest pain, palpitations, swelling of feet/ankles or lightheadedness Resp: Reports: dyspnea; Denies: productive cough, non-productive cough, wheezing or pain on inspiration GI: Denies: abdominal pain, nausea or vomiting : Denies: flank pain, dysuria, urinary frequency, urinary urgency or urinary hesitancy Musc: Denies: neck pain, back pain, extremity pain, extremity swelling, joint pain, joint swelling, joint redness, joint warmth or limited range of motion Skin/Breast: Denies: rash, pruritus, erythema or skin tenderness Neuro: Denies: headache(s), numbness in extremities or weakness in extremities Psych: Denies: anxiety or depression PFS ED PFSH: Medical History CAD (coronary artery disease) Carotid stenosis Chronic atrial fibrillation Chronic kidney disease (CKD) Chronic lumbosacral pain COPD (chronic obstructive pulmonary disease) Diabetes mellitus Dyslipidemia Essential hypertension High risk medication use High risk medication use History of malignant neoplasm of skin Immunization counseling Inflammatory arthritis Osteoarthritis (arthritis due to wear and tear of joints) Peripheral arterial disease With a history of peripheral stenting Pleural effusion Seborrheic keratosis Seropositive rheumatoid arthritis of multiple sites Sick sinus syndrome Warfarin anticoagulation Surgical History H/O cataract extraction BILATERAL H/O shoulder surgery LEFT History of endarterectomy FEMORAL Hx of cholecystectomy Status post biventricular pacemaker Family History Mother Dementia Stroke Father Stroke Other Diabetes Hypertension Social History Quit status (tobacco): has quit using tobacco Year quit tobacco: 1970 - 3PPD x 25 Years Second hand smoke exposure: No Smoking risk assessment/counseling performed?: Yes Alcohol intake: never Lives independently: Yes Household members: none Marital status: / service: Yes branch: [employer] Current occupational status: retired Pets and animals: No History of recent travel: No Current gender identity: Male Physical Exam Const: COMMON NORMALS: no acute distress, average body habitus, patient oriented x3, no limitations, healthy appearing, alert and well nourished HENMT: COMMON NORMALS: normocephalic, atraumatic, hearing grossly normal bilaterally, external ears normal, EAC's normal, TM's normal bilaterally, Normal external nose present, Normal nasal mucous membranes and turbinates present, moist oral mucous membranes, oropharynx normal, dentition normal and gingiva normal HEAD & SCALP: normocephalic and atraumatic NOSE: Normal external nose present and Normal nasal mucous membranes and turbinates present EXTERNAL EAR: Yes external ears normal EXTERNAL AUDITORY CANAL: EAC's normal TYMPANIC MEMBRANE: TM's normal bilaterally Neck/C-Spine: COMMON NORMALS: full ROM, no lymphadenopathy, supple, no meningeal signs, no JVD, Thyroid normal and No carotid bruits THYROID: Thyroid normal Chest: COMMONS NORMALS: normal inspection of the chest, normal palpation of entire chest wall, normal inspection of the breasts and normal palpation of the breasts Breast/axilla inspection: Yes normal inspection of the breasts BREAST/AXILLA PALPATION: Yes normal palpation of the breasts Resp: COMMON NORMALS: normal respiratory effort, No retractions, No use of accessory muscles, clear to auscultation bilaterally and percussion normal AUSCULTATION: clear to auscultation bilaterally PERCUSSION: percussion normal Cardio: COMMON NORMALS: no JVD, regular rate, regular rhythm, S1 normal heart sound present, S2 normal heart sound present, No gallops present (Cardio), No clicks present (Cardio), No murmurs present (Cardio), No rub (Cardio) and Peripheral pulses 2+ throughout RATE: regular rate RHYTHM: regular rhythm HEART SOUNDS: S1 normal heart sound present and S2 normal heart sound present PERIPHERAL PULSES: Peripheral pulses 2+ throughout GI: COMMON NORMALS: Normal to inspection, nondistended, normoactive bowel sounds present, Soft to palpation, non-tender, No hepatosplenomegaly present, no masses and no bruits PALPATION: Yes Soft to palpation and Yes No hepatosplenomegaly present : COMMON NORMALS: Yes no CVA tenderness BLADDER/KIDNEY EXAM: Yes no CVA tenderness Back/Pelvis: COMMON NORMALS: no CVA tenderness, thoracic and lumbar spine normal to inspection, no thoracic nor lumbar tenderness, thoraco-lumbar ROM normal and straight leg raise negative bilaterally Extremity: COMMON NORMALS: normal to inspection, full ROM, capillary refill normal, no joint enlargement and no calf tenderness NARRATIVE EXTREMITY EXAM: Bilateral lower extremity edema extending up to the abdomen. LEFT LOWER EXTREMITY: Yes lower leg (Edema bilaterally) Neuro: COMMON NORMALS: patient oriented x3 SENSORIUM/ORIENTATION: Yes alert MENINGEAL SIGNS: Yes no meningeal signs Course Reevaluation(s): Reevaluation #1: Negative evaluation in the emergency department for any acute findings chronic conditions appear to be stable. Patient's O2 sat on nasal cannula is 96%. Patient does have oxygen at home and states he does wear it when he believes he needs it. Patient is a paced rhythm heart rate in the mid 50s to 60s. This seems to be chronic and consistent with his normal settings. Patient's does not appear to be acutely fluid overloaded and appears to be at his baseline. Patient is to continue all of his home medications. Patient is to follow-up with cardiology and his primary care physician in 2 to 3 days as needed. Patient should return to the emergency department symptoms fail to improve or worsen. Patient states understanding of all instructions. Time: 15:07 Vital Signs: Vital signs: Vital Signs Temperature 97.8 F 10/24/20 11:25 Pulse Rate 51 L 10/24/20 14:04 Respiratory Rate 16 10/24/20 14:04 Blood Pressure 168/71 10/24/20 14:04 Pulse Oximetry 95 10/24/20 14:04 MDM - General Adult MDM Narrative: Medical decision making narrative: Negative evaluation in the emergency department for any acute findings chronic conditions appear to be stable. Patient's O2 sat on nasal cannula is 96%. Patient does have oxygen at home and states he does wear it when he believes he needs it. Patient is a paced rhythm heart rate in the mid 50s to 60s. This seems to be chronic and consistent with his normal settings. Patient's does not appear to be acutely fluid overloaded and appears to be at his baseline. Patient is to continue all of his home medications. Patient is to follow-up with cardiology and his primary care physician in 2 to 3 days as needed. Patient should return to the emergency department symptoms fail to improve or worsen. Patient states understanding of all instructions. Medical Records: Attestation: I reviewed the patient's medical records. Lab Data: Attestation: I reviewed the patient's lab results. Labs: Lab Results 10/24/20 10/24/20 10/24/20 Range/Units 11:00 11:00 11:00 WBC 6.2 (4.0-10.0) 10^3/ uL RBC 4.39 (4.1-5.3) 10^6/u L Hgb 14.1 (11.7-16.6) g/dL Hct 43.5 (42.0-52.0) % MCV 99.1 H (80-94) fl MCH 32.1 (28.0-34.0) pg MCHC 32.4 (30.0-36.0) g/dL RDW 13.1 (12.1-15.1) % Plt Count 126 L (130-400) 10^3/c mm MPV 12.4 H (7.4-10.4) fL Neut % (Auto) 51.6 % Lymph % (Auto) 28.2 % Walton % (Auto) 14.6 % Eos % (Auto) 4.1 % Baso % (Auto) 1.3 % Neut # (Auto) 3.19 (1.8-7.7) 10^3/u L Lymph # (Auto) 1.7 (0.8-4.8) 10^3/u L Walton # (Auto) 0.9 (0.2-0.9) 10^3/u L Eos # (Auto) 0.3 (0.0-0.8) 10^3/u L Baso # (Auto) 0.1 (0.0-0.1) 10^3/u L Nucleated RBC % (a uto) 0 % Nucleated RBCs # 0.0 /100WBC PT 14.70 (12.1-14.9) SECO NDS INR 1.11 (0.8-1.2) APTT 33.1 (23.9-36.7) SECO NDS Sodium 137 (136-145) mmol/L Potassium 4.5 (3.5-5.1) mmol/L Chloride 97 L (98-107) mmol/L Carbon Dioxide 32 H (22-29) mmol/L Anion Gap 12.5 (5-19) BUN 32 H (8-23) mg/dL Creatinine 1.8 H (0.7-1.2) mg/dL GFR Calculation Not Reportable Glucose 255 H (65-115) mg/dL Calculated Osmolal ity 300 H (285-295) mOsm/k g Calcium 9.1 (8.5-10.5) mg/dL Total Bilirubin 0.7 (0.15-1.2) mg/dL AST 21 (0-40) U/L ALT 13 (0-41) U/L Alkaline Phosphata se 89 (40-130) IU/L Troponin T Baselin e (0-15) ng/L Troponin T 120 Min [place] (0-15) ng/L Delta Troponin T (0-10) ABS# NT-Pro-B Natriuret Pep 2887 H (0-450) pg/mL Total Protein 6.2 L (6.6-8.7) g/dL Albumin 4.2 (3.5-5.2) g/dL Globulin 2.0 (1.3-4.6) g/dL Urine Color (Yellow) Urine Appearance (CLEAR) Urine pH (5-7) Ur Specific Gravit y (1.005-1.030) Urine Protein (Negative) Urine Glucose (UA) (Normal) Urine Ketones (Negative) Urine Blood (Negative) Urine Nitrate (Negative) Urine Bilirubin (Negative) Urine Urobilinogen (Negative) mg/dL Ur Leukocyte Justine ase (Negative) Urine RBC (0-2) /hpf Urine WBC (0-5) /hpf Ur Squamous Epith Cells (0-5) /hpf Amorphous Sediment Urine Bacteria (NONE) /hpf SARS-CoV-2 Ag (Rap id) (Negative) 10/24/20 10/24/20 10/24/20 Range/Units 11:00 12:15 12:15 WBC (4.0-10.0) 10^3/ uL RBC (4.1-5.3) 10^6/u L Hgb (11.7-16.6) g/dL Hct (42.0-52.0) % MCV (80-94) fl MCH (28.0-34.0) pg MCHC (30.0-36.0) g/dL RDW (12.1-15.1) % Plt Count (130-400) 10^3/c mm MPV (7.4-10.4) fL Neut % (Auto) % Lymph % (Auto) % Walton % (Auto) % Eos % (Auto) % Baso % (Auto) % Neut # (Auto) (1.8-7.7) 10^3/u L Lymph # (Auto) (0.8-4.8) 10^3/u L Walton # (Auto) (0.2-0.9) 10^3/u L Eos # (Auto) (0.0-0.8) 10^3/u L Baso # (Auto) (0.0-0.1) 10^3/u L Nucleated RBC % (a uto) % Nucleated RBCs # /100WBC PT (12.1-14.9) SECO NDS INR (0.8-1.2) APTT (23.9-36.7) SECO NDS Sodium (136-145) mmol/L Potassium (3.5-5.1) mmol/L Chloride (98-107) mmol/L Carbon Dioxide (22-29) mmol/L Anion Gap (5-19) BUN (8-23) mg/dL Creatinine (0.7-1.2) mg/dL GFR Calculation Glucose (65-115) mg/dL Calculated Osmolal ity (285-295) mOsm/k g Calcium (8.5-10.5) mg/dL Total Bilirubin (0.15-1.2) mg/dL AST (0-40) U/L ALT (0-41) U/L Alkaline Phosphata se (40-130) IU/L Troponin T Baselin e 34 H (0-15) ng/L Troponin T 120 Min [place] (0-15) ng/L Delta Troponin T (0-10) ABS# NT-Pro-B Natriuret Pep (0-450) pg/mL Total Protein (6.6-8.7) g/dL Albumin (3.5-5.2) g/dL Globulin (1.3-4.6) g/dL Urine Color Yellow (Yellow) Urine Appearance Clear (CLEAR) Urine pH 7 (5-7) Ur Specific Gravit y 1.005 (1.005-1.030) Urine Protein Neg (Negative) Urine Glucose (UA) Trace H (Normal) Urine Ketones Negative (Negative) Urine Blood 2+ H (Negative) Urine Nitrate Negative (Negative) Urine Bilirubin Neg (Negative) Urine Urobilinogen 1 H (Negative) mg/dL Ur Leukocyte Justine ase 2+ H (Negative) Urine RBC 5-10 H (0-2) /hpf Urine WBC 5-10 H (0-5) /hpf Ur Squamous Epith Cells 0-4 H (0-5) /hpf Amorphous Sediment Not Reportable Urine Bacteria Trace (NONE) /hpf SARS-CoV-2 Ag (Rap id) Negative (Negative) 10/24/20 Range/Units 14:30 WBC (4.0-10.0) 10^3/ uL RBC (4.1-5.3) 10^6/u L Hgb (11.7-16.6) g/dL Hct (42.0-52.0) % MCV (80-94) fl MCH (28.0-34.0) pg MCHC (30.0-36.0) g/dL RDW (12.1-15.1) % Plt Count (130-400) 10^3/c mm MPV (7.4-10.4) fL Neut % (Auto) % Lymph % (Auto) % Walton % (Auto) % Eos % (Auto) % Baso % (Auto) % Neut # (Auto) (1.8-7.7) 10^3/u L Lymph # (Auto) (0.8-4.8) 10^3/u L Walton # (Auto) (0.2-0.9) 10^3/u L Eos # (Auto) (0.0-0.8) 10^3/u L Baso # (Auto) (0.0-0.1) 10^3/u L Nucleated RBC % (a uto) % Nucleated RBCs # /100WBC PT (12.1-14.9) SECO NDS INR (0.8-1.2) APTT (23.9-36.7) SECO NDS Sodium (136-145) mmol/L Potassium (3.5-5.1) mmol/L Chloride (98-107) mmol/L Carbon Dioxide (22-29) mmol/L Anion Gap (5-19) BUN (8-23) mg/dL Creatinine (0.7-1.2) mg/dL GFR Calculation Glucose (65-115) mg/dL Calculated Osmolal ity (285-295) mOsm/k g Calcium (8.5-10.5) mg/dL Total Bilirubin (0.15-1.2) mg/dL AST (0-40) U/L ALT (0-41) U/L Alkaline Phosphata se (40-130) IU/L Troponin T Baselin e (0-15) ng/L Troponin T 120 Min [place] 27.67 H (0-15) ng/L Delta Troponin T -6.33 L (0-10) ABS# NT-Pro-B Natriuret Pep (0-450) pg/mL Total Protein (6.6-8.7) g/dL Albumin (3.5-5.2) g/dL Globulin (1.3-4.6) g/dL Urine Color (Yellow) Urine Appearance (CLEAR) Urine pH (5-7) Ur Specific Gravit y (1.005-1.030) Urine Protein (Negative) Urine Glucose (UA) (Normal) Urine Ketones (Negative) Urine Blood (Negative) Urine Nitrate (Negative) Urine Bilirubin (Negative) Urine Urobilinogen (Negative) mg/dL Ur Leukocyte Justine ase (Negative) Urine RBC (0-2) /hpf Urine WBC (0-5) /hpf Ur Squamous Epith Cells (0-5) /hpf Amorphous Sediment Urine Bacteria (NONE) /hpf SARS-CoV-2 Ag (Rap id) (Negative) Imaging Data^: CXR: Attestation: I personally reviewed and interpreted this imaging study as follows: Radiologist's impression: Findings: There is no change in the patchy right basilar opacity and right pleural effusion and thickening. There is moderate left basilar opacity unchanged. The heart is enlarged. The aortic arch and descending thoracic aorta show calcification and tortuosity. Permanent cardiac pacemaker remains in the same position. XR/XR chest 1V portable [id number] Impression: 1. No change in right basilar opacity, right pleural effusion and right lateral pleural thickening. 2. No change in left pulmonary opacity and cardiomegaly. 3. No change in pacemaker and atherosclerosis. EKG Data^: EKG 1: Attestation: I personally reviewed and interpreted this EKG as follows: EKG interpretation date: 10/24/20 EKG interpretation time: 12:37 Prior EKG tracings: available for review Interpretation: Ventricular paced rhythm heart rate Computer generated interpretation: Chest X-Ray 10/24/20 11:31 Impression: 1. No change in right basilar opacity, right pleural effusion and right lateral pleural thickening. 2. No change in left pulmonary opacity and cardiomegaly. 3. No change in pacemaker and atherosclerosis. EKG 2: Attestation: I personally reviewed and interpreted this EKG as follows: EKG interpretation date: 10/24/20 EKG interpretation time: 13:41 Prior EKG tracings: available for review Interpretation: Paced rhythm heart rate 53 unchanged EKG Computer generated interpretation: Chest X-Ray 10/24/20 11:31 Impression: 1. No change in right basilar opacity, right pleural effusion and right lateral pleural thickening. 2. No change in left pulmonary opacity and cardiomegaly. 3. No change in pacemaker and atherosclerosis. Discharge Plan Discharge Patient Disposition: Home Clinical Impression: CAD (coronary artery disease), Chronic kidney disease (CKD), COPD (chronic obstructive pulmonary disease), Essential hypertension, Pacemaker Condition: Stable Prescriptions: No Action Spiriva Respimat 2.5 mcg/actuation mist 2 inh INHALATION QAM RF: 0 doxazosin 8 mg tablet 8 mg PO BEDTIME RF: 0 finasteride 5 mg tablet 5 mg PO DAILY RF: 0 Novolin 70/30 U-100 Insulin 100 unit/mL (70-30) suspension See Rx Instructions .ROUTE .COMPLEX RF: 0 ondansetron HCl [Zofran] 4 mg tablet 4 mg PO BID PRN (Reason: nausea and vomiting) 5 Days Qty: 10 RF: 0 tramadol 50 mg tablet 50 mg PO Q12H PRN (Reason: pain) Qty: 30 RF: 5 citalopram 40 mg tablet 20 mg PO DAILY PRN (Reason: UNKNOWN) RF: 0 cholecalciferol (vitamin D3) 25 mcg (1,000 unit) capsule 3,000 unit PO QAM RF: 0 Eliquis 2.5 mg tablet 2.5 mg PO BID 90 Days Qty: 180 RF: 1 bumetanide 2 mg tablet 2 mg PO BID RF: 0 atenolol 100 mg tablet 50 - 100 mg PO BEDTIME RF: 0 prednisone 5 mg Tablet 7.5 mg PO DAILY RF: 0 levothyroxine 25 mcg Tablet 25 mcg PO QAM RF: 0 potassium chloride 20 mEq Tablet Extended Release 20 meq PO QAM RF: 0 metolazone 2.5 mg tablet 2.5 mg PO DAILY RF: 0 omeprazole 40 mg capsule,delayed release(DR/EC) 40 mg PO DAILY PRN (Reason: Acid Reflux) RF: 0 triamcinolone acetonide 0.1 % ointment 1 applic topical BID PRN (Reason: FLARES) RF: 0 Flonase Allergy Relief 50 mcg/actuation spray,suspension 1 spray INTRANASAL BID PRN (Reason: Allergy Symptoms) RF: 0 diclofenac sodium 1 % gel 2 gm TOPICAL QID PRN (Reason: Pain) RF: 0 Lasix 40 mg Tablet 40 mg PO BID RF: 0 Anti-Diarrheal (loperamide) 2 mg Tablet 2 mg PO PRN PRN (Reason: Diarrhea) RF: 0 Tylenol Extra Strength 500 mg Tablet 1,000 mg PO BID RF: 0 Stool Softener 100 mg Capsule 100 mg PO DAILY PRN (Reason: Constipation) RF: 0 zinc 50 mg Tablet 50 mg PO DAILY RF: 0 Lasix 20 mg Tablet 20 mg PO DAILY@12 RF: 0 Eye Drops Moisturizing 0.05-1 % Drops 1 drp ophthalmic (eye) QAM RF: 0 Crestor 20 mg Tablet 10 mg PO QPM RF: 0 Ciprofloxacino 500 mg PO PRN RF: 0 Actemra 162 mg/0.9 mL syringe 162 mg SUBCUT Q7D RF: 0 lidocaine 5 % Ointment 1 applic TOPICAL DAILY PRN (Reason: Pain) RF: 0 Discharge Orders: Discharge ED (Routine); Ordered 10/24/20 Ordered By: Simon Cerrato Referrals: Lazaro Ogden FNP [Primary Care Provider] - Discharge Diet: Cardiac and Low Salt Discharge Activity: Increase activity as tolerated Patient Instructions: Opioid Safety Activity Restrictions/Additional Instructions: Continue all home medications. Follow-up with your senior business development analyst or PCP as needed. Monitor diet closely and low-sodium diet. Take all medications as instructed including your oxygen. Return to the emergency department symptoms fail to improve or worsen. Coding Level of Care Code ED Programmer for Milton Fwrachel Exam Comprehensive
[2020-10-24 11:46] LABS: Basophils # 0.1 10^3/uL (0.0-0.1); Basophils % 1.3 %; Eosinophils # 0.3 10^3/uL (0.0-0.8); Eosinophils % 4.1 %; Hematocrit 43.5 % (42.0-52.0); Hemoglobin 14.1 g/dL (11.7-16.6); Lymphocytes # 1.7 10^3/uL (0.8-4.8); Lymphocytes % 28.2 %; Mean Corpuscular HGB Conc 32.4 g/dL (30.0-36.0); Mean Corpuscular Hemoglobin 32.1 pg (28.0-34.0); Mean Corpuscular Volume 99.1 fl (80-94); Mean Platelet Volume 12.4 fL (7.4-10.4); Monocytes # 0.9 10^3/uL (0.2-0.9); Monocytes % 14.6 %; Neutrophils # 3.19 10^3/uL (1.8-7.7); Neutrophils % 51.6 %; Nucleated Red Blood Cells % 0 %; Platelet Count 126 10^3/cmm (130-400); Red Blood Count 4.39 10^6/uL (4.1-5.3); Red Cell Distribution Width 13.1 % (12.1-15.1); White Blood Count 6.2 10^3/uL (4.0-10.0)
[2020-10-24 12:01] LABS: INR 1.11 (0.8-1.2); Partial Thromboplastin Time 33.1 SECONDS (23.9-36.7)
[2020-10-24 12:17] LABS: Troponin(5th) Baseline 34 ng/L (0-15)
[2020-10-24 12:24] VITALS: BP 158/54; PULSE 54; RESP 20; O2SAT 88
[2020-10-24 12:25] VITALS: O2SAT 93
[2020-10-24 12:25] LABS: Alanine Aminotransferase 13 U/L (0-41); Albumin Level 4.2 g/dL (3.5-5.2); Alkaline Phosphatase 89 IU/L (40-130); Anion Gap 12.5 (5-19); Aspartate Amino Transferase 21 U/L (0-40); Blood Urea Nitrogen 32 mg/dL (8-23); Calcium 9.1 mg/dL (8.5-10.5); Carbon Dioxide 32 mmol/L (22-29); Chloride 97 mmol/L (98-107); Glucose 255 mg/dL (65-115); NT Pro B Type Natriuretic Pept 2887 pg/mL (0-450); Osmolality Calculated 300 mOsm/kg (285-295); Potassium 4.5 mmol/L (3.5-5.1); Sodium 137 mmol/L (136-145); Total Bilirubin 0.7 mg/dL (0.15-1.2); Total Protein 6.2 g/dL (6.6-8.7)
[2020-10-24] MEDS: FUROsemide 10 mg/mL SDV 10mL 80 MG IVP (12:31)
[2020-10-24 12:56] LABS: SARS Covid-2 Antigen Negative (Negative)
[2020-10-24 13:22] LABS: Urine Appearance Clear (CLEAR); Urine Color Yellow (Yellow)
[2020-10-24 13:23] LABS: Add Urine Culture? Yes; Add Urine Microscopic? YES; Bacteria Urine TRACE /hpf; Bilirubin Urine Neg (Negative); Blood Urine 2+ (Negative); Glucose Urine UA Trace (Normal); Ketones Urine Negative (Negative); Leukocyte Esterase Urine 2+ (Negative); Nitrate Urine Negative (Negative); Protein Urine Neg (Negative); Specific Gravity, Urine 1.005 (1.005-1.030); Squamous Epithelial Cell Urine 0-4 /hpf (0-5); Urobilinogen Urine 1 mg/dL (Negative); pH Urine 7 (5-7)
--- NOTE | 2020-10-24 13:32 | ECG_ITS ---
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 Measurements Intervals [place] Rate: 53 P: NM: QRS: -89 QRSD: 185 T: 71 QT: 494 QTc: 467 Interpretive Statements ELECTRONIC VENTRICULAR PACEMAKER ABNORMAL RHYTHM ECG Compared to ECG 10/24/2020 12:37:51 No significant changes Electronically Signed On 10-25-2020 18:27:29 CDT by Keturah Sebastian M.D. [id number]
--- NOTE | 2020-10-24 13:49 | PC.PHAR ---
PT STATES HE TAKES CARE OF HIS OWN MEDICATIONS-PT BROUGHT IN MED BOTTLES AND STATES HE DOESNT TAKE ALL THE MEDS IN THE BOX-MA MED LIST HAS ATENOLOL 100MG PO DAILY-PT STATES SOMETIMES HE JUST TAKES 50MG HS DEPENDING ON HIS BP-PT STATES HE DOESNT THINK HE HAS STARTED TAKING BUMETANIDE YET-PTS MA MED LIST HAS 1MG BID-ON 10/18/20 RX WAS WRITTEN FOR 2MG BID-PTS CELEXA WAS WRITTEN FOR 20MG DAILY-PT STATES HE JUST TAKES PRN-PT STATES HE DCED THE FINASTERIDE STATES HE HASNT TAKEN FOR ABOUT A MONTH- MEDICATION IS ON PTS MA MED LIST-PT STATES HE IS UNSURE IF HE IS TAKING METOLAZONE RX WRITTEN ON 10/18/20- PT STATES RX WRITTEN ON 09/17/20 FOR PREDNISONE WAS DCED take 5mg daily x5 days. then alternate 5mg with 2.5mg for 6 days then 2.5 daily for 6 days then 2.5 QOD x6 days then stop PT STATES HE WAS TAKING 7.5MG DAILY BUT STATES HE HAS BEEN OFF FOR A WEEK-PT BROUGHT IN A BOTTLE OF 500MG CIPROFLOXACINO PT STATES HIS SISTER BRINGS IT TO HIM FROM [place] PT STATES HE ONLY TAKES WHEN HE NEEDS IT-PT BROUGHT IN MED BOTTLE OF PLAVIX 75MG DAILY PT STATES HE DOES NOT TAKE PLAVIX ANYMORE -MEDICATION IS ON PTS MA MED LIST -PT STATES HE USES NOVOLIN 70/30 45 UNITS QAM AND SS AT HS-PTS MA MED LIST HAS THIS MEDICATION BUT PT STATES HE IS STILL USING-MA MED LIST HAD 60 UNITS QAM AND 50 UNITS QPM
[2020-10-24 14:04] VITALS: BP 168/71; PULSE 51; RESP 16; O2SAT 95
[2020-10-24] MEDS: cefTRIAXone 1,000 MG in sodium chloride 0.9% (plus) 50 ML 100 MG IV (14:53)
[2020-10-24 15:00] LABS: Troponin 5 2HR 27.67 ng/L (0-15)
[2020-10-24 15:01] LABS: Troponin 5 2HR Delta -6.33 ABS# (0-10)
[2020-10-24 15:37] VITALS: BP 150/62; PULSE 51; RESP 16; O2SAT 95
[2020-10-24 15:42] VITALS: BP 150/62; PULSE 51; RESP 18; TEMP 36.6; O2SAT 95
== END 2020-10-24 15:48 | disposition home or self-care (01) ==
PROVIDERS: Emergency Provider Emergency Medicine; PCP Registered Nurse
DX: J44.9 Chronic obstructive pulmonary disease, unspecified (principal); I12.9 Hypertensive chronic kidney disease with stage 1 through stage 4 chronic kidney disease, or unspecified chronic kidney disease; E11.22 Type 2 diabetes mellitus with diabetic chronic kidney disease; N18.9 Chronic kidney disease, unspecified; I25.10 Atherosclerotic heart disease of native coronary artery without angina pectoris; Z95.0 Presence of cardiac pacemaker; Z79.4 Long term (current) use of insulin; Z79.01 Long term (current) use of anticoagulants; E78.5 Hyperlipidemia, unspecified; Z87.891 Personal history of nicotine dependence; Z20.822 Contact with and (suspected) exposure to COVID-19
CPT/HCPCS: 71045; 80053; 81001; 83880; 84484; 85025; 85610; 85730; 87077; 87086; 87186; 87426; 93005; 96365; 96375; 99284; J0696; J1940

== ENCOUNTER 2020-11-12 08:40 | Outpatient (CLI) | payer MEDICARE, BC, SELFPAY ==
[2020-11-12 09:27] LABS: Anion Gap 12.5 (5-19); Blood Urea Nitrogen 38 mg/dL (8-23); Calcium 8.9 mg/dL (8.5-10.5); Carbon Dioxide 37 mmol/L (22-29); Chloride 92 mmol/L (98-107); Glucose 123 mg/dL (65-115); Osmolality Calculated 296 mOsm/kg (285-295); Potassium 3.5 mmol/L (3.5-5.1); Sodium 138 mmol/L (136-145)
== END 2020-11-12 08:41 | disposition home or self-care (01) ==
LOC: LAB 08:47
PROVIDERS: PCP Registered Nurse; Visit Provider Internal Medicine Nephrology
DX: N18.32 Chronic kidney disease, stage 3b (principal)
CPT/HCPCS: 36415; 80048

== ENCOUNTER → 2021-01-01 13:36 | Outpatient (BNVA) | payer MEDICARE, BC, SELFPAY | PROVIDERS: PCP Registered Nurse; Visit Provider Internal Medicine Rheumatology | DX: M05.79 Rheumatoid arthritis with rheumatoid factor of multiple sites without organ or systems involvement (principal); Z79.899 Other long term (current) drug therapy; J90 Pleural effusion, not elsewhere classified; M19.041 Primary osteoarthritis, right hand; M19.042 Primary osteoarthritis, left hand; E11.22 Type 2 diabetes mellitus with diabetic chronic kidney disease; I12.9 Hypertensive chronic kidney disease with stage 1 through stage 4 chronic kidney disease, or unspecified chronic kidney disease; N18.9 Chronic kidney disease, unspecified; Z79.4 Long term (current) use of insulin; J44.9 Chronic obstructive pulmonary disease, unspecified; I49.5 Sick sinus syndrome; I48.20 Chronic atrial fibrillation, unspecified; I25.10 Atherosclerotic heart disease of native coronary artery without angina pectoris; Z71.89 Other specified counseling; Z87.891 Personal history of nicotine dependence | CPT/HCPCS: 99214 ==

== ENCOUNTER 2021-01-13 10:46 | Outpatient (CLI) | payer MEDICARE, BC, SELFPAY ==
--- NOTE | 2021-01-13 10:52 | XR_ITS ---
WS: [id number] FOOT RIGHT TECHNIQUE: 2 views of the right foot CLINICAL INFORMATION: punture/crush injury right foot COMPARISON: December 14, 2019 FINDINGS: Normal anatomic alignment. Pes planus. Plantar calcaneal spurring. Vascular calcification. Dorsal sof t tissue calcification or tiny bony fragments overlying the second metatarsal is new from 2019 and tano arvizu related to recent trauma with hematoma XR/XR foot RT 2V [id number] IMPRESSION: 1. Dorsal soft tissue calcification or tiny bony fragments overlying the secon d metatarsal is new from 2019 and likely related to recent trauma with hematoma . This can be followed up with CT if persistent concern 2. Otherwise no visualized acute fractures.
== END 2021-01-13 10:47 | disposition home or self-care (01) ==
PROVIDERS: PCP Registered Nurse; Visit Provider Family Medicine Adult Medicine
DX: S97.81XA Crushing injury of right foot, initial encounter (principal); X58.XXXA Exposure to other specified factors, initial encounter
CPT/HCPCS: 73620

== ENCOUNTER → 2021-05-06 10:32 | Outpatient (BNVA) | payer MEDICARE, BC, SELFPAY | PROVIDERS: PCP Registered Nurse; Visit Provider Internal Medicine Rheumatology | DX: M05.79 Rheumatoid arthritis with rheumatoid factor of multiple sites without organ or systems involvement (principal); Z79.899 Other long term (current) drug therapy; I50.23 Acute on chronic systolic (congestive) heart failure; R91.8 Other nonspecific abnormal finding of lung field; M19.041 Primary osteoarthritis, right hand; M19.042 Primary osteoarthritis, left hand; M19.012 Primary osteoarthritis, left shoulder; J44.9 Chronic obstructive pulmonary disease, unspecified; E11.22 Type 2 diabetes mellitus with diabetic chronic kidney disease; N18.9 Chronic kidney disease, unspecified; Z79.4 Long term (current) use of insulin; I48.91 Unspecified atrial fibrillation; Z79.01 Long term (current) use of anticoagulants; I25.10 Atherosclerotic heart disease of native coronary artery without angina pectoris | CPT/HCPCS: 99214 ==

== ENCOUNTER 2021-07-03 11:29 | Outpatient (CLI) | payer MEDICARE, BC, OTHER, SELFPAY ==
--- NOTE | 2021-07-03 11:38 | FL_ITS ---
WS: [id number] MODIFIED BARIUM SWALLOW TECHNIQUE: Modified barium swallow with speech therapy using multiple consistencies. FLUOROSCOPY TIME: 1min [id number] # of spot films: 0 CLINICAL INFORMATION: Other dysphagia FINDINGS: Multiple consistencies utilized. Normal oropharyngeal phase. No evidence of aspiration or penetration . No difficulties with barium tablet. No other significant findings. FL/FL barium swallow modifd [id number] IMPRESSION: Normal barium swallow.
== END 2021-07-03 11:30 | disposition home or self-care (01) ==
PROVIDERS: PCP Registered Nurse; Visit Provider Family Medicine
DX: R13.10 Dysphagia, unspecified (principal)
CPT/HCPCS: 74230; 92611

== ENCOUNTER 2021-07-19 16:24 | Emergency (ER) | payer OTHER, MEDICARE, BC, SELFPAY ==
[2021-07-19] VITALS (13 sets, daily range): BP systolic 122–186; BP diastolic 61–85; PULSE 53–72; RESP 16–24; TEMP 37.8; O2SAT 86–97
--- NOTE | 2021-07-19 17:04 | ECG_ITS ---
[facility] Test Date: 2021-07-19 Pat Name: Tae Mendez Department: Room: Gender: Male Roentgenology Teacher: : 1935 Requested By: Florencio Pepper Order Number: [id number] Nathan MD: Keturah Sebastian M.D. Measurements Intervals [place] Rate: 57 P: 258 WI: 179 QRS: -85 QRSD: 176 T: 87 QT: 484 QTc: 474 Interpretive Statements ELECTRONIC ATRIAL PACEMAKER ELECTRONIC VENTRICULAR PACEMAKER ABNORMAL RHYTHM ECG Compared to ECG 10/24/2020 13:41:01 No significant changes Electronically Signed On 07-20-2021 13:25:43 CDT by Keturah Sebastian M.D. [email or web address] centerEnefgymemorial health system marietta memorial hospitalKasp[facility]/store/OM/[id number]
--- NOTE | 2021-07-19 17:04 | XRR_ITS ---
PROCEDURE INFORMATION: Exam: XR Chest Exam date and time: 07/19/2021 5:14 PM Age: 85 years old Clinical indication: Cough and dyspnea; Prior surgery; Additional info: Dyspnea/cough TECHNIQUE: Imaging protocol: XR of the chest. Views: 1 view. COMPARISON: CR XR chest 1V portable [id number] 10/24/2020 11:45 AM FINDINGS: Lungs: Interstitial densities right lower lobe.. No consolidation. The lungs are otherwise clear Pleural spaces: Unremarkable. No pleural effusion. No pneumothorax. Heart/Mediastinum: Unremarkable. No cardiomegaly. Bones/joints: Unremarkable. Left-side scar cardiac device in good position XR/XR chest 1V portable [id number] IMPRESSION: 1. Right lower lobe interstitial densities. 2. Cardiac device left anterior chest in good position a 3. Otherwise negative examination
--- NOTE | 2021-07-19 17:32 | ED_ITS ---
Documented by User: Florencio Baldwin DO 07/23/21 11:18 HPI - SOB/Dyspnea General: Chief Complaint: Shortness of Breath/Dyspnea Stated Complaint: nausea/SOB/chest pain when coughing Time Seen by Provider: 07/19/21 17:02 Source: patient Mode of arrival: ambulatory Limitations: no limitations History of Present Illness: HPI Narrative: 85-year-old male presents emergency room complaining of shortness of breath for the last week. Started earlier this week on Wednesday he seemed to be more short of breath and then 3 days later began having a nonproductive worsening cough is gotten progressively more problem some for him. He previously was on oxygen but had not been using it regularly saw Dr. Crenshaw stopped it couple of months ago.Patient also has chronic right pleural effusion. 2017 he was admitted to the hospital for a pneumonia with a right pleural effusion. He was worked up there is no sign of any tumor. Cultures on fluid that was drawn up by thoracentesis was negative. According to the office note from apparel embroidery digitizer he was last seen there in December 2020 at that point he been rarely using oxygen and evidently it was stopped then. He is feels to be on Spiriva and ProAir although he states he has not been using them recently he denies any chest pain at this time he has had a fever at home. Is also had some congestive heart f ailure and sick sinus syndrome he has a pacer in place. He is currently on Lasix daily. MD elicited complaint: shortness of breath Pertinent past history: COPD and congestive heart failure Onset (ago): day(s) (5) Timing: constant Severity: moderate Exacerbating factors: lying flat, exertion and coughing Relieving factors: rest Known history of: COPD and congestive heart failure Associated symptoms: Reports chest congestion, cough and fever(s); Deny abdominal pain, chest pain, diaphoresis, dizziness, extremity pain, hemoptysis, lightheadedness, myalgias, nausea, orthopnea, palpitations, paresthesias, polydipsia, polyuria, rash, sense of impending doom, syncope or vomiting Treatment prior to arrival: none Review of Systems Const: Reports: fever(s), chills and body aches; Denies: diaphoresis ENMT: Denies: throat pain, ear or mastoid pain, nasal discharge or nasal congestion Card: Denies: chest pain, palpitations, lightheadedness, syncope or orthopnea Resp: Reports: dyspnea, non-productive cough, wheezing and chest congestion; Denies: productive cough or hemoptysis GI: Denies: abdominal pain, nausea or vomiting : Denies: flank pain, difficulty urinating, dysuria, urinary frequency or urinary urgency Musc: Denies: extremity pain Skin/Breast: Denies: rash or pruritus Neuro: Denies: headache(s) or dizziness Endo: Denies: polyuria or polydipsia PFSH ED PFSH: Medical History CAD (coronary artery disease) Carotid stenosis Chronic atrial fibrillation Chronic kidney disease (CKD) Chronic lumbosacral pain Chronic pain disorder COPD (chronic obstructive pulmonary disease) Crushing injury of foot, right Diabetes mellitus Dyslipidemia Essential hypertension Gastritis History of malignant neoplasm of skin Inflammatory arthritis Osteoarthritis (arthritis due to wear and tear of joints) Peripheral arterial disease With a history of peripheral stenting Pleural effusion Pneumonia Seropositive rheumatoid arthritis of multiple sites Sick sinus syndrome Surgical History H/O cataract extraction BILATERAL H/O shoulder surgery LEFT History of endarterectomy FEMORAL Hx of cholecystectomy Status post biventricular pacemaker Family History Mother Dementia Stroke Father Stroke Other Diabetes Hypertension Social History Smoking and tobacco status: never smoked Quit status (tobacco): has quit using tobacco Year quit tobacco: 1970 - 3PPD x 25 Years Second hand smoke exposure: No Smoking risk assessment/counseling performed?: Yes Alcohol intake: never Lives independently: Yes Household members: none Marital status: / service: Yes branch: [employer] Current occupational status: retired Pets and animals: No History of recent travel: No Current gender identity: Male Physical Exam Const: GENERAL APPEARANCE: cooperative and comfortable ORIENTATION/CONSCIOUSNESS: Yes awake, Yes oriented to person, Yes oriented to place and Yes oriented to time HENMT: COMMON NORMALS: normocephalic, atraumatic and hearing grossly normal bilaterally HEAD & SCALP: normocephalic and atraumatic Eye: COMMON NORMALS: Equal, round and reactive pupils present, EOMs intact bilaterally, conjunctivae normal and no scleral icterus CONJUNCTIVA: Yes conjunctivae normal PUPIL: Yes Equal, round and reactive pupils present Neck/C-Spine: COMMON NORMALS: no JVD Lymph: LYMPHATIC: no lymphadenopathy noted and no lymphedema noted Resp: COMMON NORMALS: normal respiratory effort, No retractions and No use of accessory muscles AUSCULTATION: wheezes and diminished lung sounds Cardio: COMMON NORMALS: no JVD, regular rate, regular rhythm and No murmurs present (Cardio) RATE: regular rate RHYTHM: regular rhythm GI: COMMON NORMALS: Soft to palpation and No hepatosplenomegaly present AUSCULTATION: Yes normoactive bowel sounds PALPATION: Yes Soft to palpation, No Tenderness to palpation present (GI), No Guarding due to palpation present (GI) and Yes No hepatosplenomegaly present Extremity: COMMON NORMALS: normal to inspection, capillary refill normal, no clubbing, cyanosis or edema, no calf tenderness and no pedal edema Neuro: SENSORIUM/ORIENTATION: Yes oriented to person, Yes oriented to place and Yes oriented to time Skin: COMMON NORMALS: no rashes or lesions noted GENERAL SKIN EXAM: no rashes or lesions noted Course Vital Signs: Vital signs: Vital Signs Temperature 100.1 F H 07/19/21 16:41 Pulse Rate 61 07/19/21 22:30 Respiratory Rate 21 H 07/19/21 22:30 Blood Pressure 174/77 07/19/21 22:30 Pulse Oximetry 96 07/19/21 22:30 MDM - SOB/Dyspnea Medical Decision Making Care signed out to Dr. Montero at change of shift. See final notes for diagnosis and disposition. Medical Records I reviewed the patient's medical records. Lab Data I reviewed the patient's lab results. : 07/19/21 17:10 07/19/21 17:10 Labs/Radiology: Radiology Impressions Chest X-Ray 07/19/21 17:04 IMPRESSION: 1. Right lower lobe interstitial densities. 2. Cardiac device left anterior chest in good position a 3. Otherwise negative examination Laboratory Results WBC 7.5 10^3/uL (4.0-10.0) 07/19/21 17:10 RBC 4.10 10^6/uL (4.1-5.3) 07/19/21 17:10 Hgb 12.8 g/dL (11.7-16.6) 07/19/21 17:10 Hct 40.5 % (42.0-52.0) L 07/19/21 17:10 MCV 98.8 fl (80-94) H 07/19/21 17:10 MCH 31.2 pg (28.0-34.0) 07/19/21 17:10 MCHC 31.6 g/dL (30.0-36.0) 07/19/21 17:10 RDW 14.0 % (12.1-15.1) 07/19/21 17:10 Plt Count 171 10^3/cmm (130-400) 07/19/21 17:10 MPV 10.8 fL (7.4-10.4) H 07/19/21 17:10 Neut % (Auto) 75.2 % 07/19/21 17:10 Lymph % (Auto) 7.4 % 07/19/21 17:10 Harvey % (Auto) 15.4 % 07/19/21 17:10 Eos % (Auto) 0.8 % 07/19/21 17:10 Baso % (Auto) 0.7 % 07/19/21 17:10 Neut # (Auto) 5.66 10^3/uL (1.8-7.7) 07/19/21 17:10 Lymph # (Auto) 0.6 10^3/uL (0.8-4.8) L 07/19/21 17:10 Harvey # (Auto) 1.2 10^3/uL (0.2-0.9) H 07/19/21 17:10 Eos # (Auto) 0.1 10^3/uL (0.0-0.8) 07/19/21 17:10 Baso # (Auto) 0.1 10^3/uL (0.0-0.1) 07/19/21 17:10 Nucleated RBC % (auto) 0 % 07/19/21 17:10 Nucleated RBCs # 0.0 /100WBC 07/19/21 17:10 Specimen Type Arterial 07/19/21 17:32 Sample Site Radial, left 07/19/21 17:32 ABG pH 7.44 (7.35-7.45) 07/19/21 17:32 ABG pCO2 46.8 mmHg (35-45) H 07/19/21 17:32 ABG pO2 56.2 mmHg (80.0-100.0) L 07/19/21 17:32 ABG HCO3 32.1 mmol/L (22-26) H 07/19/21 17:32 ABG O2 Saturation 90.9 07/19/21 17:32 ABG Base Excess 7.0 mmol/L (-2.0-2.0) H 07/19/21 17:32 Jair Test Pos 07/19/21 17:32 A-a O2 Gradient 4.7 mmHg (5-10) L 07/19/21 17:32 Hematocrit 38.5 % (42-52) L 07/19/21 17:32 Hgb O2 Saturation 88.7 % (95-100) L 07/19/21 17:32 Carboxyhemoglobin 1.5 %THgb (0.4-20.1) 07/19/21 17:32 Methemoglobin 1.0 % (0.4-1.5) 07/19/21 17:32 Total Hemoglobin 12.6 g/dL (14-18) L 07/19/21 17:32 Sodium 135.0 mmol/L (131-143) 07/19/21 17:32 Potassium 4.1 mmol/L (3.5-5.0) 07/19/21 17:32 Glucose 204.0 mg/dL (70-115) H 07/19/21 17:32 Ionized Calcium 1.1 mmol/L (1.1-1.4) 07/19/21 17:32 O2 Delivery Device Nc 07/19/21 17:32 O2 Liters/Min 2.0 % 07/19/21 17:32 Agile Test Lead ID David 07/19/21 17:32 Sodium 133 mmol/L (136-145) L 07/19/21 17:10 Potassium 4.1 mmol/L (3.5-5.1) 07/19/21 17:10 Chloride 90 mmol/L (98-107) L 07/19/21 17:10 Carbon Dioxide 31 mmol/L (22-29) H 07/19/21 17:10 Anion Gap 16.1 (5-19) 07/19/21 17:10 BUN 44 mg/dL (8-23) H 07/19/21 17:10 Creatinine 2.1 mg/dL (0.7-1.2) H 07/19/21 17:10 GFR Calculation Not Reportable 07/19/21 17:10 Glucose 212 mg/dL (65-115) H 07/19/21 17:10 POC Glucose 219 mg/dL (70-110) H 07/19/21 17:12 Calculated Osmolality 293 mOsm/kg (285-295) 07/19/21 17:10 Calcium 9.2 mg/dL (8.5-10.5) 07/19/21 17:10 Total Bilirubin 0.4 mg/dL (0.15-1.2) 07/19/21 17:10 AST 26 U/L (0-40) 07/19/21 17:10 ALT 19 U/L (0-41) 07/19/21 17:10 Alkaline Phosphatase 91 IU/L (40-130) 07/19/21 17:10 Troponin T Baseline 32 ng/L (0-15) H 07/19/21 17:10 Troponin T 120 Minute 32.53 ng/L (0-15) H 07/19/21 19:08 Delta Troponin T 0.53 ABS# (0-10) 07/19/21 19:08 NT-Pro-B Natriuret Pep 3482 pg/mL (0-450) H 07/19/21 17:10 Total Protein 7.6 g/dL (6.6-8.7) 07/19/21 17:10 Albumin 4.2 g/dL (3.5-5.2) 07/19/21 17:10 Globulin 3.4 g/dL (1.3-4.6) 07/19/21 17:10 Discharge Plan Discharge Patient Disposition: Home Clinical Impression: Community acquired pneumonia, Systolic CHF Condition: Stable Prescriptions: New Lasix 40 mg tablet 40 mg PO DAILY Qty: 3 0RF doxycycline hyclate 100 mg capsule 100 mg PO BID 7 Days Qty: 14 0RF No Action Spiriva Respimat 2.5 mcg/actuation mist 2 inh INHALATION QAM 0RF doxazosin 8 mg tablet 8 mg PO BEDTIME 0RF Novolin 70/30 U-100 Insulin 100 unit/mL (70-30) suspension See Rx Instructions .ROUTE .COMPLEX 0RF Rx Instructions: 45 UNITS QAM AND SLIDING SCALE AT BEDTIME ondansetron HCl [Zofran] 4 mg tablet 4 mg PO BID PRN (Reason: nausea and vomiting) 5 Days Qty: 10 0RF tramadol 50 mg tablet 50 mg PO Q12H PRN (Reason: pain) Qty: 30 1RF citalopram 40 mg tablet 20 mg PO DAILY PRN (Reason: UNKNOWN) 0RF cholecalciferol (vitamin D3) 25 mcg (1,000 unit) capsule 3,000 unit PO QAM 0RF furosemide [Lasix] 40 mg tablet 40 mg PO BID 0RF ketoconazole 2 % shampoo 1 applic topical .2 x weekly Qty: 120 3RF Rx Instructions: Lather into scalp 2 times weekly. Allow to sit on scalp for 5 minutes before rinsing. mometasone 0.1 % solution 1 applic topical DAILY Qty: 60 3RF Rx Instructions: to itchy areas on scalp prn Eliquis 2.5 mg tablet 2.5 mg PO BID 90 Days Qty: 180 1RF atenolol 100 mg tablet 50 - 100 mg PO BEDTIME 0RF Hold Instructions: Pt refuses to take at this time. levothyroxine 25 mcg Tablet 25 mcg PO QAM 0RF potassium chloride 20 mEq Tablet Extended Release 20 meq PO QAM 0RF metolazone 2.5 mg tablet 2.5 mg PO DAILY 0RF omeprazole 40 mg capsule,delayed release(DR/EC) 40 mg PO DAILY PRN (Reason: Acid Reflux) 0RF triamcinolone acetonide 0.1 % ointment 1 applic topical BID PRN (Reason: FLARES) 0RF Rx Instructions: To arm, chest, neck BID x 3 weeks then prn for flares Flonase Allergy Relief 50 mcg/actuation spray,suspension 1 spray INTRANASAL BID PRN (Reason: Allergy Symptoms) 0RF Rx Instructions: administer into each nostril diclofenac sodium 1 % gel 2 gm TOPICAL QID PRN (Reason: Pain) 0RF Rx Instructions: apply to affected area as needed Tylenol Extra Strength 500 mg Tablet 1,000 mg PO BID 0RF Stool Softener 100 mg Capsule 100 mg PO DAILY PRN (Reason: Constipation) 0RF zinc 50 mg Tablet 50 mg PO DAILY 0RF Eye Drops Moisturizing 0.05-1 % Drops 1 drp ophthalmic (eye) QAM 0RF Crestor 20 mg Tablet 10 mg PO QPM 0RF lidocaine 5 % Ointment 1 applic TOPICAL DAILY PRN (Reason: Pain) 0RF Discharge Orders: Discharge ED (Routine); Ordered 07/19/21 Ordered By: Nick Montero Other Ambulatory Orders: DME: Oxygen (ONCE) Location: None Selected Ordered By: Nick Montero Referrals: Lazaro Ogden, SALES AND CATERING COORDINATOR [Primary Care Provider] - 1-3 days Patient Instructions: Heart Failure (ED), Community Acquired Pneumonia (ED) Activity Restrictions/Additional Instructions: Use the water pill daily for the next 3 days. Antibiotics as directed. Return for continued fevers despite 2-3 doses of antibiotics, worsening shortness of breath despite treatment, any other concerning symptoms. See your doctor early next week. Coding Level of Care Code ED Supervisor Asbestos Removal for [place] Fwd Exam Comprehensive Documented by User: Nick Montero DO 07/19/21 21:40 HPI - SOB/Dyspnea General: Chief Complaint: Shortness of Breath/Dyspnea Stated Complaint: nausea/SOB/chest pain when coughing Time Seen by Provider: 07/19/21 17:02 [facility] ED PFSH: Medical History CAD (coronary artery disease) Carotid stenosis Chronic atrial fibrillation Chronic kidney disease (CKD) Chronic lumbosacral pain Chronic pain disorder COPD (chronic obstructive pulmonary disease) Crushing injury of foot, right Diabetes mellitus Dyslipidemia Essential hypertension Gastritis History of malignant neoplasm of skin Inflammatory arthritis Osteoarthritis (arthritis due to wear and tear of joints) Peripheral arterial disease With a history of peripheral stenting Pleural effusion Pneumonia Seropositive rheumatoid arthritis of multiple sites Sick sinus syndrome Surgical History H/O cataract extraction BILATERAL H/O shoulder surgery LEFT History of endarterectomy FEMORAL Hx of cholecystectomy Status post biventricular pacemaker Family History Mother Dementia Stroke Father Stroke Other Diabetes Hypertension Social History Smoking and tobacco status: never smoked Quit status (tobacco): has quit using tobacco Year quit tobacco: 1970 - 3PPD x 25 Years Second hand smoke exposure: No Smoking risk assessment/counseling performed?: Yes Alcohol intake: never Lives independently: Yes Household members: none Marital status: / service: Yes branch: [employer] Current occupational status: retired Pets and animals: No History of recent travel: No Current gender identity: Male Course Vital Signs: Vital signs: Vital Signs Temperature 100.1 F H 07/19/21 16:41 Pulse Rate 61 07/19/21 22:30 Respiratory Rate 21 H 07/19/21 22:30 Blood Pressure 174/77 07/19/21 22:30 Pulse Oximetry 96 07/19/21 22:30 MDM - SOB/Dyspnea Medical Decision Making Care signed out to Dr. Montero at change of shift. See final notes for diagnosis and disposition. 85-year-old gentleman signed out to me by Dr. Baldwin at change of shift. This gentleman came in with some shortness of breath mainly. No real chest pain. CBC shows a white blood cell count of 7.5, hemoglobin of 13. Creatinine is 2, which is near his baseline. His troponin did not elevated 2 hours. He has a mild effusion on the right in the pleural space. He has some airspace densities on the right as well. This could be pneumonia versus early fluid overload. He was treated with IV Lasix here, and is beginning to diurese some. He did pop a temperature of 100.1 here he is requiring 2 L of oxygen currently with saturations of 94%. I had a discussion t with the patient about admission versus going home. He agreed that he would like to go home, on oxygen. He qualifies via his blood gas. He will go home on doxycycline to cover pneumonia, as well 2 days of increased diuretic. Lab Data : 07/19/21 17:10 07/19/21 17:10 Labs/Radiology: Radiology Impressions Chest X-Ray 07/19/21 17:04 IMPRESSION: 1. Right lower lobe interstitial densities. 2. Cardiac device left anterior chest in good position a 3. Otherwise negative examination Laboratory Results WBC 7.5 10^3/uL (4.0-10.0) 07/19/21 17:10 RBC 4.10 10^6/uL (4.1-5.3) 07/19/21 17:10 Hgb 12.8 g/dL (11.7-16.6) 07/19/21 17:10 Hct 40.5 % (42.0-52.0) L 07/19/21 17:10 MCV 98.8 fl (80-94) H 07/19/21 17:10 MCH 31.2 pg (28.0-34.0) 07/19/21 17:10 MCHC 31.6 g/dL (30.0-36.0) 07/19/21 17:10 RDW 14.0 % (12.1-15.1) 07/19/21 17:10 Plt Count 171 10^3/cmm (130-400) 07/19/21 17:10 MPV 10.8 fL (7.4-10.4) H 07/19/21 17:10 Neut % (Auto) 75.2 % 07/19/21 17:10 Lymph % (Auto) 7.4 % 07/19/21 17:10 Harvey % (Auto) 15.4 % 07/19/21 17:10 Eos % (Auto) 0.8 % 07/19/21 17:10 Baso % (Auto) 0.7 % 07/19/21 17:10 Neut # (Auto) 5.66 10^3/uL (1.8-7.7) 07/19/21 17:10 Lymph # (Auto) 0.6 10^3/uL (0.8-4.8) L 07/19/21 17:10 Harvey # (Auto) 1.2 10^3/uL (0.2-0.9) H 07/19/21 17:10 Eos # (Auto) 0.1 10^3/uL (0.0-0.8) 07/19/21 17:10 Baso # (Auto) 0.1 10^3/uL (0.0-0.1) 07/19/21 17:10 Nucleated RBC % (auto) 0 % 07/19/21 17:10 Nucleated RBCs # 0.0 /100WBC 07/19/21 17:10 Specimen Type Arterial 05/14/22 17:32 Sample Site Radial, left 07/19/21 17:32 ABG pH 7.44 (7.35-7.45) 07/19/21 17:32 ABG pCO2 46.8 mmHg (35-45) H 07/19/21 17:32 ABG pO2 56.2 mmHg (80.0-100.0) L 07/19/21 17:32 ABG HCO3 32.1 mmol/L (22-26) H 07/19/21 17:32 ABG O2 Saturation 90.9 07/19/21 17:32 ABG Base Excess 7.0 mmol/L (-2.0-2.0) H 07/19/21 17:32 Jair Test Pos 07/19/21 17:32 A-a O2 Gradient 4.7 mmHg (5-10) L 07/19/21 17:32 Hematocrit 38.5 % (42-52) L 07/19/21 17:32 Hgb O2 Saturation 88.7 % (95-100) L 07/19/21 17:32 Carboxyhemoglobin 1.5 %THgb (0.4-20.1) 07/19/21 17:32 Methemoglobin 1.0 % (0.4-1.5) 07/19/21 17:32 Total Hemoglobin 12.6 g/dL (14-18) L 07/19/21 17:32 Sodium 135.0 mmol/L (131-143) 07/19/21 17:32 Potassium 4.1 mmol/L (3.5-5.0) 07/19/21 17:32 Glucose 204.0 mg/dL (70-115) H 07/19/21 17:32 Ionized Calcium 1.1 mmol/L (1.1-1.4) 07/19/21 17:32 O2 Delivery Device Nc 07/19/21 17:32 O2 Liters/Min 2.0 % 07/19/21 17:32 Agile Test Lead ID David 07/19/21 17:32 Sodium 133 mmol/L (136-145) L 07/19/21 17:10 Potassium 4.1 mmol/L (3.5-5.1) 07/19/21 17:10 Chloride 90 mmol/L (98-107) L 07/19/21 17:10 Carbon Dioxide 31 mmol/L (22-29) H 07/19/21 17:10 Anion Gap 16.1 (5-19) 07/19/21 17:10 BUN 44 mg/dL (8-23) H 07/19/21 17:10 Creatinine 2.1 mg/dL (0.7-1.2) H 07/19/21 17:10 GFR Calculation Not Reportable 07/19/21 17:10 Glucose 212 mg/dL (65-115) H 07/19/21 17:10 POC Glucose 219 mg/dL (70-110) H 07/19/21 17:12 Calculated Osmolality 293 mOsm/kg (285-295) 07/19/21 17:10 Calcium 9.2 mg/dL (8.5-10.5) 07/19/21 17:10 Total Bilirubin 0.4 mg/dL (0.15-1.2) 07/19/21 17:10 AST 26 U/L (0-40) 07/19/21 17:10 ALT 19 U/L (0-41) 07/19/21 17:10 Alkaline Phosphatase 91 IU/L (40-130) 07/19/21 17:10 Troponin T Baseline 32 ng/L (0-15) H 07/19/21 17:10 Troponin T 120 Minute 32.53 ng/L (0-15) H 07/19/21 19:08 Delta Troponin T 0.53 ABS# (0-10) 07/19/21 19:08 NT-Pro-B Natriuret Pep 3482 pg/mL (0-450) H 07/19/21 17:10 Total Protein 7.6 g/dL (6.6-8.7) 07/19/21 17:10 Albumin 4.2 g/dL (3.5-5.2) 07/19/21 17:10 Globulin 3.4 g/dL (1.3-4.6) 07/19/21 17:10 Discharge Plan Discharge Patient Disposition: Home Clinical Impression: Community acquired pneumonia, Systolic CHF Condition: Stable Prescriptions: New Lasix 40 mg tablet 40 mg PO DAILY Qty: 3 0RF doxycycline hyclate 100 mg capsule 100 mg PO BID 7 Days Qty: 14 0RF No Action Spiriva Respimat 2.5 mcg/actuation mist 2 inh INHALATION QAM 0RF doxazosin 8 mg tablet 8 mg PO BEDTIME 0RF Novolin 70/30 U-100 Insulin 100 unit/mL (70-30) suspension See Rx Instructions .ROUTE .COMPLEX 0RF Rx Instructions: 45 UNITS QAM AND SLIDING SCALE AT BEDTIME ondansetron HCl [Zofran] 4 mg tablet 4 mg PO BID PRN (Reason: nausea and vomiting) 5 Days Qty: 10 0RF tramadol 50 mg tablet 50 mg PO Q12H PRN (Reason: pain) Qty: 30 1RF citalopram 40 mg tablet 20 mg PO DAILY PRN (Reason: UNKNOWN) 0RF cholecalciferol (vitamin D3) 25 mcg (1,000 unit) capsule 3,000 unit PO QAM 0RF furosemide [Lasix] 40 mg tablet 40 mg PO BID 0RF ketoconazole 2 % shampoo 1 applic topical .2 x weekly Qty: 120 3RF Rx Instructions: Lather into scalp 2 times weekly. Allow to sit on scalp for 5 minutes before rinsing. mometasone 0.1 % solution 1 applic topical DAILY Qty: 60 3RF Rx Instructions: to itchy areas on scalp prn Eliquis 2.5 mg tablet 2.5 mg PO BID 90 Days Qty: 180 1RF atenolol 100 mg tablet 50 - 100 mg PO BEDTIME 0RF Hold Instructions: Pt refuses to take at this time. levothyroxine 25 mcg Tablet 25 mcg PO QAM 0RF potassium chloride 20 mEq Tablet Extended Release 20 meq PO QAM 0RF metolazone 2.5 mg tablet 2.5 mg PO DAILY 0RF omeprazole 40 mg capsule,delayed release(DR/EC) 40 mg PO DAILY PRN (Reason: Acid Reflux) 0RF triamcinolone acetonide 0.1 % ointment 1 applic topical BID PRN (Reason: FLARES) 0RF Rx Instructions: To arm, chest, neck BID x 3 weeks then prn for flares Flonase Allergy Relief 50 mcg/actuation spray,suspension 1 spray INTRANASAL BID PRN (Reason: Allergy Symptoms) 0RF Rx Instructions: administer into each nostril diclofenac sodium 1 % gel 2 gm TOPICAL QID PRN (Reason: Pain) 0RF Rx Instructions: apply to affected area as needed Tylenol Extra Strength 500 mg Tablet 1,000 mg PO BID 0RF Stool Softener 100 mg Capsule 100 mg PO DAILY PRN (Reason: Constipation) 0RF zinc 50 mg Tablet 50 mg PO DAILY 0RF Eye Drops Moisturizing 0.05-1 % Drops 1 drp ophthalmic (eye) QAM 0RF Crestor 20 mg Tablet 10 mg PO QPM 0RF lidocaine 5 % Ointment 1 applic TOPICAL DAILY PRN (Reason: Pain) 0RF Discharge Orders: Discharge ED (Routine); Ordered 07/19/21 Ordered By: Nick Montero Other Ambulatory Orders: DME: Oxygen (ONCE) Location: None Selected Ordered By: Nick Montero Referrals: Lazaro Ogden, SALES AND CATERING COORDINATOR [Primary Care Provider] - 1-3 days Patient Instructions: Heart Failure (ED), Community Acquired Pneumonia (ED) Activity Restrictions/Additional Instructions: Use the water pill daily for the next 3 days. Antibiotics as directed. Return for continued fevers despite 2-3 doses of antibiotics, worsening shortness of breath despite treatment, any other concerning symptoms. See your doctor early next week. Coding Level of Care Code ED Supervisor Asbestos Removal for [place] Fwrachel Exam Comprehensive
[2021-07-19 17:33] LABS: Basophils # 0.1 10^3/uL (0.0-0.1); Basophils % 0.7 %; Eosinophils # 0.1 10^3/uL (0.0-0.8); Eosinophils % 0.8 %; Hematocrit 40.5 % (42.0-52.0); Hemoglobin 12.8 g/dL (11.7-16.6); Lymphocytes # 0.6 10^3/uL (0.8-4.8); Lymphocytes % 7.4 %; Mean Corpuscular HGB Conc 31.6 g/dL (30.0-36.0); Mean Corpuscular Hemoglobin 31.2 pg (28.0-34.0); Mean Corpuscular Volume 98.8 fl (80-94); Mean Platelet Volume 10.8 fL (7.4-10.4); Monocytes # 1.2 10^3/uL (0.2-0.9); Monocytes % 15.4 %; Neutrophils # 5.66 10^3/uL (1.8-7.7); Neutrophils % 75.2 %; Nucleated Red Blood Cells % 0 %; Platelet Count 171 10^3/cmm (130-400); White Blood Count 7.5 10^3/uL (4.0-10.0)
[2021-07-19 17:42] LABS: ABG PCO2 46.8 mmHg (35-45); ABG PH Result 7.44 (7.35-7.45); Alveolar-Arterial Oxygen Gradi 4.7 mmHg (5-10); Arterial Blood Gas Hematocrit 38.5 % (42-52); Blood Gas Allen Test Pos; Blood Gas Sample Site Radial, left; Blood Gas Sample Type Arterial; Carboxyhemoglobin 1.5 %THgb (0.4-20.1); HCO3 ABG 32.1 mmol/L (22-26); HGB O2 Sat 88.7 % (95-100); Ionized Calcium Level - ABG 1.1 mmol/L (1.1-1.4); Oxygen Device NC; Oxygen Saturation ABG 90.9; PO2 ABG 56.2 mmHg (80.0-100.0); Potassium Level - ABG 4.1 mmol/L (3.5-5.0); Total Hemoglobin 12.6 g/dL (14-18)
[2021-07-19] MEDS: ipratropium-albuterol 3 mL Neb INHALATION (17:49)
[2021-07-19 17:50] LABS: Troponin(5th) Baseline 32 ng/L (0-15)
[2021-07-19] MEDS: ondansetron 2 mg/ML SDV 2 mL 4 MG IVP (17:55)
[2021-07-19 17:57] LABS: Alanine Aminotransferase 19 U/L (0-41); Albumin Level 4.2 g/dL (3.5-5.2); Alkaline Phosphatase 91 IU/L (40-130); Anion Gap 16.1 (5-19); Aspartate Amino Transferase 26 U/L (0-40); Blood Urea Nitrogen 44 mg/dL (8-23); Calcium 9.2 mg/dL (8.5-10.5); Carbon Dioxide 31 mmol/L (22-29); Chloride 90 mmol/L (98-107); Globulin 3.4 g/dL (1.3-4.6); Glucose 212 mg/dL (65-115); NT Pro B Type Natriuretic Pept 3482 pg/mL (0-450); Osmolality Calculated 293 mOsm/kg (285-295); Potassium 4.1 mmol/L (3.5-5.1); Sodium 133 mmol/L (136-145); Total Bilirubin 0.4 mg/dL (0.15-1.2); Total Protein 7.6 g/dL (6.6-8.7)
[2021-07-19] MEDS: FUROsemide 10 mg/mL SDV 10mL 60 MG IVP (18:44)
--- NOTE | 2021-07-19 19:04 | ECG_ITS ---
[facility] Test Date: 2021-07-19 Pat Name: Tae Mendez Department: Room: Gender: Male Room Service Food Service Attendant: : 1935 Requested By: Florencio Pepper Order Number: [id number] Nathan MD: Keturah Sebastian M.D. Measurements Intervals Elmo Rate: 53 P: 102 RI: 180 QRS: -83 QRSD: 174 T: 86 QT: 500 QTc: 472 Interpretive Statements ELECTRONIC ATRIAL PACEMAKER ELECTRONIC VENTRICULAR PACEMAKER ABNORMAL RHYTHM ECG Compared to ECG 07/19/2021 17:28:03 No significant changes Electronically Signed On 07-20-2021 13:28:54 CDT by Keturah Sebastian M.D. [id number]
[2021-07-19 19:33] LABS: Troponin 5 2HR 32.53 ng/L (0-15)
[2021-07-19 19:34] LABS: Troponin 5 2HR Delta 0.53 ABS# (0-10)
--- NOTE | 2021-07-19 20:22 | PC.NURSE ---
190 assumed pt care from Isatu KAUR
[2021-07-19] MEDS: doxycycline 100 mg Tablet PO (20:55)
[2021-07-19 23:44] LABS: Glucose Point of Care 219 mg/dL (70-110)
[2021-07-22 02:14] LABS: Bacillus cereus group Not Detected (NOT DETECT); Bacillus subtillis group Not Detected (NOT DETECT); Corynebacterium Not Detected (NOT DETECT); Cutibacterium acnes (P.acnes) Not Detected (NOT DETECT); Enterococcus Not Detected (NOT DETECT); Enterococcus faecalis Not Detected (NOT DETECT); Enterococcus faecium Not Detected (NOT DETECT); Lactobacillus species Not Detected (NOT DETECT); Listeria Not Detected (NOT DETECT); Listeria monocytogenes Not Detected (NOT DETECT); Micrococcus Not Detected (NOT DETECT); Pan Candida Not Detected (NOT DETECT); Pan Gram-Negative Not Detected (NOT DETECT); Staphylococcus epidermidis Not Detected (NOT DETECT); Staphylococcus lugdunensis Not Detected (NOT DETECT); Staphylococcus species Not Detected (NOT DETECT); Streptococcus agalactiae Not Detected (NOT DETECT); Streptococcus anginosus group Not Detected (NOT DETECT); Streptococcus pneumoniae Not Detected (NOT DETECT); Streptococcus pyogenes Not Detected (NOT DETECT); Streptococcus species Not Detected (NOT DETECT)
== END 2021-07-19 23:00 | disposition home or self-care (01) ==
PROVIDERS: Family Medicine; Emergency Provider Emergency Medicine; PCP Registered Nurse
DX: J18.9 Pneumonia, unspecified organism (principal); I13.0 Hypertensive heart and chronic kidney disease with heart failure and stage 1 through stage 4 chronic kidney disease, or unspecified chronic kidney disease; I50.20 Unspecified systolic (congestive) heart failure; N18.9 Chronic kidney disease, unspecified; E11.22 Type 2 diabetes mellitus with diabetic chronic kidney disease; I25.10 Atherosclerotic heart disease of native coronary artery without angina pectoris; I48.91 Unspecified atrial fibrillation; J44.9 Chronic obstructive pulmonary disease, unspecified; E78.5 Hyperlipidemia, unspecified; Z79.4 Long term (current) use of insulin; Z79.01 Long term (current) use of anticoagulants; Z95.0 Presence of cardiac pacemaker; Z87.891 Personal history of nicotine dependence
CPT/HCPCS: 36415; 36416; 36600; 71045; 80051; 80053; 82330; 82805; 82962; 83880; 84484; 85025; 87040; 87205; 93005; 94640; 96374; 96375; 99285; J1940; J2405; J2930

== ENCOUNTER 2021-07-19 23:27 | Emergency (ER) | payer OTHER, MEDICARE, BC, SELFPAY ==
--- NOTE | 2021-07-20 00:08 | W.ED.CPR ---
HPI - CPR General: Chief Complaint: Cardiac Arrest/CPR Stated Complaint: CPR Time Seen by Provider: 07/20/21 00:03 Source: EMS History of Present Illness: 85-year-old gentleman just discharged from the emergency department. He had been seen for some shortness of breath that had been ongoing for up to 2 weeks. He had mild hypoxia. He was found to have an elevation in his BNP that was significant, and infiltrates on chest x-ray. He was offered admission to the hospital, but had refused, wanting to go home. Home oxygen had been difficult to arrange for him, so we arranged for him to go home with an oxygen tank. Somewhere around 30 minutes after discharge, EMS brought him back into the ER, with CPR in progress. The report was there was an abandoned car with a man found down about 50 feet away. He was found to be not responding, and without a pulse. CPR was started. He arrives unresponsive, with no pulse, CPR in progress. MD complaint: found unresponsive and collapsed during activity Onset (ago): minute(s) Timing confirmed by: other Place: street Bystander CPR performed: No AED applied by bystander/armed security professional: No Initial findings in the field: unresponsive, no respirations and no pulse Known history of: pacemaker Treatments prior to arrival: chest compressions Review of Systems General: Reports: ROS unobtainable due to medical condition [facility] ED PFSH: Medical History CAD (coronary artery disease) Carotid stenosis Chronic atrial fibrillation Chronic kidney disease (CKD) Chronic lumbosacral pain Chronic pain disorder COPD (chronic obstructive pulmonary disease) Crushing injury of foot, right Diabetes mellitus Dyslipidemia Essential hypertension Gastritis History of malignant neoplasm of skin Inflammatory arthritis Osteoarthritis (arthritis due to wear and tear of joints) Peripheral arterial disease With a history of peripheral stenting Pleural effusion Pneumonia Seropositive rheumatoid arthritis of multiple sites Sick sinus syndrome Surgical History H/O cataract extraction BILATERAL H/O shoulder surgery LEFT History of endarterectomy FEMORAL Hx of cholecystectomy Status post biventricular pacemaker Family History Mother Dementia Stroke Father Stroke Other Diabetes Hypertension Social History (Reviewed 07/20/21 @ 02:28 by NAYELI Paredes Smoking and tobacco status: never smoked Quit status (tobacco): has quit using tobacco Year quit tobacco: 1970 - 3PPD x 25 Years Second hand smoke exposure: No Smoking risk assessment/counseling performed?: Yes Alcohol intake: never Lives independently: Yes Household members: none Marital status: / service: Yes branch: [employer] Current occupational status: retired Pets and animals: No History of recent travel: No Current gender identity: Male Physical Exam Const: EXAM LIMITATIONS: other limitations GENERAL APPEARANCE: Limp noted ORIENTATION/CONSCIOUSNESS: Yes Other orientation findings (Unresponsive) HENMT: COMMON NORMALS: normocephalic and Normal external nose present HEAD & SCALP: normocephalic FACE & SINUS: normal facial exam NOSE: Normal external nose present MOUTH: Normal oral and palatal mucosa present THROAT: posterior oropharynx normal Eye: PUPIL: Yes Fixed pupils Neck/C-Spine: GENERAL: Yes trachea midline Chest: CHEST: Yes Symmetrical chest wall rise (With [id number] respiration) Resp: EFFORT & INSPECTION: Yes other (No spontaneous respirations) AUSCULTATION: rhonchi Cardio: OTHER: No femoral or carotid pulses. GI: COMMON NORMALS: Soft to palpation INSPECTION: Yes abdominal distension (Mild) PALPATION: Yes Soft to palpation Neuro: [place] COMA SCALE: document GCS findings [place] coma scale eye opening: None [place] coma scale verbal response: None [place] coma scale motor response: None [place] coma scale total score: 3 Procedures Intubation Time out performed: No sedative: none Laryngoscope: Feng (4) ET Tube Size: 8 ET Tube Uncuffed: No Tube Secured Depth (cm): 24 Tube Secured Location: lips Tube Placement Confirmation: visualized tube passing through cords, equal breath sounds bilaterally and confirmation by capnometry Patient Tolerated Procedure: well and no complications Intubation Complications: none MDM - Cardiac Arrest/CPR Medical Decision Making On discharge from the ER previously, the patient looked quite good clinically. He stated that he felt better. He had adamantly refused admission to the hospital, stating he wanted to go home. Because of his mild hypoxia on room air, he was allowed home on oxygen. He presented by ambulance with CPR in progress 20-30m later. It is not known what exactly happened in the car. I spoke with his grand daughter over the phone. She had asked him to leave his car here at the ER and she would come get him. But he had refused that offer as well. Original rhythm on the monitor was PEA. IO access was obtained. and 1mg Epi given. Good CPR continued with bag valve mask respirations until definitive airway was obtained with ET tube. Next pulse check showed V fib, for which a shock was delivered. During the code he at least 4 attempts at defibrillation, 4mg epinephrine, and 450mg of amiodarone were given without successful resuscitation. Code was called at 2345. Family was counseled and allowed back to see the patient soon thereafter. Critical Care Time Critical Care Time: Critical Care Time: Yes Total Critical Care Time: 40 Attestation: This case had a high probability of a clinically significant, sudden, or life threatening deterioration of this patient's condition which required my full and direct attention, intervention and personal management. Time does not include procedures such as intubation. Discharge Plan Discharge Patient Disposition: Clinical Impression: Cardiac arrest Condition: Prescriptions: No Action Spiriva Respimat 2.5 mcg/actuation mist 2 inh INHALATION QAM 0RF doxazosin 8 mg tablet 8 mg PO BEDTIME 0RF Novolin 70/30 U-100 Insulin 100 unit/mL (70-30) suspension See Rx Instructions .ROUTE .COMPLEX 0RF Rx Instructions: 45 UNITS QAM AND SLIDING SCALE AT BEDTIME ondansetron HCl [Zofran] 4 mg tablet 4 mg PO BID PRN (Reason: nausea and vomiting) 5 Days Qty: 10 0RF tramadol 50 mg tablet 50 mg PO Q12H PRN (Reason: pain) Qty: 30 1RF citalopram 40 mg tablet 20 mg PO DAILY PRN (Reason: UNKNOWN) 0RF cholecalciferol (vitamin D3) 25 mcg (1,000 unit) capsule 3,000 unit PO QAM 0RF furosemide [Lasix] 40 mg tablet 40 mg PO BID 0RF ketoconazole 2 % shampoo 1 applic topical .2 x weekly Qty: 120 3RF Rx Instructions: Lather into scalp 2 times weekly. Allow to sit on scalp for 5 minutes before rinsing. mometasone 0.1 % solution 1 applic topical DAILY Qty: 60 3RF Rx Instructions: to itchy areas on scalp prn Eliquis 2.5 mg tablet 2.5 mg PO BID 90 Days Qty: 180 1RF atenolol 100 mg tablet 50 - 100 mg PO BEDTIME 0RF Hold Instructions: Pt refuses to take at this time. levothyroxine 25 mcg Tablet 25 mcg PO QAM 0RF potassium chloride 20 mEq Tablet Extended Release 20 meq PO QAM 0RF metolazone 2.5 mg tablet 2.5 mg PO DAILY 0RF omeprazole 40 mg capsule,delayed release(DR/EC) 40 mg PO DAILY PRN (Reason: Acid Reflux) 0RF triamcinolone acetonide 0.1 % ointment 1 applic topical BID PRN (Reason: FLARES) 0RF Rx Instructions: To arm, chest, neck BID x 3 weeks then prn for flares Flonase Allergy Relief 50 mcg/actuation spray,suspension 1 spray INTRANASAL BID PRN (Reason: Allergy Symptoms) 0RF Rx Instructions: administer into each nostril diclofenac sodium 1 % gel 2 gm TOPICAL QID PRN (Reason: Pain) 0RF Rx Instructions: apply to affected area as needed Tylenol Extra Strength 500 mg Tablet 1,000 mg PO BID 0RF Stool Softener 100 mg Capsule 100 mg PO DAILY PRN (Reason: Constipation) 0RF zinc 50 mg Tablet 50 mg PO DAILY 0RF Eye Drops Moisturizing 0.05-1 % Drops 1 drp ophthalmic (eye) QAM 0RF Crestor 20 mg Tablet 10 mg PO QPM 0RF lidocaine 5 % Ointment 1 applic TOPICAL DAILY PRN (Reason: Pain) 0RF Lasix 40 mg tablet 40 mg PO DAILY Qty: 3 0RF doxycycline hyclate 100 mg capsule 100 mg PO BID 7 Days Qty: 14 0RF Referrals: Lazaro Ogden FNP [Primary Care Provider] - Coding Level of Care Code ED [facility] Director for Chg Fwd Exam Comprehensive
--- NOTE | 2021-07-20 01:18 | PC.NURSE ---
Advisory Services Associate Cardiac Arrest Note Patient arrived to ED with CPR in progress by EMS personnel at 2326. ED staff Onofre Hampton RN took over compressions and RT staff in room took over ventilation. 2329 - Pulse check - Asystole - Compressions resumed - I/O started by VINCENT Rdz in right lower leg 2329 - 1mg Epi given I/O 2330 - 18g L A/C by VINCENT Rdz 2330 - Intubation attempted and successful by Dr. Montero. Confirmed by ETCO2 and auscultation - 24 at lip 2331 - Pulse check - Vfib - Compression switch - Shock delivered at 200J - 1mg Epi 2331 - Glucose - 408 2333 - Pulse check - Vfib - Shock delivered at 200J - compressions resumed 2334 - Bicarb given IV, 300mg Amiodarone given IV 2335 - PUlse check - Vfib - Shock delivered at 200J - compressions resumed 2336 - 1mg Epi given I/O 2338 - Pulse check - Vfib - shock delivered at 200J - compressions resumed 2340 - Pulse check - Vfib - shock delivered at 200J - compressions resumed - 150mg amiodarone given I/O 2343 - Pulse check - Asystole - 1mg Epi given I/O - compressions resumed 2345 - pulse check - asystole - TOD called by Dr. Onofre Montero.
--- NOTE | 2021-07-20 01:38 | PC.NURSE ---
[employer] Farm[employer] Body Release 0003 - [facility] CountyFounder And Chief Technical Officer, contacted by this policy writer typist, and body is released.
--- NOTE | 2021-07-20 01:39 | PC.NURSE ---
0030 - [facility] Body Release This RN spoke with [facility] - they stated that patient is not a donor and released body. Form completed by this RN.
--- NOTE | 2021-07-20 06:11 | PC.NURSE ---
[place] [facility] [place]
== END 2021-07-20 06:13 | disposition expired ==
PROVIDERS: Emergency Provider Emergency Medicine; PCP Registered Nurse
DX: I46.9 Cardiac arrest, cause unspecified (principal); R06.02 Shortness of breath; R09.02 Hypoxemia; R79.89 Other specified abnormal findings of blood chemistry
CPT/HCPCS: 99285; J0171; J0282